=== PATIENT | male | born 1955 | race Caucasian/White ===

== ENCOUNTER → 2018-07-30 07:18 | Outpatient (CLI) | payer BC, SELFPAY ==
[2018-07-30 09:13] LABS: PSA,Total- Diagnostic 3.75 ng/mL (0.0-4.0)
== END ==
PROVIDERS: Family Provider Internal Medicine; PCP Internal Medicine; Referring Provider Urology; Visit Provider Urology
DX: R97.20 Elevated prostate specific antigen [PSA] (principal)
CPT/HCPCS: 36415; 84153

== ENCOUNTER → 2020-05-20 13:14 | Outpatient (CLI) | payer BC, SELFPAY ==
--- NOTE | 2020-05-20 13:17 | CT_ITS ---
STUDY: CT ABDOMEN AND PELVIS WITH AND WITHOUT CONTRAST-CT UROGRAM REASON FOR EXAM: Male, 64 years old. Hematuria one week ago RADIATION DOSAGE (If Supplied By Facility): CTDIvol = ( 23.10 ) mGy, DLP = ( 3780.16 ) mGycm TECHNIQUE: Transaxial images were obtained from the dome of the diaphragm to the symphysis pubis with oral contrast. ml of 100mL Isovue-300 contrast was administered. Sagittal and coronal images were reconstructed. CT urogram protocol with imaging in the noncontrasted, corticomedullary and delayed phases. Individualized dose optimization techniques were used for this CT. COMPARISON: None. FINDINGS: The visualized lung bases are unremarkable. The visualized portions of the heart are within normal limits. There is decreased attenuation of the liver consistent with steatosis. Normal gallbladder and extrahepatic biliary system. Normal spleen. Normal pancreas. Normal bilateral adrenal glands. Noncontrast imaging demonstrates a punctate calcification in the posterior left mid kidney on image 38 of series 2 measuring 3 mm. following IV contrast, there is equal and normal enhancement of the kidneys without solid or cystic mass. CT urographic images demonstrate fragmentary (left) opacification of the ureters. No filling defects or ureteral masses. No bladder wall thickening or mass identified although trabeculated features of the bladder wall present, suggesting chronic outlet obstruction. Normal visualized stomach. Normal small intestine. There are multiple colonic diverticula consistent with diverticulosis. The appendix is visualized and appears normal. Normal abdominal aorta. Normal inferior vena cava. Normal retroperitoneum. There is severe enlargement of the prostate gland with lobular mass effect on the bladder base. Prostate calcifications are present. Normal abdominal wall. Right hip replacement causes moderate spray artifact. There are degenerative changes of the lumbar spine with canal narrowing at L3-L4 and L4-L5. CT/CT Abd/Pelvis W/WO Contrast IMPRESSION: 1. Nonobstructing left renal calculus. No hydronephrosis or solid renal masses. 2. Severe prostatomegaly. Trabeculated urinary bladder suggesting chronic outlet obstruction. 3. Hepatic steatosis. 4. Degenerative changes of the lumbar spine. Right hip replacement. Electronically Signed: Calvin Romero MD (Brooks) at 12:53 EDT , Service support ,
[2020-05-20 13:31] LABS: CREATININE FINGERSTICK 1.2 mg/dL (0.70-1.30); EGFR FINGERSTICK > 60.0000 mL/min (>60)
== END ==
PROVIDERS: PCP Internal Medicine; Visit Provider Nurse Practitioner Adult Health
DX: R31.0 Gross hematuria (principal)
CPT/HCPCS: 74178; Q9967

== ENCOUNTER 2021-05-10 10:23 | Day surgery (SDC) | payer BC, SELFPAY ==
--- NOTE | 2021-05-05 14:08 | EKG12_ITS ---
Test Reason : PREOP Blood Pressure : / mmHG Vent. Rate : 071 BPM Atrial Rate : 071 BPM P-R Int : 148 ms QRS Dur : 088 ms QT Int : 396 ms P-R-T Axes : 029 022 029 degrees QTc Int : 430 ms Normal sinus rhythm Normal ECG Confirmed by ODELL VASQUEZ, ARABELLA ([id number]), supervising editor news reel OSMAN CABRERA ([id number]) on 05/09/2021 7:50:49 AM Referred By: Jeremy Chinchilla Confirmed By:ARABELLA BAIN MD
[2021-05-10] VITALS (9 sets, daily range): BP systolic 102–140; BP diastolic 57–92; PULSE 60–76; RESP 16–18; TEMP 35.7–36.6; O2SAT 96–100; BMI 27.1
--- NOTE | 2021-05-10 | PROS_PTH ---
PATIENT: JORY STEPHENS [place] [facility] [place][id number] AGE/SX: 65/M ROOM: RE05/10/[address]: Dr. Jeremy Chinchilla MD : [id number] BED: DIS: 05/12/2021 SPEC #: [id number] RECD: 05/10/21 14:54 STATUS: KYRIE REGeorges #: [id number] JOVANY: 05/10/21 00:[address]: Jeremy Chinchilla DEPT: SURGICAL PATHOLOGY RECD BY: Richie Quijano ENTERED: 05/11/21 08:24 SP TYPE: TURP OTHR DR: Dr. Fabio Schumacher MD Tissues: Prostate, NOS Procedures: Surgery Specimen Level IV HEADER OPERATION: Cysto, TUR prostate, Olympus PRE-OP DIAGNOSIS: BPH with obstruction TISSUE SUBMITTED: Prostate tissue MICROSCOPIC DIAGNOSIS Prostate, transurethral resection: Benign nodular hyperplasia, glandular and stromal types. Mild chronic inflammation. Benign urothelium and squamous mucosa. AM:devon 05/12/2021 MICROSCOPIC DESCRIPTION Slides are reviewed. GROSS DESCRIPTION Received is one container labeled with the patient's name and designated prostate tissue. The specimen consists of multiple irregular fragments of pink-almaraz, rubbery, soft tissue that in aggregate weigh 42.2 gm and measure in aggregate 8 x 8 x 3 cm. Occupational Therapy Technician tissue is submitted in 10 cassettes. / SJ:devon 05/11/21 TC:3 CPT: 95899
[2021-05-10] MEDS: Lactated Ringers 1,000 ML 100 ML IV ×2 (10:45→14:48)
[2021-05-10] MEDS: Cefazolin 2 GM in 0.9% Normal Saline 100 ML IV (12:25)
--- NOTE | 2021-05-10 12:27 | PCM.HP.STD ---
HPI - General HPI Narrative JORY STEPHENS, is a 65 M who presents for TURP PFS Medical History (Updated 05/04/21 @ 11:56 by Sandrita Douglas) Alcohol use Arthritis Former smoker Gastric reflux History of diverticulitis History of stress test Hx of closed dislocation of finger Hx of closed fracture of nasal bones Hypertension Kidney stone Wears glasses Home Medications omeprazole 20 mg PO DAILY 06/13/16 [History Last Taken 05/10/21 08:00] silodosin [Rapaflo] 8 mg PO QHS 06/13/16 [History Last Taken 03/26/17 23:00] finasteride 5 mg PO QHS 01/30/17 [History Last Taken 03/26/17 23:00] losartan 25 mg PO DAILY 05/04/21 [History Last Taken 05/10/21 08:00] multivitamin 1 tab PO DAILY 05/04/21 [History Last Taken Unknown] ciprofloxacin HCl 500 mg PO BID #10 tab 05/10/21 [Rx Last Taken Unknown] ibuprofen 600 mg PO Q6H PRN #20 tab 05/10/21 [Rx Last Taken Unknown] Allergy/AdvReac Type Severity Reaction Status Date / Time aspirin AdvReac Upset Verified 05/10/21 10:52 Stomach Surgical History (Updated 05/04/21 @ 11:56 by Sandrita Douglas) Hx of hernia repair Hx of total hip arthroplasty Social History Smoking Status: Former smoker Vital Signs Vital Signs Vital Signs: 05/10/21 10:45 Temperature 97.6 F L Temperature Source Temporal Pulse Rate 66 Respiratory Rate 18 Respiratory Pattern Normal Blood Pressure 140/87 H Blood Pressure Mean 104 Blood Pressure Source Monitor Blood Pressure Position Sitting Blood Pressure Location Left Arm Pulse Ox 100 Oxygen Delivery Method Room Air Weight Weight: 98.5 kg Body Mass Index (BMI) 27.1
--- NOTE | 2021-05-10 12:27 | PCM.DC ---
Discharge Instructions Diet Discharge Diet: Light diet - advance as tolerated and Soft diet Activity Discharge Activity: May Not Drive (while taking narcotic pain medications.) May resume sexual activity in: 6-8 weeks Lifting Restrictions: no heavy lifting Dressing / Incision Call your doctor if you observe: Fever of 101 or Higher Cleanse incision/area with: Keep Dressing Clean & Dry Catheter: Gomez to leg bag and Gomez to large bag Drain: [place] Follow Up Care Please Follow Up With: Jeremy Chincihlla MD When: Call [phone] for an appointment Test Results: Test results from this visit will be discussed in further detail at your follow-up appointment, if applicable. Discharge Plan Admission Primary Reason for Your Visit: sebastien Attending Provider: Jeremy Chinchilla Primary Care Provider: Fabio Schumacher Instructions Patient Instructions: SEBASTIEN Home Recovery Discharge Orders/Prescriptions Prescriptions: New ibuprofen 600 mg tablet 600 mg PO Q6H PRN (Reason: pain) Qty: 20 RF: 0 ciprofloxacin HCl 500 mg tablet 500 mg PO BID Qty: 10 RF: 0 Continued omeprazole 20 MG capsule 20 mg PO DAILY RF: 0 silodosin [Rapaflo] 8 MG capsule 8 mg PO QHS RF: 0 finasteride 5 MG tablet 5 mg PO QHS RF: 0 losartan 25 mg tablet 25 mg PO DAILY RF: 0 multivitamin Tablet 1 tab PO DAILY RF: 0 Referrals / Follow Up: Jreemy Chinchilla MD [STAFF PHYSICIAN] - Fabio Schumacher MD [Primary Care Provider] - Disposition Disposition (needs filled in before D/C Order can be placed): Home, Self Care
--- NOTE | 2021-05-10 12:28 | OP.PCM_ITS ---
Report of Operation Date of Procedure: 05/10/21 Pre-Operative Diagnosis: bph with obstruction Post-Operative Diagnosis: same Surgery/Procedure Performed:: transurethral resection of prostate Description of Surgical Findings:: In the preoperative setting I discussed with the patient how the surgery would be done with expect afterwards. We discussed how a prostate resection is done and we discussed the risk of the surgery including, bleeding, infection, retrograde ejaculation, changes with ejaculation or intercourse,. We discussed the possibility that the resection of the prostate may not alleviate his urinary symptoms. We discussed the small risk of developing scar tissue along the urethral channel and strictures. We also discussed the chance of the prostate could grow back and he may need further surgery or treatment in the future for prostate problems. Patient was taken back to the operating room, timeout procedure was performed, he was identified and marked and placed on the operating room table. He underwent general anesthesia. He was placed in dorsolithotomy position. Penis and testicles were prepped and draped in usual sterile fashion. Went into the bladder using the visual obturator with a resectoscope. Once inside the bladder identified the right and left ureteral orifice. I then identified the prostate and the anatomy of the prostate. I marked out the area of the sphincter and the verumontanum was identified. I then proceeded with the prostate resection first resected the median lobe. And then resected the right lobe of the prostate. Then to resect the left lobe of the prostate. I then resected the apical tissue of the prostate. He had a very very large prostate with significant intravesicle tissue that was all resected. Made sure that there was no injury to the sphincter or the verumontanum was still intact. At the end of the resection all the chips were Ellik out of the bladder. I then identified the left and right ureteral orifice and these were confirmed to be in good position and effluxing and not injured. The resectoscope was removed, a 22 [place] Citizen catheter was placed. And the urine was fairly light pink color and draining normally. He was taken back to the PACU in good condition. Surgeon: jamar Drains: 20 fr cisse Admit VTE Documentation VTE Present on Admission: No VTE Mechan Device Prophylaxis: SCD's VTE Pharm Prophylaxis ordered?: No
--- NOTE | 2021-05-10 15:36 | SUR.PHASEI ---
Patient awaiting transportation to [facility] from PACU. VSS. CBI infusing.
[2021-05-10] MEDS: 0.9% Normal Saline 1,000 ML 125 ML IV (16:47)
[2021-05-10] MEDS: Finasteride 5 MG Tablet PO (21:14)
[2021-05-10] MEDS: Tamsulosin HCl 0.4 MG Capsule 0.8 MG PO (21:14)
[2021-05-11] VITALS: BP 102/47; PULSE 62; RESP 16; TEMP 36.9; O2SAT 96
[2021-05-11] MEDS: 0.9% Normal Saline 1,000 ML 125 ML IV ×3 (00:48→17:11)
[2021-05-11 05:00] VITALS: BP 104/58; PULSE 67; RESP 16; TEMP 37.1; O2SAT 97
--- NOTE | 2021-05-11 07:51 | PCM.PN.BLA ---
Progress Note Status post TURP yesterday very large prostate continue with irrigation still has bleeding too soon to take out the catheter too soon at home go home with a catheter. Hopefully tomorrow the bleeding will stop and he will go home tomorrow with a catheter will remove it for voiding trial.
[2021-05-11] MEDS: Multivitamins,Therapeutic Tablet 1 TABLET PO (08:35)
[2021-05-11 08:44] VITALS: BP 113/50; PULSE 74; RESP 16; TEMP 36.8; O2SAT 98
[2021-05-11 11:46] VITALS: BP 106/60; PULSE 72; RESP 16; TEMP 36.5; O2SAT 98
[2021-05-11] MEDS: Pantoprazole Sodium 20 MG Tablet PO (11:55)
[2021-05-11] MEDS: Losartan Potassium 25 MG Tablet PO (11:55)
[2021-05-11] MEDS: Tamsulosin HCl 0.4 MG Capsule 0.8 MG PO (17:12)
[2021-05-11 17:13] VITALS: BP 113/73; PULSE 69; RESP 16; TEMP 36.4; O2SAT 97
[2021-05-11 19:50] VITALS: BP 110/62; PULSE 79; RESP 16; TEMP 36.8; O2SAT 95
[2021-05-11] MEDS: Finasteride 5 MG Tablet PO (21:04)
[2021-05-12] MEDS: 0.9% Normal Saline 1,000 ML 125 ML IV ×2 (00:55→08:14)
[2021-05-12 02:00] VITALS: BP 105/68; PULSE 78; RESP 16; TEMP 37.1; O2SAT 96
--- NOTE | 2021-05-12 07:11 | PCM.PN.BLA ---
Progress Note Status post TURP today the urine is much more clear, remove the Gomez catheter for voiding trial and go home after he urinates.
[2021-05-12 08:03] VITALS: BP 119/87; PULSE 96; RESP 18; TEMP 36.9; O2SAT 99
[2021-05-12] MEDS: Multivitamins,Therapeutic Tablet 1 TABLET PO (08:14)
[2021-05-12] MEDS: Pantoprazole Sodium 20 MG Tablet PO (08:14)
[2021-05-12] MEDS: Losartan Potassium 25 MG Tablet PO (08:14)
[2021-05-12 11:14] VITALS: BP 134/73; PULSE 73; RESP 16; TEMP 36.8; O2SAT 99
== END 2021-05-12 11:53 | disposition home or self-care (01) ==
LOC: SDC 10:24 → AC 10:25 → MS3 05-11 15:58
PROVIDERS: PCP Internal Medicine; Referring Provider Urology; Visit Provider Urology
PROC: (CPT 52601; principal; 2021-05-10 12:20)
DX: N40.1 Benign prostatic hyperplasia with lower urinary tract symptoms (principal); N13.8 Other obstructive and reflux uropathy; Z23 Encounter for immunization; K21.9 Gastro-esophageal reflux disease without esophagitis; M19.90 Unspecified osteoarthritis, unspecified site; I10 Essential (primary) hypertension; Z87.891 Personal history of nicotine dependence; Z79.899 Other long term (current) drug therapy
CPT/HCPCS: 00914; 52601; 88305; 93005; J7030; J7120; 90686; J2405

== ENCOUNTER 2021-10-05 16:31 | Outpatient (CLI) | payer BC, SELFPAY ==
[2021-10-05 17:46] LABS: PSA,Total - Annual Screen 1.46 ng/mL (0.00-4.00)
== END 2021-10-05 23:59 | disposition home or self-care (01) ==
LOC: LAB 16:32
PROVIDERS: PCP Internal Medicine; Referring Provider Urology; Visit Provider Urology
DX: Z12.5 Encounter for screening for malignant neoplasm of prostate (principal)
CPT/HCPCS: 36415; 84153; G0103

== ENCOUNTER → 2023-11-09 | Outpatient (CLI) | payer BC, SELFPAY | END | disposition home or self-care (01) | LOC: LAB 08:32 | PROVIDERS: PCP Internal Medicine; Referring Provider Urology; Visit Provider Urology | DX: R97.20 Elevated prostate specific antigen [PSA] (principal) | CPT/HCPCS: 36415; 84153 ==

== ENCOUNTER 2025-03-07 13:10 | Emergency (ER) | payer BC, SELFPAY ==
[2025-03-07 13:10] VITALS: BP 178/100; PULSE 91; RESP 14; TEMP 36.7; O2SAT 98; BMI 28.0
--- NOTE | 2025-03-07 13:30 | EDS_ITS ---
HPI History of Present Illness Chief Complaint: Complaint Informant: patient Onset/Context/Timing Onset: Today Context: Sudden Onset Timing: Continuous Quality: Aching Location: Suprapubic Worsened by: Nothing Relieved by: Nothing Narrative Narrative: Patient presents with hematuria that began this morning. Patient states it began rather suddenly. Patient states he has been passing dark blood in his urine. Patient admits to some aching pain in the suprapubic area. Patient states nothing makes it worse and nothing makes it better. Patient denies any fevers or chills. Patient admits to some urinary frequency but denies any dysuria. Patient denies any nausea or vomiting. Patient denies any chest pain or shortness of breath. Patient states he did have sexual intercourse this morning and had no difficulties with that. [facility] Medical History (Updated 03/07/25 @ 17:[address] Lei Gabriel, ) Wears glasses Alcohol use Arthritis Kidney stone History of diverticulitis Gastric reflux Former smoker History of stress test Hypertension Hx of closed dislocation of finger Hx of closed fracture of nasal bones Home Medications ?Medication ?Instructions ?Recorded ?Last Taken ?Type omeprazole 20 mg capsule,delayed 20 mg PO DAILY 05/10/21 08:00 History release silodosin 8 mg capsule (Rapaflo) 8 mg PO QHS 06/13/16 03/26/17 23:00 History finasteride 5 mg tablet 5 mg PO QHS 01/30/17 7 23:00 History multivitamin 1 tab PO DAILY 05/04/21 Unkn own History ibuprofen 600 mg tablet 600 mg PO Q6H PRN pain #20 t abs 05/10/21 Unknown Rx allopurinol 100 mg tablet 100 mg PO DAILY 03/07/25 Unk nown History fluticasone propionate 50 spray intranasal 03/07/25 Un known History mcg/actuation nasal spray,suspension losartan 50 mg tablet 50 mg PO DAILY 03/07/25 Unkn own History Allergy/AdvReac Type Severity Reaction Status Date / Time aspirin AdvReac Upset Verified 03/07/25 13:11 Stomach Surgical History (Updated 03/07/25 @ 13:[address] Lei Gabriel, DO) Hx of transurethral resection of prostate Hx of hernia repair Hx of total hip arthroplasty Social History Smoking Status: Former smoker ROS ROS ED Constitutional Constitutional ED: Denies chills or fever(s) Eyes Eyes: Denies blurry vision or change in vision ENT ENT ED: Denies rhinorrhea or sore throat Cardiovascular Cardiovascular: Denies chest pain or palpitations Respiratory/Chest Respiratory/Chest: Denies cough or dyspnea Gastrointestinal Gastrointestinal: Denies nausea or vomiting Genitourinary Genitourinary ED: Reports hematuria and urinary frequency; Denies dysuria Musculoskeletal Musculoskeletal: Denies back pain or neck pain Integumentary Denies abscess or rash Neurologic Neurologic: Denies headache(s) or weakness Allergic/Immunologic Allergic/Immunologic ED: Denies mouth swelling or urticaria EXAM Physical Exam Const Vital Signs: 03/07/25 13:10 Temperature 98.1 F Temperature Source Temporal Pulse Rate 91 Respiratory Rate 14 Blood Pressure 178/100 H Blood Pressure Mean 126 Pulse Ox 98 Oxygen Delivery Method Room Air Positive well nourished and well developed Constitutional Narrative: BMI is 28.0. General Appearance ED: well developed and NAD HEENT Reports moist mucous membranes Neck supple and no JVD Resp normal respiratory effort and clear to auscultation bilaterally Cardio regular rate and regular rhythm GI non-tender and non-distended Palpation: soft Extremity normal to inspection General Extremety ED: Negative for edema or tenderness General Extremity: Negative for edema Neuro oriented x3, CN's II-XII intact bilaterally and no sensory deficits noted Sensorium / Orientation: alert Motor Exam: strength 5/5 throughout Psych mental status grossly normal MDM MDM MDM Narrative Medical decision making narrative: Differential diagnosis includes hemorrhagic cystitis, ureteral calculus, pyelonephritis, bladder mass, renal mass, and coagulopathy. CBC will be obtained to assess for leukocytosis and anemia. Basic metabolic profile will be obtained to assess for electrolyte abnormality renal function. Urinalysis will be obtained to assess for urinary tract infection and hematuria. PT with INR and PTT will be obtained to assess for coagulopathy. CT scan of the abdomen and pelvis will be obtained to assess for renal mass and bladder mass. Lab Data Attestation: I reviewed the patient's lab results. Lab results narrative: CBC was reviewed and was within normal limits. PT with INR and PTT were reviewed and were within normal limits. Basic metabolic profile was reviewed. BUN was slightly elevated at 20 and creatinine was slightly elevated at 1.51. The remainder is within normal limits. Urinalysis was reviewed. Occult blood was 250 with 10-25 red blood cells. There are 0-5 white blood cells. Labs: Laboratory Results - last 24 hr 03/07/25 13:40 WBC 8.5 RBC 4.54 L Hgb 13.9 Hct 41.5 MCV 91.4 MCH 30.6 MCHC 33.5 RDW Std Deviation 45.2 H RDW Coeff of [place] 13.5 Plt Count 291 MPV 9.5 Immature Gran % (Auto) 0.400 Neut % (Auto) 72.2 H Lymph % (Auto) 17.8 L [place] % (Auto) 8.5 Eos % (Auto) 0.6 Baso % (Auto) 0.5 Absolute Neuts (auto) 6.1 Absolute Lymphs (auto) 1.50 Nucleated RBC % 0 PT 13.1 INR 1.0 APTT 24.7 Sodium 142 Potassium 4.5 Chloride 108 Carbon Dioxide 22.2 Anion Gap 12 BUN 20 H Creatinine 1.51 H Estim Creat Clear Calc 58.00 Est GFR (MDRD) Non-Af 49 L BUN/Creatinine Ratio 13.0 Glucose 93 Calcium 9.1 Urine Color Brown Urine Clarity Turbid Urine pH 6.5 Ur Specific [place] 1.020 Urine Protein 500 H Urine Glucose (UA) Normal Urine Ketones 5 H Urine Occult Blood 250 H Urine Nitrite Negative Urine Bilirubin Negative Urine Urobilinogen Normal Ur Leukocyte Esterase 25 H Urine RBC 10-25 SEEN Urine WBC 0-5 SEEN Ur Squamous Epith Cells 0 SEEN Urine Bacteria 1+ Urine Mucus 0 SEEN Radiography Diagnostic Testing: Clinical Impression(s) from Imaging Studies Abdomen/Pelvis CT 03/07/25 13:58 IMPRESSION: 1. No renal mass. Subcentimeter nonobstructive left renal stone. No hydroureteronephrosis. 2. Enlarged prostate with lobular impression on the urinary bladder. 3. Diffuse hepatic steatosis. Reading Location: [facility] CT scan of the abdomen and pelvis was obtained. There is no renal mass. There is a nonobstructing left renal stone. There is no hydroureter or hydronephrosis. There is an enlarged prostate. This was interpreted by the radiologist and was also independently reviewed by myself. Treatment and Re-Evaluation :: Patient was advised of his findings. Patient states he urinated here in the emergency department 2-3 times. Patient states that his hematuria is starting to clear up. Patient was advised to follow-up with his urologist in 3 to 5 days. Patient was instructed to return if worse in any way. Patient understood and was agreeable with the plan. All questions were answered. Discharge Plan Triage Chief Complaint: Complaint ED Provider: Lei Gabriel Dx/Rx/DC Orders Clinical Impression: Hematuria, Enlarged prostate Instructions: ED Hematuria Prescriptions: No Action omeprazole 20 MG capsule 20 mg PO DAILY Patient Comments: acid reflux silodosin [Rapaflo] 8 MG capsule 8 mg PO QHS Patient Comments: Prostate finasteride 5 MG tablet 5 mg PO QHS Patient Comments: prostate multivitamin Tablet 1 tab PO DAILY ibuprofen 600 mg tablet 600 mg PO Q6H PRN (Reason: pain) Qty: 20 0RF losartan 50 mg tablet 50 mg PO DAILY allopurinol 100 mg tablet 100 mg PO DAILY fluticasone propionate 50 mcg/actuation spray,suspension INTRANASAL Primary Care Provider: Fabio Schumacher Referrals: Jeremy Chinchilla MD [Med Staff - Active Staff] - 3-5 Days Fabio Schumacher MD [Primary Care Provider] - 5-7 Days Print Language: Eritrean Disposition Disposition: Home, Self Care
--- OUTSIDE RECORDS SUMMARY | 2025-03-07 13:43 | XMS RPT_ITS | CCD ---
Author Organization [facility] Care Team Providers Care Production Tester Name Role Phone Magnolia Cruz Unavailable Unavailable Tavallaee, Faibo M Unavailable Unavailable Tavallaee, Fabio Unavailable Unavailable Tavallaee, Fabio M Unavailable Unavailable Unavailable Tavallaee, Fabio M Unavailable [phone] Edvin James Unavailable Unavailable Edvin James Attending Unavailable Tavallaee, Fabio Primary Care Unavailable Tavallaee, Fabio Admitting Unavailable Tavallaee, Fabio Referring Unavailable Tavallaee, Fabio Attending Unavailable Tavallaee, Fabio Primary Care Unavailable Tavallaee, Fabio Referring Unavailable Tavallaee, Fabio Attending Unavailable Tavallaee, Fabio Primary Care Unavailable Tavallaee Fabio VASQUEZ Primary Care Provider Tavallaee, Fabio Primary Care Unavailable Jeremy Escalante Referring Unavailable Jeremy Escalante Attending Unavailable TAVALLAEE, FABIO MONAZZAM Primary Care Unav ailable CHENCHO JULIAN Attending Unavailable TAVALLAEE, FABIO MONAZZAM Primary Care Unav ailable ASH COLLINS Attending Unavailable TAVALLAEE, FABIO MONAZZAM Primary Care Unav ailable ASH COLLINS Referring Unavailable ASH COLLINS Admitting Unavailable TAVALLAEE, FABIO M Primary Care Unavailable TAVALLAEE, FABIO Tian Primary Care Unavailable TAVALLAEE, FABIO Tian Primary Care Unavailable TAVALLAEE, FABIO Tian Primary Care Unavailable Davionallmoe Fabio VASQUEZ Primary Care Provider TAVALLMOE, FABIO M Attending Unavailable TAVALLAEE, FABIO M Primary Care Unavailable MAGNOLIA CRUZ Attending Unavailable TAVALLAEE, FABIO M Primary Care Unavailable TAVALLAEE, FABIO M Attending Unavailable TAVALLAEE, FABIO M Primary Care Unavailable TAVALLAEE, FABIO M Attending Unavailable TAVALLAEE, FABIO M Primary Care Unavailable TAVALLAEE, FABIO M Attending Unavailable TAVALLAEE, FABIO M Primary Care Unavailable TAVALLAEE, FABIO M Attending Unavailable TAVALLAEE, FABIO M Primary Care Unavailable TAVALLAEE, FABIO M Attending Unavailable TAVALLAEE, FABIO M Primary Care Unavailable TAVALLAEE, FABIO M Primary Care Unavailable EDVIN JAMES Attending Unavailable TAVALLAEE, FABIO M Primary Care Unavailable GERARDO ALCANTARA Attending Unavailable TAVALLAEE, FABIO M Primary Care Unavailable EDVIN JAMES Attending Unavailable TAVALLAEE, FABIO M Primary Care Unavailable EDVIN JAMES Attending Unavailable EDVIN JAMES Referring Unavailable TAVALLAEE, FABIO M Primary Care Unavailable TAVALLAEE, FABIO M Referring Unavailable TAVALLAEE, FABIO M Primary Care Unavailable Allergies Allergy Classification Reported Allergen(s) Allergy Type Date of Onset Reaction(s) Facility (7 sources) Aspirin; Translations: [ASPIRIN] Drug Allergy 05-10-[address] [facility] (1 source) Aspirin Drug Allergy 05-10-[address] [facility] Repository Medications Current Medications Medication Drug Class(es) Dates Sig (Normalized) Sig (Original) acetaminophen 325 mg / oxyCODONE hydrochloride 5 mg oral tablet (1 source) Opioid Agonist Start: 12-07-2023 End: 12-10-2023 take 1 tablet by mouth every six hours for pain oxyCODONE-acetamin ophen (Percocet) 5-325 mg tablet Indications: Acute gout of left foot, unspecified cause Take 1 tablet by mouth every 6 hours if needed for severe pain (7 - 10) for up to 3 days. 12 tablet 12/07/2023 12/10/2023 Active [id number] 200 actuat albuterol 0.09 mg/actuat metered dose inhaler (8 sources) beta2-Adrenergic Agonist Start: 01-11-2024 take 1-2 puff(s) by inhalation every four hours for wheezing albuterol 90 mcg/actuation inhaler Indications: Acute bronchitis, unspecified organism Inhale 1-2 puffs every 4 hours if needed for wheezing or shortness of breath. 8.5 g 01/11/2024 Active allopurinol 100 mg oral tablet (3 sources) Xanthine Oxidase Inhibitor Start: 04-27-2024 End: 04-27-2025 take 1 tablet by mouth once daily allopurinol (Zyloprim) 100 mg tablet Indications: Hyperuricemia Take 1 tablet (100 mg) by mouth once daily. 90 tablet 3 04/27/2024 04/27/2025 Active azithromycin 250 mg oral tablet (5 sources) Macrolide Antimicrobial Start: 01-11-2024 End: 03-25-2024 azithromycin (Zithromax Z-Clint) 250 mg tablet Indications: Acute bronchitis, unspecified organism Take 2 tablets by mouth at once on day 1, then 1 tablet once a day on days 2-5. Take with a meal. 6 tablet 01/11/2024 03/25/2024 Discontinued (Therapy completed) benzonatate 100 mg oral capsule (5 sources) Non-narcotic Antitussive Start: 01-11-2024 End: 03-25-2024 take 1-2 capsules by mouth every eight hours for cough benzonatate (Tessalon) 100 mg capsule Indications: Acute bronchitis, unspecified organism Take 1-2 capsules (100-200 mg) by mouth every 8 hours if needed for cough. Do not crush or chew. 60 capsule 01/11/2024 03/25/2024 Discontinued (Therapy completed) ciprofloxacin 500 mg oral tablet (2 sources) Quinolone Antimicrobial Start: 05-10-2021 take 500 mg by mouth twice daily Ciprofloxacin Hcl Active 500 MG PO TWICE A DAY May 10, 2021 12:24pm 1 ml dexamethasone phosphate 4 mg/ml injection (1 source) Corticosteroid Start: 03-18-2024 dexAMETHasone (Decadron) injection 4 mg Start: 03-18-2024 dexAMETHasone (Decadron) injection 4 mg diclofenac sodium 0.01 mg/mg topical gel (1 source) Nonsteroidal Anti-inflammatory Drug Start: 05-22-2023 End: 06-21-2023 diclofenac sodium (Voltaren) 1 % gel gel Indications: Primary osteoarthritis of both wrists Apply 1 Application topically 2 times a day as needed (pain). 100 g 0 05/22/2023 06/21/2023 Active doxycycline monohydrate 100 mg oral tablet (2 sources) Tetracycline-class Drug Start: 01-17-2024 End: 01-27-2024 take 1 tablet by mouth twice daily doxycycline (Adoxa) 100 mg tablet Indications: Acute bronchitis, unspecified organism Take 1 tablet (100 mg) by mouth 2 times a day for 10 days. Take with a full glass of water and do not lie down for at least 30 minutes after. 20 tablet 01/17/2024 01/27/2024 Active Start: 11-17-2023 End: 11-27-2023 take 1 tablet by mouth twice daily doxycycline (Vibra-Tabs) 100 mg tablet Take 1 tablet (100 mg) by mouth twice a day. 11/17/2023 11/27/2023 Active etodolac 500 mg oral tablet (3 sources) Nonsteroidal Anti-inflammatory Drug Start: 03-18-2024 End: 03-25-2024 take 1 tablet by mouth twice daily as needed for pain etodolac (Lodine) 500 mg tablet Indications: Right foot pain , Gouty arthritis Take 1 tablet (500 mg) by mouth 2 times a day as needed (pain) for up to 7 days. 14 tablet 03/18/2024 03/25/2024 Active fluticasone propionate 0.05 mg/actuat metered dose nasal spray (20 sources) Corticosteroid Start: 04-02-2024 take 2 spray(s) nasal route once daily fluticasone (Flonase) 50 mcg/actuation nasal spray Indications: Allergic rhinitis, unspecified seasonality, unspecified trigger USE 2 SPRAYS IN EACH NOSTRIL ONCE DAILY 48 g 3 04/02/2024 Active Start: 04-08-2023 take 2 spray(s) nasa l route once daily fluticasone (Flonase) 50 mcg/actuation nasal spray Indications: Allergic rhinitis, unspecified seasonality, unspecified trigger USE 2 SPRAYS IN EACH NOSTRIL ONCE DAILY 48 g 3 04/08/2023 Active Start: 05-29-2021 take 2 spray(s) nasa l route once daily Flonase Allergy Relief 50 mcg/actuation nasal spray Administer 2 sprays into affected nostril(s) once daily. 0 05/29/2021 Active Start: 05-29-2021 take 2 spray(s) nasa l route once daily Flonase Allergy Relief 50 MCG/ACT Nasal Suspension USE 2 SPRAYS IN EACH NOSTRIL ONCE DAILY Quantity: 3 Refills: 3 Ordered: 16-Apr-2022 Fabio Grace MD Start : 29-May-2021 Active Flonase Quantity : 0 Refills: 0 Ordered: 15-Jun-2022 Hayley Jade Generic Substitution Allowed ibuprofen 600 mg oral tablet (2 sources) Nonsteroidal Anti-inflammatory Drug Start: 05-10-2021 take 600 mg by mouth every six hours Ibuprofen Active 600 MG PO EVERY 6 HOURS May 10, 2021 12:24pm losartan potassium 50 mg oral tablet (20 sources) Angiotensin 2 Receptor Grayson Start: 09-23-2024 losartan (Cozaar) 50 mg tablet Indications: Hypercholesterolemia TAKE 1 TABLET DAILY 90 tablet 3 09/23/2024 Active Start: 09-29-2023 losartan (Coza ar) 50 mg tablet Indications: Hypercholesterolemia TAKE 1 TABLET DAILY 90 tablet 3 09/29/2023 Active Start: 11-14-2020 take 25 mg by mouth once daily Losartan Active 25 MG PO DAILY May 04, 2021 12:00am Start: 11-14-2020 take 1 tablet by jose th once daily losartan (Cozaar) 50 mg tablet Take 1 tablet (50 mg) by mouth once daily. 0 11/14/2020 Active losartan Quantit y: 0 Refills: 0 Ordered: 15-Jun-2022 Hayley Jade Generic Substitution Allowed Multivitamin preparation (2 sources) Start: 05-04-2021 take 1 tablet by mouth once daily Multivitamin Active 1 TABLET PO DAILY May 04, 2021 11:49am Start: 05-04-2021 take 1 tablet by jose th once daily Multivitamin Active 1 TABLET PO DAILY May 04, 2021 12:00am omeprazole 20 mg delayed release oral capsule (20 sources) Proton Pump Inhibitor Start: 04-09-2024 omeprazole (PriLOSEC ) [address] capsule Indications: Gastroesophageal reflux disease without esophagitis TAKE 1 CAPSULE DAILY IN THE MORNING BEFORE A MEAL 90 capsule 3 04/09/2024 Active Start: 06-13-2016 take 1 capsule by mo [facility] once daily before mealtime omeprazole (PriLOSEC) [address] capsule Indications: Gastroesophageal reflux disease without esophagitis Take 1 capsule (20 mg) by mouth once daily in the morning. Take before meals. 90 capsule 3 04/15/2023 Active omeprazole Quant ity: 0 Refills: 0 Ordered: 15-Jun-2022 Hayley Jade Generic Substitution Allowed terbinafine 250 mg oral tablet (3 sources) Allylamine Antifungal Start: 10-26-2024 End: 01-24-2025 take 1 tablet by mouth once daily terbinafine (LamISIL) 250 mg tablet Indications: Onychomycosis Take 1 tablet (250 mg) by mouth once daily. 90 tablet 10/26/2024 01/24/2025 Active Completed/Discontinued Medications Medication Drug Class(es) Dates Sig (Normalized) Sig (Original) amoxicillin 500 mg oral tablet (1 source) Penicillin-class Antibacterial Start: 06-04-2019 take 1 tablet by mouth once daily Amoxicillin 500 MG Oral Tablet TAKE 1 TABLET EVERY 8 HOURS DAILY. Quantity: 21 Refills: 0 Magnolia Cruz MD Start : 04-Jun-2019 Active Start: 06-04-2019 take 1 tablet by jose once daily Amoxicillin 500 MG Oral Tablet TAKE 1 TABLET EVERY 8 HOURS DAILY. Quantity: 21 Refills: 0 Magnolia Cruz MD Start : 04-Jun-2019 Active amoxicillin 875 mg / clavulanate 125 mg oral tablet (2 sources) Penicillin-class Antibacterial Start: 06-29-2021 take 1 tablet by mouth twice daily Amoxicillin-Pot Clavulanate 875-125 MG Oral Tablet 1 tab bid for 10 days Quantity: 20 Refills: 0 Ordered: 29-Jun-2021 Natasha Murphy Start : 29-Jun-2021 Active carbamide peroxide 65 mg/ml otic solution (2 sources) Start: 11-14-2020 End: 01-25-2021 Debrox 6.5 % Otic Solution READ AND FOLLOW BUDGET SPECIALIST'S INSTRUCTIONS ON BOX. Quantity: 1 Refills: 1 Ordered: 14-Nov-2020 Hemant NICOLE Nida Start : 14-Nov-2020 End : 25-Jan-2021 Complete colchicine 0.6 mg oral tablet (2 sources) Start: 12-17-2023 End: 12-25-2023 take 1 tablet by mouth twice daily colchicine 0.6 mg tablet Indications: Acute gout of left foot, unspecified cause Take 1 tablet (0.6 mg) by mouth 2 times a day for 7 days. 14 tablet 12/17/2023 12/25/2023 Discontinued (Therapy completed) finasteride 5 mg oral tablet (18 sources) 5-alpha Reductase Inhibitor Start: 01-30-2017 take 1 tablet by mouth once daily Finasteride 5 MG Oral Tablet TAKE 1 TABLET DAILY. Quantity: 0 Refills: 0 Ordered: 21-Apr-2019 DO Start : 02-Mar-2019 Active lisinopril 5 mg oral tablet (6 sources) Angiotensin Converting Enzyme Inhibitor Start: 12-08-2018 take 1 tablet by mouth once daily Lisinopril 5 MG Oral Tablet TAKE 1 TABLET DAILY. Quantity: 30 Refills: 5 Start : 08-Dec-2018 Active lisinopril Quant ity: 0 Refills: 0 Ordered: 15-Jun-2022 Hayley Jade Generic Substitution Allowed methylPREDNISolone (2 sources) Corticosteroid Start: 12-17-2023 End: 12-25-2023 methylPREDNISolone (Medrol Dospak) 4 mg tablets Indications: Acute gout of left foot, unspecified cause , Left foot pain Follow schedule on package instructions 21 tablet 12/17/2023 12/25/2023 Discontinued (Therapy completed) Start: 12-17-2023 methylPREDNISo lone (Medrol Dospak) 4 mg tablets Indications: Acute gout of left foot, unspecified cause , Left foot pain Follow schedule on package instructions 21 tablet 12/17/2023 Active naproxen 500 mg oral tablet (2 sources) Nonsteroidal Anti-inflammatory Drug Start: 12-17-2023 End: 12-25-2023 take 1 tablet by mouth twice daily as needed for pain naproxen (Naprosyn) 500 mg tablet Indications: Acute gout of left foot, unspecified cause Take 1 tablet (500 mg) by mouth 2 times a day as needed for mild pain (1 - 3) (pain) for up to 5 days. 10 tablet 12/17/2023 12/25/2023 Discontinued (Therapy completed) predniSONE 10 mg oral tablet (14 sources) Start: 01-11-2024 End: 10-26-2024 take 6 tablets by mouth once daily, then take 5 tablets by mouth once daily, then take 4 tablets by mouth once daily, then take 3 tablets by mouth once daily, then take 2 tablets by mouth once daily, then take 1 tablet by mouth once daily predniSONE (Deltasone) 10 mg tablet Indications: Acute bronchitis, unspecified organism Take 6 tabs PO daily x1 day, then take 5 tabs daily x1 day, then take 4 tabs daily x1 day, then take 3 tabs daily x1 day, then take 2 tabs daily x1 day, then take 1 tab daily x1 day. Take with a meal. 21 tablet 01/17/2024 10/26/2024 Discontinued (Therapy completed) Start: 12-07-2023 End: 12-17-2023 take 1 tablet by mouth once daily predniSONE (Deltasone) 50 mg tablet Indications: Acute gout of left foot, unspecified cause Take 1 tablet (50 mg) by mouth once daily for 7 days. 7 tablet 12/07/2023 12/17/2023 Discontinued (Therapy completed) Start: 07-29-2019 take 1 tablet by jose th three times daily predniSONE 10 MG Oral Tablet TAKE 1 TABLET 3 TIMES DAILY. Quantity: 15 Refills: 0 Winsome VASQUEZ, Fabio Start : 29-Jul-2019 Active sildenafil 20 mg oral tablet (20 sources) Phosphodiesterase 5 Inhibitor Start: 07-31-2018 Sildenafil Citrate 20 MG Oral Tablet TAKE 3 TABLETS BY MOUTH NEEDED Quantity: 30 Refills: 0 Ordered: 03-Jun-2019 DO Start : 31-Jul-2018 Active silodosin 8 mg oral capsule (18 sources) alpha-Adrenergic Grayson Start: 06-13-2016 take 1 capsule by mouth once daily at mealtime Rapaflo 8 MG Oral Capsule TAKE 1 CAPSULE DAILY WITH FOOD. Quantity: 0 Refills: 0 Ordered: 02-Mar-2019 DO Start : 02-Mar-2019 Active Problems Active Problems Problem Classification Problem Date Documented Da te Episodic/Chronic Abdominal hernia (19 sources) Diaphragmatic hernia; Translations: [Diaphragmatic hernia without mention of obstruction or gangrene] Episodic Acute and chronic tonsillitis (20 sources) Enlarged tonsil; Translations: [Hypertrophy of tonsils alone] Onset: 3 10-05-2022 Chronic Diabetes mellitus with complications (20 sources) Hypertensive disorder; Translations: [Type 2 diabetes mellitus with other circulatory complications] Onset: 3 12-17-2023 Chronic Diabetes mellitus without complication (20 sources) Type 2 diabetes mellitus; Translations: [Diabetes mellitus without mention of complication, type II or unspecified type, not stated as uncontrolled] Onset: 3 11-21-2022 Chronic Diabetes mellitus without complication (5 sources) Impaired fasting glycaemia; Translations: [IFG (impaired fasting glucose)] Episodic Disorders of lipid metabolism (20 sources) Hypercholesterolemia; Translations: [Pure hypercholesterolemia] Onset: 3 11-21-2022 Chronic Diverticulosis and diverticulitis (20 sources) Diverticulosis of colon; Translations: [Diverticulosis of colon (without mention of hemorrhage)] Onset: 3 10-05-2022 Chronic Esophageal disorders (20 sources) Gastroesophageal reflux disease; Translations: [Esophageal reflux] Onset: 3 10-05-2022 Chronic Essential hypertension (20 sources) Essential hypertension; Translations: [Unspecified essential hypertension] Onset: 3 11-21-2022 Chronic Gout and other crystal arthropathies (20 sources) Calcium pyrophosphate deposition disease; Translations: [Other disorders of calcium metabolism] Onset: 3 Resolved: 4 10-05-2022 Chronic Headache; including migraine (2 sources) Headache; including migraine; Translations: [Headache, unspecified] Onset: 2 Hyperplasia of prostate (20 sources) Benign prostatic hypertrophy with outflow obstruction; Translations: [Hypertrophy (benign) of prostate with urinary obstruction and other lower urinary tract symptoms (LUTS)] Onset: 3 10-05-2022 Chronic Hypertension with complications and secondary hypertension (4 sources) Hypertension secondary to endocrine disorders; Translations: [Hypertension secondary to endocrine disorders] Onset: 4 Chronic Mycoses (3 sources) Onychomycosis; Translations: [Tinea unguium] Onset: 5 10-26-2024 Episodic Nonspecific chest pain (2 sources) Chest pain; Translations: [Chest pain, unspecified] 03-28-2017 Episodic Osteoarthritis (1 source) Bilateral wrist osteoarthritis; Translations: [Primary osteoarthritis, right wrist] 05-22-2023 Chronic Other connective tissue disease (1 source) Presence of unspecified artificial hip joint; Translations: [Presence of unspecified artificial hip joint] Onset: 3 Chronic Other connective tissue disease (1 source) Pain in left foot; Translations: [Pain in left foot] 12-17-2023 Episodic Other connective tissue disease (2 sources) Pain in left foot; Translations: [Pain in left foot] Onset: 4 Episodic Other connective tissue disease (2 sources) Foot pain Onset: 4 Episodic Other ear and sense organ disorders (14 sources) Impacted cerumen; Translations: [Impacted cerumen] Episodic Other ear and sense organ disorders (1 source) Impacted cerumen of bilateral ears; Translations: [Impacted cerumen, bilateral] 11-13-2024 Episodic Other ear and sense organ disorders (2 sources) Impacted cerumen, bilateral; Translations: [Impacted cerumen, bilateral] Onset: 5 Episodic Other endocrine disorders (20 sources) Male hypogonadism; Translations: [Other testicular hypofunction] Onset: 3 10-05-2022 Chronic Other gastrointestinal disorders (19 sources) H/O: abdominal hernia; Translations: [Personal history of other diseases of digestive system] Episodic Other injuries and conditions due to external causes (1 source) Foreign body in left ear; Translations: [Foreign body in left ear, initial encounter] 11-13-2024 Episodic Other injuries and conditions due to external causes (2 sources) Foreign body in left ear, initial encounter; Translations: [Foreign body in left ear, initial encounter] Onset: 5 Episodic Other liver diseases (20 sources) Chronic nonalcoholic liver disease; Translations: [Unspecified chronic liver disease without mention of alcohol] Onset: 3 10-05-2022 Chronic Other male genital disorders (5 sources) Impotence; Translations: [Erectile dysfunction] Chronic Other male genital disorders (20 sources) Male erectile dysfunction, unspecified; Translations: [Erectile dysfunction] Onset: 3 10-05-2022 Chronic Other non-traumatic joint disorders (4 sources) Knee pain; Translations: [Left knee pain] Episodic Other non-traumatic joint disorders (1 source) Pain in left knee; Translations: [Pain in left knee] Onset: 3 10-05-2022 Episodic Other nutritional; endocrine; and metabolic disorders (1 source) Hyperuricemia; Translations: [Hyperuricemia without signs of inflammatory arthritis and tophaceous disease] 04-27-2024 Episodic Other upper respiratory disease (20 sources) Allergic rhinitis; Translations: [Allergic rhinitis, cause unspecified] Onset: 3 10-05-2022 Chronic Residual codes; unclassified (14 sources) History of clinical finding in subject; Translations: [Personal history of other specified diseases] Episodic Residual codes; unclassified (14 sources) Pneumococcal vaccination declined; Translations: [Vaccination not carried out because of patient refusal] Episodic Comment on above: ; Residual codes; unclassified (1 source) Generalized aches and pains; Translations: [Generalized pain] 06-15-2022 Episodic Skin and subcutaneous tissue infections (2 sources) Cellulitis, unspecified; Translations: [Cellulitis, unspecified] Onset: 4 Episodic Unclassified (2 sources) FLU LIKE SYMPTOMS 06-15-2022 Comment on above: FLU LIKE SYMPTOMS Unclassified (1 source) 6 MONTH FAST LABS 05-23-2022 Comment on above: 6 MONTH FAST LABS Unclassified (1 source) Body aches 06-15-2022 Unclassified (1 source) Contact with and (suspected) exposure to COVID-19; Translations: [Contact with and (suspected) exposure to COVID-19] Onset: 2 Past or Other Problems Problem Classification Problem Date Documented Date Episodic/Chronic Acute bronchitis (4 sources) Acute bronchitis; Translations: [Acute bronchitis, unspecified] Onset: 01-11-2024 01-11-2024 Episodic Anal and rectal conditions (1 source) Rectal polyp; Translations: [Rectal polyp] Onset: 07-26-2022 Episodic Diverticulosis and diverticulitis (5 sources) Diverticulosis of colon; Translations: [Colonic diverticular disease] E Codes: Natural/environment (6 sources) Bitten or stung by nonvenomous insect and other nonvenomous arthropods, initial encounter; Translations: [Bitten or stung by nonvenomous insect and other nonvenomous arthropods, subsequent encounter] Onset: 11-17-2023 Episodic Fever of unknown origin (2 sources) Fever, unspecified; Translations: [Fever, unspecified] Onset: 06-15-2022 Episodic Genitourinary symptoms and ill-defined conditions (20 sources) Microalbuminuria; Translations: [Proteinuria] Onset: 10-05-2022 10-05-2022 Episodic Immunizations and screening for infectious disease (3 sources) Needs influenza immunization; Translations: [Encounter for immunization] Onset: 11-16-2023 05-22-2023 Episodic Lymphadenitis (20 sources) Cervical lymphadenopathy; Translations: [Enlargement of lymph nodes] Onset: 10-05-2022 10-05-2022 Episodic Malaise and fatigue (3 sources) Fatigue; Translations: [Other malaise and fatigue] Onset: 06-15-2022 06-15-2022 Episodic Other and unspecified benign neoplasm (20 sources) Polyp of colon; Translations: [Benign neoplasm of colon] Onset: 10-05-2022 05-23-2022 Episodic Comment on above: POLYP OF COLON Other and unspecified benign neoplasm (3 sources) Personal history of colonic polyps; Translations: [Personal history of colonic polyps] Onset: 07-26-2022 Episodic Other and unspecified benign neoplasm (1 source) Benign neoplasm of descending colon; Translations: [Benign neoplasm of descending colon] Onset: 07-26-2022 Episodic Other and unspecified benign neoplasm (1 source) Benign neoplasm of sigmoid colon; Translations: [Benign neoplasm of sigmoid colon] Onset: 07-26-2022 Episodic Other and unspecified benign neoplasm (1 source) Benign neoplasm of transverse colon; Translations: [Benign neoplasm of transverse colon] Onset: 07-26-2022 Episodic Other connective tissue disease (2 sources) Myalgia, unspecified site; Translations: [Myalgia, unspecified site] Onset: 06-15-2022 Episodic Other connective tissue disease (12 sources) H/O: gout; Translations: [Personal history of other diseases of the musculoskeletal system and connective tissue] Onset: 12-17-2023 12-17-2023 Episodic Other connective tissue disease (4 sources) Personal history of other diseases of the musculoskeletal system and connective tissue; Translations: [Personal history of other diseases of the musculoskeletal system and connective tissue] Onset: 12-17-2023 Episodic Other connective tissue disease (2 sources) Pain in right foot; Translations: [Pain in right foot] 03-18-2024 Episodic Other connective tissue disease (4 sources) Pain in right foot; Translations: [Pain in right foot] Onset: 03-18-2024 Episodic Other diseases of kidney and ureters (4 sources) Other obstructive and reflux uropathy; Translations: [Other obstructive and reflux uropathy] Onset: 10-05-2022 Episodic Other ear and sense organ disorders (14 sources) Impacted cerumen in left ear; Translations: [Impacted cerumen, left ear] Onset: 10-05-2022 Resolved: 12-17-2023 10-05-2022 Episodic Other non-traumatic joint disorders (20 sources) Pain in left knee; Translations: [Left knee pain] Onset: 10-05-2022 10-05-2022 Episodic Other nutritional; endocrine; and metabolic disorders (2 sources) Hyperuricemia without signs of inflammatory arthritis and tophaceous disease; Translations: [Hyperuricemia without signs of inflammatory arthritis and tophaceous disease] Onset: 04-27-2024 Episodic Other screening for suspected conditions (not mental disorders or infectious disease) (20 sources) Patient encounter status; Translations: [Screening for malignant neoplasms of prostate] Onset: 07-26-2022 11-21-2022 Episodic Other skin disorders (20 sources) Mass of skin; Translations: [Localized superficial swelling, mass, or lump] Onset: 10-05-2022 10-05-2022 Episodic Other upper respiratory infections (20 sources) Acute pharyngitis; Translations: [Acute pharyngitis] Onset: 10-05-2022 Resolved: 11-17-2022 11-17-2022 Episodic Otitis media and related conditions (20 sources) Otitis media; Translations: [Unspecified otitis media] Onset: 10-05-2022 Resolved: 12-17-2023 10-05-2022 Episodic Residual codes; unclassified (2 sources) Illness, unspecified; Translations: [Illness, unspecified] Onset: 05-17-2023 Episodic Screening and history of mental health and substance abuse codes (1 source) Personal history of nicotine dependence; Translations: [Personal history of nicotine dependence] Onset: 06-15-2022 Episodic Spondylosis; intervertebral disc disorders; other back problems (20 sources) Neck pain; Translations: [Cervicalgia] Onset: 10-05-2022 10-05-2022 Episodic Superficial injury; contusion (7 sources) Tick bite; Translations: [Insect bite (nonvenomous), left thigh, subsequent encounter] Onset: 11-17-2023 11-20-2023 Episodic Unclassified (5 sources) History of clinical finding in subject; Translations: [History of elevated prostate specific antigen (PSA)] Unclassified (14 sources) Onset: 11-21-2022 Resolved: 10-26-2024 11-21-2022 NEGATED: Highlighted row has not occurred!Residual codes; unclassified (9 sources) Disease Episodic Results Test Name Value Interpretation Reference Range Facility Foreign Body Removal - Orifi ceon 11-13-2024 MEAGHAN Burk CNP 11/14/2024 6:56 AM Foreign Body Removal - Orifice Performed by: LUIS FERNANDO Burk Authorized by: LUIS FERNANDO Burk Location: Location: Ear Ear location: L ear Procedure details: Removal mechanism: Forceps [facility] Work Phone: [facility] Work Phone: COMPREHENSIVE METABOLIC PANE L W/ANION GAPon 10-25-2024 Albumin [Mass/Vol] 4.3 g/dL Normal 3.6-5.1 [facility] Comment on above: Performed By: #### 9 78, 90329, 39534 #### [place] [address] [employer] Reservations: Javier Deutsch MD ALP [Catalytic activity/Vol] 79 U/L Normal 35-144 [facility] Comment on above: Performed By: #### 9 96, 22959, 51731 #### [facility] [address] [address] [employer] Reservations: Javier Deutsch MD ALT [Catalytic activity/Vol] 19 U/L Normal 9-46 [facility] Comment on above: Performed By: #### 9 , 08726, 28416 #### [facility] of [address], [address] [place] [address] [employer]visor [employer] Reservations: Javier Deutsch MD AST [Catalytic activity/Vol] 18 U/L Normal 10-35 [facility] Comment on above: Performed By: #### 9 , 59886, 45663 #### [facility] of [address], [address] [place] [address] [employer] Reservations: Javier Deutsch MD Bilirubin [Mass/Vol] 0.7 mg/dL Normal 0.2-1.2 [facility] Comment on above: Performed By: #### 9 , , 44746 #### [facility] of [place] [address] [employer] Reservations: Javier Deutsch MD Calcium [Mass/Vol] 9.1 mg/dL Normal 8.6-10.3 [facility] Comment on above: Performed By: #### 9 , , 51069 #### [facility] of [place] [address] [employer] Reservations: Javier Deutsch MD Chloride [Moles/Vol] 109 mmol/L Normal 98-110 [facility] Comment on above: Performed By: #### 9 , 62628, 57487 #### [facility] of [address], [address] [place] [address] [employer] Reservations: Javier Deutsch MD CO2 [Moles/Vol] 22 mmol/L Normal 20-32 [facility] Comment on above: Performed By: #### 9 , 25865, 45005 #### [facility] of [place] [address] [employer] Reservations: Javier Deutsch MD Creatinine [Mass/Vol] 1.36 mg/dL High 0.70-1.28 [facility] Comment on above: Performed By: #### 9 , 33979, 96794 #### [facility] of [place] [address] [employer]visor [employer] Reservations: Javier Deutsch MD ELECTROLYTE BALANCE 10 mmol/L (calc) Normal 7-17 [facility] Comment on above: Performed By: #### 9 , , 19117 #### [facility] [place] [address] [employer] Reservations: Javier Deutsch MD GFR/1.73 sq M.predicted among non-blacks MDRD (S/P/Bld) [Vol rate/Area] 56 mL/min/{1.73_m2} Low > OR = 60 [facility] Comment on above: Performed By: #### 9 , , 82902 #### [facility] [place] [address] [employer] Reservations: Javier Deutsch MD Glucose [Mass/Vol] 123 mg/dL High 65-99 [facility] Comment on above: Result Comment: Fasting reference interval For someone without known diabetes, a glucose value between 100 and 125 mg/dL is consistent with prediabetes and should be confirmed with a follow-up test. Performed By: #### 9 , , 09872 #### [facility] [place] [address] [employer] Reservations: Javier Deutsch MD Potassium [Moles/Vol] 4.6 mmol/L Normal 3.5-5.3 [facility] Comment on above: Performed By: #### 9 , , 15836 #### [facility] [place] [address] [employer]visor [employer] Reservations: aJvier Deutsch MD Protein [Mass/Vol] 6.8 g/dL Normal 6.1-8.1 [facility] Comment on above: Performed By: #### 9 , , 99353 #### [facility] [place] [address] [employer]visor [employer] Reservations: Javier Deutsch MD Sodium [Moles/Vol] 141 mmol/L Normal 135-146 [facility] Comment on above: Performed By: #### 9 , , 66158 #### [facility] [address], [address] [place] [address] [employer]visor [employer] Reservations: Javier Deutsch MD Urea nitrogen [Mass/Vol] 23 mg/dL Normal 7-25 [facility] Comment on above: Performed By: #### 9 , , 15362 #### [facility] [address], [address] [place] [address] [employer]visor [employer] Reservations: Javier Deutsch MD HEMOGLOBIN A1c WITH eAGon eAG (mmol/L) 7.6 mmol/L Normal [facility] Comment on above: Performed By: #### 9 , , 25171 #### [facility] [address], [address] [place] [address] [employer]visor [employer] Reservations: Javier Deutsch MD HEMOGLOBIN A1c 6.4 % of total Hgb High <5.7 [facility] Comment on above: Result Comment: For someone without known diabetes, a hemoglobin A1c value between 5.7% and 6.4% is consistent with prediabetes and should be confirmed with a follow-up test. For someone with known diabetes, a value <7% indicates that their diabetes is well controlled. A1c targets should be individualized based on duration of diabetes, age, comorbid conditions, and other considerations. This assay result is consistent with an increased risk of diabetes. Currently, no consensus exists regarding use of hemoglobin A1c for diagnosis of diabetes for children. Performed By: #### 9 , , 89829 #### [facility] [address], [address] [place] [address] [employer] Reservations: Javier Deutsch MD Magnesium [Mass/Vol] 137 mg/dL Normal [facility] Comment on above: Performed By: #### 9 , , 60914 #### [facility] [place] [address] [employer] Reservations: Javier Deutsch MD URIC ACIDon 10-25-2024 Urate [Mass/Vol] 7.2 mg/dL Normal 4.0-8.0 [facility] Comment on above: Result Comment: Ther apeutic target for gout patients: <6.0 mg/dL Performed By: #### 9 05, 06280, 54374 #### [facility] [address], [address] [place] [address] [employer]visor [employer] Reservations: Javier Deutsch MD Comprehensive metabolic 2000 panelon 04-24-2024 Albumin BCP dye [Mass/Vol] 4.3 g/dL Normal 3.4-5.0 [facility] Comment on above: Performed By: #### 2 4323-8 #### CHEPE ARIAS (82449) LAB ([facility]) [address] [place] [address] ALP [Catalytic activity/Vol] 85 U/L Normal 33-136 [facility] Comment on above: Performed By: #### 2 4322-8 #### CHEPE ARIAS (09085) LAB ([facility]) [address] [place] [address] 847[address] ALT With P-5'-P [Catalytic activity/Vol] 17 U/L Normal 10-52 [facility] Comment on above: Result Comment: Rosibel ents treated with Sulfasalazine may generate falsely decreased results for ALT. Performed By: #### 2 4323-8 #### CHEPE ARIAS (09765) LAB ([facility]) [address] [place] [address]182 Anion gap [Moles/Vol] 11 mmol/L Normal 10-20 [facility] Comment on above: Performed By: #### 2 4322-8 #### CHEPE ARIAS (95783) LAB ([facility]) [facility] [place] [address] AST With P-5'-P [Catalytic activity/Vol] 17 U/L Normal 9-39 [facility] Comment on above: Performed By: #### 2 4323-8 #### CHEPE ARIAS (29388) LAB ([facility]) [address] [place] [address]166 Bilirubin [Mass/Vol] 0.8 mg/dL Normal 0.0-1.2 [facility] Comment on above: Performed By: #### 2 4323-8 #### CHEPE ARIAS (13853) LAB ([facility]) [address] [place] [address]52 Calcium [Mass/Vol] 9.2 mg/dL Normal 8.6-10.3 [facility] Comment on above: Performed By: #### 2 4323-8 #### CHEPE ARIAS (87493) LAB ([facility]) [address] [place] [address] 62361 Chloride [Moles/Vol] 107 mmol/L Normal 98-107 [facility] Comment on above: Performed By: #### 2 4323-8 #### CHEPE ARIAS (41395) LAB ([facility]) [address] [place] [address] 51074 CO2 [Moles/Vol] 28 mmol/L Normal 21-32 [facility] Comment on above: Performed By: #### 2 4323-8 #### CHEPE ARIAS (45101) LAB ([facility]) [address] [place] [address]151 Creatinine [Mass/Vol] 1.14 mg/dL Normal 0.50-1.30 [facility] Comment on above: Performed By: #### 2 4323-8 #### CHEPE ARIAS (49608) LAB ([facility]) [address] [place] [address] 31981 Glomerular filtration rate/1.73 sq M.predicted 69 mL/min/1.73m*2 Normal >60 [facility] Comment on above: Result Comment: Calc ulations of estimated GFR are performed using the 2020 CKD-EPI Study Refit equation without the race variable for the IDMS-Traceable creatinine methods. https://jasn.asnjournals.org/content//ASN.78833618 88 Performed By: #### 2 4323-8 #### CHEPE ARIAS (32604) LAB ([facility]) [address] [place] [address] 25946 Glucose [Mass/Vol] 108 mg/dL High 74-99 [facility] Comment on above: Performed By: #### 2 4323-8 #### CHEPE ARIAS (55851) LAB ([facility]) [address] [place] [address] 41192 Potassium [Moles/Vol] 4.6 mmol/L Normal 3.5-5.3 [facility] Comment on above: Performed By: #### 2 3-8 #### CHEPE ARIAS (05089) LAB ([facility]) [address] [place] [address] 75001 Protein [Mass/Vol] 6.7 g/dL Normal 6.4-8.2 [facility] Comment on above: Performed By: #### 2 4323-8 #### CHEPE ARIAS (70346) LAB ([facility]) [address] [place] [address] 71659 Sodium [Moles/Vol] 141 mmol/L Normal 136-145 [facility] Comment on above: Performed By: #### 2 3-8 #### CHEPE ARIAS (96534) LAB ([facility]) [address] [place] [address] 71035 Urea nitrogen [Mass/Vol] 18 mg/dL Normal 6-23 [facility] Comment on above: Performed By: #### 2 432-8 #### CHEPE ARIAS (96186) LAB ([facility]) [address] [place] [address] 37097 HbA1c (Bld) [Mass fraction]o n 04-24-2024 Average glucose Estimated from glycated hemoglobin (Bld) [Mass/Vol] 126 mg/dL Normal Not Established [facility] Comment on above: Order Comment: Diagn osis of Rrkkmjht-BinzyzTjh-Uhsvmknn: < or = 5.6%Increased risk for developing diabetes: 5.7-6.4%Diagnostic of diabetes: > or = 6.5% Performed By: #### 2 4323-8 #### CHEPE ARIAS (05380) LAB ([facility]) [address] [place] [address] 39183 Hemoglobin A1c/Hemoglobin.susi durand 04-24-2024 HbA1c (Bld) [Mass fraction] 6.0 % High See comment [facility] Comment on above: Order Comment: Diagn osis of Euihtvqj-BfgkorBpc-Dvnalnyb: < or = 5.6%Increased risk for developing diabetes: 5.7-6.4%Diagnostic of diabetes: > or = 6.5% Performed By: #### 2 4323-8 #### CHEPE ARIAS (52580) LAB ([facility]) [address] [place] [address] 44845 PSA, TOTAL AND FREEon 2023 Free PSA [Mass/Vol] 1.3 ng/mL Normal [facility] Comment on above: Performed By: #### 2 4323-8 #### CHEPE ARIAS (72961) LAB ([facility]) [address] [place] [address] 18809 Free PSA/Total PSA [Mass fraction] 19 % Normal [facility] Comment on above: Result Comment: INTE RPRETIVE INFORMATION: Prostate Specific Antigen, Free Percentage MaPS uses the Laila Free PSA electrochemiluminescent immunoassay method in conjunction with the Laila PSA electrochemiluminescent immunoassay method to determine the free PSA percentage. Values obtained with different assay methods should not be used interchangeably. The free PSA percentage is an aid in distinguishing prostate cancer from benign prostatic conditions in individuals with a prostate age 50 years and older with a total PSA between 3 and 10 ng/mL and negative digital rectal examination findings. Prostatic biopsy is required for the diagnosis of cancer. In patients with total PSA concentrations of 4-10 ng/mL, the probability of finding prostate cancer on needle biopsy by age in years is: %fPSA 50-59 60-69 70 or older 0 - 10% 49% 58% 65% 11 - 18% 27% 34% 41% 19 - 25% 18% 24% 30% Greater than 25% 9% 12% 16% Other factors may help determine the actual risk of prostate cancer in individual patients. Performed By: [employer] [address] [place] [address] Coffee Host: Nahum Schafer MD, PhD CLIA Number: [id number] Performed By: #### 2 4323-8 #### CHEPE ARIAS (39828) LAB ([facility]) [address] [place], [place] [address] Prostate specific Ag IA [Mass/Vol] 6.7 ng/mL High 0.0-4.0 [facility] Comment on above: Result Comment: INTE RPRETIVE INFORMATION: Prostate Specific Antigen The Laila PSA electrochemiluminescent immunoassay is used. Results obtained with different test methods or kits cannot be used interchangeably. The Laila PSA method is approved for use as an aid in the detection of prostate cancer when used in conjunction with a digital rectal exam in individuals with a prostate age 50 years and older. The Laila PSA is also indicated for the serial measurement of PSA to aid in the prognosis and management of prostate cancer patients. Elevated PSA concentrations can only suggest the presence of prostate cancer until biopsy is performed. PSA concentrations can also be elevated in benign prostatic hyperplasia or inflammatory conditions of the prostate. PSA is generally not elevated in healthy individuals or individuals with nonprostatic carcinoma. Performed By: #### 2 4323-8 #### MO JUANA (10381) LAB ([facility]) [address] [place] [address] Urateon 04-24-2024 Urate [Mass/Vol] 7.9 mg/dL High 4.0-7.5 [facility] Comment on above: Result Comment: Aissatou puncture immediately after or during the administration of Metamizole may lead to falsely low results. Testing should be performed immediately prior to Metamizole dosing. Performed By: #### 3 084-1 #### [place] JUANA (20487) LAB ([facility]) [address] [place] [address]248 XR FOOT RIGHT 1-2 VIEWSon XR FOOT RIGHT 1-2 VIEWS Interpreted By: Geovany South, STUDY: XR FOOT RIGHT 1-2 VIEWS; ; 03/18/2024 11:50 am INDICATION: Signs/Symptoms:pain. ,M79.671 Pain in right foot,M10.9 Gout, unspecified COMPARISON: None. ACCESSION NUMBER(S): [id number] ORDERING CLINICIAN: FABIO GRACE FINDINGS: Right foot, two views No acute fracture dislocation seen. Remote healed fracture through the 1st proximal phalanx. No significant degenerative changes. There is a small Achilles and small plantar calcaneal enthesophyte IMPRESSION: No acute abnormality seen. Remote healed 1st proximal phalangeal fracture. MACRO: None Signed by: Geovany South 03/24/2024 5:52 PM Dictation workstation: [id number] Normal [facility] XR FOOT LEFT 3+ VIEWS (STAND PINO)on 02-17-2024 XR FOOT LEFT 3+ VIEWS (STANDARD) No acute fractures or dislocations noted Generalized joint space narrowing noted across the midfoot joint especially at the first, second and third tarsometatarsal joints. Dictated by: ASH COLLINS on SatFeb 17, 2024 8:27:43 PM EDT Transcribed by: ASH COLLINS on SatFeb 17, 2024 8:27:43 PM EDT Finalized by: ASH COLLINS on SatFeb 17, 2024 8:27:43 PM EDT Normal [facility] Comment on above: Order Comment: Injur y/Trauma or Illness?:Illness/Other How long have you had these symptoms (acute/chronic)?:Chronic Reason for exam?:pain History of cancer?:u Surgeries, chemotherapy, or radiation?:u Type of Exam?:Initial Additional signs and symptoms?:gout POCT SARS-COV-2/FLU/RSV PCR SYMPTOMATIC manually resultedOrdered By: Rosy Donahue on 01-17-2024 FLUAV RNA CATHERINE+probe Ql (Resp) Not detected Not Detected [facility] FLUBV RNA CATHERINE+probe Ql (Resp) Not detected Not Detected [facility] RSV RNA CATHERINE+probe Ql (Resp) Not detected Not Detected [facility] SARS-CoV-2 (COVID-19) RNA CATHERINE+probe Ql (Resp) Not detected Not Detected [facility] XR CHEST 2 VIEWSon 4 XR CHEST 2 VIEWS Interpreted By: Janis Boroks, STUDY: Chest, 2 views. INDICATION: Signs/Symptoms:Cough and intermittent wheezing x 3 weeks. Minimal improvement despite course of prednisone and Zithromax.. COMPARISON: None. ACCESSION NUMBER(S): [id number] ORDERING CLINICIAN: EDVIN JAMES FINDINGS: The cardiomediastinal silhouette size is within normal limits. There is no focal consolidation, edema or pneumothorax. No sizeable pleural effusion. IMPRESSION: 1. No acute cardiopulmonary process. MACRO: None. Signed by: Janis Gonzales 01/17/2024 3:52 PM Dictation workstation: [id number] [facility] XR Chest 2 Viewson 1. No acute cardiopulmonary process. MACRO: None. Signed by: Janis Gonzales 01/17/2024 3:52 PM Dictation workstation: [id number] MMODAL Interpreted By: Janis Brooks, STUDY: Chest, 2 views. INDICATION: Signs/Symptoms:Cough and intermittent wheezing x 3 weeks. Minimal improvement despite course of prednisone and Zithromax.. COMPARISON: None. ACCESSION NUMBER(S): [id number] ORDERING CLINICIAN: EDVIN JAMES FINDINGS: The cardiomediastinal silhouette size is within normal limits. There is no focal consolidation, edema or pneumothorax. No sizeable pleural effusion. MMODAL Janis Gonzales MD - 01/17/2024 Interpreted By: Janis Gonzales, STUDY: Chest, 2 views. INDICATION: Signs/Symptoms:Cough and intermittent wheezing x 3 weeks. Minimal improvement despite course of prednisone and Zithromax.. COMPARISON: None. ACCESSION NUMBER(S): [id number] ORDERING CLINICIAN: EDVIN JAMES FINDINGS: The cardiomediastinal silhouette size is within normal limits. There is no focal consolidation, edema or pneumothorax. No sizeable pleural effusion. IMPRESSION: 1. No acute cardiopulmonary process. MACRO: None. Signed by: Janis Gonzales 01/17/2024 3:52 PM Dictation workstation: [id number] [facility] Work Phone: Radiology Study observation (narrative) [facility] Work Phone: XR Chest 2 ViewsOrdered By: Janis Gonzales on 01-17-2024 [facility] Work Phone: B. burgdorferi DNA CATHERINE+probe Ql (Unsp spec)on 12-21-2023 Specimen source Nom (Unsp spec) Blood [facility] Comment on above: Performed By: #### 4 991-6 #### [facility] ([id number]) [address] [place] [address] Borrelia burgdorferi DNAon 0 12-21-2023 B. burgdorferi DNA CATHERINE+probe Ql (Unsp spec) Not detected Normal [facility] Comment on above: Result Comment: NOT DETECTED - A negative result does not rule out the presence of PCR inhibitors in the patient specimen or assay specific nucleic acid in concentrations below the level of detection by the assay. Blood and CSF specimens have poor clinical sensitivity for detection of Borrelia burgdorferi by PCR. INTERPRETIVE INFORMATION: Borrelia Species DNA Detection by PCR This test was developed and its performance characteristics determined by [employer]. It has not been cleared or approved by the [place] Food and Drug Administration. This test was performed in a CLIA certified laboratory and is intended for clinical purposes. Performed By: [employer] [address] [place] [address] Coffee Host: Nahum Schafer MD, PhD CLIA Number: [id number] Performed By: #### 4 991-6 #### [facility] ([id number]) [address] [place] [address] Urateon 12-21-2023 Urate [Mass/Vol] 7.1 mg/dL Normal 4.0-7.5 [facility] Comment on above: Result Comment: Aissatou puncture immediately after or during the administration of Metamizole may lead to falsely low results. Testing should be performed immediately prior to Metamizole dosing. Performed By: #### 3 084-1 #### CHEPE ARIAS (41220) LAB ([facility]) [address] [place] [address] XR FOOT LEFT 3+ VIEWSon 11-19 XR FOOT LEFT 3+ VIEWS Interpreted By: Gerardo Jiménez, STUDY: Left foot dated 12/07/2023. INDICATION: Signs/Symptoms:Left foot pain COMPARISON: None. ACCESSION NUMBER(S): [id number] ORDERING CLINICIAN: GERARDO ALCANTARA TECHNIQUE: Three views of the left foot. FINDINGS: There is a sesamoid bone of the 5th digit metatarsophalangeal joint. There is increased density in this sesamoid bone which has a lucency through the middle. Mild degenerative changes seen of the ankle and subtalar joint. There is calcaneal enthesophyte formation. Overall mild polyarticular degenerative changes seen of the midfoot with greater degenerative changes seen of the 1st and 2nd tarsometatarsal articulations. Dumg-gq-tjayiber degenerative changes seen of the 1st digit metatarsophalangeal joint. No ankle joint effusion is evident. Vascular calcifications are seen in the soft tissues. 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 There is also increased density in the sesamoid bone as can be seen with sesamoid itis. Knowledge of any symptomatology to this region may be helpful. Other findings as above. 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 There is also increased density in the sesamoid bone as can be seen with sesamoid itis. Knowledge of any symptomatology to this region may be helpful. Other findings as above. MACRO: None Signed by: Gerardo Jiménez 12/07/2023 12:20 PM Dictation workstation: [id number] Interpreted By: Gerardo Mendenhall, STUDY: Left foot dated 12/07/2023. INDICATION: Signs/Symptoms:Left foot pain COMPARISON: None. ACCESSION NUMBER(S): [id number] ORDERING CLINICIAN: GERARDO ALCANTARA TECHNIQUE: Three views of the left foot. FINDINGS: There is a sesamoid bone of the 5th digit metatarsophalangeal joint. There is increased density in this sesamoid bone which has a lucency through the middle. Mild degenerative changes seen of the ankle and subtalar joint. There is calcaneal enthesophyte formation. Overall mild polyarticular degenerative changes seen of the midfoot with greater degenerative changes seen of the 1st and 2nd tarsometatarsal articulations. Rhcw-ru-usawpxtp degenerative changes seen of the 1st digit metatarsophalangeal joint. No ankle joint effusion is evident. Vascular calcifications are seen in the soft tissues. [facility] Gerardo Jiménez M D - 12/07/2023 Interpreted By: Gerardo Jiménez, STUDY: Left foot dated 12/07/2023. INDICATION: Signs/Symptoms:Left foot pain COMPARISON: None. ACCESSION NUMBER(S): [id number] ORDERING CLINICIAN: GERARDO ALCANTARA TECHNIQUE: Three views of the left foot. FINDINGS: There is a sesamoid bone of the 5th digit metatarsophalangeal joint. There is increased density in this sesamoid bone which has a lucency through the middle. Mild degenerative changes seen of the ankle and subtalar joint. There is calcaneal enthesophyte formation. Overall mild polyarticular degenerative changes seen of the midfoot with greater degenerative changes seen of the 1st and 2nd tarsometatarsal articulations. Sphi-yr-maayrbbv degenerative changes seen of the 1st digit metatarsophalangeal joint. No ankle joint effusion is evident. Vascular calcifications are seen in the soft tissues. 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 There is also increased density in the sesamoid bone as can be seen with sesamoid itis. Knowledge of any symptomatology to this region may be helpful. Other findings as above. MACRO: None Signed by: Gerardo Jiménez 12/07/2023 12:20 PM Dictation workstation: [id number] [facility] Work Phone: Radiology Study observation (narrative) [facility] Work Phone: XR Foot - left 3 ViewsOrdere d By: Gerardo Jiménez on 12-07-2023 [facility] Work Phone: Comprehensive metabolic 2000 panelon 11-16-2023 Albumin BCP dye [Mass/Vol] 4.3 g/dL Normal 3.4-5.0 [facility] Comment on above: Performed By: #### 2 4323-8 #### MO JUANA (51051) LAB ([facility]) [address] [place] [address] ALP [Catalytic activity/Vol] 80 U/L Normal 33-136 [facility] Comment on above: Performed By: #### 2 432-8 #### CHEPE ARIAS (57622) LAB ([facility]) [facility] [place] [address] ALT With P-5'-P [Catalytic activity/Vol] 16 U/L Normal 10-52 [facility] Comment on above: Result Comment: Rosibel ents treated with Sulfasalazine may generate falsely decreased results for ALT. Performed By: #### 2 432-8 #### CHEPE ARIAS (27734) LAB ([facility]) [address] [place] [address] Anion gap [Moles/Vol] 12 mmol/L Normal 10-20 [facility] Comment on above: Performed By: #### 2 4322-8 #### CHEPE ARIAS (60756) LAB ([facility]) [address] [place] [address] AST With P-5'-P [Catalytic activity/Vol] 18 U/L Normal 9-39 [facility] Comment on above: Performed By: #### 2 4322-8 #### CHEPE ARIAS (37848) LAB ([facility]) [address] [place] [address] Bilirubin [Mass/Vol] 0.8 mg/dL Normal 0.0-1.2 [facility] Comment on above: Performed By: #### 2 4322-8 #### CHEPE ARIAS (19862) LAB ([facility]) [address] [place] [address] Calcium [Mass/Vol] 9.6 mg/dL Normal 8.6-10.3 [facility] Comment on above: Performed By: #### 2 4322-8 #### CHEPE ARIAS (57084) LAB ([facility]) [address] [place] [address] Chloride [Moles/Vol] 108 mmol/L High 98-107 [facility] Comment on above: Performed By: #### 2 432-8 #### CHEPE ARIAS (18051) LAB ([facility]) [address] [place] [address] CO2 [Moles/Vol] 25 mmol/L Normal 21-32 [facility] Comment on above: Performed By: #### 2 4323-8 #### CHEPE ARIAS (22245) LAB ([facility]) [address] [place] [address] Creatinine [Mass/Vol] 1.11 mg/dL Normal 0.50-1.30 [facility] Comment on above: Performed By: #### 2 4323-8 #### CHEPE ARIAS (28678) LAB ([facility]) [address] [place] [address] Glomerular filtration rate/1.73 sq M.predicted 71 mL/min/1.73m*2 Normal >60 [facility] Comment on above: Result Comment: Calc ulations of estimated GFR are performed using the 2020 CKD-EPI Study Refit equation without the race variable for the IDMS-Traceable creatinine methods. https://jasn.asnjournals.org/content/early/ASN.24842671 88 Performed By: #### 2 4323-8 #### CHEPE ARIAS (33315) LAB ([facility]) [address] [place] [address] Glucose [Mass/Vol] 105 mg/dL High 74-99 [facility] Comment on above: Performed By: #### 2 4323-8 #### CHEPE ARIAS (51523) LAB ([facility]) [address] [place] [address] 18183 Potassium [Moles/Vol] 4.5 mmol/L Normal 3.5-5.3 [facility] Comment on above: Performed By: #### 2 4323-8 #### CHEPE ARIAS (77403) LAB ([facility]) [address] [place] [address] Protein [Mass/Vol] 6.9 g/dL Normal 6.4-8.2 [facility] Comment on above: Performed By: #### 2 4323-8 #### CHEPE ARIAS (18685) LAB ([facility]) [address] [place] [address]171 Sodium [Moles/Vol] 140 mmol/L Normal 136-145 [facility] Comment on above: Performed By: #### 2 4323-8 #### CHEPE ARIAS (68203) LAB ([facility]) [address] [place] [address] 13577 Urea nitrogen [Mass/Vol] 20 mg/dL Normal 6- [facility] Comment on above: Performed By: #### 2 4323-8 #### CHEPE ARIAS (61060) LAB ([facility]) [address] [place] [address] HbA1c (Bld) [Mass fraction]o n 11-16-2023 Average glucose Estimated from glycated hemoglobin (Bld) [Mass/Vol] 128 mg/dL Normal Not Established [facility] Comment on above: Order Comment: Diagn osis of Diabetes-Adults Non-Diabetic: < or = 5.6% Increased risk for developing diabetes: 5.7-6.4% Diagnostic of diabetes: > or = 6.5% Monitoring of Diabetes Age (y)....................... Therapeutic Goal (%) Adults: >18.........................<7.0 Pediatrics: 13-18...................<7.5 Pediatrics: 7-12....................<8.0 Pediatrics: 0-6..................... 7.5-8.5 [place] [employer] Association. Diabetes Care 33(S1), Jul 2009 Performed By: #### 4 548-4 #### LAYLA Gallo ([id number]) [facility] ([facility]) [id number] [place] [address] Hemoglobin A1c/Hemoglobin.to kizzy 11-16-2023 HbA1c (Bld) [Mass fraction] 6.1 % High see below [facility] Comment on above: Order Comment: Diagn osis of Diabetes-Adults Non-Diabetic: < or = 5.6% Increased risk for developing diabetes: 5.7-6.4% Diagnostic of diabetes: > or = 6.5% Monitoring of Diabetes Age (y)....................... Therapeutic Goal (%) Adults: >18.........................<7.0 Pediatrics: 13-18...................<7.5 Pediatrics: 7-12....................<8.0 Pediatrics: 0-6..................... 7.5-8.5 [place] [employer]. Diabetes Care 33(S1), Jul 2009 Performed By: #### 4 548-4 #### LAYLA Gallo ([id number]) [facility] ([facility]) [address] [place] [address] Lipid 1996 panelon 4 Cholesterol [Mass/Vol] 173 mg/dL Normal 0-199 [facility] Comment on above: Result Comment: Age Desirable Borderline High High 0-19 Y 0 - 169 170 - 199 >/= 200 20-24 Y 0 - 189 190 - 224 >/= 225 >24 Y 0 - 199 200 - 239 >/= 240 All ranges are based on fasting samples. Specific therapeutic targets will vary based on patient-specific cardiac risk. Pediatric guidelines reference:Pediatrics 2011, 128(S5).Adult guidelines reference: NCEP ATPIII Guidelines,MARY ELLEN 2001, 258:2486-97 Venipuncture immediately after or during the administration of Metamizole may lead to falsely low results. Testing should be performed immediately prior to Metamizole dosing. Performed By: #### 2 4331-1 #### CHEPE ARIAS (66489) LAB ([facility]) [facility] [place] [address] Cholesterol in HDL [Mass/Vol] 53.0 mg/dL Normal [facility] Comment on above: Result Comment: Age Very Low Low Normal High 0-19 Y < 35 < 40 40-45 ---- 20-24 Y ---- < 40 >45 ---- >24 Y ---- < 40 40-60 >60 Performed By: #### 2 4331-1 #### CHEPE ARIAS (22811) LAB ([facility]) [address] [place] [address] Cholesterol in LDL [Mass/Vol] 107 mg/dL High <=99 [facility] Comment on above: Result Comment: Near Borderline AGE Desirable Optimal High High Very High 0-19 Y 0 - 109 --- 110-129 >/= 130 ---- 20-24 Y 0 - 119 --- 120-159 >/= 160 ---- >24 Y 0 - 99 100-129 130-159 160-189 >/=190 Performed By: #### 2 4331-1 #### CHEPE ARIAS (86447) LAB ([facility]) [address] [place] [address] 98234 Cholesterol in VLDL [Mass/Vol] 13 mg/dL Normal 0-40 [facility] Comment on above: Performed By: #### 2 4331-1 #### CHEPE ARIAS (41258) LAB ([facility]) [address] [place] [address] 08894 CHOLESTEROL/HDL RATIO 3.3 Normal [facility] Comment on above: Result Comment: Ref Values Desirable < 3.4 High Risk > 5.0 Performed By: #### 2 4331-1 #### CHEPE ARIAS (94929) LAB ([facility]) [address] [place] [address] 46002 NON HDL CHOLESTEROL 120 mg/dL Normal 0-149 [facility] Comment on above: Result Comment: Age Desirable Borderline High High Very High 0-19 Y 0 - 119 120 - 144 >/= 145 >/= 160 20-24 Y 0 - 149 150 - 189 >/= 190 ---- >24 Y 30 mg/dL above LDL Cholesterol goal Performed By: #### 2 4331-1 #### CHEPE ARIAS (52924) LAB ([facility]) [facility] [place] [address] Triglyceride [Mass/Vol] 67 mg/dL Normal 0-149 [facility] Comment on above: Result Comment: Age Desirable Borderline High High Very High 0 D-90 D 19 - 174 ---- ---- ---- 91 D- 9 Y 0 - 74 75 - 99 >/= 100 ---- 10-19 Y 0 - 89 90 - 129 >/= 130 ---- 20-24 Y 0 - 114 115 - 149 >/= 150 ---- >24 Y 0 - 149 150 - 199 200- 499 >/= 500 Venipuncture immediately after or during the administration of Metamizole may lead to falsely low results. Testing should be performed immediately prior to Metamizole dosing. Performed By: #### 2 4331-1 #### CHEPE ARIAS (98887) LAB ([facility]) [facility] [place] [address] Basophil percentageOrdered B y: Jeremy Escalante on 11-09-2023 Basophil percentage 7.20 ng/mL 0.0-4.0 [facility] Comment on above: This test was perfor med using the TPSA assay method for the[facility] chemistry system. Values obtained with differentassay methods cannot be used interchangably.When changing PSA assays in the course of monitoring apatient, additional sequential testing should be carriedout to confirm baseline values. PSA,Total- Diagnosticon 10-21 PSA, DIAGNOSTIC 7.20 ng/mL High 0.0-4.[address] [facility] Comment on above: Result Comment: This test was performed using the TPSA assay method for the [facility] [facility] [employer] chemistry system. Values obtained with different assay methods cannot be used interchangably. When changing PSA assays in the course of monitoring a patient, additional sequential testing should be carried out to confirm baseline values. Performed By: #### L 501.9940 #### [facility] [address] [place], [address] Comprehensive metabolic 2000 panelon 05-17-2023 Albumin BCP dye [Mass/Vol] 4.3 g/dL Normal 3.4-5.0 [facility] Comment on above: Performed By: #### 2 432-8 #### CHEPE ARIAS (36433) LAB ([facility]) [address] [place] [address] ALP [Catalytic activity/Vol] 78 U/L Normal 33-136 [facility] Comment on above: Performed By: #### 2 4322-8 #### CHEPE ARIAS (78087) LAB ([facility]) [address] [place] [address] ALT With P-5'-P [Catalytic activity/Vol] 16 U/L Normal 10-52 [facility] Comment on above: Result Comment: Rosibel ents treated with Sulfasalazine may generate falsely decreased results for ALT. Performed By: #### 2 4322-8 #### CHEPE ARIAS (58957) LAB ([facility]) [address] [place] [address] Anion gap [Moles/Vol] 11 mmol/L Normal 10-20 [facility] Comment on above: Performed By: #### 2 4322-8 #### CHEPE ARIAS (52637) LAB ([facility]) [address] [place] [address] AST With P-5'-P [Catalytic activity/Vol] 18 U/L Normal 9-39 [facility] Comment on above: Performed By: #### 2 3-8 #### CHEPE ARIAS (92791) LAB ([facility]) [address] [place] [address] Bilirubin [Mass/Vol] 0.7 mg/dL Normal 0.0-1.2 [facility] Comment on above: Performed By: #### 2 4323-8 #### CHEPE ARIAS (33935) LAB ([facility]) [facility] [place] [address] Calcium [Mass/Vol] 9.4 mg/dL Normal 8.6-10.3 [facility] Comment on above: Performed By: #### 2 4323-8 #### CHEPE ARIAS (67502) LAB ([facility]) [address] [place] [address] 386[address] Chloride [Moles/Vol] 108 mmol/L High 98-107 [facility] Comment on above: Performed By: #### 2 4323-8 #### CHEPE ARIAS (37956) LAB ([facility]) [address] [place] [address] 6[address] CO2 [Moles/Vol] 24 mmol/L Normal 21-32 [facility] Comment on above: Performed By: #### 2 4323-8 #### CHEPE ARIAS (87013) LAB ([facility]) [address] [place] [address]16 Creatinine [Mass/Vol] 1.15 mg/dL Normal 0.50-1.30 [facility] Comment on above: Performed By: #### 2 4323-8 #### CHEPE ARIAS (82919) LAB ([facility]) [address] [place] [address] GFR/1.73 sq M.predicted MDRD (S/P/Bld) [Vol rate/Area] 69 mL/min/1.73m*2 Normal >60 [facility] Comment on above: Result Comment: Calc ulations of estimated GFR are performed using the 2020 CKD-EPI Study Refit equation without the race variable for the IDMS-Traceable creatinine methods. https://jasn.asnjournals.org/content/early/ASN.26439740 88 Performed By: #### 2 4323-8 #### CHEPE ARIAS (24976) LAB ([facility]) [address] [place] [address] 96425 Glucose [Mass/Vol] 104 mg/dL High 74-99 [facility] Comment on above: Performed By: #### 2 4323-8 #### CHEPE ARIAS (79601) LAB ([facility]) [address] [place] [address] 81623 Potassium [Moles/Vol] 4.2 mmol/L Normal 3.5-5.3 [facility] Comment on above: Performed By: #### 2 4323-8 #### CHEPE ARIAS (65296) LAB ([facility]) [address] [place] [address] 13228 Protein [Mass/Vol] 7.1 g/dL Normal 6.4-8.2 [facility] Comment on above: Performed By: #### 2 4323-8 #### CHEPE ARIAS (85399) LAB ([facility]) [address] [place] [address] Sodium [Moles/Vol] 139 mmol/L Normal 136-145 [facility] Comment on above: Performed By: #### 2 4323-8 #### CHEPE ARIAS (76356) LAB ([facility]) [address] [place] [address] Urea nitrogen [Mass/Vol] 24 mg/dL High 6-23 [facility] Comment on above: Performed By: #### 2 4323-8 #### CHEPE ARIAS (77381) LAB ([facility]) [address] [place] [address] 789[address] HbA1c (Bld) [Mass fraction]o n 05-17-2023 Average glucose Estimated from glycated hemoglobin (Bld) [Mass/Vol] 131 mg/dL Normal Not Established [facility] Comment on above: Order Comment: Diagn osis of Diabetes-Adults Non-Diabetic: < or = 5.6% Increased risk for developing diabetes: 5.7-6.4% Diagnostic of diabetes: > or = 6.5% Monitoring of Diabetes Age (y)....................... Therapeutic Goal (%) Adults: >18.........................<7.0 Pediatrics: 13-18...................<7.5 Pediatrics: 7-12....................<8.0 Pediatrics: 0-6..................... 7.5-8.5 [place] Diabetes Association. Diabetes Care 33(S1)Jul 2009 Performed By: #### 4 548-4 #### CHEPE ARIAS (77958) LAB ([facility]) [facility] [place] [address] Hemoglobin A1c/Hemoglobin.to kizzy 05-17-2023 HbA1c (Bld) [Mass fraction] 6.2 % High see below [facility] Comment on above: Order Comment: Diagn osis of Diabetes-Adults Non-Diabetic: < or = 5.6% Increased risk for developing diabetes: 5.7-6.4% Diagnostic of diabetes: > or = 6.5% Monitoring of Diabetes Age (y)....................... Therapeutic Goal (%) Adults: >18.........................<7.0 Pediatrics: 13-18...................<7.5 Pediatrics: 7-12....................<8.0 Pediatrics: 0-6..................... 7.5-8.5 [place] [employer]. Diabetes Care 33(S1)Jul 2009 Performed By: #### 4 548-4 #### CHEPE ARIAS (71170) LAB ([facility]) [facility] [place] [address] Prostate specific Agon 05-17 Prostate specific Ag [Mass/Vol] 5.56 ng/mL High <=4.00 [facility] Comment on above: Order Comment: The F DA requires that the method used for PSA assay be reported to the physician. Values obtained with different assay methods must not be used interchangeably. This test was performed at [facility] using the [employer] PSA assay is a two-site immunoenzymatic sandwich assay. The assay is approved for measurement of prostate-specific antigen (PSA)in serum and may be used in conjunction with a digital rectal examination in men 50 years and older as an aid in detection of prostate cancer. 5-Tcfbk-ryoztvzfx inhibitors (e.g. Proscar, Finasteride, Avodart, Dutasteride and Aixa) for the treatment of BPH have been shown to lower PSA levels by an average of 50% after 6 months of treatment. Performed By: #### 2 857-1 #### MO JUANA (11698) LAB ([facility]) [address] [place] [address] COMPREHENSIVE PANELon 2022 Albumin [Mass/Vol] 4.2 g/dL Normal 3.4 - 5.0 [facility] Comment on above: Performed By: #### C MP #### [address] [address] ALP [Catalytic activity/Vol] 75 U/L Normal 33 - 136 [facility] Comment on above: Performed By: #### C MP #### [address] [address] ALT [Catalytic activity/Vol] 16 U/L Normal 10 - 52 [facility] Comment on above: Result Comment: Rosibel ents treated with Sulfasalazine may generate falsely decreased results for ALT. Performed By: #### C MP #### [address] [address] Anion gap [Moles/Vol] 10 mmol/L Normal 10 - 20 [facility] Comment on above: Performed By: #### C MP #### [address] [address] AST [Catalytic activity/Vol] 15 U/L Normal 9 - 39 [facility] Comment on above: Performed By: #### C MP #### [address] [address] Bilirubin [Mass/Vol] 0.7 mg/dL Normal 0.0 - 1.2 [facility] Comment on above: Performed By: #### C MP #### [address] [address] Calcium [Mass/Vol] 9.2 mg/dL Normal 8.6 - 10.3 [facility] Comment on above: Performed By: #### C MP #### [address] [address] Chloride [Moles/Vol] 108 mmol/L High 98 - 107 [facility] Comment on above: Performed By: #### C MP #### [address] [address] Creatinine [Mass/Vol] 1.13 mg/dL Normal 0.50 - 1.30 [facility] Comment on above: Performed By: #### C MP #### [address] [address] GFR/1.73 sq M.predicted among non-blacks MDRD (S/P/Bld) [Vol rate/Area] 70 mL/min/{1.73_m2} Normal >90 [facility] Comment on above: Result Comment: CALC ULATIONS OF ESTIMATED GFR ARE PERFORMED USING THE 2020 CKD-EPI STUDY REFIT EQUATION WITHOUT THE RACE VARIABLE FOR THE IDMS-TRACEABLE CREATININE METHODS. https://jasn.asnjournals.org/content//ASN.46698018 88 Performed By: #### C MP #### [address] [address] Glucose [Mass/Vol] 106 mg/dL High 74 - 99 [facility] Comment on above: Performed By: #### C MP #### [address] [address] HCO3 (Bld) [Moles/Vol] 26 mmol/L Normal 21 - 32 [facility] Comment on above: Performed By: #### C MP #### [address] [address] Potassium [Moles/Vol] 4.3 mmol/L Normal 3.5 - 5.3 [facility] Comment on above: Performed By: #### C MP #### [address] [address] Protein [Mass/Vol] 6.9 g/dL Normal 6.4 - 8.2 [facility] Comment on above: Performed By: #### C MP #### [address] [address] Sodium [Moles/Vol] 140 mmol/L Normal 136 - 145 [facility] Comment on above: Performed By: #### C MP #### [address] [address] Urea nitrogen [Mass/Vol] 19 mg/dL Normal 6 - 23 [facility] Comment on above: Performed By: #### C MP #### [address] [address] HEMOGLOBIN A1Con 11-17-2022 Glucose [Mass/Vol] 123 mg/dL Normal [facility] Comment on above: Performed By: #### H BA1E #### [facility] [address] [place] [address] HbA1c (Bld) [Mass fraction] 5.9 % Abnormal [facility] Comment on above: Result Comment: Diag nosis of Diabetes-Adults Non-Diabetic: < or = 5.6% Increased risk for developing diabetes: 5.7-6.4% Diagnostic of diabetes: > or = 6.5% . Monitoring of Diabetes Age (y) Therapeutic Goal (%) Adults: >18 <7.0 Pediatrics: 13-18 <7.5 7-12 <8.0 0- 6 7.5-8.5 [place] [employer]. Diabetes Care 33(S1), Jul 2009. Performed By: #### H BA1E #### [facility] [address] [place] [address] LIPID PANEL (CORONARY RISK 2 )on 11-17-2022 Cholesterol [Mass/Vol] 165 mg/dL Normal 0 - 199 [facility] Comment on above: Result Comment: . AGE DESIRABLE BORDERLINE HIGH HIGH 0-19 Y 0 - 169 170 - 199 >/= 200 20-24 Y 0 - 189 190 - 224 >/= 225 >24 Y 0 - 199 200 - 239 >/= 240 All ranges are based on fasting samples. Specific therapeutic targets will vary based on patient-specific cardiac risk. . Pediatric guidelines reference:Pediatrics 2011, 128(S5). Adult guidelines reference: NCEP ATPIII Guidelines, MARY ELLEN 2001, 258:2486-97 . Venipuncture immediately after or during the administration of Metamizole may lead to falsely low results. Testing should be performed immediately prior to Metamizole dosing. Performed By: #### L IPID #### [address] [address] Cholesterol in HDL [Mass/Vol] 54.0 mg/dL Normal [facility] Comment on above: Result Comment: . AGE VERY LOW LOW NORMAL HIGH 0-19 Y < 35 < 40 40-45 ---- 20-24 Y ---- < 40 >45 ---- >24 Y ---- < 40 40-60 >60 . Performed By: #### L IPID #### [address] [address] Cholesterol in LDL [Mass/Vol] 98 mg/dL Normal 0 - 99 [facility] Comment on above: Result Comment: . NEAR BORD AGE DESIRABLE OPTIMAL HIGH HIGH VERY HIGH 0-19 Y 0 - 109 --- 110-129 >/= 130 ---- 20-24 Y 0 - 119 --- 120-159 >/= 160 ---- >24 Y 0 - 99 100-129 130-159 160-189 >/=190 . Performed By: #### L IPID #### [address] [address] Cholesterol in VLDL [Mass/Vol] 13 mg/dL Normal 0 - 40 [facility] Comment on above: Performed By: #### L IPID #### [address] [address] Cholesterol.total/C holesterol in HDL [Mass ratio] 3.1 {ratio} Normal [facility] Comment on above: Result Comment: REF VALUES DESIRABLE < 3.4 HIGH RISK > 5.0 Performed By: #### L IPID #### [address] [address] Triglyceride [Mass/Vol] 65 mg/dL Normal 0 - 149 [facility] Comment on above: Result Comment: . AGE DESIRABLE BORDERLINE HIGH HIGH VERY HIGH 0 D-90 D 19 - 174 ---- ---- ---- 91 D- 9 Y 0 - 74 75 - 99 >/= 100 ---- 10-19 Y 0 - 89 90 - 129 >/= 130 ---- 20-24 Y 0 - 114 115 - 149 >/= 150 ---- >24 Y 0 - 149 150 - 199 200- 499 >/= 500 . Venipuncture immediately after or during the administration of Metamizole may lead to falsely low results. Testing should be performed immediately prior to Metamizole dosing. Performed By: #### L IPID #### [id number] [id number] Colonoscopyon 07-26-2022 Colonoscopy PATIENTNAME Patient Name: Kavon Stephens EXAMDATE Procedure Date: 07/26/2022 8:15 AM PATIENTID PATIENTACCOUNTNUM PATIENTDOB Date of : 1955 ADMITTYPE Admit Type: Outpatient PATIENTROOM Site: [place] [address] ETHNICITY Ethnicity: Not or RACE Race: White PROVDR Attending MD: Fabio Grace MD, [id number] ENDOPROCEDURENAME Procedure: Colonoscopy INDICATION Indications: High risk colon cancer surveillance: Personal history of colonic polyps PRIMARYPROVIDER Providers: Fabio Grace MD (Doctor), Sonali Hill, RN (Nurse), Courtney Fernández, Client Delivery Specialist EDREFPROVIDER Referring: Fabio Grace MD CURRENT_MEDS Medicines: Midazolam 5 mg IV, Meperidine 50 mg IV COMPLIC Complications: No immediate complications. ENDOPROCEDURETEXT Procedure: Pre-Anesthesia Assessment: - Prior to the procedure, a History and Physical was performed, and patient medications and allergies were reviewed. The patient's tolerance of previous anesthesia was also reviewed. The risks and benefits of the procedure and the sedation options and risks were discussed with the patient. All questions were answered, and informed consent was obtained. Prior Anticoagulants: The patient has taken no anticoagulant or antiplatelet agents. ASA Grade Assessment: III - A patient with severe systemic disease. After reviewing the risks and benefits, the patient was deemed in satisfactory condition to undergo the procedure. After I obtained informed consent, the scope was passed under direct vision. Throughout the procedure, the patient's blood pressure, pulse, and oxygen saturations were monitored continuously. The adult colonoscope was introduced through the anus and advanced to the cecum, identified by the appendiceal orifice, IC valve and transillumination. The colonoscopy was performed without difficulty. The patient tolerated the procedure well. The quality of the bowel preparation was good. The ileocecal valve, appendiceal orifice, and rectum were photographed. The entire colon was examined. FINDING Findings: An 8 mm polyp was found in the transverse colon. The polyp was semi-pedunculated. The polyp was removed with a hot snare. Resection and retrieval were complete. An 8 mm polyp was found in the descending colon. The polyp was semi-sessile. The polyp was removed with a hot snare. Resection and retrieval were complete. Three sessile polyps were found in the sigmoid colon. The polyps were 3 to 5 mm in size. These polyps were removed with a hot biopsy forceps. Resection and retrieval were complete. Two sessile polyps were found in the rectum. The polyps were 3 to 5 mm in size. These polyps were removed with a hot biopsy forceps. Resection and retrieval were complete. Two sessile polyps were found in the rectum. The polyps were small in size. Coagulation for tissue destruction using hot biopsy forceps was successful. A few medium-mouthed diverticula were found in the sigmoid colon. The exam was otherwise without abnormality on direct and retroflexion views. SEDATION Moderate Sedation: Moderate (conscious) sedation was administered by the nurse and supervised by the endoscopist. The following parameters were monitored: oxygen saturation, heart rate, blood pressure, and response to care. Total physician intraservice time was 23 minutes. EBL Estimated Blood Loss: Estimated blood loss: none. Estimated blood loss: none. IMPRESS Impression: - One 8 mm polyp in the transverse colon, removed with a hot snare. Resected and retrieved. - One 8 mm polyp in the descending colon, removed with a hot snare. Resected and retrieved. - Three 3 to 5 mm polyps in the sigmoid colon, removed with a hot biopsy forceps. Resected and retrieved. - Two 3 to 5 mm polyps in the rectum, removed with a hot biopsy forceps. Resected and retrieved. - Two small polyps in the rectum. Treated with hot biopsy forceps. ENDORECOMMENDATION Recommendation: - Patient has a contact number available for emergencies. The signs and symptoms of potential delayed complications were discussed with the patient. Return to normal activities tomorrow. Written discharge instructions were provided to the patient. - Resume previous diet. - Continue present medications. - Await pathology results. - Repeat colonoscopy in 3 years for surveillance. - Return to primary care physician as previously scheduled. CPT_CODES Procedure Code(s): --- Professional --- 98664, Colonoscopy, flexible; with ablation of tumor(s), polyp(s), or other lesion(s) (includes pre- and post-dilation and guide wire passage, when performed) 39811, 59, Colonoscopy, flexible; with removal of tumor(s), polyp(s), or other lesion(s) by snare technique 22953, 59, Colonoscopy, flexible; with removal of tumor(s), polyp(s), or other le (more content not included)... Normal [facility] No Panel Informationon 07-26 [facility] Internal Medicine Work Phone: [email or web address] =[email or web address]} [facility] Internal Medicine Work Phone: [facility] Surgical Pathology Depar tmenton 07-26-2022 [facility] Surgical Pathology Department Name KAVON STEPHENS Pathologist: Magdalene Paiz M.D. Date of Procedure: 07/26/2022 Date Received: 07/26/2022 Date Reported 08/01/2022 Submitting Physician: FABIO GRACE M.D. Location: [facility] External # FINAL DIAGNOSIS A. SIGMOID POLYP: --TUBULAR ADENOMA. B. TRANSVERSE POLYP: --TUBULAR ADENOMA. C. DESCENDING POLYP: --TUBULAR ADENOMA. D. RECTAL POLYP: -- HYPERPLASTIC POLYP. Electronically Signed Out By Magdalene Paiz M.D./[facility] By the signature on this report, the individual or group listed as making the Final Interpretation/Diagnosis certifies that they have reviewed this case. Diagnostic interpretation performed at [facility] [address] [place] [address] Clinical History: Physician Contact Number: [id number] Fixative (A): Formalin Fixative (B): Formalin Fixative (C): Formalin Fixative (D): Formalin Clinical Diagnosis History PERSONAL HX POLYPS Specimens Submitted As: A: SIGMOID POLYP B: TRANSVERSE POLYP C: DESCENDING POLYP D: RECTAL POLYP Gross Description: A: Received in formalin, labeled with the patient's name and hospital number and sigmoid polyp, are two fragments of almaraz, soft tissue aggregating to 0.5 x 0.3 x 0.2 cm. The specimen is submitted in toto in one cassette. RCC B: Received in formalin, labeled with the patient's name and hospital number and transverse colon polyp, are multiple fragments of almaraz, soft tissue aggregating to 0.7 x 0.4 x 0.2 cm. The specimen is submitted in toto in one cassette. RCC C: Received in formalin, labeled with the patient's name and hospital number and descending colon polyp, are multiple fragments of almaraz, soft tissue aggregating to 0.4 x 0.3 x 0.3 cm. The specimen is submitted in toto in one cassette. RCC D: Received in formalin, labeled with the patient's name and hospital number and rectal polyp, is a fragment of almaraz, soft tissue measuring 0.3 x 0.2 x 0.2 cm. The specimen is submitted in toto in one cassette. RCC rcc/07/27/2022 [facility] Department of Pathology [address] [place] [address] Normal [facility] Comment on above: Performed By: #### U [facility] #### [facility] Surgical Pathology Department [address] [place] [address] Covid 19 Resultson 2 SARS-CoV-2 (COVID-19) RNA CATHERINE+probe Ql (Unsp spec) NEGATIVE COVID-19 Test Coronaviruses are common world-wide and are the cause of many common colds. SARS-COV2 is a new coronavirus that began circulating worldwide in 2019 so we are calling it COVID-19. It has been estimated that four out of five patients with COVID-19 will recover at home without the need for medical attention. Symptoms of COVID-19 may include cough, fever, shortness of breath, loss of taste or smell and other flu-like symptoms including chills, sore muscles, sore throat, and headache. Severe illness is more common in older people and people with other health problems such as high blood pressure, obesity, and immune system problems. If the test is positive, you have COVID-19. You will be contacted by the ordering physicians office and instructed to remain on home isolation, in accordance with CDC guidelines. You may also be contacted by the [facility] to see if any of your close contacts may have been exposed to the virus and need to quarantine. If the test is negative, you likely do not have COVID-19 at this time, but you still may have a different illness that can spread to other people (like Influenza, or the Flu) and could still be at risk for getting COVID-19. We recommend that you stay away from other people to limit the spread of illness until your symptoms are improving and you are fever-free for 24 hours without the use of fever lowering medications such as acetaminophen or ibuprofen. No test is 100% accurate so if you are still concerned you may have COVID-19, talk to your doctor about the need to continue to stay away from others. Medicines Unless your provider told you not to use the following: Acetaminophen (Tylenol and others) is generally safe. Anti-inflammatory medications, such as Ibuprofen (Advil or Motrin) or Naproxen (Aleve) can also be used. Htii-yux-idbvcke cough and cold medicines can be used according to the instructions on the package. Some etyn-cje-dsdfnuz medicines also contain acetaminophen. Make sure you are not taking more than your recommended dose. For those not hospitalized, there is no specific treatment available for this illness. Antibiotics do not treat Coronaviruses. Follow-Up Follow up with your doctor by scheduling a virtual visit or consider follow-up at one of our urgent care fever clinics. If you are having difficulty breathing, or are very weak and having difficulty standing, this is a medical emergency. Call 911 or have someone take you to the nearest emergency room immediately. If possible, wear a facemask. Additional guidance from the CDC for patients who tested POSITIVE for COVID-19 How to isolate: Isolate yourself in a specific room at home and limit your contact with others. Use a separate bathroom from other members of the household, when possible. Leave home only to get essential medical care. Do not go to work, school or public areas. Avoid using public transportation, ride-sharing, or taxis. Restrict contact with pets and other animals. If you must care for your pet or be around animals while you are sick, wash your hands before and after your interaction and wear a facemask. Make sure that shared spaces in the home have good airflow, such as by an air conditioner or an opened window, weather permitting. Personal Hygiene Procedures: Wear a face mask when in the same room as other people or pets. If a face mask interferes with your breathing, others should wear a mask when sharing space with you. Frequent hand-washing: wash your hands with soap and water for at least 20 seconds. If soap and water are not available, use alcohol-based hand c java developer. Avoid touching your eyes, nose, and mouth with unwashed hands. Household Hygiene Procedures: Avoid sharing personal household items such as dishes, glassware, cups, eating utensils, towels or bedding with other people or pets in your home. After use, these items should be washed with soap and hot water. Disinfect all high-touch surfaces every day with antibacterial cleaning solutions such as Lysol wipes, bleach, cleansers, etc. High-touch surfaces include tabletops, doorknobs, bathroom fixtures, toilets, phones, keyboards, tablets and bedside tables. Immediately clean any surfaces that may have blood, poop or body fluids on them, using antibacterial cleaning solutions such as Lysol wipes, bleach, cleansers, etc. If clothing or bedding come into contact with blood, poop or body fluids, they should be washed immediately. Follow the directions on the laundry detergent and clothing labels but hot water is recommended when possible. Stopping home isolation precautions: If possible, consult your doctor before stopping home isolation precautions. According to the CDC, you can discontinue home isolation precautions when you have met both of these criteria: Your fever and respiratory symptoms have been gone for 24 marco antonio (more content not included)... Normal [facility] INFLUENZA A/B, COVID 2019 PC R,SYMPTOMATICon 06-16-2022 INFLUENZA A, PCR Not detected Normal Not Detected [facility] Comment on above: Result Comment: Resp iratory virus testing is performed routinely by PCR for Influenza A/B and RSV. If Influenza and RSV PCR are negative, testing for parainfluenza 1,2,3 viruses and adenovirus is routinely performed for oncology inpatients and intensive care unit patients at [facility] and is available on request on other patients by calling Laboratory Client Services at [phone]. Not Detected results do not preclude Influenza A/B or RSV infections since the adequacy of sample collection or low viral burden may impact the clinical sensitivity of this test method. Performed By: #### C OINP #### [facility] [address] [place] [address] INFLUENZA B, PCR Not detected Normal Not Detected [facility] Comment on above: Result Comment: Resp iratory virus testing is performed routinely by PCR for Influenza A/B and RSV. If Influenza and RSV PCR are negative, testing for parainfluenza 1,2,3 viruses and adenovirus is routinely performed for oncology inpatients and intensive care unit patients at [facility] and is available on request on other patients by calling Laboratory Client Services at [phone] Not Detected results do not preclude Influenza A/B or RSV infections since the adequacy of sample collection or low viral burden may impact the clinical sensitivity of this test method. Performed By: #### C OINP #### [facility] [address] [place] [address] SARS-CoV-2 (COVID-19) RNA CATHERINE+probe Ql (Unsp spec) Not detected Normal Not Detected [facility] Comment on above: Result Comment: . This assay is designed to detect the ORF1a/b and E genes of SARS-CoV-2 via nucleic acid amplification. A Not Detected result does not preclude 2019-nCoV infection since the adequacy of sample collection and/or low viral burden may result in presence of viral nucleic acids below the clinical sensitivity of this test method. Fact sheet for providers: https://www.fda.gov/media/165852/download Fact sheet for patients: https://www.fda.gov/media/331107/download This test has received FDA Emergency Use Authorization (EUA) and has been verified for use by [facility] ([facility]). This test is only authorized for the duration of time that circumstances exist to justify the authorization of the emergency use of in vitro diagnostic tests for the detection of SARS-CoV-2 virus and/or diagnosis of COVID-19 infection under section 564(b)(1) of the Act, 21 U.S.C. 360bbb-3(b)(1), unless the authorization is terminated or revoked sooner. [facility] is certified under CLIA-88 as qualified to perform high complexity testing. Testing is performed in the [facility] laboratories [place] [address] [place] [address]. Performed By: #### C OINP #### [address] [place] [address] INFLUENZA A/B, COVID 2019 PC R,SYMPTOMATICon 06-15-2022 Lab Specimen Source Nasal, Nasopharyngeal Normal [facility] Comment on above: Performed By: #### C OINP #### [address] [place] [address] Provider Note - ED v3on 05-23 Provider Note - ED v3 Provider Note: Chart Review HISTORY OF PRESENTING ILLNESS KAVON is a 66 year old Male and was seen by me at 15-Jun-2022 13:36. The historian is the patientspouse. Triage Information: Most recent Vital Sign Value Date PAST MEDICAL HISTORY ALLERGIES/INTOLERANCES: No Known Allergies HEALTH HISTORY: History of HTN, GERD, and nasal congestion/seasonal allergies. No other known health issues. Family history: no pertinent history. Social history: former smoker. . 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 OUTPATIENT MEDICATIONS: Home Medications Review Status for Reconciliation: Complete Med Status: Patient Currently Takes Medications Drug Name: losartan Instructions: null Drug Name: lisinopril Instructions: null Drug Name: omeprazole Instructions: null Drug Name: Flonase Instructions: null SIGNIFICANT EVENTS: History of diverticulitis. Also has history of R hip replacement, nasal fracture repair, repair of L index finger, TURP, inguinal/umbilical hernia repairs. Has received the COVID vaccine x2; received the flu vaccine ~1 month ago. CRITICAL CARE VITAL SIGNS: T PRBP SpO2O2(LPM) %FiO2 Method 15-Jun-2022 13:18:[id number]/70 97 MDM MDM/ED COURSE: This note was generated with voice recognition software and may contain errors including spelling, grammar, syntax, and misrecognization of what was dictated CHIEF COMPLAINT fatigue, body aches HISTORY OF PRESENT ILLNESS Patient presents today with complaints of fatigue, body aches, subjective fevers/sweats, and intermittent headaches - sxs started abruptly on Saturday night. Reports he had a stomachache on Saturday but this has resolved. He denies any chills, runny nose/congestion (although congestion noted in office today), sore throat, cough, ear pain, wheezing/shortness of breath, rashes, urinary symptoms, nausea/vomiting, and diarrhea. Denies any lightheadedness or dizziness; no changes in mental status. No swelling in legs. Appetite is poor but is able to drink fluids without difficulty; denies any loss of sense of taste/smell. Reports feels like symptoms are persisting without much change since onset. Has been taking Flonase and Aleve with some relief; no other lftb-bjp-zodkxiy medications or home remedies for symptom management. No known ill contacts. Has received the COVID-19 vaccine x2, and received the flu vaccine ~1 month ago. Had COVID infection ~2 years ago. Is a former smoker. REVIEW OF SYSTEMS 10 systems reviewed negative with exception of history of present illness listed above PHYSICAL EXAMINATION General: Mildly ill-appearing, well nourished male; alert and oriented; in no acute distress. Sitting comfortably on exam table. Non-dyspneic. Eyes: Pupils equal, round and reactive to light. No conjunctival erythema; no scleral icterus. HENT: No frontal or maxillary sinus tenderness; + audible nasal congestion. Airway patent, TMs and ear canals clear bilaterally. Nasal mucosa mildly injected and edematous. Oral mucosa moist. Posterior pharynx pink but without vesicles or oropharyngeal exudate aside from PND. Uvula is midline. Managing oral secretions without difficulty. Neck: Supple. Mildly tender, mobile anterior cervical lymphadenopathy bilat. Trachea is midline. Respiratory: Respirations easy and unlabored, Breath sounds equal. Lungs are clear to auscultation; no wheezes, rhonchi, or rales; has good air movement throughout. Loose, productive cough noted only upon request. Non-dyspneic with ambulation; able to maintain SpO2. Cardiovascular: Normal rate, Regular rhythm. Normal S1S2. No m/r/g. No peripheral edema. Gastrointestinal: Soft, non-tender, non-distended; no palpable masses or organomegaly. Bowel sounds normoactive. Musculoskeletal: Grossly normal; appropriate for age. Integumentary: [place], warm, dry, and intact. No rashes or skin discoloration appreciated. Good skin turgor. Neurologic: Alert and oriented, no gross deficits. Cognition and Speech: Oriented, Speech clear and coherent. Psychiatric: Cooperative, Appropriate mood & affect. MEDICAL DECISION MAKING Course: Worsening; stable. Impression/Plan: No red flags on exam today. I have reviewed the COVID-19 algorithm, and counseled pt on COVID-19 current recommendations. Etiology for symptoms somewhat unclear at this time, although could be consistent with viral infection/associated symptoms. Stressed importance of close monitoring and seeking care if symptoms worsen - will need additional labs/workup if sxs worsen/not improving despite conservative measures. Also reviewed other potential etiologies, and nasal swab obtained (using proper PPE) for influenza/COVID-19 testing to err on the side of caution. No antibiotics indicated at this point, but encouraged to begin conservative measures. Instructed to push fluids, rest, and to use appropri (more content not included)... Normal [facility] Office Visit (Internal Medic ine)on 05-23-2022 Follow-up visit Diagnoses/Problems Assessed Type II diabetes mellitus (250.00) (E11.9) Hypercholesterolemia (272.0) (E78.00) Essential hypertension (401.9) (I10) Chronic nonalcoholic liver disease (571.9) (K76.9) Patient Discussion/Summary f/u 6 mo CMP LIPID HGA1C COLONOSCOPY FOR H/O POLYP Provider Impressions MONITOR BP GOAL BP LOWER THAN 130/80 LOW SALT EXERCISE DAILY 1800 VEE ADA HGA1C GOAL LESS THAN 7 LOSE WT EXERCISE DAILY MDM 1) COMPLEXITY: MORE THAN 1 STABLE CHRONIC CONDITION ADDRESSED 2)DATA: TESTS INTERPRETED AND OR ORDERED, TOOK INDEPENDENT HISTORY OR RECORDS REVIEWED 3)RISK: MODERATE RISK DUE TO NATURE OF MEDICAL CONDITIONS/COMORBIDITY OR MEDICATIONS ORDERED OR SURGICAL OR PROCEDURE REFERRAL, . Chief Complaint F/U LABS. HAD FLU VACCINE 2 WEEKS AGO AT [facility] History of Present IllnessHERE FOR F/U NO COMPLAINT Review of Systems Constitutional: not feeling poorly, no fever, no recent weight gain and no recent weight loss. Eyes: no blurred vision and no diplopia. ENT: no hearing loss, no tinnitus, no earache, no sore throat, no hoarseness and no swollen glands in the neck. Cardiovascular: no chest pain, no tightness or heavy pressure, no shortness of breath, no palpitations and no lower extremity edema. Respiratory: no cough, not coughing up sputum and no wheezing that is consistent with asthma. Gastrointestinal: no change in bowel habits, no diarrhea, no constipation, no bloody stools, no nausea, no vomiting, no abdominal pain, no signs and symptoms of ulcer disease, no sina colored stools and no intolerance to fatty foods. Genitourinary: no urinary frequency, no dysuria, no hematuria, no burning sensation during urination, urinary stream is not smaller and urinary stream does not start and stop. Musculoskeletal: no arthralgias, no joint stiffness, no muscle weakness, no back pain and no difficulty walking. Skin: no rashes, no change in skin color and pigmentation, no skin lesions and no skin lumps. Neurological: no headaches, no dizziness, no seizures, no tingling, no numbness, no signs and symptoms of stroke and no limb weakness. Psychiatric: no confusion, no memory lapses or loss, no depression and no sleep disturbances. Endocrine: no goiter, no thyroid disorder, no diabetes mellitus, no excessive thirst, no dry skin, no cold intolerance, no heat intolerance and no increased urinary frequency. Hematologic/Lymphatic: is not slow to heal, does not bleed easily, does not bruise easily, no thrombophlebitis, no anemia and no history of blood transfusion. All other systems have been reviewed and are negative for complaint. Active Problems Problems Acute pharyngitis (462) (J02.9) Allergic rhinitis (477.9) (J30.9) Benign prostatic hyperplasia with urinary obstruction (600.01,599.69) (N40.1,N13.8) Cervical lymphadenopathy (785.6) (R59.0) Chronic nonalcoholic liver disease (571.9) (K76.9) Colonic diverticular disease (562.10) (K57.30) Colonic polyp (211.3) (K63.5) Enlarged tonsils (474.11) (J35.1) Erectile dysfunction (607.84) (N52.9) Essential hypertension (401.9) (I10) GERD (gastroesophageal reflux disease) (530.81) (K21.9) Hypercholesterolemia (272.0) (E78.00) Impacted cerumen of left ear (380.4) (H61.22) Left knee pain (719.46) (M25.562) Lump of skin (782.2) (R22.9) 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) (E29.1) Microalbuminuria (791.0) (R80.9) Neck pain (723.1) (M54.2) Otitis media (382.9) (H66.90) Pseudogout (275.49,712.20) (M11.20) Screening for AAA (abdominal aortic aneurysm) (V81.2) (Z13.6) Screening for prostate cancer (V76.44) (Z12.5) Type II diabetes mellitus (250.00) (E11.9) Past Medical History Problems History of Diaphragmatic hernia (553.3) (K44.9) History of abdominal hernia (V12.79) (Z87.19) History of elevated prostate specific antigen (PSA) (V13.89) (Z87.898) History of Pneumococcal vaccination declined (V64.06) (Z28.21) Surgical History Problems History of Colonoscopy Managed By: Fabio Grace (Internal Medicine); Resolved Date: 09 Apr 2019 REPEAT IN 3 YRS COLONIC POLYP History of Finger fracture repair History of Hip replacement Resolved Date: [address] GAUTHIER History of Inguinal hernia repair History of Repair NOSE FRACTURE History of Umbilical hernia repair Family History Mother No pertinent family history Father Family history of malignant neoplasm of prostate (V16.42) (Z80.42) Sister Family history of malignant neoplasm (V16.9) (Z80.9) Social History Problems Former smoker (V15.82) (Z87.891) No illicit drug use Occasional alcohol use Allergies Medication No Known Drug Allergies Recorded By: Edvin Benjamin; 06/04/2019 8:50:14 AM Current Meds Medication NameInstruction Flonase Allergy Relief 50 MCG/ACT Nasal SuspensionUSE 2 SPRAYS IN EACH NOSTRIL ONCE DAILY Losartan Potassium 50 MG Oral TabletTAKE 1 TABLET DAILY. Omeprazole 20 MG Oral Capsule Delayed ReleaseTAKE 1 CAPSULE (more content not included)... Normal [employer] Tobacco Screening.on 022 Adult depression screening assessment No [facility] Work Phone: Fall risk assessment a) No falls within the last year [facility] Work Phone: Tobacco use status CPHS b) No [facility] Work Phone: COMPREHENSIVE PANELon 05-14- 2021 Albumin [Mass/Vol] 4.2 g/dL Normal 3.4 - 5.0 [facility] Comment on above: Performed By: #### C MP #### [address] [address] ALP [Catalytic activity/Vol] 70 U/L Normal 33 - 136 [facility] Comment on above: Performed By: #### C MP #### [address] [address] ALT [Catalytic activity/Vol] 16 U/L Normal 10 - 52 [facility] Comment on above: Result Comment: Rosibel ents treated with Sulfasalazine may generate falsely decreased results for ALT. Performed By: #### C MP #### [address] [address] Anion gap [Moles/Vol] 11 mmol/L Normal 10 - 20 [facility] Comment on above: Performed By: #### C MP #### [address] [address] AST [Catalytic activity/Vol] 15 U/L Normal 9 - 39 [facility] Comment on above: Performed By: #### C MP #### [address] [address] Bilirubin [Mass/Vol] 0.8 mg/dL Normal 0.0 - 1.2 [facility] Comment on above: Performed By: #### C MP #### [address] [address] Calcium [Mass/Vol] 9.1 mg/dL Normal 8.6 - 10.3 [facility] Comment on above: Performed By: #### C MP #### [address] [address] Chloride [Moles/Vol] 108 mmol/L High 98 - 107 [facility] Comment on above: Performed By: #### C MP #### [address] [address] Creatinine [Mass/Vol] 1.07 mg/dL Normal 0.50 - 1.30 [facility] Comment on above: Performed By: #### C MP #### [address] [address] GFR/1.73 sq M.predicted among non-blacks MDRD (S/P/Bld) [Vol rate/Area] 75 mL/min/{1.73_m2} Normal >90 [facility] Comment on above: Result Comment: CALC ULATIONS OF ESTIMATED GFR ARE PERFORMED USING THE 2020 CKD-EPI STUDY REFIT EQUATION WITHOUT THE RACE VARIABLE FOR THE IDMS-TRACEABLE CREATININE METHODS. https://jasn.asnjournals.org/content/early/ASN.16674573 88 Performed By: #### C MP #### [address] [address] Glucose [Mass/Vol] 99 mg/dL Normal 74 - 99 [facility] Comment on above: Performed By: #### C MP #### [address] [address] HCO3 (Bld) [Moles/Vol] 26 mmol/L Normal 21 - 32 [facility] Comment on above: Performed By: #### C MP #### [address] [address] Potassium [Moles/Vol] 4.4 mmol/L Normal 3.5 - 5.3 [facility] Comment on above: Performed By: #### C MP #### [address] [address] Protein [Mass/Vol] 6.8 g/dL Normal 6.4 - 8.2 [facility] Comment on above: Performed By: #### C MP #### [address] [address] Sodium [Moles/Vol] 141 mmol/L Normal 136 - 145 [facility] Comment on above: Performed By: #### C MP #### [address] [address] Urea nitrogen [Mass/Vol] 18 mg/dL Normal 6 - 23 [facility] Comment on above: Performed By: #### C MP #### [address] [address] HEMOGLOBIN A1Con 05-14-2022 Glucose [Mass/Vol] 123 mg/dL Normal [facility] Comment on above: Performed By: #### H BA1E #### [address] [address] HbA1c (Bld) [Mass fraction] 5.9 % Abnormal [facility] Comment on above: Result Comment: Diag nosis of Diabetes-Adults Non-Diabetic: < or = 5.6% Increased risk for developing diabetes: 5.7-6.4% Diagnostic of diabetes: > or = 6.5% . Monitoring of Diabetes Age (y) Therapeutic Goal (%) Adults: >18 <7.0 Pediatrics: 13-18 <7.5 7-12 <8.0 0- 6 7.5-8.5 [place] [employer]. Diabetes Care 33(S1), Jul 2009. Performed By: #### H BA1E #### [address] [address] Hemoglobin A1Con 05-14-2022 Glucose [Mass/Vol] 123 mg/dL [facility] Work Phone: HbA1c (Bld) [Mass fraction] 5.9 % Abnormal [facility] Work Phone: Comment on above: Diagnosis of Diabete s-Adults Non-Diabetic: < or = 5.6% Increased risk for developing diabetes: 5.7-6.4% Diagnostic of diabetes: > or = 6.5%. Monitoring of Diabetes Age (y) Therapeutic Goal (%) Adults: >18 <7.0 Pediatrics: 13-18 <7.5 7-12 <8.0 0- 6 7.5-8.5 [place] [employer] Association. Diabetes Care 33(S1), Jul 2009. Laboratory - Chemistry and C hemistry - challengeon 05-14-2022 Albumin BCP dye [Mass/Vol] 4.2 g/dL 3.4 - 5.0 [facility] Work Phone: [phone] ALP [Catalytic activity/Vol] 70 U/L 33 - 136 [facility] Work Phone: [phone] ALT With P-5'-P [Catalytic activity/Vol] 16 U/L 10 - 52 [facility] Work Phone: [phone] Comment on above: Patients treated wit h Sulfasalazine may generate falsely decreased results for ALT. Anion gap [Moles/Vol] 11 mmol/L 10 - 20 [facility] Work Phone: [phone] AST With P-5'-P [Catalytic activity/Vol] 15 U/L 9 - 39 [facility] Work Phone: [phone] Bilirubin [Mass/Vol] 0.8 mg/dL 0.0 - 1.2 [facility] Work Phone: [phone] Calcium [Mass/Vol] 9.1 mg/dL 8.6 - 10.3 [facility] Work Phone: [phone] Chloride [Moles/Vol] 108 mmol/L above high threshold 98 - 107 [facility] Work Phone: [phone] CO2 [Moles/Vol] 26 mmol/L 21 - 32 [facility] Work Phone: Creatinine [Mass/Vol] 1.07 mg/dL See Below [facility] Work Phone: Comment on above: Reference Range: 0.5 0 - 1.30 Glucose [Mass/Vol] 99 mg/dL 74 - 99 [facility] Work Phone: [phone] Potassium [Moles/Vol] 4.4 mmol/L 3.5 - 5.3 [facility] Work Phone: [phone] Protein [Mass/Vol] 6.8 g/dL 6.4 - 8.2 [facility] Work Phone: [phone] Sodium [Moles/Vol] 141 mmol/L 136 - 145 [facility] Work Phone: Urea nitrogen [Mass/Vol] 18 mg/dL 6 - 23 [facility] Work Phone: No Panel Informationon 05-14 75 {mL/min/1.73m2} >90 [facility] Work Phone: Comment on above: CALCULATIONS OF [place] MATED GFR ARE PERFORMED USING THE 2020 CKD-EPI STUDY REFIT EQUATION WITHOUT THE RACE VARIABLE FOR THE IDMS-TRACEABLE CREATININE METHODS.https://jasn.asnjournals.org/content/early/ASN. 2069159671 PROSTATE SPEC.AG,SCREENon PROSTATE SPEC.AG,SCREEN 3.83 ng/mL Normal 0.00 - 4.00 [facility] Comment on above: Result Comment: The FDA requires that the method used for PSA assay be reported to the physician. Values obtained with different assay methods must not be used interchangeably. This test was performed at [facility] using the [employer] PSA assay is a two-site immunoenzymatic sandwich assay. The assay is approved for measurement of prostate-specific antigen (PSA)in serum and may be used in conjunction with a digital rectal examination in men 50 years and older as an aid in detection of prostate cancer. 0-Cvqbi-relikalgg inhibitors (e.g. Proscar, Finasteride, Avodart, Dutasteride and Aixa) for the treatment of BPH have been shown to lower PSA levels by an average of 50% after 6 months of treatment. Performed By: #### P [facility] #### [place] [address] Prostate Spec.Ag, Screenon 1 Prostate specific Ag [Mass/Vol] 3.83 ng/mL See Below [facility] Internal [facility] Work Phone: Comment on above: Reference Range: 0.0 0 - 4.00The FDA requires that the method used for PSA assay be reported to the physician. Values obtained with different assay methods must not be used interchangeably. This testwas performed at [facility] using the Access [employer] PSA assay is a two-site immunoenzymatic sandwich assay. The assay is approved for measurement of prostate-specific antigen (PSA)in serum and may be used in conjunction with a digital rectal examination in men 50 years and older as an aid in detection of prostate cancer.7-Yiyzu-rgrgrwgaa inhibitors (e.g. Proscar, Finasteride, Avodart, Dutasteride and Aixa) for the treatment of BPH have been shown to lower PSA levels by an average of 50% after 6 months of treatment. No Panel Informationon 10-05 Prostate Specific Antigen Screen 1.46 ng/mL 0.00-4.[address] [facility] Work Phone: Comment on above: This test was perfor med using the TPSA assay method for [employer] chemistry system. Values obtained with differentassay methods cannot be used interchangably.When changing PSA assays in the course of monitoring apatient, additional sequential testing should be carriedout to confirm baseline values. Medicare Annual Wellness Vis iton 10-03-2021 Medicare Annual Wellness Visit *Chief Complaint MEDICARE WELLNESS WITH LAB History of Present Illness The patient is being seen for the subsequent annual wellness visit. Past Medical, Surgical and Family History: reviewed and updated in chart. Medications and Supplements: Review of all medications by a prescribing practitioner or clinical pharmacist (such as prescriptions, OTCs, herbal therapies and supplements) documented in the medical record. No, the patient is not using opioids. Patient Self Assessment of Health Status: excellent. Tobacco use: Non-User Alcohol use: User OCC. Illicit drug use: Non-User Current diet: well balanced diet. Exercise Frequency: the patient does not exercise. Depression/Suicide Screening: . During the past 2 weeks, the patient has not felt down, depressed or hopeless. During the past 2 weeks, the patient has not felt little interest or pleasure in doing things. Hearing Impairment: Patient has slight hearing impairment. Cognitive Impairment: No cognitive impairment observed. Bathing: performs independently. Dressing: performs independently. Walking: performs independently. Managing Finances: performs independently. Shopping: performs independently. Managing Medications: performs independently. Housework / Basic Home Maintenance: performs independently. Falls Risk Screening:. KAVON has not fallen in the last 6 months. Home safety risk factors: none. Advance directives:. Advance Care Planning discussed and documented in the medical record, patient did not wish or was not able to name a surrogate decision maker or provide an advance care plan. Additional Information: BRING A COPY. HERE FOR F/U NO COMPLAINT WELLNESS EXAM Review of Systems Constitutional: not feeling poorly, no fever, no recent weight gain and no recent weight loss. Eyes: no blurred vision and no diplopia. ENT: no hearing loss, no tinnitus, no earache, no sore throat, no hoarseness and no swollen glands in the neck. Cardiovascular: no chest pain, no tightness or heavy pressure, no shortness of breath, no palpitations and no lower extremity edema. Respiratory: no cough, not coughing up sputum and no wheezing that is consistent with asthma. Gastrointestinal: no change in bowel habits, no diarrhea, no constipation, no bloody stools, no nausea, no vomiting, no abdominal pain, no signs and symptoms of ulcer disease, no sina colored stools and no intolerance to fatty foods. Genitourinary: no urinary frequency, no dysuria, no hematuria, no burning sensation during urination, urinary stream is not smaller and urinary stream does not start and stop. Musculoskeletal: no arthralgias, no joint stiffness, no muscle weakness, no back pain and no difficulty walking. Skin: no rashes, no change in skin color and pigmentation, no skin lesions and no skin lumps. Neurological: no headaches, no dizziness, no seizures, no tingling, no numbness, no signs and symptoms of stroke and no limb weakness. Psychiatric: no confusion, no memory lapses or loss, no depression and no sleep disturbances. Endocrine: no goiter, no thyroid disorder, no diabetes mellitus, no excessive thirst, no dry skin, no cold intolerance, no heat intolerance and no increased urinary frequency. Hematologic/Lymphatic: is not slow to heal, does not bleed easily, does not bruise easily, no thrombophlebitis, no anemia and no history of blood transfusion. All other systems have been reviewed and are negative for complaint. *Active Problems Acute pharyngitis (462) (J02.9) Allergic rhinitis (477.9) (J30.9) Benign prostatic hyperplasia with urinary obstruction (600.01,599.69) (N40.1,N13.8) Cervical lymphadenopathy (785.6) (R59.0) Chronic nonalcoholic liver disease (571.9) (K76.9) Colonic diverticular disease (562.10) (K57.30) Colonic polyp (211.3) (K63.5) Enlarged tonsils (474.11) (J35.1) Erectile dysfunction (607.84) (N52.9) Essential hypertension (401.9) (I10) GERD (gastroesophageal reflux disease) (530.81) (K21.9) Hypercholesterolemia (272.0) (E78.00) Impacted cerumen of left ear (380.4) (H61.22) Left knee pain (719.46) (M25.562) Lump of skin (782.2) (R22.9) 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) (E29.1) Microalbuminuria (791.0) (R80.9) Neck pain (723.1) (M54.2) Otitis media (382.9) (H66.90) Pseudogout (275.49,712.20) (M11.20) Screening for AAA (abdominal aortic aneurysm) (V81.2) (Z13.6) Screening for prostate cancer (V76.44) (Z12.5) Type II diabetes mellitus (250.00) (E11.9) Past Medical History History of Diaphragmatic hernia (553.3) (K44.9) History of abdominal hernia (V12.79) (Z87.19) History of elevated prostate specific antigen (PSA) (V13.89) (Z87.898) History of Pneumococcal vaccination declined (V64.06) (Z28.21) Surgical History History of Colonoscopy Managed By: Fabio Grace (Internal Medicine); Resolved Date: 09 Apr 2019 REPEAT IN 3 YRS COLONIC POLYP History of Finger fracture repair History of Hip replacement Resolved D (more content not included)... Normal [email or web address] Tobacco Screening.on 022 Fall risk assessment a) No falls within the last year [facility] Work Phone: Tobacco use status CP b) No [facility] Work Phone: Office Visit (Internal Medic ine)on 06-29-2021 Follow-up visit Diagnoses/Problems Assessed Lump of skin (782.2) (R22.9) Orders Lump of skin Start: Amoxicillin-Pot Clavulanate 875-125 MG Oral Tablet; 1 tab bid for 10 days Rx By: Natasha Dong; Dispense: 10 Days ; #:20 Tablet; Refill: 0;For: Lump of skin; OSMANI = N; Sent To: [facility]; Last Updated By: [employer]; 06/29/2021 4:32:43 PM Patient Discussion/Summary F/U BEFORE Provider Impressions HE US REFUSING AN US AT THIS TIME. I WILL SEND IN AUGMENTIN. HE WILL NEED AN US IF LUMP REMAINS. HE IS REFUSING A SOONER F/U APPT. AT THIS TIME. WE DISCUSSED MOST COMMON SIDE EFFECTS OF PRESCRIBED MEDICATIONS. INDICATIONS, RISK, COMPLICATIONS, AND ALTERNATIVES OF MEDICATION/THERAPEUTICS WERE EXPLAINED AND DISCUSSED. PLEASE MONITOR CLOSELY FOR ANY UNTOWARD SIDE EFFECTS OR COMPLICATIONS OF MEDICATIONS. PATIENT IS STRONGLY ADVISED TO BE COMPLIANT WITH RECOMMENDATIONS. QUESTIONS AND CONCERNS WERE ADDRESSED. INSTRUCTED TO CALL, RETURN SOONER, OR GO TO THE ER, IF SYMPTOMS PERSIST OR WORSEN. THEY VOICED UNDERSTANDING AND DENIES FURTHER QUESTIONS AT THIS TIME. TIME CODE 1. PREPARATION FOR PATIENT'S VISIT (REVIEWING CHART, CURRENT MEDICAL RECORDS, OUTSIDE HEALTH PROVIDER RECORDS, PREVIOUS HISTORY, EXAM, TEST, PROCEDURE, AND MEDICATIONS) 2. FACE TO FACE ENCOUNTER OBTAINING HISTORY FROM THE PATIENT/FAMILY/CAREGIVERS ; PERFORMING EVALUATION AND EXAMINATION; ORDERING TESTS OR PROCEDURES; REFERRING AND COMMUNICATING WITH OTHER HEALTHCARE PROVIDERS; COUNSELING AND EDUCATION OF THE PATIENT/FAMILY/CAREGIVERS ; INDEPENDENTLY INTERPRETING RESULTS (TESTS, LABS, PROCEDURES, IMAGING) AND COMMUNICATING AND EXPLAINING RESULTS TO THE PATIENT/FAMILY/CAREGIVERS 3. COORDINATION OF CARE; PREPARING AND PRINTING DISCHARGE INSTRUCTIONS AND ANY EDUCATIONAL MATERIAL FOR THE PATIENT/FAMILY/CAREGIVERS . DOCUMENTING CLINICAL INFORMATION IN THE ELECTRONIC MEDICAL RECORD 4. REVIEWING OARRS NEEDED MDM 1) COMPLEXITY: MORE THAN 1 STABLE CHRONIC CONDITION ADDRESSED OR 1 ACUTE ILLNESS ADDRESSED 2)DATA: TESTS INTERPRETED AND OR ORDERED, TOOK INDEPENDENT HISTORY OR RECORDS REVIEWED 3)RISK: MODERATE RISK DUE TO NATURE OF MEDICAL CONDITIONS/COMORBIDITY OR MEDICATIONS ORDERED OR SURGICAL OR PROCEDURE REFERRAL Chief Complaint LUMP UNDER RIGHT SHOULDER BLADE X 2 WEEKS History of Present IllnessPresents today for LUMP TO RIGHT SHOULDER BLADE X 2 WEEKS modifying factors consists of NO KNOWN CAUSE associated symptoms consist of TENDER ON/OFF. NO DISCHARGE prior treatment consists of medication NONE Review of Systems Constitutional: not feeling poorly, no fever, no recent weight gain, no recent weight loss and no chills. Eyes: no blurred vision, no diplopia and no eyesight problems. ENT: no hearing loss, no tinnitus, no earache, no sore throat, no hoarseness and no swollen glands in the neck. Cardiovascular: no chest pain, no tightness or heavy pressure, no shortness of breath, no palpitations and no lower extremity edema. Respiratory: no cough, not coughing up sputum, no wheezing that is consistent with asthma and no shortness of breath during exertion. Gastrointestinal: no change in bowel habits, no diarrhea, no constipation, no bloody stools, no nausea, no vomiting, no abdominal pain, no signs and symptoms of ulcer disease, no sina colored stools and no intolerance to fatty foods. Genitourinary: no urinary frequency, no dysuria, no hematuria, no burning sensation during urination, urinary stream is not smaller and urinary stream does not start and stop. Musculoskeletal: no arthralgias, no joint stiffness, no muscle weakness, no back pain and no difficulty walking. Skin: skin lumps, but no rashes, no change in skin color and pigmentation and no skin lesions. Neurological: no headaches, no dizziness, no seizures, no tingling, no numbness, no signs and symptoms of stroke and no limb weakness. Psychiatric: no confusion, no memory lapses or loss, no depression, no sleep disturbances, no anxiety and not suicidal. 10 SYSTEMS REVIEWED AND NEGATIVE, WHICH THE EXCEPTION OF HPI LISTED ABOVE Active Problems Problems Acute pharyngitis (462) (J02.9) Allergic rhinitis (477.9) (J30.9) Benign prostatic hyperplasia with urinary obstruction (600.01,599.69) (N40.1,N13.8) Cervical lymphadenopathy (785.6) (R59.0) Chronic nonalcoholic liver disease (571.9) (K76.9) Colonic diverticular disease (562.10) (K57.30) Colonic polyp (211.3) (K63.5) Enlarged tonsils (474.11) (J35.1) Erectile dysfunction (607.84) (N52.9) Essential hypertension (401.9) (I10) GERD (gastroesophageal reflux disease) (530.81) (K21.9) Hypercholesterolemia (272.0) (E78.00) Impacted cerumen of left ear (380.4) (H61.22) Left knee pain (719.46) (M25.562) 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 Normal [employer] Tobacco Screening.on Fall risk assessment a) No falls within the last year [facility] Work Phone: Tobacco use status CPHS b) No [facility] Work Phone: Office Visit (Internal Medic ine)on 05-29-2021 Follow-up visit Diagnoses/Problems Assessed Type II diabetes mellitus (250.00) (E11.9) Hypercholesterolemia (272.0) (E78.00) Essential hypertension (401.9) (I10) Allergic rhinitis (477.9) (J30.9) Orders Allergic rhinitis Start: Flonase Allergy Relief 50 MCG/ACT Nasal Suspension (Fluticasone Propionate); USE 2 SPRAYS IN EACH NOSTRIL ONCE DAILY Rx By: Fabio Grace; Dispense: 0 Days ; #:1 X 18.2 ML Bottle; Refill: 11;For: Allergic rhinitis; OSMANI = N; Sent To: [facility] Patient Discussion/Summary F/U 4 MO CMP HGA1C LIPID Provider Impressions MONITOR BP GOAL BP LOWER THAN 130/80 LOW SALT EXERCISE DAILY 1800 VEE ADA HGA1C GOAL LESS THAN 7 LOSE WT EXERCISE DAILY MDM 1) COMPLEXITY: MORE THAN 1 STABLE CHRONIC CONDITION ADDRESSED 2)DATA: TESTS INTERPRETED AND OR ORDERED, TOOK INDEPENDENT HISTORY OR RECORDS REVIEWED 3)RISK: MODERATE RISK DUE TO NATURE OF MEDICAL CONDITIONS/COMORBIDITY OR MEDICATIONS ORDERED OR SURGICAL OR PROCEDURE REFERRAL, . Chief Complaint 4 MO F/U LABS; C/O SINUS DRAINAGE OFF/ON FOR A WHILE History of Present IllnessHERE FOR F/U WITH LABS C/O OFF AND ON SINUS DRAINAGE AND PND Review of Systems Constitutional: not feeling poorly, no fever, no recent weight gain and no recent weight loss. Eyes: no blurred vision and no diplopia. ENT: no hearing loss, no tinnitus, no earache, no sore throat, no hoarseness and no swollen glands in the neck. Cardiovascular: no chest pain, no tightness or heavy pressure, no shortness of breath, no palpitations and no lower extremity edema. Respiratory: no cough, not coughing up sputum and no wheezing that is consistent with asthma. Gastrointestinal: no change in bowel habits, no diarrhea, no constipation, no bloody stools, no nausea, no vomiting, no abdominal pain, no signs and symptoms of ulcer disease, no sina colored stools and no intolerance to fatty foods. Genitourinary: no urinary frequency, no dysuria, no hematuria, no burning sensation during urination, urinary stream is not smaller and urinary stream does not start and stop. Musculoskeletal: no arthralgias, no joint stiffness, no muscle weakness, no back pain and no difficulty walking. Skin: no rashes, no change in skin color and pigmentation, no skin lesions and no skin lumps. Neurological: no headaches, no dizziness, no seizures, no tingling, no numbness, no signs and symptoms of stroke and no limb weakness. Psychiatric: no confusion, no memory lapses or loss, no depression and no sleep disturbances. Endocrine: no goiter, no thyroid disorder, no diabetes mellitus, no excessive thirst, no dry skin, no cold intolerance, no heat intolerance and no increased urinary frequency. Hematologic/Lymphatic: is not slow to heal, does not bleed easily, does not bruise easily, no thrombophlebitis, no anemia and no history of blood transfusion. All other systems have been reviewed and are negative for complaint. Active Problems Problems Acute pharyngitis (462) (J02.9) Benign prostatic hyperplasia with urinary obstruction (600.01,599.69) (N40.1,N13.8) Cervical lymphadenopathy (785.6) (R59.0) Chronic nonalcoholic liver disease (571.9) (K76.9) Colonic diverticular disease (562.10) (K57.30) Colonic polyp (211.3) (K63.5) Enlarged tonsils (474.11) (J35.1) Erectile dysfunction (607.84) (N52.9) Essential hypertension (401.9) (I10) GERD (gastroesophageal reflux disease) (530.81) (K21.9) Hypercholesterolemia (272.0) (E78.00) Impacted cerumen of left ear (380.4) (H61.22) Left knee pain (719.46) (M25.562) 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) (E29.1) Microalbuminuria (791.0) (R80.9) Neck pain (723.1) (M54.2) Otitis media (382.9) (H66.90) Pseudogout (275.49,712.20) (M11.20) Screening for AAA (abdominal aortic aneurysm) (V81.2) (Z13.6) Screening for prostate cancer (V76.44) (Z12.5) Type II diabetes mellitus (250.00) (E11.9) Past Medical History Problems History of Diaphragmatic hernia (553.3) (K44.9) History of abdominal hernia (V12.79) (Z87.19) History of elevated prostate specific antigen (PSA) (V13.89) (Z87.898) History of Pneumococcal vaccination declined (V64.06) (Z28.21) Surgical History Problems History of Colonoscopy Managed By: Fabio Grace (Internal Medicine); Resolved Date: 09 Apr 2019 REPEAT IN 3 YRS COLONIC POLYP History of Finger fracture repair History of Hip replacement Resolved Date: [address] GAUTHIER History of Inguinal hernia repair History of Repair NOSE FRACTURE History of Umbilical hernia repair Family History Mother No pertinent family history Father Family history of malignant neoplasm of prostate (V16.42) (Z80.42) Sister Family history of malignant neoplasm (V16.9) (Z80.9) Social History Problems Former smoker (V15.82) (Z87.891) No illicit drug use Occasional alcohol use Allergies Medication No Known Drug Allergies Recorded By: Edvin Benjamin; 06/04/2019 8:50:14 AM Current Meds Medicat (more content not included)... Normal [employer] Tobacco Screening.on 021 Fall risk assessment a) No falls within the last year [facility] Medicine Work Phone: Tobacco use status [facility] b) No [facility] Work Phone: Hemoglobin A1Con 05-19-2021 Glucose [Mass/Vol] 128 mg/dL [facility] Work Phone: HbA1c (Bld) [Mass fraction] 6.1 % Abnormal [facility] Work Phone: Comment on above: Diagnosis of Diabete s-Adults Non-Diabetic: < or = 5.6% Increased risk for developing diabetes: 5.7-6.4% Diagnostic of diabetes: > or = 6.5%. Monitoring of Diabetes Age (y) Therapeutic Goal (%) Adults: >18 <7.0 Pediatrics: 13-18 <7.5 7-12 <8.0 0- 6 7.5-8.5 [place] Diabetes Association. Diabetes Care 33(S1), Jul 2009. Laboratory - Chemistry and C hemistry - challengeon 05-19-2021 Albumin BCP dye [Mass/Vol] 3.9 g/dL 3.4 - 5.0 [facility] Work Phone: ALP [Catalytic activity/Vol] 69 U/L 33 - 136 [facility] Medicine Work Phone: ALT With P-5'-P [Catalytic activity/Vol] 14 U/L 10 - 52 [facility] Medicine Work Phone: Comment on above: Patients treated wit h Sulfasalazine may generate falsely decreased results for ALT. Anion gap [Moles/Vol] 10 mmol/L 10 - 20 [facility] Work Phone: AST With P-5'-P [Catalytic activity/Vol] 15 U/L 9 - 39 [facility] Work Phone: Bilirubin [Mass/Vol] 0.4 mg/dL 0.0 - 1.2 [facility] Work Phone: Calcium [Mass/Vol] 9.2 mg/dL 8.6 - 10.3 [facility] Medicine Work Phone: Chloride [Moles/Vol] 107 mmol/L 98 - 107 [facility] Work Phone: CO2 [Moles/Vol] 28 mmol/L 21 - 32 [facility] Internal Medicine Work Phone: Creatinine [Mass/Vol] 1.12 mg/dL See Below [facility] Work Phone: Comment on above: Reference Range: 0.5 0 - 1.30 Glucose [Mass/Vol] 102 mg/dL above high threshold 74 - 99 [facility] Work Phone: Potassium [Moles/Vol] 4.5 mmol/L 3.5 - 5.3 [facility] Work Phone: Protein [Mass/Vol] 6.7 g/dL 6.4 - 8.2 [facility] Work Phone: Sodium [Moles/Vol] 140 mmol/L 136 - 145 [facility] Work Phone: Urea nitrogen [Mass/Vol] 16 mg/dL 6 - 23 [facility] Work Phone: No Panel Informationon 05-19 >60 >60 [facility] Work Phone: Comment on above: CALCULATIONS OF [place] MATED GFR ARE PERFORMED USING THE MDRD STUDY EQUATION FOR THE IDMS-TRACEABLE CREATININE METHODS. CLIN CHEM 2007;53:766-72 Ultrasound AAA Screening Rad iologyon 02-08-2021 Ultrasound AAA Screening Radiology Normal [facility] Work Phone: Tobacco Screening.on 021 Fall risk assessment a) No falls within the last year [facility] Work Phone: Tobacco use status [facility] b) No [facility] Work Phone: Hemoglobin A1Con 01-20-2021 Glucose [Mass/Vol] 131 mg/dL [facility] Work Phone: HbA1c (Bld) [Mass fraction] 6.2 % [facility] Work Phone: Comment on above: Diagnosis of Diabete s-Adults Non-Diabetic: < or = 5.6% Increased risk for developing diabetes: 5.7-6.4% Diagnostic of diabetes: > or = 6.5%. Monitoring of Diabetes Age (y) Therapeutic Goal (%) Adults: >18 <7.0 Pediatrics: 13-18 <7.5 7-12 <8.0 0- 6 7.5-8.5 [place] Diabetes Association. Diabetes Care 33(S1), Jul 2009. Laboratory - Chemistry and C hemistry - challengeon 01-20-2021 Albumin BCP dye [Mass/Vol] 4.4 g/dL 3.4 - 5.0 [facility] Work Phone: ALP [Catalytic activity/Vol] 66 U/L 33 - 136 [facility] Work Phone: ALT With P-5'-P [Catalytic activity/Vol] 17 U/L 10 - 52 [facility] Work Phone: Comment on above: Patients treated wit h Sulfasalazine may generate falsely decreased results for ALT. Anion gap [Moles/Vol] 9 mmol/L below low threshold 10 - 20 [facility] Work Phone: AST With P-5'-P [Catalytic activity/Vol] 16 U/L 9 - 39 [facility] Work Phone: Bilirubin [Mass/Vol] 0.7 mg/dL 0.0 - 1.2 [facility] Work Phone: Calcium [Mass/Vol] 9.3 mg/dL 8.6 - 10.3 [facility] Medicine Work Phone: Chloride [Moles/Vol] 106 mmol/L 98 - 107 [facility] Work Phone: CO2 [Moles/Vol] 28 mmol/L 21 - 32 [facility] Internal Medicine Work Phone: Creatinine [Mass/Vol] 1.28 mg/dL See Below [facility] Work Phone: Comment on above: Reference Range: 0.5 0 - 1.30 Glucose [Mass/Vol] 117 mg/dL above high threshold 74 - 99 [facility] Work Phone: Potassium [Moles/Vol] 4.3 mmol/L 3.5 - 5.3 [facility] Work Phone: Protein [Mass/Vol] 7.2 g/dL 6.4 - 8.2 [facility] Work Phone: Sodium [Moles/Vol] 139 mmol/L 136 - 145 [facility] Work Phone: Urea nitrogen [Mass/Vol] 22 mg/dL 6 - 23 [facility] Work Phone: No Panel Informationon 01-20 68 {mL/min/1.73m2} >60 [facility] Work Phone: Comment on above: CALCULATIONS OF [place] MATED GFR ARE PERFORMED USING THE MDRD STUDY EQUATION FOR THE IDMS-TRACEABLE CREATININE METHODS. CLIN CHEM 2007;53:766-72 56 {mL/min/1.73m2} Abnormal >60 [facility] Work Phone: Prostate Spec.Ag, Screenon 0 01-20-2021 Prostate specific Ag [Mass/Vol] 2.24 ng/mL See Below [facility] Work Phone: Comment on above: Reference Range: 0.0 0 - 4.00The FDA requires that the method used for PSA assay be reported to the physician. Values obtained with different assay methods must not be used interchangeably. This testwas performed at [facility] using the Access [employer] PSA assay is a two-site immunoenzymatic sandwich assay. The assay is approved for measurement of prostate-specific antigen (PSA)in serum and may be used in conjunction with a digital rectal examination in men 50 years and older as an aid in detection of prostate cancer.7-Kjtbu-widrbhnql inhibitors (e.g. Proscar, Finasteride, Avodart, Dutasteride and Aixa) for the treatment of BPH have been shown to lower PSA levels by an average of 50% after 6 months of treatment. PROGRESSon 08-31-2019 PROGRESS HNO ID: [id number] Author: Jazmin Rust Service: ? 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 Naylor ? 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 I have seen and examined Kavon Stephens. I have discussed the case and the management of this patient's care with the Resident/Fellow, if applicable. I also have reviewed and agree with the assessment and plan as stated above and agree with all of its relevant components. I, Jazmin Rust MD, personally performed the services described in this documentation. All medical record entries made by the scribe were at my direction and in my presence. I have reviewed the chart and discharge instructions (if applicable) and agree that the record reflects my personal performance and is accurate and complete. Electronically Signed: Jazmin Rust MD, August 31, 2019 5:24 PM. Normal [facility] Other 07-31-2019 XR Knee 1 or 2 views Please click on the link to view the study images Normal [facility] Work Phone: XR Knee 1 or 2 views Interpreted by: [email or web address]/12/20 06:49MRN: [id number] Name: KAVON STEPHENS STUDY:KNEE; 1 OR 2 VIEWS; 07/31/2019 9:39 am INDICATION:left knee pain. COMPARISON:None. ORDERING CLINICIAN:FABIO GRACE FINDINGS:Left knee, 2 views There is no fracture. There is no dislocation. No significantdegenerative changes seen. There is no joint effusion. IMPRESSION:Unremarkable radiographs of the left knee Electronically signed by: HORACIO 08/02/19 06:49 Normal [facility] Work Phone: Comment on above: ORDER REVISED TO A K NEE 1 OR 2 VIEWS BY RADIOLOGIST Uric Acid, Serumon 0 Urate [Mass/Vol] 7.3 mg/dL 4.0 - 7.5 [facility] Internal Medicine Work Phone: Comment on above: Venipuncture immedia tely after or during the administration of Metamizole may lead to falsely low results. Testing should be performed immediately prior to Metamizole dosing. [facility]2019 Albumin [Mass/Vol] 4.4 g/dL Normal 3.4-5.0 [facility] Comment on above: Performed By: #### 2 [id number] #### [employer] [address] [place], [place] [id number] Albumin/Globulin [Mass ratio] 1.6 {ratio} Normal 1.1-1.9 [facility] Comment on above: Performed By: #### 2 [id number] #### [employer] [address] [place] [address] 18928 Alk Phos 63 Int._Unit/L Normal 33-136 [facility] Comment on above: Performed By: #### 2 [id number] #### [employer] [address] [place] [address] 49215 ALT [Catalytic activity/Vol] 27 Int._Unit/L Normal 10-52 [facility] Comment on above: Performed By: #### 2 [id number] #### [employer] [address] [place] [address] 70109 Anion gap [Moles/Vol] 11 mmol/L Normal 10-20 [facility] Comment on above: Performed By: #### 2 [id number] #### [employer] [address] [place] [address] 22970 AST [Catalytic activity/Vol] 20 Int._Unit/L Normal 9-39 [facility] Comment on above: Performed By: #### 2 [id number] #### [employer] [address] [place] [address] 46122 Bili Total 0.71 mg/dL Normal 0.00-1.20 [facility] Comment on above: Performed By: #### 2 [id number] #### [employer] [address] [place] [address] 39006 Calcium [Mass/Vol] 9.3 mg/dL Normal 8.6-10.3 [facility] Comment on above: Performed By: #### 2 [id number] #### [employer] [address] [place] [address] 42391 Chloride [Moles/Vol] 108 mmol/L High 98-107 [facility] Comment on above: Performed By: #### 2 [id number] #### [employer] [address] [place] [address] 35500 CO2 [Moles/Vol] 26.0 mmol/L Normal 21.0-32.0 [facility] Comment on above: Performed By: #### 2 [id number] #### [employer] [address] [place] [address] 26269 Creatinine [Mass/Vol] 1.1 mg/dL Normal 0.5-1.3 [facility] Comment on above: Performed By: #### 2 334694 #### [employer] [address] [place] [address] 01413 Globulin (S) [Mass/Vol] 3.0 g/dL Normal 2.0-4.0 [facility] Comment on above: Performed By: #### 2 [id number] #### [employer] [address] [place] [address] 39692 Glucose [Mass/Vol] 122 mg/dL High 70-99 [facility] Comment on above: Performed By: #### 2 [id number] #### [employer] [address] [place] [address] 82580 Potassium [Moles/Vol] 4.3 mmol/L Normal 3.5-5.3 [facility] Comment on above: Performed By: #### 2 [id number] #### [employer] [address] [place] [address] 72172 Protein [Mass/Vol] 7.1 g/dL Normal 6.4-8.2 [facility] Comment on above: Performed By: #### 2 [id number] #### [employer] [address] [place] [address] 40656 Sodium [Moles/Vol] 141 mmol/L Normal 136-145 [facility] Comment on above: Performed By: #### 2 [id number] #### [employer] [address] [place], [place] [id number] Urea nitrogen [Mass/Vol] 19 mg/dL Normal 6-23 [facility] Comment on above: Performed By: #### 2 [id number] #### [employer] [address] [place] [address] 50004 Urea nitrogen/Creatinine [Mass ratio] 17.3 ratio Normal 5.4-30.0 [facility] Comment on above: Performed By: #### 2 [id number] #### [employer] [address] [place], [place] [id number] 03-31-2019 HbA1c (Bld) [Mass fraction] 6.3 % Normal 4.0-6.3 [facility] Comment on above: Performed By: #### 3 [id number] #### [employer] Manual Subsection [address] [place] [address] 70278 eGFRon 03-31-2019 GFR/1.73 sq M predicted among non-blacks MDRD (S/P/Bld) [Vol rate/Area] mL/min/{1.73_m2} Normal [facility] Comment on above: Order Comment: Order added by Discern Expert. Performed By: #### 1 [id number] #### [employer] [address] [place] [address] CMPon 11-15-2018 Albumin [Mass/Vol] 4.3 g/dL Normal 3.4-5.0 [facility] Comment on above: Performed By: #### 2 [id number] #### [employer] [facility] [place] [address] Albumin/Globulin [Mass ratio] 1.9 {ratio} Normal 1.1-1.9 [facility] Comment on above: Performed By: #### 2 [id number] #### [employer] [address] [place] [address] Alk Phos 70 Int._Unit/L Normal 33-136 [facility] Comment on above: Performed By: #### 2 [id number] #### [employer] [address] [place] [address] ALT [Catalytic activity/Vol] 25 Int._Unit/L Normal 10-52 [facility] Comment on above: Performed By: #### 2 [id number] #### [employer] [address] [place] [address] Anion gap [Moles/Vol] 10 mmol/L Normal 10-20 [facility] Comment on above: Performed By: #### 2 815741 #### [employer] [facility] [place] [address] AST [Catalytic activity/Vol] 18 Int._Unit/L Normal 9-39 [facility] Comment on above: Performed By: #### 2 [id number] #### [employer] [address] [place] [address] 80415 Bili Total 0.81 mg/dL Normal 0.00-1.20 [facility] Comment on above: Performed By: #### 2 344853 #### [employer] [facility] [place] [address] Calcium [Mass/Vol] 9.2 mg/dL Normal 8.6-10.3 [facility] Comment on above: Performed By: #### 2 122346 #### [employer] [facility] [place] [address] Chloride [Moles/Vol] 108 mmol/L High 98-107 [facility] Comment on above: Performed By: #### 2 [id number] #### [employer] [address] [place] [address] CO2 [Moles/Vol] 26.0 mmol/L Normal 21.0-32.0 [facility] Comment on above: Performed By: #### 2 544465 #### [employer] [address] [place] [address] Creatinine [Mass/Vol] 1.1 mg/dL Normal 0.5-1.3 [facility] Comment on above: Performed By: #### 2 348818 #### [employer] [address] [place] [address] Globulin (S) [Mass/Vol] 2.0 g/dL Normal 2.0-4.0 [facility] Comment on above: Performed By: #### 2 331835 #### [employer] [address] [place] [address] Glucose [Mass/Vol] 114 mg/dL High 70-99 [facility] Comment on above: Performed By: #### 2 [id number] #### [employer] [address] [place] [address] Potassium [Moles/Vol] 4.0 mmol/L Normal 3.5-5.3 [facility] Comment on above: Performed By: #### 2 143088 #### [employer] [address] [place] [address] 14451 Protein [Mass/Vol] 6.6 g/dL Normal 6.4-8.2 [facility] Comment on above: Performed By: #### 2 117156 #### [employer] [address] [place] [address] 56506 Sodium [Moles/Vol] 140 mmol/L Normal 136-145 [facility] Comment on above: Performed By: #### 2 346645 #### [employer] [address] Urea nitrogen [Mass/Vol] 21 mg/dL Normal 6-23 [facility] Comment on above: Performed By: #### 2 801111 #### [employer] [address] [place] [address] 22370 Urea nitrogen/Creatinine [Mass ratio] 19.1 ratio Normal 5.4-30.0 [facility] Comment on above: Performed By: #### 2 395144 #### [employer] [address] [place] [address] [id number] 11-15-2018 HbA1c (Bld) [Mass fraction] 6.3 % Normal 4.0-6.3 [facility] Comment on above: Performed By: #### 3 [id number] #### [employer] Chemistry Manual Subsection [address] [place] [address] 22071 Microalb/Creat Ratioon 11-15 Creatinine [Mass/Vol] 70 ug/mg High 0-30 [facility] Comment on above: Performed By: #### 1 [id number] #### [employer] [address] [place] [address] 33351 Creatinine [Mass/Vol] 97.0 mg/dL Normal 20.0-300.0 [facility] Comment on above: Performed By: #### 1 [id number] #### [employer] [address] [place] [address] 31765 Ur Microalbumin 6.8 mg/dL High 0.0-1.9 [facility] Comment on above: Performed By: #### 1 [id number] #### [employer] [address] [place] [address] 51475 eGFRon 11-15-2018 GFR/1.73 sq M predicted among non-blacks MDRD (S/P/Bld) [Vol rate/Area] mL/min/{1.73_m2} Normal [facility] Comment on above: Order Comment: Order added by Discern Expert. Performed By: #### 1 [id number] #### [employer] [address] [place] [address] 15326 CMPon 08-09-2018 Albumin [Mass/Vol] 4.3 g/dL Normal 3.4-5.0 [facility] Comment on above: Performed By: #### 2 [id number] #### [employer] [address] [place] [address] 08294 Albumin/Globulin [Mass ratio] 1.6 {ratio} Normal 1.1-1.9 [facility] Comment on above: Performed By: #### 2 082344 #### [employer] [address] [place] [address] 80592 Alk Phos 70 Int._Unit/L Normal 33-136 [facility] Comment on above: Performed By: #### 2 882641 #### [employer] [address] [place] [address] 07731 ALT [Catalytic activity/Vol] 32 Int._Unit/L Normal 10-52 [facility] Comment on above: Performed By: #### 2 [id number] #### [facility] [employer] [address] [place] [address] 25689 Anion gap [Moles/Vol] 11 mmol/L Normal 10-20 [facility] Comment on above: Performed By: #### 2 630703 #### [facility] [employer] [address] [place] [address] 52430 AST [Catalytic activity/Vol] 22 Int._Unit/L Normal 9-39 [facility] Comment on above: Performed By: #### 2 [id number] #### [facility] [employer] [address] [place] [address] 30649 Bili Total 0.90 mg/dL Normal 0.00-1.20 [facility] Comment on above: Performed By: #### 2 [id number] #### [facility] [employer] [address] [place], [place] [address] Calcium [Mass/Vol] 9.3 mg/dL Normal 8.6-10.3 [facility] Comment on above: Performed By: #### 2 290530 #### [facility] [employer] [address] [place] [address] 36186 Chloride [Moles/Vol] 108 mmol/L High 98-107 [facility] Comment on above: Performed By: #### 2 793046 #### [facility] [employer] [address] [place] [address] 01464 CO2 [Moles/Vol] 26.0 mmol/L Normal 21.0-32.0 [facility] Comment on above: Performed By: #### 2 [id number] #### [facility] [employer] [address] [place] [address] 52248 Creatinine [Mass/Vol] 1.2 mg/dL Normal 0.5-1.3 [facility] Comment on above: Performed By: #### 2 152007 #### [employer] [address] [place] [address] 26699 Globulin (S) [Mass/Vol] 3.0 g/dL Normal 2.0-4.0 [facility] Comment on above: Performed By: #### 2 907900 #### [employer] [address] [place] [address] 95150 Glucose [Mass/Vol] 118 mg/dL High 70-99 [facility] Comment on above: Performed By: #### 2 868758 #### [employer] [facility] [place] [address] Potassium [Moles/Vol] 4.2 mmol/L Normal 3.5-5.3 [facility] Comment on above: Performed By: #### 2 040677 #### [employer] [address] [place] [address] 46260 Protein [Mass/Vol] 7.0 g/dL Normal 6.4-8.2 [facility] Comment on above: Performed By: #### 2 055602 #### [employer] [address] [place] [address] 32917 Sodium [Moles/Vol] 141 mmol/L Normal 136-145 [facility] Comment on above: Performed By: #### 2 720853 #### [employer] [address] [place] [address] 54180 Urea nitrogen [Mass/Vol] 22 mg/dL Normal 6-23 [facility] Comment on above: Performed By: #### 2 975652 #### [employer] [address] [place] [address] 04350 Urea nitrogen/Creatinine [Mass ratio] 18.3 ratio Normal 5.4-30.0 [facility] Comment on above: Performed By: #### 2 [id number] #### [employer] [address] [place] [address] 99065 [id number] 08-09-2018 HbA1c (Bld) [Mass fraction] 6.3 % Normal 4.0-6.3 [facility] Comment on above: Performed By: #### 3 [id number] #### [employer] Chemistry Manual Subsection [address] [place] [address] 19721 eGFRon 08-09-2018 GFR/1.73 sq M predicted among non-blacks MDRD (S/P/Bld) [Vol rate/Area] mL/min/{1.73_m2} Normal [facility] Comment on above: Order Comment: Order added by Discern Expert. Performed By: #### 1 [id number] #### [employer] [address] [place] [address] 20335 Vital Signs Date Time [facility] 11-13-2024 15:44-0400 Body height 190.5 cm Edvin Welshta SUPPLIER RELATIONSHIP DIRECTOR-EDUCATIONAL THERAPIST Work Phone: [facility] 11-13-2024 15:44-0400 Body mass index (BMI) [Ratio] 27.5 kg/m2 Edvin Jacob SUPPLIER RELATIONSHIP DIRECTOR-EDUCATIONAL THERAPIST Work Phone: [facility] 11-13-2024 15:44-0400 Body temperature 98.01 [degF] Edvin Welshta SUPPLIER RELATIONSHIP DIRECTOR-EDUCATIONAL THERAPIST Work Phone: [facility] 11-13-2024 15:44-0400 Body weight 99.79 kg Edvin Jacob SUPPLIER RELATIONSHIP DIRECTOR-EDUCATIONAL THERAPIST Work Phone: [facility] 11-13-2024 15:44-0400 Diastolic blood pressure 80 mm[Hg] Edvin Jacob SUPPLIER RELATIONSHIP DIRECTOR-EDUCATIONAL THERAPIST Work Phone: [facility] 11-13-2024 15:44-0400 Heart rate 82 /min Edvin Welshta SUPPLIER RELATIONSHIP DIRECTOR-EDUCATIONAL THERAPIST Work Phone: [facility] 11-13-2024 15:44-0400 Respiratory rate 16 /min Edvin Jacob SUPPLIER RELATIONSHIP DIRECTOR-EDUCATIONAL THERAPIST Work Phone: [facility] 11-13-2024 15:44-0400 SaO2% (BldA) [Mass fraction] 97 % Edvin Welshta SUPPLIER RELATIONSHIP DIRECTOR-EDUCATIONAL THERAPIST Work Phone: [facility] 11-13-2024 15:44-0400 Systolic blood pressure 122 mm[Hg] Edvin Jacob SUPPLIER RELATIONSHIP DIRECTOR-EDUCATIONAL THERAPIST Work Phone: [facility] 10-26-2024 15:51-0400 Body height 190.5 cm Fabio Grace MD Work Phone: [facility] 10-26-2024 15:51-0400 Body mass index (BMI) [Ratio] 29.25 kg/m2 Fabio Grace MD Work Phone: [facility] 10-26-2024 15:51-0400 Body weight 106.14 kg Fabio Grace MD Work Phone: [facility] 10-26-2024 15:51-0400 Diastolic blood pressure 84 mm[Hg] Fabio Grace MD Work Phone: [facility] 10-26-2024 15:51-0400 Heart rate 81 /min Fabio Grace MD Work Phone: [facility] 10-26-2024 15:51-0400 Systolic blood pressure 129 mm[Hg] Fabio Grace MD Work Phone: [facility] 04-27-2024 15:51-0400 Body height 190.5 cm Fabio Grace MD Work Phone: [facility] 04-27-2024 15:51-0400 Body mass index (BMI) [Ratio] 28.5 kg/m2 Fabio Grace MD Work Phone: [facility] 04-27-2024 15:51-0400 Body weight 103.42 kg Fabio Grace MD Work Phone: [facility] 04-27-2024 15:51-0400 Diastolic blood pressure 86 mm[Hg] Fabio Grace MD Work Phone: [facility] 04-27-2024 15:51-0400 Heart rate 90 /min Fabio Grace MD Work Phone: [facility] 04-27-2024 15:51-0400 Systolic blood pressure 136 mm[Hg] Fabio Grace MD Work Phone: [facility] 03-25-2024 12:58-0400 Body height 190.5 cm Fabio Grace MD Work Phone: [facility] 03-25-2024 12:58-0400 Body mass index (BMI) [Ratio] 28.25 kg/m2 Fabio Grace MD Work Phone: [facility] 03-25-2024 12:58-0400 Body weight 102.51 kg Fabio Grace MD Work Phone: [facility] 03-25-2024 12:58-0400 Diastolic blood pressure 84 mm[Hg] Fabio Grace MD Work Phone: [facility] 03-25-2024 12:58-0400 Heart rate 80 /min Fabio Grace MD Work Phone: [facility] 03-25-2024 12:58-0400 Systolic blood pressure 123 mm[Hg] Fabio Grace MD Work Phone: [facility] 03-18-2024 10:56-0400 Body height 190.5 cm Fabio Grace MD Work Phone: [facility] 03-18-2024 10:56-0400 Body mass index (BMI) [Ratio] 28.5 kg/m2 Fabio Grace MD Work Phone: [facility] 03-18-2024 10:56-0400 Body weight 103.42 kg Fabio rGace MD Work Phone: [facility] 03-18-2024 10:56-0400 Diastolic blood pressure 84 mm[Hg] Fabio Grace MD Work Phone: [facility] 03-18-2024 10:56-0400 Heart rate 86 /min Fabio Grace MD Work Phone: [facility] 03-18-2024 10:56-0400 Systolic blood pressure 119 mm[Hg] Fabio Grace MD Work Phone: [facility] 01-17-2024 14:50-0400 Body height 190.5 cm Edvin GOULD Work Phone: [facility] 01-17-2024 14:50-0400 Body mass index (BMI) [Ratio] 27.5 kg/m2 Edvin Welshta SUPPLIER RELATIONSHIP DIRECTOR-EDUCATIONAL THERAPIST Work Phone: [facility] 01-17-2024 14:50-0400 Body temperature 98.01 [degF] Edvin Jacob SUPPLIER RELATIONSHIP DIRECTOR-EDUCATIONAL THERAPIST Work Phone: [facility] 01-17-2024 14:50-0400 Body weight 99.79 kg Edvin Welshta SUPPLIER RELATIONSHIP DIRECTOR-EDUCATIONAL THERAPIST Work Phone: 5(066)991-842753 [address] 01-17-2024 14:50-0400 Diastolic blood pressure 72 mm[Hg] Edvin Jacob SUPPLIER RELATIONSHIP DIRECTOR-EDUCATIONAL THERAPIST Work Phone: 2(461)064-286553 [address] 01-17-2024 14:50-0400 Heart rate 83 /min Edvin Jacob SUPPLIER RELATIONSHIP DIRECTOR-EDUCATIONAL THERAPIST Work Phone: 4(612)876-871753 [address] 01-17-2024 14:50-0400 Respiratory rate 14 /min Edvin Welshta SUPPLIER RELATIONSHIP DIRECTOR-EDUCATIONAL THERAPIST Work Phone: 0(336)487-734593 [place] [address] 01-17-2024 14:50-0400 SaO2% (BldA) [Mass fraction] 95 % Edvin Welshta SUPPLIER RELATIONSHIP DIRECTOR-EDUCATIONAL THERAPIST Work Phone: 9(537)800-467393 [place] [address] 01-17-2024 14:50-0400 Systolic blood pressure 124 mm[Hg] Edvin Jacob SUPPLIER RELATIONSHIP DIRECTOR-EDUCATIONAL THERAPIST Work Phone: 2(101)866-712593 [place] [address] 01-11-2024 12:26-0400 Body height 190.5 cm Edvin Jacob SUPPLIER RELATIONSHIP DIRECTOR-EDUCATIONAL THERAPIST Work Phone: 4(476)722-124093 [place] [address] 01-11-2024 12:26-0400 Body mass index (BMI) [Ratio] 27.5 kg/m2 Edvin Jacob SUPPLIER RELATIONSHIP DIRECTOR-EDUCATIONAL THERAPIST Work Phone: 8(382)182-262453 [address] 01-11-2024 12:26-0400 Body temperature 97.59 [degF] Edvin Jacob SUPPLIER RELATIONSHIP DIRECTOR-EDUCATIONAL THERAPIST Work Phone: 5(402)[phone] [address] 01-11-2024 12:26-0400 Body weight 99.79 kg Edvin Welshta SUPPLIER RELATIONSHIP DIRECTOR-EDUCATIONAL THERAPIST Work Phone: [facility] 01-11-2024 12:26-0400 Diastolic blood pressure 73 mm[Hg] Edvin Jacob SUPPLIER RELATIONSHIP DIRECTOR-EDUCATIONAL THERAPIST Work Phone: [facility] 01-11-2024 12:26-0400 Heart rate 80 /min Edvin Jacob SUPPLIER RELATIONSHIP DIRECTOR-EDUCATIONAL THERAPIST Work Phone: [facility] 01-11-2024 12:26-0400 Respiratory rate 14 /min Edvin Jacob SUPPLIER RELATIONSHIP DIRECTOR-EDUCATIONAL THERAPIST Work Phone: [facility] 01-11-2024 12:26-0400 SaO2% (BldA) [Mass fraction] 94 % Edvin Jacob SUPPLIER RELATIONSHIP DIRECTOR-EDUCATIONAL THERAPIST Work Phone: [facility] 01-11-2024 12:26-0400 Systolic blood pressure 107 mm[Hg] Edvin Jacob SUPPLIER RELATIONSHIP DIRECTOR-EDUCATIONAL THERAPIST Work Phone: [facility] 12-25-2023 16:03-0400 Body height 190.5 cm Fabio Grace MD Work Phone: [facility] 12-25-2023 16:03-0400 Body mass index (BMI) [Ratio] 28.32 kg/m2 Fabio Grace MD Work Phone: [facility] 12-25-2023 16:03-0400 Body weight 102.78 kg Fabio Grace MD Work Phone: [facility] 12-25-2023 16:03-0400 Diastolic blood pressure 82 mm[Hg] Fabio Grace MD Work Phone: [facility] 12-25-2023 16:03-0400 Heart rate 87 /min Fabio Grace MD Work Phone: [facility] 12-25-2023 16:03-0400 Systolic blood pressure 121 mm[Hg] Fabio Grace MD Work Phone: [facility] 12-17-2023 10:57-0400 Body height 190.5 cm Magnolia Cruz MD Work Phone: [facility] 12-17-2023 10:57-0400 Body mass index (BMI) [Ratio] 27.5 kg/m2 Magnolia Cruz MD Work Phone: [facility] 12-17-2023 10:57-0400 Body weight 99.79 kg Magnolia Cruz MD Work Phone: [facility] 12-17-2023 10:57-0400 Diastolic blood pressure 78 mm[Hg] Magnolia Cruz MD Work Phone: [facility] 12-17-2023 10:57-0400 Heart rate 74 /min Magnolia Cruz MD Work Phone: [facility] 12-17-2023 10:57-0400 Systolic blood pressure 128 mm[Hg] Magnolia Cruz MD Work Phone: [facility] 12-07-2023 12:30-0400 Diastolic blood pressure 87 mm[Hg] Gerardo Alcantara DO Work Phone: [facility] 12-07-2023 12:30-0400 Heart rate 72 /min Gerardo Alcantara DO Work Phone: [facility] 12-07-2023 12:30-0400 Respiratory rate 17 /min Gerardo Alcantara DO Work Phone: [facility] 12-07-2023 12:30-0400 SaO2% (BldA) [Mass fraction] 94 % Gerardo Alcantara DO Work Phone: [facility] 12-07-2023 12:30-0400 Systolic blood pressure 109 mm[Hg] Gerardo Alcantara DO Work Phone: [facility] 12-07-2023 11:33-0400 Body height 190.5 cm Gerardo Alcantara DO Work Phone: [facility] 12-07-2023 11:33-0400 Body mass index (BMI) [Ratio] 27.5 kg/m2 Gerardo Alcantara DO Work Phone: [facility] 12-07-2023 11:33-0400 Body temperature 98.2 [degF] Gerardo Alcantara DO Work Phone: [facility] 12-07-2023 11:33-0400 Body weight 99.79 kg Gerardo Alcantara DO Work Phone: [facility] 11-20-2023 15:43-0400 Body height 190.5 cm Fabio Grace MD Work Phone: [facility] 11-20-2023 15:43-0400 Body mass index (BMI) [Ratio] 28.12 kg/m2 Fabio Grace MD Work Phone: [facility] 11-20-2023 15:43-0400 Body weight 102.06 kg Fabio Grace MD Work Phone: [facility] 11-20-2023 15:43-0400 Diastolic blood pressure 89 mm[Hg] Fabio Grace MD Work Phone: [facility] 11-20-2023 15:43-0400 Heart rate 78 /min Fabio Grace MD Work Phone: [facility] 11-20-2023 15:43-0400 SaO2% (BldA) [Mass fraction] 94 % Fabio Grace MD Work Phone: [facility] 11-20-2023 15:43-0400 Systolic blood pressure 139 mm[Hg] Fabio Grace MD Work Phone: [facility] 05-22-2023 15:47-0400 Body height 190.5 cm Fabio Grace MD Work Phone: [facility] 05-22-2023 15:47-0400 Body mass index (BMI) [Ratio] 28.12 kg/m2 Fabio Grace MD Work Phone: 4(123)772-451203 [place] [address] 05-22-2023 15:47-0400 Body weight 102.06 kg Fabio Grace MD Work Phone: 8(448)619-946915 [address] 05-22-2023 15:47-0400 Diastolic blood pressure 83 mm[Hg] Fabio Grace MD Work Phone: 0(965)148-577315 [address] 05-22-2023 15:47-0400 Heart rate 80 /min Fabio Grace MD Work Phone: 2(511)641-266515 [address] 05-22-2023 15:47-0400 Systolic blood pressure 123 mm[Hg] Fabio Grace MD Work Phone: 9(948)879-559603 [place] [address] 11-21-2022 16:11-0400 Body height 190.5 cm Fabio Grace MD Work Phone: 2(183)744-744603 [place] [address] 11-21-2022 16:11-0400 Body mass index (BMI) [Ratio] 27.5 kg/m2 Fabio Grace MD Work Phone: [facility] 11-21-2022 16:11-0400 Body weight 99.79 kg Fabio Grace MD Work Phone: 2(827)234-530703 [place] [address] 11-21-2022 16:11-0400 Diastolic blood pressure 82 mm[Hg] Fabio Grace MD Work Phone: 7(650)951-295403 [place] [address] 11-21-2022 16:11-0400 Heart rate 84 /min Fabio Grace MD Work Phone: 9(119)876-727803 [place] [address] 11-21-2022 16:11-0400 Systolic blood pressure 124 mm[Hg] Fabio Grace MD Work Phone: [facility] 06-15-2022 15:18-0500 Body height 190 cm Fabiomartine Christensenaee Other Phone: [facility] 06-15-2022 15:18-0500 Body temperature 98.24 [degF] Fabio Tavallaee Other Phone: [facility] 06-15-2022 15:18-0500 Diastolic blood pressure 70 mm[Hg] Fabio Tavallaee Other Phone: [facility] 06-15-2022 15:18-0500 Heart rate 97 /min Fabiomartine Shelbye Other Phone: [facility] 06-15-2022 15:18-0500 Respiratory rate 16 /min Fabio Tavallaee Other Phone: [facility] 06-15-2022 15:18-0500 SaO2% (BldA) [Mass fraction] 97 % Fabio Tavallaee Other Phone: [facility] 06-15-2022 15:18-0500 Systolic blood pressure 109 mm[Hg] Fabio Tavallaee Other Phone: [facility] 05-23-2022 15:46-0400 Body height 190.5 cm Fabio Grace Work Phone: [facility] Work Phone: 05-23-2022 15:46-0400 Body mass index (BMI) [Ratio] 27.62 kg/m2 Fabio Grace Work Phone: [facility] Work Phone: 05-23-2022 15:46-0400 Body surface area Derived from formula 2.29 m2 Fabio Shelbye Work Phone: [facility] Work Phone: 05-23-2022 15:46-0400 Body weight 100.25 kg Fabio Tian Tavallaee Work Phone: [facility] Work Phone: 05-23-2022 15:46-0400 Diastolic blood pressure 78 mm[Hg] Fabio M Tavallaee Work Phone: [facility] Work Phone: 05-23-2022 15:46-0400 Heart rate 83 /min Fabio Tian Tavallaee Work Phone: [facility] Work Phone: 05-23-2022 15:46-0400 SaO2% (BldA) [Mass fraction] 96 % Fabio Tian Tavallaee Work Phone: [facility] Work Phone: 05-23-2022 15:46-0400 Systolic blood pressure 138 mm[Hg] Fabio Tian Tavallaee Work Phone: [facility] Work Phone: 10-03-2021 16:13-0400 Body height 190.5 cm Fabio Tian Tavallaee Work Phone: [facility] Work Phone: 10-03-2021 16:13-0400 Body mass index (BMI) [Ratio] 28.87 kg/m2 Fabio M Tavallaee Work Phone: [facility] Work Phone: 10-03-2021 16:13-0400 Body surface area Derived from formula 2.33 m2 Fabio M Tavallaee Work Phone: [facility] Work Phone: 10-03-2021 16:13-0400 Body weight 104.78 kg Fabio M Tavallaee Work Phone: [facility] Work Phone: 10-03-2021 16:13-0400 Diastolic blood pressure 88 mm[Hg] Fabio Tian Tavallaee Work Phone: [facility] Work Phone: 10-03-2021 16:13-0400 Heart rate 82 /min Fabio Tian Tavallaee Work Phone: [facility] Work Phone: 10-03-2021 16:13-0400 Systolic blood pressure 132 mm[Hg] Fabio Tian Tavallaee Work Phone: [facility] Work Phone: 06-29-2021 16:18-0500 Body height 190.5 cm Fabiorodney Ricardoallaee Work Phone: [facility] Work Phone: 06-29-2021 16:18-0500 Body mass index (BMI) [Ratio] 28.5 kg/m2 Fabio M Tavallaee Work Phone: [facility] Work Phone: 06-29-2021 16:18-0500 Body surface area Derived from formula 2.32 m2 Fabio Ricardoallaee Work Phone: [facility] Work Phone: 06-29-2021 16:18-0500 Body weight 103.42 kg Fabio Tian Tavallaee Work Phone: [facility] Work Phone: 06-29-2021 16:18-0500 Diastolic blood pressure 78 mm[Hg] Fabio Tian Tavallaee Work Phone: [facility] Work Phone: 06-29-2021 16:18-0500 Heart rate 72 /min Fabio M Tavallaee Work Phone: [facility] Work Phone: 06-29-2021 16:18-0500 SaO2% (BldA) [Mass fraction] 99 % Fabiorodney Ricardoallaee Work Phone: [facility] Work Phone: 06-29-2021 16:18-0500 Systolic blood pressure 120 mm[Hg] Fabio Tian Tavallaee Work Phone: [facility] Work Phone: 05-29-2021 16:27-0500 Body height 190.5 cm Fabio Tian Tavallaee Work Phone: [facility] Work Phone: 05-29-2021 16:27-0500 Body mass index (BMI) [Ratio] 27.88 kg/m2 Fabio Tian Tavallaee Work Phone: [facility] Work Phone: 05-29-2021 16:27-0500 Body surface area Derived from formula 2.3 m2 Fabio Tian Tavallaee Work Phone: [facility] Work Phone: 05-29-2021 16:27-0500 Body weight 101.18 kg Fabio Tian Ricardoallaee Work Phone: [facility] Work Phone: 05-29-2021 16:27-0500 Diastolic blood pressure 78 mm[Hg] Fabio Tian Tavallaee Work Phone: [facility] Work Phone: 05-29-2021 16:27-0500 Heart rate 72 /min Fabio Tian Tavallaee Work Phone: [facility] Work Phone: 05-29-2021 16:27-0500 Systolic blood pressure 118 mm[Hg] Fabio M Tavallaee Work Phone: [facility] Work Phone: 01-25-2021 16:18-0400 Body height 190.5 cm Fabio M Tavallaee Work Phone: [facility] Work Phone: 01-25-2021 16:18-0400 Body mass index (BMI) [Ratio] 27.75 kg/m2 Fabio M Tavallaee Work Phone: [facility] Work Phone: 01-25-2021 16:18-0400 Body surface area Derived from formula 2.29 m2 Fabio M Tavallaee Work Phone: [facility] Work Phone: 01-25-2021 16:18-0400 Body weight 100.7 kg Fabio Tian Tavallaee Work Phone: [facility] Work Phone: 01-25-2021 16:18-0400 Diastolic blood pressure 84 mm[Hg] Fabio M Tavallaee Work Phone: [facility] Work Phone: 01-25-2021 16:18-0400 Heart rate 76 /min Fabio M Tavallaee Work Phone: [facility] Work Phone: 01-25-2021 16:18-0400 Systolic blood pressure 122 mm[Hg] Fabio M Tavallaee Work Phone: [facility] Work Phone: 08-05-2019 19:02-0500 BMI (Body Mass Index) 29.75 kg/m2 Fabio Tavallaee [facility] Work Phone: 08-05-2019 19:02-0500 Body weight 107.96 kg Fabio Tavallaee [facility] Work Phone: 08-05-2019 19:02-0500 BP Diastolic 88 mm[Hg] Fabio Tavallaee [facility] Work Phone: Comment on above: Location: LUE; Position: Sitting 08-05-2019 19:02-0500 BP Systolic 124 mm[Hg] Fabio Tavallaee [facility] Work Phone: Comment on above: Location: LUE; Position: Sitting 08-05-2019 19:02-0500 BSA (Body Surface Area) 2.36 m2 Fabio Tavallaee [facility] Work Phone: 08-05-2019 19:02-0500 Height 190.5 cm Fabio Tavallaee [facility] Work Phone: 08-05-2019 19:02-0500 Pulse (Heart Rate) 72 /min Fabio Tavallaee [facility] Work Phone: 07-29-2019 17:44-0500 BMI (Body Mass Index) 30.31 kg/m2 Fabio Tavallaee [facility] Work Phone: 07-29-2019 17:44-0500 Body weight 110 kg Fabio Tavallaee [facility] Work Phone: 07-29-2019 17:44-0500 BP Diastolic 82 mm[Hg] Fabio Tavallaee [facility] Work Phone: 07-29-2019 17:44-0500 BP Systolic 126 mm[Hg] Fabio Tavallaee [facility] Work Phone: 07-29-2019 17:44-0500 BSA (Body Surface Area) 2.38 m2 Fabio Tavallaee [facility] Work Phone: 07-29-2019 17:44-0500 Height 190.5 cm Fabio Grace [facility] Work Phone: 07-29-2019 17:44-0500 Pulse (Heart Rate) 72 /min Fabio Grace [facility] Work Phone: 06-04-2019 11:20-0500 BMI (Body Mass Index) 28.75 kg/m2 Magnolia Cruz [facility] Work Phone: 06-04-2019 11:20-0500 Body Temperature 98.3 [degF] Magnolia Cruz [facility] Work Phone: 06-04-2019 11:20-0500 Body weight 104.33 kg Magnolia Cruz [facility] Work Phone: 06-04-2019 11:20-0500 BP Diastolic 82 mm[Hg] Magnolia Cruz [facility] Work Phone: 06-04-2019 11:20-0500 BP Systolic 118 mm[Hg] Magnolia Cruz [facility] Work Phone: 06-04-2019 11:20-0500 BSA (Body Surface Area) 2.33 m2 Magnolia Cruz [facility] Work Phone: 06-04-2019 11:20-0500 Height 190.5 cm Magnolia Cruz [facility] Work Phone: 06-04-2019 11:20-0500 Pulse (Heart Rate) 72 /min Magnoliaguerda Cruz [facility] Work Phone: Encounters Encounter Date Encounter Type Care Provider Facility Start: 11-13-2024 End: 11-13-2024 Patient encounter procedure Edvin James SUPPLIER RELATIONSHIP DIRECTOR-EDUCATIONAL THERAPIST Work Phone: [facility] Comment on above: Foreign body of left ear, initial encounter (Primary Dx); Bilateral impacted cerumen Start: 11-13-2024 End: 11-13-2024 ambulatory FABIO [facility] Start: 10-26-2024 End: 10-26-2024 Office outpatient visit 25 minutes Fabio Grace MD Work Phone: [facility] Comment on above: Type 2 diabetes lucia itus without complication, without long- term current use of insulin (Primary Dx); Hypertension associated with diabetes; Hypercholesterolemia; Onychomycosis; Special screening for malignant neoplasm of prostate; Gouty arthritis Start: 10-26-2024 End: 10-26-2024 ambulatory FABIO [facility] Start: 04-27-2024 End: 04-27-2024 Office outpatient visit 25 minutes Fabio Grace MD Work Phone: [facility] Comment on above: Hypertension associa mica with diabetes (Multi) (Primary Dx); Type 2 diabetes mellitus without complication, without long-term current use of insulin (Multi); Hyperuricemia; Special screening for malignant neoplasm of prostate; Healthcare maintenance Start: 04-27-2024 End: 04-27-2024 Patient encounter status Fabio Grace MD Work Phone: [facility] Work Phone: Start: 04-27-2024 End: 04-27-2024 ambulatory [facility] Start: 04-27-2024 End: 04-27-2024 Encounter for general adult medical examination without abnormal findings [facility] Start: 04-24-2024 End: 04-24-2024 ambulatory FABIO [facility] Start: 03-25-2024 End: 03-25-2024 Office outpatient visit 15 minutes Fabio Grace MD Work Phone: [facility] Comment on above: Gouty arthritis (Neelam bon Dx) Start: 03-25-2024 End: 03-25-2024 ambulatory [facility] Start: 03-18-2024 End: 03-18-2024 Subsequent hospital visit by physician [facility] Comment on above: Right foot pain; Gouty arthritis Start: 03-18-2024 End: 03-18-2024 Office outpatient visit 25 minutes Fabio Grace MD Work Phone: [facility] Comment on above: Right foot pain (Neelam bon Dx); Gouty arthritis Start: 03-18-2024 End: 03-18-2024 ambulatory [facility] Start: 02-17-2024 End: 02-21-2024 ambulatory [facility] Start: 01-17-2024 End: 01-17-2024 ambulatory EDVIN JAMES [facility] Start: 01-17-2024 End: 01-17-2024 Patient encounter procedure Edvin James SUPPLIER RELATIONSHIP DIRECTOR-EDUCATIONAL THERAPIST Work Phone: [facility] Comment on above: Acute bronchitis, un specified organism (Primary Dx) Start: 01-11-2024 End: 01-11-2024 Patient encounter procedure Edvin James SUPPLIER RELATIONSHIP DIRECTOR-EDUCATIONAL THERAPIST Work Phone: [facility] Comment on above: Acute bronchitis, un specified organism (Primary Dx) Start: 01-11-2024 End: 01-11-2024 ambulatory [facility] Start: 12-25-2023 End: 12-25-2023 Office outpatient visit 25 minutes Fabio Grace MD Work Phone: [facility] Comment on above: Type 2 diabetes lucia itus without complication, without long- term current use of insulin (Multi) (Primary Dx); Hx of gout; Hypertension associated with diabetes (Multi); Benign prostatic hyperplasia with urinary obstruction Start: 12-25-2023 End: 12-25-2023 ambulatory [facility] Start: 12-21-2023 End: 12-21-2023 ambulatory FABIO [facility] Start: 12-17-2023 End: 12-17-2023 Office outpatient visit 25 minutes Magnolia Cruz MD Work Phone: [facility] Comment on above: Acute gout of left f oot, unspecified cause (Primary Dx); Left foot pain; Type 2 diabetes mellitus without complication, without long-term current use of insulin (Multi); Hx of gout; Hypertension associated with diabetes (Multi) Start: 12-17-2023 End: 12-17-2023 ambulatory [facility] Start: 12-07-2023 End: 12-07-2023 Emergency department patient visit Gerardo Alcantara DO Work Phone: [facility] Comment on above: Acute gout of left f oot, unspecified cause (Primary Dx) Start: 11-20-2023 End: 11-20-2023 Office outpatient visit 25 minutes Fabio Grace MD Work Phone: [facility] Comment on above: Type 2 diabetes lucia itus without complication, without long- term current use of insulin (Multi) (Primary Dx); Hypercholesterolemia; Essential hypertension; Tick bite of left thigh, subsequent encounter Start: 11-20-2023 End: 11-20-2023 ambulatory [facility] Start: 11-17-2023 End: 11-17-2023 [facility]: 11-16-2023 End: 11-16-2023 ambulatory [facility] Start: 11-09-2023 End: 11-09-2023 ambulatory [facility] Work Phone: Start: 11-09-2023 End: 11-09-[address] [facility] Work Phone: Start: 05-22-2023 End: 05-22-2023 Office outpatient visit 25 minutes Fabio Grace MD Work Phone: [facility] Comment on above: Type 2 diabetes lucia itus without complication, without long- term current use of insulin (CMS/HCC) (Primary Dx); Need for immunization against influenza; Essential hypertension; Hypercholesterolemia; Primary osteoarthritis of both wrists; Healthcare maintenance Start: 05-22-2023 End: 05-22-2023 Patient encounter status Fabio Grace MD Work Phone: [facility] Work Phone: Start: 05-17-2023 End: 05-17-2023 ambulatory FABIO GRACE [facility] Start: 11-21-2022 End: 11-21-2022 Assay of hemosiderin, quant Fabio Grace MD Work Phone: [facility] Work Phone: Start: 11-21-2022 End: 11-21-2022 Patient encounter procedure Faboi Grace MD Work Phone: [facility] Comment on above: Routine general medi vee examination at health care facility (Primary Dx); Hypercholesterolemia; Type 2 diabetes mellitus without complication, without long-term current use of insulin (CMS/HCC); Essential hypertension; Special screening for malignant neoplasm of prostate Start: 09-17-2022 AUDIT Fabio middleton Work Phone: [facility] Work Phone: Start: 08-01-2022 Chart Update Fabio middleton Work Phone: [facility] Work Phone: Start: 07-26-2022 End: 07-26-2022 ambulatory Fabio Grace Facility:[id number] Start: 06-15-2022 End: 06-15-2022 Emergency department patient visit Edvin James [facility] Start: 05-23-2022 Office outpatient vi sit 25 minutes Fabio Grace Work Phone: [facility] Work Phone: Start: 05-23-2022 ambulatory Fabio Davionallaee Facil [id number] Start: 05-14-2022 Chart Update Fabio Overton Tava llaee Work Phone: [facility] Work Phone: Start: 04-16-2022 AUDIT Fabio Overton Tava llaee Work Phone: [facility] Work Phone: Start: 10-05-2021 End: 10-05-[address] [facility] Start: 10-03-2021 Office outpatient vi sit 25 minutes Fabio Overton Tavallaee Work Phone: [facility] Work Phone: Start: 07-06-2021 AUDIT Fabio Overton Tava llaee Work Phone: [facility] Work Phone: Start: 06-29-2021 Office outpatient vi sit 25 minutes Fabio Tian Tavallaee Work Phone: [facility] Work Phone: Start: 05-29-2021 Office outpatient vi sit 25 minutes Fabio Tian Tavallaee Work Phone: [facility] Work Phone: Start: 05-22-2021 Chart Update Fabio Overton Tava llaee Work Phone: [facility] Work Phone: Start: 02-11-2021 Chart Update Fabio Overton Tava llaee Work Phone: [facility] Work Phone: Start: 01-25-2021 Office outpatient vi sit 25 minutes Fabio Tian Tavallaee Work Phone: [facility] Work Phone: Start: 01-25-2021 Patient encounter procedure Fabio Ricardoallaee Work Phone: [facility] Work Phone: Start: 01-25-2021 Chart Update Fabio Elias llaee Work Phone: [facility] Work Phone: Start: 08-05-2019 Patient encounter procedure Fabio Tavallaee [facility] Work Phone: Start: 07-29-2019 Patient encounter procedure Fabio Tavallaee [facility] Work Phone: Start: 06-04-2019 Patient encounter procedure Fabio Tavallaee [facility] Work Phone: Procedures Date Procedure Procedure Detail Performing Clinician Start: 11-13-2024 Rmvl fb xtrnl audito ry canal w/o anes Edvin James SUPPLIER RELATIONSHIP DIRECTOR-EDUCATIONAL THERAPIST Work Phone: Start: 01-17-2024 POCT SARS-COV-2/FLU/ RSV PCR SYMPTOMATIC Edvin James SUPPLIER RELATIONSHIP DIRECTOR-EDUCATIONAL THERAPIST Work Phone: Start: 12-07-2023 DISCHARGE PATIENT MEHRD AD TAVALLAEE Start: 12-07-2023 XR FOOT LEFT 3+ VIEWS M EHRDAD TAVALLAEE Start: 12-07-2023 Radex foot complete minimum 3 views Gerardo Alcantara DO Work Phone: Start: 11-16-2023 Comprehensive metabo lic 1999 panel - Serum or Plasma FABIO TAVALLAEE Start: 11-16-2023 Hemoglobin A1c/Hemoglobin.total in Blood FABIO TAVALLAEE Start: 11-16-2023 Lipid panel FABIO JAS URIOSTEGUI Start: 11-16-2023 Lipid 1996 panel - S le[place] or Plasma Fabio Grace MD Work Phone: Start: 05-17-2023 Comprehensive metabo lic 2000 panel - Serum or Plasma FABIO TAVALLAEE Start: 05-17-2023 Hemoglobin A1c/Hemoglobin.total in Blood FABIO GRACE Start: 05-17-2023 PROSTATE SPECIFIC AN TIGEN, SCREEN FABIO GRACE Start: 11-17-2022 Lipid 1996 panel - S leland or Plasma Fabio Grace MD Work Phone: Start: 07-26-2022 End: 07-26-2022 Colonoscopy Fabio Grace Work Phone: Start: 07-29-2019 Assay of blood/uric acid Fabio Grace Start: 07-29-2019 Xray Knee 1 or 2 View Tian Grace Colonoscopy [facility] Comment on above: REPEAT IN 3 YRSCOLON IC POLYP; Operation on fracture Joelle Cruz Prosthetic [facility] Comment on above: DR. GAUTHIER; Repair of inguinal hernia Fa charlene Cruz Repair of umbilical hernia F araching Cruz Surgical repair [facility] Comment on above: NOSE FRACTURE; Total replacement of hip [facility] dora Grace Work Phone: Comment on above: DR. GAUTHIER; Plan of Treatment Date Care Activity Detail Author Start: 07-26-2027 Screening for malignant neoplasm of colon [facility] Start: 04-27-2025 End: 04-27-2025 Patient encounter procedure 04/27/2025 4:00 PM EDT Office Visit [facility] [address] [place] [id number] Fabio Grace MD [address] [place] [address] [facility] Start: 01-23-2025 Hemoglobin A1c measurement Diabetes: Hemoglobin A1C [facility] Start: 11-15-2024 Lipid panel Lipid Panel [facility] Start: 10-26-2024 End: 10-26-2024 Patient encounter procedure 10/26/2024 4:00 PM EDT Office Visit [facility] [address] [place] [address] Fabio Grace MD [address] [place] [address] [facility] Start: 10-26-2024 End: 10-26-2025 Comprehensive metabolic 2000 panel - Serum or Plasma Comprehensive Metabolic Panel Lab Routine Type 2 diabetes mellitus without complication, without long-term current use of insulin (Multi) Hypertension associated with diabetes (Multi) Hypercholesterolemia Expected: 10/26/2024 (Approximate), Expires: 10/26/2025 [facility] Work Phone: Comment on above: Expected: 10/26/2024 (Approximate), Expires: 10/26/2025 Start: 10-26-2024 End: 10-26-2025 Hemoglobin A1c/Hemoglobin.total in Blood Hemoglobin A1C Lab Routine Type 2 diabetes mellitus without complication, without long-term current use of insulin (Multi) Expected: 10/26/2024 (Approximate), Expires: 10/26/2025 [facility] Service Area Work Phone: Comment on above: Expected: 10/26/2024 (Approximate), Expires: 10/26/2025 Start: 10-26-2024 End: 10-26-2025 Lipid 1996 panel - Serum or Plasma Lipid Panel Lab Routine Hypercholesterolemia Expected: 10/26/2024 (Approximate), Expires: 10/26/2025 [facility] Work Phone: Comment on above: Expected: 10/26/2024 (Approximate), Expires: 10/26/2025 Start: 10-26-2024 End: 10-26-2025 Microalbumin/Creatini ne [Mass Ratio] in Urine Albumin-Creatinine Ratio, Urine Random Lab Routine Type 2 diabetes mellitus without complication, without long-term current use of insulin (Multi) Expected: 10/26/2024 (Approximate), Expires: 10/26/2025 [facility] Work Phone: Comment on above: Expected: 10/26/2024 (Approximate), Expires: 10/26/2025 Start: 10-26-2024 End: 10-26-2025 Prostate specific Ag [Mass/volume] in Serum or Plasma Prostate Specific Antigen, Screen Lab Routine Special screening for malignant neoplasm of prostate Expected: 10/26/2024 (Approximate), Expires: 10/26/2025 [facility] Work Phone: Comment on above: Expected: 10/26/2024 (Approximate), Expires: 10/26/2025 Start: 10-26-2024 End: 10-26-2025 Urate [Mass/volume] in Serum or Plasma Uric Acid Lab Routine Gouty arthritis Expected: 10/26/2024 (Approximate), Expires: 10/26/2025 [facility] Work Phone: Comment on above: Expected: 10/26/2024 (Approximate), Expires: 10/26/2025 Start: 07-25-2024 Hemoglobin A1c measurement Diabetes: Hemoglobin A1C [facility] Start: 04-27-2024 End: 04-27-2024 Patient encounter procedure 04/27/2024 4:00 PM EDT Office Visit [facility] [address] [place] [phone] Fabio Grace MD [address] [place] [address] [facility] Start: 04-27-2024 End: 04-27-2025 Comprehensive metabolic 2000 panel - Serum or Plasma Comprehensive Metabolic Panel Lab Routine Hypertension associated with diabetes (Multi) Type 2 diabetes mellitus without complication, without long-term current use of insulin (Multi) Hyperuricemia Expected: 04/27/2024 (Approximate), Expires: 04/27/2025 [facility] Work Phone: Comment on above: Expected: 04/27/2024 (Approximate), Expires: 04/27/2025 Start: 04-27-2024 End: 04-27-2025 Hemoglobin A1c/Hemoglobin.total in Blood Hemoglobin A1C Lab Routine Type 2 diabetes mellitus without complication, without long-term current use of insulin (Multi) Expected: 04/27/2024 (Approximate), Expires: 04/27/2025 [facility] Service Area Work Phone: Comment on above: Expected: 04/27/2024 (Approximate), Expires: 04/27/2025 Start: 04-27-2024 End: 04-27-2025 Prostate specific Ag [Mass/volume] in Serum or Plasma Prostate Specific Antigen, Screen Lab Routine Special screening for malignant neoplasm of prostate Expected: 04/27/2024 (Approximate), Expires: 04/27/2025 [facility] Work Phone: Comment on above: Expected: 04/27/2024 (Approximate), Expires: 04/27/2025 Start: 04-27-2024 End: 04-27-2025 Urate [Mass/volume] in Serum or Plasma Uric Acid Lab Routine Hyperuricemia Expected: 04/27/2024 (Approximate), Expires: 04/27/2025 [facility] Work Phone: Comment on above: Expected: 04/27/2024 (Approximate), Expires: 04/27/2025 Start: 03-25-2024 End: 03-25-2024 Patient encounter procedure 03/25/2024 1:00 PM EDT Office Visit [facility] [address] [place] [phone] Fabio Grace MD [address] [place] [address] [facility] Start: 03-22-2024 COVID-19 Vaccine ( season) COVID-19 Vaccine ( season) [facility] Start: 03-22-2024 COVID-19 Vaccine ( season) COVID-19 Vaccine ( season) [facility] Start: 03-22-2024 Influenza vaccination Influenza Vacc ine (#1) [facility] Start: 03-18-2024 End: 03-18-2025 XR Foot Views [facility] Work Phone: Comment on above: Expected: 03/18/2024 , Expires: 03/18/2025 Once for 1 Occurrenc es starting 03/18/2024 until 03/18/2024 Start: 02-15-2024 Hemoglobin A1c measurement Diabetes: Hemoglobin A1C [facility] Start: 12-25-2023 End: 12-25-2023 Patient encounter procedure 12/25/2023 4:00 PM EDT Office Visit [facility] [address] [place] [phone] Fabio Grace MD [address] [place] [address] [facility] Start: 12-25-2023 End: 12-24-2024 Comprehensive metabolic 2000 panel - Serum or Plasma Comprehensive Metabolic Panel Lab Routine Type 2 diabetes mellitus without complication, without long-term current use of insulin (Multi) Hx of gout Hypertension associated with diabetes (Multi) Benign prostatic hyperplasia with urinary obstruction Expected: 12/25/2023 (Approximate), Expires: 12/24/2024 [facility] Work Phone: Comment on above: Expected: 12/25/2023 (Approximate), Expires: 12/24/2024 Start: 12-25-2023 End: 12-24-2024 Hemoglobin A1c/Hemoglobin.total in Blood Hemoglobin A1C Lab Routine Type 2 diabetes mellitus without complication, without long-term current use of insulin (Multi) Expected: 12/25/2023 (Approximate), Expires: 12/24/2024 [facility] Work Phone: Comment on above: Expected: 12/25/2023 (Approximate), Expires: 12/24/2024 Start: 12-25-2023 End: 12-24-2024 PSA, Total and Free PSA, Total and Free Lab Routine Benign prostatic hyperplasia with urinary obstruction Expected: 12/25/2023, Expires: 12/24/2024 [facility] Work Phone: Comment on above: Expected: 12/25/2023 , Expires: 12/24/2024 Start: 12-25-2023 End: 12-24-2024 Urate [Mass/volume] in Serum or Plasma Uric Acid Lab Routine Hx of gout Expected: 12/25/2023 (Approximate), Expires: 12/24/2024 [facility] Work Phone: Comment on above: Expected: 12/25/2023 (Approximate), Expires: 12/24/2024 Start: 12-17-2023 End: 12-16-2024 Urate [Mass/volume] in Serum or Plasma Uric Acid Lab Routine Acute gout of left foot, unspecified cause Expected: 12/17/2023 (Approximate), Expires: 12/16/2024 [facility] Service Area Work Phone: Comment on above: Expected: 12/17/2023 (Approximate), Expires: 12/16/2024 Start: 11-23-2023 Yearly Adult Physical Yearly Adult P hysical [facility] Start: 11-20-2023 End: 11-20-2023 Patient encounter procedure 11/20/2023 4:00 PM EDT Office Visit [facility] [address] [place] [address] Fabio Grace MD [address] [place] [address] [facility] Start: 11-20-2023 End: 11-19-2024 Borrelia burgdorferi DNA [Presence] in Unspecified specimen by CATHERINE with probe detection Lyme disease, PCR Lab Routine Tick bite of left thigh, subsequent encounter Expected: 11/20/2023 (Approximate), Expires: 11/19/2024 [facility] Service Area Work Phone: Comment on above: Expected: 11/20/2023 (Approximate), Expires: 11/19/2024 Start: 11-18-2023 Lipid panel Lipid Panel [facility] Start: 08-17-2023 Hemoglobin A1c measurement Diabetes: Hemoglobin A1C [facility] Start: 05-22-2023 End: 05-22-2024 Comprehensive metabolic 2000 panel - Serum or Plasma Comprehensive Metabolic Panel Lab Routine Need for immunization against influenza Type 2 diabetes mellitus without complication, without long-term current use of insulin ([facility]) Essential hypertension Hypercholesterolemia Expected: 05/22/2023 (Approximate), Expires: 05/22/2024 [facility] Service Area Work Phone: Comment on above: Expected: 05/22/2023 (Approximate), Expires: 05/22/2024 Start: 05-22-2023 End: 05-22-2024 Hemoglobin A1c/Hemoglobin.total in Blood Hemoglobin A1C Lab Routine Type 2 diabetes mellitus without complication, without long-term current use of insulin ([facility]) Expected: 05/22/2023 (Approximate), Expires: 05/22/2024 [facility] Work Phone: Comment on above: Expected: 05/22/2023 (Approximate), Expires: 05/22/2024 Start: 05-22-2023 End: 05-22-2024 Lipid 1996 panel - Serum or Plasma Lipid Panel Lab Routine Hypercholesterolemia Expected: 05/22/2023 (Approximate), Expires: 05/22/2024 [facility] Work Phone: Comment on above: Expected: 05/22/2023 (Approximate), Expires: 05/22/2024 Start: 03-22-2023 COVID-19 Vaccine ( season) COVID-19 Vaccine ( season) [facility] Start: 02-16-2023 Hemoglobin A1c measurement Diabetes: Hemoglobin A1C [facility] Start: 11-21-2022 FUV, Provider: Fabio Grace, Status: Pen, Time: 4:15 PM FUV, Provider: Fabio Grace, Status: Shane, Time: 4:15 PM [facility] Work Phone: Start: 11-21-2022 Patient encounter procedure [facility] Start: 11-21-2022 End: 11-22-2023 Comprehensive metabolic 2000 panel - Serum or Plasma Comprehensive Metabolic Panel Lab Routine Type 2 diabetes mellitus without complication, without long-term current use of insulin ([facility]) Essential hypertension Expected: 11/21/2022 (Approximate), Expires: 11/22/2023 [facility] Work Phone: Comment on above: Expected: 11/21/2022 (Approximate), Expires: 11/22/2023 Start: 11-21-2022 End: 11-22-2023 Hemoglobin A1c/Hemoglobin.total in Blood Hemoglobin A1C Lab Routine Type 2 diabetes mellitus without complication, without long-term current use of insulin (CMS/HCC) Expected: 11/21/2022 (Approximate), Expires: 11/22/2023 [facility] Service Area Work Phone: Comment on above: Expected: 11/21/2022 (Approximate), Expires: 11/22/2023 Start: 11-21-2022 End: 11-22-2023 Prostate specific Ag [Mass/volume] in Serum or Plasma Prostate Specific Antigen, Screen Lab Routine Special screening for malignant neoplasm of prostate Expected: 11/21/2022 (Approximate), Expires: 11/22/2023 [facility] Work Phone: Comment on above: Expected: 11/21/2022 (Approximate), Expires: 11/22/2023 Start: 06-21-2022 COLON, Provider: Fabio Grace, Status: Pen, Time: 9:00 AM COLON, Provider: Fabio Grace, Status: Pen, Time: 9:00 AM [facility] Work Phone: Start: 06-21-2022 Patient encounter procedure [facility] Preadmit Start: 05-23-2022 FUV, Provider: Fabio Grace, Status: Pen, Time: 4:00 PM FUV, Provider: Fabio Grace, Status: Pen, Time: 4:00 PM [facility] Work Phone: Start: 02-01-2022 FUV, Provider: Fabio Grace, Status: Pen, Time: 4:30 PM FUV, Provider: Fabio Grace, Status: Pen, Time: 4:30 PM [facility] Work Phone: Start: 10-03-2021 FUV, Provider: Fabio Grace, Status: Pen, Time: 4:15 PM FUV, Provider: Fabio Grace, Status: Pen, Time: 4:15 PM [facility] Work Phone: Start: 10-03-2021 Patient encounter procedure MCRANNUAL, Provider: Fabio Grace, Status: Pen, Time: 4:15 PM [facility] Work Phone: Start: 09-17-2021 Urine screening for protein Diabetes: Urine Protein Screening [facility] Start: 08-18-2021 COVID-19 Vaccine (3 - Booster for Sammi series) COVID-19 Vaccine (3 - Booster for Sammi series) [facility] Start: 05-29-2021 FUV, Provider: Fabio Grace, Status: Pen, Time: 4:30 PM FUV, Provider: Fabio Grace, Status: Pen, Time: 4:30 PM [facility] Work Phone: Start: 08-05-2019 Urate [Mass/Vol] Uric Acid, Serum [facility] Work Phone: Start: 08-05-2019 Xray Knee 1 or 2 View M [facility] Work Phone: Start: 2018 Abdominal aortic aneurysm screening Abdominal Aortic Aneurysm (AAA) Screening [facility] Start: 2013 Hepatitis B Vaccines (1 of 3 - Risk 3-dose series) Hepatitis B Vaccines (1 of 3 - Risk 3-dose series) [facility] Start: 2013 RSV High Risk: (Elderly (60+) or Population) (1 - Risk 60-74 years 1-dose series) RSV High Risk: (Elderly (60+) or Population) (1 - Risk 60-74 years 1-dose series) [facility] Start: 2013 RSV patient s and/or patients aged 60+ years (1 - 1-dose 60+ series) RSV patients and/or patients aged 60+ years (1 - 1-dose 60+ series) [facility] Start: 1975 DTaP/Tdap/Td Vaccine s (1 - Tdap) DTaP/Tdap/Td Vaccines (1 - Tdap) [facility] Start: 1972 Hepatitis A Vaccines (1 of 2 - Risk 2-dose series) Hepatitis A Vaccines (1 of 2 - Risk 2-dose series) [facility] Start: 1971 Hepatitis C screening Hepatitis C Sc reening [facility] Start: 1963 Diabetic foot examination Diabetes: Foot Exam [facility] Start: 1963 Glaucoma screening Diabetes: R etinopathy Screening [facility] Start: 1963 Ophthalmic examination and evaluation Diabetes: Retinopathy Screening [facility] Start: 1954 Hepatitis A Vaccines (1 of 2 - Risk 2-dose series) Hepatitis A Vaccines (1 of 2 - Risk 2-dose series) [facility] Start: 1953 Screening for malignant neoplasm of colon [facility] Work Phone: NEGATED: Highlighted row has been ruled out! Planned Goals not documented [facility] Work Phone: Immunizations Immunization Date Immunization Notes Care Provider [facility] 04-27-2024 influenza, high dose seasonal, preservative-free Fabio Grace MD Work Phone: [facility] Work Phone: 05-22-2023 Flu vaccine, quadrivalent, high-dose, preservative free, age 65y+ (FLUZONE) Fabio Grace MD Work Phone: [facility] Work Phone: 05-22-2023 influenza virus vacc ine, unspecified formulation Fabio Grace MD Work Phone: [facility] Work Phone: 08-11-2022 zoster vaccine recombinant Fabio Grace MD Work Phone: [facility] Work Phone: 05-15-2022 Fluzone High-Dose Quadrivalent 0.7 ML Intramuscular Suspension Prefilled Syringe Fabio Grace Work Phone: [facility] Work Phone: 05-11-2022 influenza, seasonal, injectable Fabiorodney Shelbye Work Phone: [facility] Work Phone: Comment on above: Series: 05-03-2022 zoster vaccine recombinant Fabio Grace Work Phone: [facility] Work Phone: 05-03-2022 zoster vaccine, unspecified formulation Fabio Grace MD Work Phone: [facility] Work Phone: 06-23-2021 Sammi COVID-19 Vac cine 0.5 ML Intramuscular Suspension Fabiorodney Christensenaee Work Phone: [facility] 05-11-2021 influenza, injectabl e, quadrivalent, preservative free [facility] 05-11-2021 influenza, seasonal, injectable [facility] Work Phone: 05-11-2021 influenza, seasonal, injectable, preservative free Fabio Tian Ricardoallaee Work Phone: [facility] Work Phone: 10-27-2020 pneumococcal polysaccharide vaccine, 23 valent Fabio Grace Work Phone: [facility] 09-23-2020 Sammi COVID-19 Vac cine 0.5 ML Intramuscular Suspension Fabio M Tavallaee Work Phone: [facility] 05-05-2020 Fluzone High-Dose Quadrivalent 0.7 ML Intramuscular Suspension Prefilled Syringe Fabio Overton Tavallaee Work Phone: [facility] Work Phone: 04-20-2020 influenza, seasonal, injectable Fabio M Tavallaee Work Phone: [facility] Work Phone: Comment on above: Series: 10-03-2019 pneumococcal conjuga te vaccine, 13 valent Fabio M Tavallaee Work Phone: [facility] Work Phone: 10-01-2019 pneumococcal polysaccharide vaccine, 23 valent Fabio M Tavallaee Work Phone: [facility] Work Phone: Comment on above: Series: 09-30-2019 pneumococcal vaccine , unspecified formulation Fbaio M Tavallaee Work Phone: [facility] Work Phone: 05-28-2019 influenza, injectabl e, quadrivalent, preservative free Fabio M Tavallaee Work Phone: [facility] Work Phone: 05-07-2019 influenza, seasonal, injectable Fabio M Tavallaee Work Phone: [facility] Work Phone: Comment on above: Series: 04-07-2018 influenza virus vacc ine, unspecified formulation Fabio Tian Ricardoallaeanthony Work Phone: [facility] Work Phone: 05-10-2016 Influenza virus vaccine [facility] 05-10-2016 influenza virus vacc ine, unspecified formulation Fabio Grace MD Work Phone: [facility] Work Phone: 04-12-2016 influenza, injectabl e, quadrivalent, preservative free Fabio M Tavallaee Work Phone: [facility] Work Phone: 03-31-2014 influenza virus vacc ine, whole virus Fabio Tian Grace Work Phone: [facility] Work Phone: 03-31-2014 influenza, seasonal, injectable, preservative free Fabio Grace MD Work Phone: [facility] Work Phone: 04-15-2013 influenza virus vacc ine, whole virus Fabio Tian Grace Work Phone: [facility] Work Phone: 04-15-2013 influenza, injectabl e, quadrivalent, preservative free Fabio Grace MD Work Phone: [facility] Work Phone: 04-18-2009 influenza virus vacc ine, whole virus Fabio Grace Work Phone: [facility] Work Phone: 04-18-2009 influenza, injectabl e, quadrivalent, preservative free Fabio Grace MD Work Phone: [facility] Work Phone: 05-31-2008 influenza virus vacc ine, whole virus Fabio Grace Work Phone: [facility] 06-09-2007 influenza virus vacc ine, unspecified formulation Fabio Grace MD Work Phone: [facility] Work Phone: 06-09-2007 influenza virus vacc ine, whole virus Fabio Grace Work Phone: [facility] Work Phone: Payers Date Payer Category Payer Self-pay [id number] 2022 [employer] [place] Managed Care [facility] [id number] 2022 Unknown 2016 Unknown [id number] 1953 Unknown [id number] 2.16.840.1.371800.3.579. 2.1069 1953 Unknown [id number] 2.16.840.1.128204.3.579. 2.1069 1953 Unknown [id number] 2.16.840.1.902094.3.579. 2.356 1953 Unknown [id number] 2.16.840.1.775754.3.579. 2.902 1953 Unknown [id number] 2.16.840.1.444153.3.579. 2.903 1953 Unknown [id number] 2.16.840.1.569800.3.579. 2.903 1953 Unknown [id number] 2.16.840.1.769704.3.579. 2.1245 1953 Unknown [id number] 2.16.840.1.966273.3.579. 2.1245 1953 Unknown [id number] 2.16.840.1.206623.3.579. 2.124 1953 Unknown [id number] 2.16.840.1.924658.3.579. 2.1245 1953 Unknown [id number] 2.16.840.1.797455.3.579. 2.1244 1953 Unknown [id number] 2.16.840.1.471429.3.579. 2.1244 1953 Unknown [id number] 2.16.840.1.981095.3.579. 2.1244 1953 Unknown [id number] 2.16.840.1.526465.3.579. 2.1244 1953 Unknown [id number] 2.16.840.1.260994.3.579. 2.1244 1953 Unknown [id number] 2.16.840.1.466561.3.579. 2.1244 1953 Unknown [id number] 2.16.840.1.757230.3.579. 2.1244 1953 Unknown [id number] 2.16.840.1.406244.3.579. 2.1243 1953 Unknown [id number] 2.16.840.1.347069.3.579. 2.1243 1953 Unknown [id number] 2.16.840.1.415346.3.579. 2.1243 1953 Unknown [id number] 2.16.840.1.553704.3.579. 2.1243 1953 Unknown [id number] 2.16.840.1.646068.3.579. 2.1243 1953 Unknown [id number] 2.16.840.1.163316.3.579. 2.124 Unknown [id number] 2.16.840.1.680697.3.579. 2.462 Social History Date Type Detail Facility Start: 11-21-2022 End: 10-26-2024 Former smoker Former smoker [facility] Work Phone: Start: 05-04-2021 Tobacco smoking status NHIS Unknown if ever smoked [facility] Start: 03-28-2017 Occasional [facility] Start: 03-28-2017 Non-smoker [facility] Start: 1955 Sex Assigned At Male [facility] Start: 11-21-2022 Tobacco smoking status NHIS Ex-smoker [facility] Work Phone: History of tobacco use Current smoker [facility] Work Phone: History of tobacco use Cigarette Smoker [facility] Work Phone: Start: 11-21-2022 Tobacco use and exposure Smokeless tobacco non-user [facility] Work Phone: Start: 11-21-2022 End: 11-13-2024 Alcohol intake Current drinker of alcohol (finding) [facility] Work Phone: Start: 11-21-2022 End: 10-26-2024 Tobacco use panel [facility] Work Phone: Start: 1955 Sex Assigned At Not on file [facility] Work Phone: Start: 11-11-2022 End: 11-13-2024 Exposure to SARS-CoV-2 (event) Not sure [facility] NEGATED: Highlighted row - - [facility] Work Phone: Functional Status Date Assessment Result Facility NEGATED: Highlighted row Functional performance Functional status health issues are not documented Disease [facility] Work Phone: Mental Status Date Assessment Result Facility NEGATED: Highlighted row Cognitive function [Interpretation] Cognitive status health issues are not documented Disease [facility] Work Phone: Clinical Notes 11-21-2022 to 11-13-2024 Edvin James APRN-MANDY - 11/13/2024 3:30 PM Ivy Grace MD - 10/26/2024 4:00 PM Ivy Grace MD - 04/27/2024 4:00 PM Ivy Grace MD - 03/25/2024 1:00 PM EDT Note Date & Type Note Facility 11-13-2024 History of Present illness Narrative Associated Order(s): Foreign Body Removal - Orifice [facility] Edvin James APRN-EDUCATIONAL THERAPIST Visit Note - 11/13/2024 4:40 PM This note was generated with voice recognition software and may contain errors including spelling, grammar, syntax, and misrecognization of what was dictated. Patient: Kavon Stephens, , 69 y.o., male PCP: Fabio Grace MD ALLERGIES: Allergies[1] CURRENT MEDICATIONS: Current Outpatient Medications Medication Instructions albuterol 90 mcg/actuation inhaler 1-2 puffs, inhalation, Every 4 hours PRN allopurinol (ZYLOPRIM) 100 mg, oral, Daily fluticasone (Flonase) 50 mcg/actuation nasal spray 2 sprays, Each Nostril, Daily losartan (COZAAR) 50 mg, oral, Daily omeprazole (PRILOSEC) 20 mg, oral, Daily before breakfast sildenafil (REVATIO) 60 mg, As needed terbinafine (LAMISIL) 250 mg, oral, Daily PAST MEDICAL HX: Problem List[2] SURGICAL HX: Surgical History[3] FAMILY HX: No pertinent history. SOCIAL HX: reports that he has quit smoking. His smoking use included cigarettes. He has never used smokeless tobacco. . CHIEF COMPLAINT: Chief Complaint Patient presents with Earache Bi-lat ear pain x today HISTORY OF PRESENT ILLNESS: The history was obtained from patient and his . Kavon is a 69 y.o. male, who presents with a chief complaint of bilat ears feeling muffled and having slight discomfort - sxs started today. Denies any recent history of trauma but does use ear plugs, and tried cleaning his ears with qtips, alcohol, and peroxide this AM, without much relief. Denies ear drainage, fever, headaches, dizziness, nasal congestion, and cold symptoms. Denies any other complaints. REVIEW OF SYSTEMS: 10 systems reviewed negative with exception of history of present illness as listed above. TODAY'S VITALS: BP 122/80 Pulse 82 Temp 36.7 C (98 F) Resp 16 Ht 1.905 m (6' 3) Wt 99.8 kg (220 lb) SpO2 97% BMI 27.50 kg/m PHYSICAL EXAMINATION: General: Pleasant male; alert and oriented; in no acute distress. Sitting comfortably on exam table. Eyes: Pupils equal, round and reactive to light. No conjunctival erythema; no scleral icterus. HENT: No sinus tenderness. R ear canal with mild cerumen, but visible portion of TM without erythema. L ear canal fully occluded by a bright yellow ear plug. Visible portion of canal without erythema/edema; no tenderness with manipulation of tragus or pinna. After removal of ear plug, cerumen impaction noted - irrigation performed per pt's request - L canal still with moderate cerumen post-irrigation, and unable to visualize TM. Visible portion of ear canal otherwise unremarkable. Neck: Supple. No lymphadenopathy Respiratory: Lungs are clear to auscultation; no wheezes, rhonchi, or rales. Respirations unlabored, Breath sounds are equal, Symmetrical chest wall expansion. Cardiovascular: Normal rate, Regular rhythm. No m/r/g. Musculoskeletal: Grossly normal; appropriate for age. Ambulates and changes position without instability or reported dizziness. Integumentary: [place], warm, dry, and Intact. Neurologic: No focal deficits. Hearing grossly intact. Cognition and Speech: Oriented, Speech clear and coherent. Psychiatric: Cooperative, Appropriate mood & affect. Foreign Body Removal - Orifice Performed by: LUIS FERNANDO Burk Authorized by: LUIS FERNANDO Burk Location: Location: Ear Ear location: L ear Procedure details: Removal mechanism: Forceps Medical Decision Making LABORATORY or RADIOLOGICAL IMAGING ORDERS/RESULTS: None IMPRESSION/PLAN: Course: Worsening; stable 1. Foreign body of left ear, initial encounter (Primary) 2. Bilateral impacted cerumen Piece of earplug extracted from L ear canal with forceps. Patient tolerated well; procedure was completed without any indication of complication or discomfort. Still unable to visualize L TM due to cerumen impaction, so irrigation attempted per pt's request - had difficulty with cerumen removal, so patient agrees to use Debrox drops for 2-3 days, then can seek care again if wax is bothersome, although at this point, patient indicates his hearing had returned to normal after extraction of the ear plug. He also agrees to seek care if he develops any discomfort, drainage or other symptoms. Patient stated understanding and agreed with plan of care. LUIS FERNANDO Burk Advanced Practice Provider [facility] [1] No Known Allergies [2] Patient Active Problem List Diagnosis Allergic rhinitis Benign prostatic hyperplasia with urinary obstruction Cervical lymphadenopathy Chronic nonalcoholic liver disease Colonic diverticular disease Colonic polyp Enlarged tonsils Erectile dysfunction Hypertension associated with diabetes GERD (gastroesophageal reflux disease) Hypercholesterolemia Left knee pain Lump of skin Microalbuminuria Neck pain Male hypogonadism Type II diabetes mellitus (Multi) Hx of gout [3] Past Surgical History: Procedure Laterality Date COLONOSCOPY 07/26/2022 REPEAT 3 YEARS. A. SIGMOID POLYP: --TUBULAR ADENOMA. B. TRANSVERSE POLYP: --TUBULAR ADENOMA. C. DESCENDING POLYP: --TUBULAR ADENOMA. D. RECTAL POLYP: -- HYPERPLASTIC POLYP. HERNIA REPAIR OTHER SURGICAL HISTORY 06/04/2019 Hip replacement OTHER SURGICAL HISTORY 06/04/2019 Finger fracture repair UMBILICAL HERNIA REPAIR documented in this encounter [facility] Work Phone: 10-26-2024 History of Present illness Narrative Subjective Patient ID: Kavon Stephens is a 69 y.o. male who presents for Follow-up (6 mo fu lab discuss lamisil for toe fungus). Here for fu with labs Co toe fungus, wants tx Review of Systems Constitutional: Negative. Negative for chills and fever. HENT: Negative. Negative for congestion. Eyes: Negative. Negative for discharge. Respiratory: Negative. Negative for cough, shortness of breath and wheezing. Cardiovascular: Negative. Negative for chest pain, palpitations and leg swelling. Gastrointestinal: Negative. Negative for abdominal distention, abdominal pain, constipation, diarrhea, nausea and vomiting. Endocrine: Negative. Genitourinary: Negative. Negative for dysuria and urgency. Musculoskeletal: Negative. Negative for back pain, joint swelling and neck stiffness. Skin: Negative. Negative for rash. Allergic/Immunologic: Negative. Negative for immunocompromised state. Neurological: Negative. Negative for light-headedness, numbness and headaches. Hematological: Negative. Negative for adenopathy. Psychiatric/Behavioral: Negative. Negative for agitation, behavioral problems and confusion. All other systems reviewed and are negative. Objective Physical Exam Vitals reviewed. Constitutional: General: He is not in acute distress. Appearance: Normal appearance. HENT: Head: Normocephalic and atraumatic. Nose: Nose normal. Eyes: Conjunctiva/sclera: Conjunctivae normal. Pupils: Pupils are equal, round, and reactive to light. Neck: Vascular: No carotid bruit. Cardiovascular: Rate and Rhythm: Normal rate and regular rhythm. Pulses: Normal pulses. Heart sounds: No gallop. Pulmonary: Effort: Pulmonary effort is normal. No respiratory distress. Breath sounds: Normal breath sounds. No wheezing. Abdominal: General: Bowel sounds are normal. Palpations: Abdomen is soft. Tenderness: There is no abdominal tenderness. Musculoskeletal: General: Normal range of motion. Cervical back: Normal range of motion. No rigidity. Lymphadenopathy: Cervical: No cervical adenopathy. Skin: General: Skin is warm. Findings: No rash. Comments: Thick yellow deformed toe nails Neurological: General: No focal deficit present. Mental Status: He is alert and oriented to person, place, and time. Psychiatric: Mood and Affect: Mood normal. Behavior: Behavior normal. BP 129/84 (BP Location: Left arm, Patient Position: Sitting) Pulse 81 Ht 1.905 m (6' 3) Wt 106 kg (234 lb) BMI 29.25 kg/m PSA Date/Time Value Ref Range Status 04/24/2024 08:21 AM 6.7 (H) 0.0 - 4.0 ng/mL Final Comment: INTERPRETIVE INFORMATION: Prostate Specific Antigen The [employer] PSA electrochemiluminescent immunoassay is used. Results obtained with different test methods or kits cannot be used interchangeably. The [employer]a PSA method is approved for use as an aid in the detection of prostate cancer when used in conjunction with a digital rectal exam in individuals with a prostate age 50 years and older. The Laila PSA is also indicated for the serial measurement of PSA to aid in the prognosis and management of prostate cancer patients. Elevated PSA concentrations can only suggest the presence of prostate cancer until biopsy is performed. PSA concentrations can also be elevated in benign prostatic hyperplasia or inflammatory conditions of the prostate. PSA is generally not elevated in healthy individuals or individuals with nonprostatic carcinoma. HEMOGLOBIN A1c Date/Time Value Ref Range Status 10/24/2024 08:28 AM 6.4 (H) <5.7 % of total Hgb Final Comment: For someone without known diabetes, a hemoglobin A1c value between 5.7% and 6.4% is consistent with prediabetes and should be confirmed with a follow-up test. For someone with known diabetes, a value <7% indicates that their diabetes is well controlled. A1c targets should be individualized based on duration of diabetes, age, comorbid conditions, and other considerations. This assay result is consistent with an increased risk of diabetes. Currently, no consensus exists regarding use of hemoglobin A1c for diagnosis of diabetes for children. Assessment/Plan Problem List Items Addressed This Visit Hypertension associated with diabetes Relevant Orders Comprehensive Metabolic Panel Hypercholesterolemia Relevant Orders Comprehensive Metabolic Panel Lipid Panel Type II diabetes mellitus (Multi) - Primary Relevant Orders Hemoglobin A1C Albumin-Creatinine Ratio, Urine Random Comprehensive Metabolic Panel Other Visit Diagnoses Onychomycosis Relevant Medications terbinafine (LamISIL) 250 mg tablet Special screening for malignant neoplasm of prostate Relevant Orders Prostate Specific Antigen, Screen Gouty arthritis Relevant Orders Uric Acid Chronic kidney disease addressed as follow: AVOID NSAIDS INCREASE FLUID INTAKE Diabetes Mellitus/IFG addressed as follow: 1800 VEE ADA HGA1C GOAL LESS THAN 7 LOSE WT EXERCISE DAILY HTN addressed as follow: MONITOR BP GOAL BP LOWER THAN 130/80 LOW SALT EXERCISE DAILY Fu 6 mo bw documented in this encounter [facility] Work Phone: 04-27-2024 History of Present illness Narrative Subjective Patient ID: Kavon Stephens is a 68 y.o. male who presents for Follow-up (4 mofu lab). Here for fu with labs Review of Systems Constitutional: Negative. Negative for chills and fever. HENT: Negative. Negative for congestion. Eyes: Negative. Negative for discharge. Respiratory: Negative. Negative for cough, shortness of breath and wheezing. Cardiovascular: Negative. Negative for chest pain, palpitations and leg swelling. Gastrointestinal: Negative. Negative for abdominal distention, abdominal pain, constipation, diarrhea, nausea and vomiting. Endocrine: Negative. Genitourinary: Negative. Negative for dysuria and urgency. Musculoskeletal: Negative. Negative for back pain, joint swelling and neck stiffness. Skin: Negative. Negative for rash. Allergic/Immunologic: Negative. Negative for immunocompromised state. Neurological: Negative. Negative for light-headedness, numbness and headaches. Hematological: Negative. Negative for adenopathy. Psychiatric/Behavioral: Negative. Negative for agitation, behavioral problems and confusion. All other systems reviewed and are negative. Objective Physical Exam Vitals reviewed. Constitutional: General: He is not in acute distress. Appearance: Normal appearance. HENT: Head: Normocephalic and atraumatic. Nose: Nose normal. Eyes: Conjunctiva/sclera: Conjunctivae normal. Pupils: Pupils are equal, round, and reactive to light. Neck: Vascular: No carotid bruit. Cardiovascular: Rate and Rhythm: Normal rate and regular rhythm. Pulses: Normal pulses. Heart sounds: No gallop. Pulmonary: Effort: Pulmonary effort is normal. No respiratory distress. Breath sounds: Normal breath sounds. No wheezing. Abdominal: General: Bowel sounds are normal. Palpations: Abdomen is soft. Tenderness: There is no abdominal tenderness. Musculoskeletal: General: Normal range of motion. Cervical back: Normal range of motion. No rigidity. Lymphadenopathy: Cervical: No cervical adenopathy. Skin: General: Skin is warm. Findings: No rash. Neurological: General: No focal deficit present. Mental Status: He is alert and oriented to person, place, and time. Psychiatric: Mood and Affect: Mood normal. Behavior: Behavior normal. BP 136/86 (BP Location: Right arm, Patient Position: Sitting) Pulse 90 Ht 1.905 m (6' 3) Wt 103 kg (228 lb) BMI 28.50 kg/m PSA Date/Time Value Ref Range Status 09/16/2019 07:20 AM 3.81 0.00 - 4.00 ng/mL Final Comment: The FDA requires that the method used for PSA assay be reported to the physician. Values obtained with different assay methods must not be used interchangeably. This test was performed at [facility] using the [employer] PSA assay is a two-site immunoenzymatic sandwich assay. The assay is approved for measurement of prostate-specific antigen (PSA)in serum and may be used in conjunction with a digital rectal examination in men 50 years and older as an aid in detection of prostate cancer. 7-Ifjvd-ytyixvtqy inhibitors (e.g. Proscar, Finasteride, Avodart, Dutasteride and Aixa) for the treatment of BPH have been shown to lower PSA levels by an average of 50% after 6 months of treatment. Hemoglobin A1C Date/Time Value Ref Range Status 04/24/2024 08:21 AM 6.0 (H) See comment % Final Assessment/Plan Problem List Items Addressed This Visit Hypertension associated with diabetes (Multi) - Primary Relevant Orders Comprehensive Metabolic Panel Type II diabetes mellitus (Multi) Relevant Orders Hemoglobin A1C Comprehensive Metabolic Panel Other Visit Diagnoses Hyperuricemia Relevant Medications allopurinol (Zyloprim) 100 mg tablet Other Relevant Orders Comprehensive Metabolic Panel Uric Acid Special screening for malignant neoplasm of prostate Relevant Orders Prostate Specific Antigen, Screen Healthcare maintenance Relevant Orders Flu vaccine, trivalent, preservative free, HIGH-DOSE, age 65y+ (Fluzone) (Completed) Labs reviewed with pt Diabetes Mellitus/IFG addressed as follow: 1800 VEE ADA HGA1C GOAL LESS THAN 7 LOSE WT EXERCISE DAILY Take 1 naproxen 500 mg daily x 5 days when starting the allopurinol Up to date with pneumonia and shingles shot Fu 6 mo bw documented in this encounter [facility] Work Phone: 03-25-2024 History of Present illness Narrative Subjective Patient ID: Kavon Stephens is a 68 y.o. male who presents for Follow-up (1 wk fu right foot pain). Here for fu feels a lot better pain resolved Review of Systems Constitutional: Negative. Negative for chills and fever. HENT: Negative. Negative for congestion. Eyes: Negative. Negative for discharge. Respiratory: Negative. Negative for cough, shortness of breath and wheezing. Cardiovascular: Negative. Negative for chest pain, palpitations and leg swelling. Gastrointestinal: Negative. Negative for abdominal distention, abdominal pain, constipation, diarrhea, nausea and vomiting. Endocrine: Negative. Genitourinary: Negative. Negative for dysuria and urgency. Musculoskeletal: Negative. Negative for back pain, joint swelling and neck stiffness. Skin: Negative. Negative for rash. Allergic/Immunologic: Negative. Negative for immunocompromised state. Neurological: Negative. Negative for light-headedness, numbness and headaches. Hematological: Negative. Negative for adenopathy. Psychiatric/Behavioral: Negative. Negative for agitation, behavioral problems and confusion. All other systems reviewed and are negative. Objective Physical Exam Vitals reviewed. Constitutional: General: He is not in acute distress. Appearance: Normal appearance. HENT: Head: Normocephalic and atraumatic. Nose: Nose normal. Eyes: Conjunctiva/sclera: Conjunctivae normal. Pupils: Pupils are equal, round, and reactive to light. Neck: Vascular: No carotid bruit. Cardiovascular: Rate and Rhythm: Normal rate and regular rhythm. Pulses: Normal pulses. Heart sounds: No gallop. Pulmonary: Effort: Pulmonary effort is normal. No respiratory distress. Breath sounds: Normal breath sounds. No wheezing. Abdominal: General: Bowel sounds are normal. Palpations: Abdomen is soft. Tenderness: There is no abdominal tenderness. Musculoskeletal: General: No swelling or tenderness. Normal range of motion. Cervical back: Normal range of motion. No rigidity. Lymphadenopathy: Cervical: No cervical adenopathy. Skin: General: Skin is warm. Findings: No rash. Neurological: General: No focal deficit present. Mental Status: He is alert and oriented to person, place, and time. Psychiatric: Mood and Affect: Mood normal. Behavior: Behavior normal. BP 123/84 (BP Location: Left arm, Patient Position: Sitting) Pulse 80 Ht 1.905 m (6' 3) Wt 103 kg (226 lb) BMI 28.25 kg/m PSA Date/Time Value Ref Range Status 09/16/2019 07:20 AM 3.81 0.00 - 4.00 ng/mL Final Comment: The FDA requires that the method used for PSA assay be reported to the physician. Values obtained with different assay methods must not be used interchangeably. This test was performed at [facility] using the [employer] PSA assay is a two-site immunoenzymatic sandwich assay. The assay is approved for measurement of prostate-specific antigen (PSA)in serum and may be used in conjunction with a digital rectal examination in men 50 years and older as an aid in detection of prostate cancer. 9-Yxpuz-dtoewqrmi inhibitors (e.g. Proscar, Finasteride, Avodart, Dutasteride and Aixa) for the treatment of BPH have been shown to lower PSA levels by an average of 50% after 6 months of treatment. Hemoglobin A1C Date/Time Value Ref Range Status 11/16/2023 08:23 AM 6.1 (H) see below % Final Assessment/Plan Problem List Items Addressed This Visit None Visit Diagnoses Gouty arthritis - Primary Xr dw pt Clinically improved Fu before documented in this encounter [facility] Work Phone: 03-18-2024 History of Present illness Narrative Subjective Patient ID: Kavon Stephens is a 68 y.o. male who presents for Follow-up (Pt co right stabbing foot pain). Right foot sharp pain x 4 days. No trauma Review of Systems Constitutional: Negative. Negative for chills and fever. HENT: Negative. Negative for congestion. Eyes: Negative. Negative for discharge. Respiratory: Negative. Negative for cough, shortness of breath and wheezing. Cardiovascular: Negative. Negative for chest pain, palpitations and leg swelling. Gastrointestinal: Negative. Negative for abdominal distention, abdominal pain, constipation, diarrhea, nausea and vomiting. Endocrine: Negative. Genitourinary: Negative. Negative for dysuria and urgency. Musculoskeletal: Negative. Negative for back pain, joint swelling and neck stiffness. Skin: Negative. Negative for rash. Allergic/Immunologic: Negative. Negative for immunocompromised state. Neurological: Negative. Negative for light-headedness, numbness and headaches. Hematological: Negative. Negative for adenopathy. Psychiatric/Behavioral: Negative. Negative for agitation, behavioral problems and confusion. All other systems reviewed and are negative. Objective Physical Exam Vitals reviewed. Constitutional: General: He is not in acute distress. Appearance: Normal appearance. HENT: Head: Normocephalic and atraumatic. Nose: Nose normal. Eyes: Conjunctiva/sclera: Conjunctivae normal. Pupils: Pupils are equal, round, and reactive to light. Neck: Vascular: No carotid bruit. Cardiovascular: Rate and Rhythm: Normal rate and regular rhythm. Pulses: Normal pulses. Heart sounds: No gallop. Pulmonary: Effort: Pulmonary effort is normal. No respiratory distress. Breath sounds: Normal breath sounds. No wheezing. Abdominal: General: Bowel sounds are normal. Palpations: Abdomen is soft. Tenderness: There is no abdominal tenderness. Musculoskeletal: General: Swelling (lateral right foot with warmness no rash) and tenderness present. Normal range of motion. Cervical back: Normal range of motion. No rigidity. Lymphadenopathy: Cervical: No cervical adenopathy. Skin: General: Skin is warm. Findings: No rash. Neurological: General: No focal deficit present. Mental Status: He is alert and oriented to person, place, and time. Psychiatric: Mood and Affect: Mood normal. Behavior: Behavior normal. BP 119/84 (BP Location: Left arm, Patient Position: Sitting) Pulse 86 Ht 1.905 m (6' 3) Wt 103 kg (228 lb) BMI 28.50 kg/m PSA Date/Time Value Ref Range Status 09/16/2019 07:20 AM 3.81 0.00 - 4.00 ng/mL Final Comment: The FDA requires that the method used for PSA assay be reported to the physician. Values obtained with different assay methods must not be used interchangeably. This test was performed at [facility] using the [employer] PSA assay is a two-site immunoenzymatic sandwich assay. The assay is approved for measurement of prostate-specific antigen (PSA)in serum and may be used in conjunction with a digital rectal examination in men 50 years and older as an aid in detection of prostate cancer. 2-Flpwg-binbteegm inhibitors (e.g. Proscar, Finasteride, Avodart, Dutasteride and Aixa) for the treatment of BPH have been shown to lower PSA levels by an average of 50% after 6 months of treatment. Hemoglobin A1C Date/Time Value Ref Range Status 11/16/2023 08:23 AM 6.1 (H) see below % Final Assessment/Plan Problem List Items Addressed This Visit None Visit Diagnoses Right foot pain - Primary Relevant Medications etodolac (Lodine) 500 mg tablet dexAMETHasone (Decadron) injection 4 mg (Start on 03/18/2024 11:30 AM) Other Relevant Orders XR foot right 1-2 views Gouty arthritis Relevant Medications etodolac (Lodine) 500 mg tablet dexAMETHasone (Decadron) injection 4 mg (Start on 03/18/2024 11:30 AM) Other Relevant Orders XR foot right 1-2 views MDM 1) COMPLEXITY: 1 OR MORE CHRONIC CONDITION WITH EXACERBATION, OR PROGRESSION OR SIDE EFFECT OF TREATMENT ADDRESSED 2)DATA: TESTS INTERPRETED AND OR ORDERED, TOOK INDEPENDENT HISTORY OR RECORDS REVIEWED 3)RISK: MODERATE RISK DUE TO NATURE OF MEDICAL CONDITIONS/COMORBIDITY OR MEDICATIONS ORDERED OR SURGICAL OR PROCEDURE REFERRAL, . Fu 1 week documented in this encounter [facility] Work Phone: 02-17-2024 Note NEW Patient Visit Ash Collins DPM Patient Name: Kavon Stephens. . Date of : 1955, 68 y.o.. Gender: male. Subjective: Patient is a pleasant 68-year-old male who presents to clinic for pain to the dorsal left foot. Patient reports that his PCP suspected gout but patient believes it is more likely arthritis. Patient states that this has been ongoing for 3 months and worsening. Denies any trauma or injury. States that the pain is sharp/aching in nature. No other pedal complaints at this time. Denies fevers, chills, nausea, vomiting, chest pain, shortness of breath, or any other constitutional symptoms. Past Medical History: Diagnosis Date Enlarged prostate Fatty liver Fractures GERD (gastroesophageal reflux disease) History of fracture of finger History of fracture of nose Past Surgical History: Procedure Laterality Date CT COLONOSCOPY 01/06/2023 CT COLONOSCOPY FINGER FRACTURE SURGERY Left MIDDLE FINGER HERNIA REPAIR TRIPLE HERNIA SURGERY 1999 NOSE SURGERY TOTAL HIP ARTHROPLASTY Right TRANSURETHRAL RESECTION OF PROSTATE Social History Socioeconomic History Marital status: Tobacco Use Smoking status: Former Current packs/day: 1.00 Types: Cigarettes Vaping Use Vaping status: Never Used Substance and Sexual Activity Alcohol use: Yes Comment: TWO BEERS IN PAST 24HRS Drug use: Never Physical Examination: BP 132/84 (BP Location: Left arm, Patient Position: Sitting, BP Cuff Size: Adult) Pulse 80 Temp 99.1 degrees F (37.3 degrees C) (Temporal) General Appearance: Alert, cooperative, no distress, appears stated age. Podiatric Exam Vascular: DP and PT pulses are palpable 2/4. Capillary refill time is less than 3 secs to distal digits. Skin temperature is warm to warm from proximal tibial tuberosity to distal digit. Mild localized dorsal edema to the left foot. Neurological: Gross sensation is intact. Protective sensation is intact. Dermatologic: No open wounds or ulcers. Interdigital spaces are clean dry and intact. Musculoskeletal: Pain on palpation to the dorsal left foot especially at the second and third tarsometatarsal joints. Osseous prominence of can be palpated to the dorsal first metatarsal cuneiform joint, left foot. Ankle joint range of motion is intact. Muscle strength is 5/5 to dorsiflexors, plantar flexors, inverters and everters. Compartments soft and compressible. No calf pain Diagnoses: 1. Arthritis of left foot 2. Left foot pain Imaging: Left foot 3 views weightbearing radiographs were ordered and interpreted as follows: No acute fractures or dislocations noted Generalized joint space narrowing noted across the midfoot joint especially at the first, second and third tarsometatarsal joints. Assessment/Plan: Patient was seen and evaluated. Discussed all clinical findings. I ordered, interpreted, and discussed left foot radiographic findings with patient as noted above. Patient has arthritis across the midfoot joints of the left foot especially at the first, second and third tarsometatarsal joints, most painful at the third tarsometatarsal joint. Meloxicam was prescribed and sent to patient's pharmacy help decrease pain and inflammation. Discussed importance of wearing extra-depth wide and stiff supportive shoe gear at all times and to avoid barefoot walking, slippers, socks, flip-flops, etc. Recommended a steroid injection if patient fails to improve or worsen. All questions were answered to patient satisfaction. Patient understands to call with any questions or concerns. Patient has elected to follow-up as needed. This note was partially created using voice recognition software and is inherently subject to errors including those of syntax and sound-alike substitutions which may escape proofreading. In such instances, original meaning may be extrapolated by contextual derivation. Ash Collins DPM, MS Podiatric Physician & Surgeon AUTHENTICATED BY ASH COLLINS, ON 02/17/2024 19:33:34 [facility] 01-17-2024 History of Present illness Narrative [facility] Edvin James APRN-[facility] Visit Note - 01/17/2024 3:18 PM This note was generated with voice recognition software and may contain errors including spelling, grammar, syntax, and misrecognization of what was dictated. Patient: Kavon Stephens, , 68 y.o., male PCP: Fabio Grace MD ALLERGIES: No Known Allergies CURRENT MEDICATIONS: Current Outpatient Medications Medication Instructions albuterol 90 mcg/actuation inhaler 1-2 puffs, inhalation, Every 4 hours PRN azithromycin (Zithromax Z-Clint) 250 mg tablet Take 2 tablets by mouth at once on day 1, then 1 tablet once a day on days 2-5. Take with a meal. benzonatate (TESSALON) 100-200 mg, oral, Every 8 hours PRN, Do not crush or chew. fluticasone (Flonase) 50 mcg/actuation nasal spray 2 sprays, Each Nostril, Daily losartan (COZAAR) 50 mg, oral, Daily omeprazole (PRILOSEC) 20 mg, oral, Daily before breakfast predniSONE (Deltasone) 10 mg tablet Take 6 tabs PO daily x1 day, then take 5 tabs daily x1 day, then take 4 tabs daily x1 day, then take 3 tabs daily x1 day, then take 2 tabs daily x1 day, then take 1 tab daily x1 day. Take with a meal. sildenafil (REVATIO) 60 mg, oral, As needed, DR. ESCALANTE PAST MEDICAL HX: Patient Active Problem List Diagnosis Allergic rhinitis Benign prostatic hyperplasia with urinary obstruction Cervical lymphadenopathy Chronic nonalcoholic liver disease Colonic diverticular disease Colonic polyp Enlarged tonsils Erectile dysfunction Hypertension associated with diabetes (Multi) GERD (gastroesophageal reflux disease) Hypercholesterolemia Left knee pain Lump of skin Microalbuminuria Neck pain Male hypogonadism Type II diabetes mellitus (Multi) Hx of gout SURGICAL HX: Past Surgical History: Procedure Laterality Date COLONOSCOPY 07/26/2022 REPEAT 3 YEARS. A. SIGMOID POLYP: --TUBULAR ADENOMA. B. TRANSVERSE POLYP: --TUBULAR ADENOMA. C. DESCENDING POLYP: --TUBULAR ADENOMA. D. RECTAL POLYP: -- HYPERPLASTIC POLYP. HERNIA REPAIR OTHER SURGICAL HISTORY 06/04/2019 Hip replacement OTHER SURGICAL HISTORY 06/04/2019 Finger fracture repair UMBILICAL HERNIA REPAIR FAMILY HX: No pertinent history. SOCIAL HX: reports that he has quit smoking. His smoking use included cigarettes. He has never used smokeless tobacco. CHIEF COMPLAINT: Chief Complaint Patient presents with URI SORE THROAT, FATIGUED, RATTLELY LUNGS, WEAK X 3 WEEKS HISTORY OF PRESENT ILLNESS: The history was obtained from patient and his . Kavon is a 68 y.o. male, who presents with a chief complaint of continued fatigue, intermittent wheezing/rattling in my chest, sore throat, and a productive cough since his visit here on 01/11/24. Has not had symptoms for 3-4 weeks. He reports took Zithromax and prednisone as directed - noticed slight improvement intermittently (felt well enough to work in the garden a little yesterday), but reports still feels very run down and having chest congestion. Has slight nasal congestion but only in the AM, and reports this is baseline for him; he has slight nausea at times. Denies any fever/chills, body aches, ear pain, headaches, abdominal pain, acid reflux, chest pain, shortness of breath, rashes, urinary symptoms, vomiting, and diarrhea. Denies any lightheadedness or dizziness; no changes in mental status. No swelling in legs. Appetite is normal; is able to eat and drink fluids without difficulty; denies loss of sense of taste or smell but reports he has a funny taste in his mouth. Reports symptoms have been waxing and waning since onset . Has been taking Plain Mucinex; has also been using Albuterol once every AM (doesn't notice much of a difference, but admits is usually not wheezing when he uses it) . No other [id number] medications or home remedies for symptom management. No known ill contacts but reports he is planning to be around his elderly mother this weekend. Has received the COVID vaccine x 2; Has received this season's influenza vaccine ; has received the pneumonia vaccine . Last presumptive COVID infection was in ~2019. Is a former smoker. No known history of asthma/COPD/respiratory issues. Is diabetic - last A1c was 6.1%; he does not check his glucose regularly. Was on Doxycycline a few months ago for treatment after a tick bite. Planning to go to [place] in ~3 weeks, so plans to spend a lot of time in the sun the next few weeks to get my skin ready. REVIEW OF SYSTEMS: 10 systems reviewed negative with exception of history of present illness as listed above. TODAY'S VITALS: BP 124/72 Pulse 83 Temp 36.7 C (98 F) Resp 14 Ht 1.905 m (6' 3) Wt 99.8 kg (220 lb) SpO2 95% BMI 27.50 kg/m PHYSICAL EXAMINATION: General: Mildly ill-appearing, well nourished male; alert and oriented; in no acute distress. Sitting comfortably on exam table. Non-dyspneic. Accompanied by his , who helps to provide complete history. Eyes: Pupils equal, round and reactive to light. No conjunctival erythema; no scleral icterus. HENT: No notable audible nasal congestion. Airway patent, Bilat TMs unremarkable, ear canals clear/unremarkable bilaterally. Nasal mucosa mildly injected and edematous. Oral mucosa moist. Posterior pharynx mildly injected but without vesicles or oropharyngeal exudate. Uvula is midline. Managing oral secretions without difficulty. Neck: Supple. No palpable lymphadenopathy bilat. Trachea is midline. Respiratory: Respirations easy and unlabored, Breath sounds equal. Lungs clear to auscultation; no wheezing, rhonchi, or rales. Has good air movement throughout. + non-productive cough noted. Non-dyspneic with ambulation; able to maintain SpO2. Cardiovascular: Normal rate, Regular rhythm. Normal S1S2. No m/r/g. No peripheral edema. Gastrointestinal: Soft, non-tender, non-distended; no palpable masses or organomegaly. Bowel sounds normoactive. Musculoskeletal: Grossly normal; appropriate for age. Integumentary: [place], warm, dry, and intact. No rashes or skin discoloration appreciated. Good skin turgor. Neurologic: Alert and oriented, no gross deficits. Cognition and Speech: Oriented, Speech clear and coherent. Psychiatric: Cooperative, Appropriate mood & affect. Medical Decision Making LABORATORY or RADIOLOGICAL IMAGING ORDERS/RESULTS: COVID PCR: negative Influenza A PCR: negative Influenza B PCR: negative RSV PCR: negative Study Result Narrative & Impression Interpreted By: Janis Gonzales, STUDY: Chest, 2 views. INDICATION: Signs/Symptoms:Cough and intermittent wheezing x 3 weeks. Minimal improvement despite course of prednisone and Zithromax.. COMPARISON: None. ACCESSION NUMBER(S): [id number] ORDERING CLINICIAN: EDVIN JAMES FINDINGS: The cardiomediastinal silhouette size is within normal limits. There is no focal consolidation, edema or pneumothorax. No sizeable pleural effusion. IMPRESSION: 1. No acute cardiopulmonary process. MACRO: None. Signed by: Janis Gonzales 01/17/2024 3:52 PM Dictation workstation: [id number] IMPRESSION/PLAN: Course: Worsening; stable 1. Acute bronchitis, unspecified organism - XR chest 2 views; Future - POCT SARS-COV-2/FLU/RSV PCR SYMPTOMATIC manually resulted - predniSONE (Deltasone) 10 mg tablet; Take 6 tabs PO daily x1 day, then take 5 tabs daily x1 day, then take 4 tabs daily x1 day, then take 3 tabs daily x1 day, then take 2 tabs daily x1 day, then take 1 tab daily x1 day. Take with a meal. Dispense: 21 tablet; Refill: 0 - Doxycycline No red flags on exam today, but stressed importance of close monitoring and follow up with PCP, especially in light of duration of symptoms. Per pt's request, testing for COVID/influenza/RSV done today - results were negative. CXR also obtained - showed no acute abnormalities. Symptoms remain consistent with acute bronchitis, but reviewed other potential etiologies. Due to failure of Zithromax, will begin treatment with Doxycycline, as well as 2nd prednisone taper today; can continue tessalon pearles as needed, and should continue albuterol inhaler for PRN use - reminded of instructions for use. Instructed to push fluids, rest, and to use appropriate over the counter medications as needed for management of symptoms - plain Mucinex, vaporizer, etc. Reviewed instructions for self-isolation and continued monitoring. Reviewed red flags to monitor for, counseled on potential adverse reactions of treatments, expectations for improvement in sxs, and advised to follow-up with primary care provider in 2-3 days if symptoms persist, or to seek care sooner if worsening or if any additional concerns/red flags develop. May need additional evaluation if not making progress by first thing next week. Patient agreed with plan of care; questions were encouraged and answered. LUIS FERNANDO Burk Advanced Practice Provider [facility] documented in this encounter [facility] Work Phone: 01-11-2024 History of Present illness Narrative [facility] LUIS FERNANDO Burk Visit Note - 01/11/2024 1:11 PM This note was generated with voice recognition software and may contain errors including spelling, grammar, syntax, and misrecognization of what was dictated. Patient: Kavon Stephens, , 68 y.o., male PCP: Fabio Grace MD ALLERGIES: No Known Allergies CURRENT MEDICATIONS: Current Outpatient Medications Medication Instructions albuterol 90 mcg/actuation inhaler 1-2 puffs, inhalation, Every 4 hours PRN azithromycin (Zithromax Z-Clint) 250 mg tablet Take 2 tablets by mouth at once on day 1, then 1 tablet once a day on days 2-5. Take with a meal. benzonatate (TESSALON) 100-200 mg, oral, Every 8 hours PRN, Do not crush or chew. fluticasone (Flonase) 50 mcg/actuation nasal spray 2 sprays, Each Nostril, Daily losartan (COZAAR) 50 mg, oral, Daily omeprazole (PRILOSEC) 20 mg, oral, Daily before breakfast predniSONE (Deltasone) 10 mg tablet Take 6 tabs PO daily x1 day, then take 5 tabs daily x1 day, then take 4 tabs daily x1 day, then take 3 tabs daily x1 day, then take 2 tabs daily x1 day, then take 1 tab daily x1 day. Take with a meal. sildenafil (REVATIO) 60 mg, oral, As needed, DR. ESCALANTE PAST MEDICAL HX: Patient Active Problem List Diagnosis Allergic rhinitis Benign prostatic hyperplasia with urinary obstruction Cervical lymphadenopathy Chronic nonalcoholic liver disease Colonic diverticular disease Colonic polyp Enlarged tonsils Erectile dysfunction Hypertension associated with diabetes (Multi) GERD (gastroesophageal reflux disease) Hypercholesterolemia Left knee pain Lump of skin Microalbuminuria Neck pain Male hypogonadism Type II diabetes mellitus (Multi) Hx of gout SURGICAL HX: Past Surgical History: Procedure Laterality Date COLONOSCOPY 07/26/2022 REPEAT 3 YEARS. A. SIGMOID POLYP: --TUBULAR ADENOMA. B. TRANSVERSE POLYP: --TUBULAR ADENOMA. C. DESCENDING POLYP: --TUBULAR ADENOMA. D. RECTAL POLYP: -- HYPERPLASTIC POLYP. HERNIA REPAIR OTHER SURGICAL HISTORY 06/04/2019 Hip replacement OTHER SURGICAL HISTORY 06/04/2019 Finger fracture repair UMBILICAL HERNIA REPAIR FAMILY HX: No pertinent history. SOCIAL HX: reports that he has quit smoking. His smoking use included cigarettes. He has never used smokeless tobacco. CHIEF COMPLAINT: Chief Complaint Patient presents with URI Cough, wheezing, raspy voice x 3 weeks HISTORY OF PRESENT ILLNESS: The history was obtained from patientSherine Jacobson is a 68 y.o. male, who presents with a chief complaint of a raspy voice x 3 weeks; has also had a productive cough (green phlegm), wheezing, fatigue, and a slight, sore throat x 2 weeks. He denies any fever/chills, body aches, runny nose/congestion, ear pain, headaches, abdominal pain, chest pain, shortness of breath, rashes, urinary symptoms, nausea/vomiting, and diarrhea. Denies any lightheadedness or dizziness; no changes in mental status. No swelling in legs. Appetite is normal; is able to eat and drink fluids without difficulty; denies loss of sense of taste or smell. Reports symptoms have gotten worse since onset. Has been taking Mucinex DM without much relief; no other [id number]-gfxbmtz medications or home remedies for symptom management. No known ill contacts. Has received the COVID vaccine x 2; Has received this season's influenza vaccine ; has received the pneumonia vaccine . Last known COVID infection was in ~2019. Is a former smoker. No known history of asthma/COPD/respiratory issues. Is diabetic - reports last A1c was 6.1% and he does not check his glucose regularly. Was on Doxycycline ~6 weeks ago for treatment after a tick bite. REVIEW OF SYSTEMS: 10 systems reviewed negative with exception of history of present illness as listed above. TODAY'S VITALS: BP 107/73 Pulse 80 Temp 36.4 C (97.6 F) Resp 14 Ht 1.905 m (6' 3) Wt 99.8 kg (220 lb) SpO2 94% BMI 27.50 kg/m PHYSICAL EXAMINATION: General: Mildly ill-appearing, well nourished older male; alert and oriented; in no acute distress. Sitting comfortably on exam table. Non-dyspneic. Eyes: Pupils equal, round and reactive to light. No conjunctival erythema; no scleral icterus. HENT: No sinus tenderness; no notable audible nasal congestion. Airway patent, Bilat TMs unremarkable, ear canals clear/unremarkable bilaterally. Nasal mucosa mildly injected and edematous. Oral mucosa moist. Posterior pharynx mildly injected but without vesicles or oropharyngeal exudate. Uvula is midline. Managing oral secretions without difficulty. Neck: Supple. Mildly tender, mobile anterior cervical lymphadenopathy bilat. Trachea is midline. Respiratory: Respirations easy and unlabored, Breath sounds equal. Lungs clear to auscultation; no wheezing, rhonchi, or rales. Has good air movement throughout. Harsh, semi-productive cough noted. Non-dyspneic with ambulation; able to maintain SpO2. Cardiovascular: Normal rate, Regular rhythm. Normal S1S2. No m/r/g. No peripheral edema. Gastrointestinal: Soft, non-tender, non-distended; no palpable masses or organomegaly. Bowel sounds normoactive. Musculoskeletal: Grossly normal; appropriate for age. Integumentary: [place], warm, dry, and intact. No rashes or skin discoloration appreciated. Good skin turgor. Neurologic: Alert and oriented, no gross deficits. Cognition and Speech: Oriented, Speech clear and coherent. Psychiatric: Cooperative, Appropriate mood & affect. Medical Decision Making LABORATORY or RADIOLOGICAL IMAGING ORDERS/RESULTS: None IMPRESSION/PLAN: Course: Worsening; stable 1. Acute bronchitis, unspecified organism - azithromycin (Zithromax Z-Clint) 250 mg tablet; Take 2 tablets by mouth at once on day 1, then 1 tablet once a day on days 2-5. Take with a meal. Dispense: 6 tablet; Refill: 0 - predniSONE (Deltasone) 10 mg tablet; Take 6 tabs PO daily x1 day, then take 5 tabs daily x1 day, then take 4 tabs daily x1 day, then take 3 tabs daily x1 day, then take 2 tabs daily x1 day, then take 1 tab daily x1 day. Take with a meal. Dispense: 21 tablet; Refill: 0 - benzonatate (Tessalon) 100 mg capsule; Take 1-2 capsules (100-200 mg) by mouth every 8 hours if needed for cough. Do not crush or chew. Dispense: 60 capsule; Refill: 0 - albuterol 90 mcg/actuation inhaler; Inhale 1-2 puffs every 4 hours if needed for wheezing or shortness of breath. Dispense: 8.5 g; Refill: 0 No red flags on exam today. Discussed obtaining CXR today due to duration of symptoms, but patient requests to defer - states will follow up with PCP if not improving by first thing next week. Symptoms consistent with acute bronchitis/possible pneumonia, but reviewed other potential etiologies. Will begin treatment with Zithromax today; will also start prednisone taper, cough medication (Benzonatate) and albuterol inhaler for PRN use. Instructed to push fluids, rest, and to use appropriate over the counter medications as needed for management of symptoms - plain Mucinex may be helpful. Reviewed instructions for self-isolation and continued monitoring. Reviewed red flags to monitor for, counseled on potential adverse reactions of treatments, expectations for improvement in sxs, and advised to follow-up with primary care provider in 2-3 days if symptoms persist, or to seek care sooner if worsening or if any additional concerns/red flags develop. Patient agreed with plan of care; questions were encouraged and answered. LUIS FERNANDO Burk Advanced Practice Provider [facility] documented in this encounter [facility] Work Phone: 12-25-2023 History of Present illness Narrative Subjective Patient ID: Kavon Stephens is a 68 y.o. male who presents for Follow-up (5 week follow up - tick bite lyme). Here for fu after test Left foot better Review of Systems Constitutional: Negative. Negative for chills and fever. HENT: Negative. Negative for congestion. Eyes: Negative. Negative for discharge. Respiratory: Negative. Negative for cough, shortness of breath and wheezing. Cardiovascular: Negative. Negative for chest pain, palpitations and leg swelling. Gastrointestinal: Negative. Negative for abdominal distention, abdominal pain, constipation, diarrhea, nausea and vomiting. Endocrine: Negative. Genitourinary: Negative. Negative for dysuria and urgency. Musculoskeletal: Negative. Negative for back pain, joint swelling and neck stiffness. Skin: Negative. Negative for rash. Allergic/Immunologic: Negative. Negative for immunocompromised state. Neurological: Negative. Negative for light-headedness, numbness and headaches. Hematological: Negative. Negative for adenopathy. Psychiatric/Behavioral: Negative. Negative for agitation, behavioral problems and confusion. All other systems reviewed and are negative. Objective Physical Exam Vitals reviewed. Constitutional: General: He is not in acute distress. Appearance: Normal appearance. HENT: Head: Normocephalic and atraumatic. Nose: Nose normal. Eyes: Conjunctiva/sclera: Conjunctivae normal. Pupils: Pupils are equal, round, and reactive to light. Neck: Vascular: No carotid bruit. Cardiovascular: Rate and Rhythm: Normal rate and regular rhythm. Pulses: Normal pulses. Heart sounds: No gallop. Pulmonary: Effort: Pulmonary effort is normal. No respiratory distress. Breath sounds: Normal breath sounds. No wheezing. Abdominal: General: Bowel sounds are normal. Palpations: Abdomen is soft. Tenderness: There is no abdominal tenderness. Musculoskeletal: General: Normal range of motion. Cervical back: Normal range of motion. No rigidity. Lymphadenopathy: Cervical: No cervical adenopathy. Skin: General: Skin is warm. Findings: No rash. Neurological: General: No focal deficit present. Mental Status: He is alert and oriented to person, place, and time. Psychiatric: Mood and Affect: Mood normal. Behavior: Behavior normal. BP 121/82 (BP Location: Right arm, Patient Position: Sitting) Pulse 87 Ht 1.905 m (6' 3) Wt 103 kg (226 lb 9.6 oz) BMI 28.32 kg/m PSA Date/Time Value Ref Range Status 09/16/2019 07:20 AM 3.81 0.00 - 4.00 ng/mL Final Comment: The FDA requires that the method used for PSA assay be reported to the physician. Values obtained with different assay methods must not be used interchangeably. This test was performed at [facility] using the [employer] PSA assay is a two-site immunoenzymatic sandwich assay. The assay is approved for measurement of prostate-specific antigen (PSA)in serum and may be used in conjunction with a digital rectal examination in men 50 years and older as an aid in detection of prostate cancer. 6-Apzjx-dytoykqfv inhibitors (e.g. Proscar, Finasteride, Avodart, Dutasteride and Aixa) for the treatment of BPH have been shown to lower PSA levels by an average of 50% after 6 months of treatment. Hemoglobin A1C Date/Time Value Ref Range Status 11/16/2023 08:23 AM 6.1 (H) see below % Final Assessment/Plan Problem List Items Addressed This Visit Benign prostatic hyperplasia with urinary obstruction Relevant Orders Comprehensive Metabolic Panel PSA, Total and Free Hypertension associated with diabetes (Multi) Relevant Orders Comprehensive Metabolic Panel Type II diabetes mellitus (Multi) - Primary Relevant Orders Comprehensive Metabolic Panel Hemoglobin A1C Hx of gout Relevant Orders Comprehensive Metabolic Panel Uric Acid CLINICALLY IMPROVED Labs reviewed with pt XR REVIEWED WITH PT Uric acid very mildly elevated low uric acid diet discussed( cheeses beer wine red meat) LYME NEGATIVE HTN addressed as follow: MONITOR BP GOAL BP LOWER THAN 130/80 LOW SALT EXERCISE DAILY FU 4 MO BW documented in this encounter [facility] Work Phone: 12-17-2023 History of Present illness Narrative Subjective Patient ID: Kavon Stephens is a 68 y.o. male who presents for Follow-up (C/O LT FOOT PAIN). HPI F/U AFTER ER VISIT 10 DAYS AGO FOR ACUTE ONSET OF L FOOT PAIN , HAD XR DONE AND WAS DX WITH GOUT. PT WAS PUT ON PREDNISONE 50 MG DAILY FOR 1 WEEK AND PAIN IMPROVED. APPARENTLY as SOON as FINISHING THE TX ,HE HAD RED MEAT WITH ETOH , L FOOT PAIN AND INFLAMMATION CAME BACK . HAS PAIN OF 9/10 AT THE BASE OF L 5TH TOE. NO H/O TRAUMA. Review of Systems Constitutional: Negative for chills and fever. HENT: Negative. Negative for congestion, postnasal drip and rhinorrhea. Eyes: Negative. Negative for visual disturbance. Respiratory: Negative for cough, shortness of breath and wheezing. Cardiovascular: Negative. Negative for chest pain, palpitations and leg swelling. Gastrointestinal: Negative. Negative for abdominal distention, abdominal pain, constipation, diarrhea, nausea and vomiting. Endocrine: Negative. Genitourinary: Negative for dysuria and urgency. Musculoskeletal: Positive for arthralgias. Negative for back pain. PER HPI Skin: Negative. Negative for rash. Allergic/Immunologic: Negative for immunocompromised state. Neurological: Negative. Negative for dizziness, weakness, light-headedness and headaches. Psychiatric/Behavioral: Negative. Negative for agitation. Objective Physical Exam Constitutional: General: He is not in acute distress. HENT: Head: Normocephalic. Nose: Nose normal. Mouth/Throat: Mouth: Mucous membranes are moist. Eyes: Conjunctiva/sclera: Conjunctivae normal. Pupils: Pupils are equal, round, and reactive to light. Cardiovascular: Rate and Rhythm: Normal rate and regular rhythm. Pulses: Normal pulses. Heart sounds: Normal heart sounds. Pulmonary: Effort: No respiratory distress. Breath sounds: No wheezing. Chest: Chest wall: No tenderness. Abdominal: General: Abdomen is flat. Bowel sounds are normal. Palpations: Abdomen is soft. Tenderness: There is no abdominal tenderness. Musculoskeletal: General: Tenderness present. Normal range of motion. Cervical back: Normal range of motion. Comments: TENDERNESS OF L 5TH MTP WITH EDEMA ,INFLAMMATION, ERYTHEMA . Lymphadenopathy: Cervical: No cervical adenopathy. Skin: General: Skin is warm and dry. Findings: No rash. Neurological: General: No focal deficit present. Mental Status: He is alert. Mental status is at baseline. Psychiatric: Mood and Affect: Mood normal. Behavior: Behavior normal. Assessment/Plan 1. Acute gout of left foot, unspecified cause naproxen (Naprosyn) 500 mg tablet colchicine 0.6 mg tablet Uric Acid methylPREDNISolone (Medrol Dospak) 4 mg tablets 2. Left foot pain methylPREDNISolone (Medrol Dospak) 4 mg tablets 3. Type 2 diabetes mellitus without complication, without long-term current use of insulin (Multi) 4. Hx of gout 5. Hypertension associated with diabetes (Multi) TEST RESULTS WERE DISCUSSED. ADVISED TO APPLY COLD COMPRESSION AND TO ELEVATE THE L FOOT , FALL PRECAUTION. I HIGHLY ADVISED THE PT TO AVOID HAVING RED MEAT AND ETOH. ADVISED TO HAVE LOW FAT AND LOW CALORIE, LOW URIC ACID DIET AND TO LOOSE WEIGHT,. Diabetes Mellitus/IFG addressed as follow: 1800 VEE ADA HGA1C GOAL LESS THAN 7 LOSE WT EXERCISE DAILY, FALL PRECAUTION. MDM 1) COMPLEXITY: 1 UNDIAGNOSED NEW PROBLEM WITH UNCERTAIN PROGNOSIS 2)DATA: TESTS INTERPRETED AND OR ORDERED, TOOK INDEPENDENT HISTORY OR RECORDS REVIEWED 3)RISK: MODERATE RISK DUE TO NATURE OF MEDICAL CONDITIONS/COMORBIDITY OR MEDICATIONS ORDERED OR SURGICAL OR PROCEDURE REFERRAL, . HAS F/U. documented in this encounter [facility] Work Phone: 12-07-2023 Reason for referr al (narrative) Specialty Diagnoses / Procedures Referred By Contelie t Referred To Contact Family Medicine / Primary Care [facility], [address] [place] [address] Referral ID Status Reason Start Date Expiration Date Visits Requested Visits Authorized [id number] Authorized Specialty Services Required 12/07/2023 12/06/2024 1 1 [facility] Work Phone: 1(481) 200-747805-01-2024 History of Present illness Narrative* Fabio Grace MD - 11/20/2023 4:00 PM EDT Subjective Patient ID: Kavon Stephens is a 68 y.o. male who presents for Follow-up (6 MONTHS LABS . PT C/O OF TICK BACK OF LEFT LEG ). HERE FOR FU WITH LABS TICK BITE LAST WEEK, WENT TO ER, GOT ABX Review of Systems Constitutional: Negative. Negative for chills and fever. HENT: Negative. Negative for congestion. Eyes: Negative. Negative for discharge. Respiratory: Negative. Negative for cough, shortness of breath and wheezing. Cardiovascular: Negative. Negative for chest pain, palpitations and leg swelling. Gastrointestinal: Negative. Negative for abdominal distention, abdominal pain, constipation, diarrhea, nausea and vomiting. Endocrine: Negative. Genitourinary: Negative. Negative for dysuria and urgency. Musculoskeletal: Negative. Negative for back pain, joint swelling and neck stiffness. Skin: Negative. Negative for rash. Allergic/Immunologic: Negative. Negative for immunocompromised state. Neurological: Negative. Negative for light-headedness, numbness and headaches. Hematological: Negative. Negative for adenopathy. Psychiatric/Behavioral: Negative. Negative for agitation, behavioral problems and confusion. All other systems reviewed and are negative. Objective Physical Exam Vitals reviewed. Constitutional: General: He is not in acute distress. Appearance: Normal appearance. HENT: Head: Normocephalic and atraumatic. Nose: Nose normal. Eyes: Conjunctiva/sclera: Conjunctivae normal. Pupils: Pupils are equal, round, and reactive to light. Neck: Vascular: No carotid bruit. Cardiovascular: Rate and Rhythm: Normal rate and regular rhythm. Pulses: Normal pulses. Heart sounds: No gallop. Pulmonary: Effort: Pulmonary effort is normal. No respiratory distress. Breath sounds: Normal breath sounds. No wheezing. Abdominal: General: Bowel sounds are normal. Palpations: Abdomen is soft. Tenderness: There is no abdominal tenderness. Musculoskeletal: General: Normal range of motion. Cervical back: Normal range of motion. No rigidity. Lymphadenopathy: Cervical: No cervical adenopathy. Skin: General: Skin is warm. Findings: Erythema (SWELLING MILD TENDERNEDD BEHIND LEFT THIGH /IMPROVING, FINISH ABX) present. No rash. Neurological: General: No focal deficit present. Mental Status: He is alert and oriented to person, place, and time. Psychiatric: Mood and Affect: Mood normal. Behavior: Behavior normal. BP 139/89 (BP Location: Right arm, Patient Position: Sitting) Pulse 78 Ht 1.905 m (6' 3) Wt 102 kg (225 lb) SpO2 94% BMI 28.12 kg/m PSA Date/Time Value Ref Range Status 09/16/2019 07:20 AM 3.81 0.00 - 4.00 ng/mL Final Comment: The FDA requires that the method used for PSA assay be reported to the physician. Values obtained with different assay methods must not be used interchangeably. This test was performed at [facility] using the [employer] PSA assay is a two-site immunoenzymatic sandwich assay. The assay is approved for measurement of prostate-specific antigen (PSA)in serum and may be used in conjunction with a digital rectal examination in men 50 years and older as an aid in detection of prostate cancer. 5-Udilp-xuayadbjs inhibitors (e.g. Proscar, Finasteride, Avodart, Dutasteride and Aixa) for the treatment of BPH have been shown to lower PSA levels by an average of 50% after 6 months of treatment. Hemoglobin A1C Date/Time Value Ref Range Status 11/16/2023 08:23 AM 6.1 (H) see below % Final Assessment/Plan Problem List Items Addressed This Visit Essential hypertension Hypercholesterolemia Type II diabetes mellitus (Multi) - Primary Other Visit Diagnoses Tick bite of left thigh, subsequent encounter Relevant Orders Lyme disease, PCR Labs reviewed with pt Diabetes Mellitus/IFG addressed as follow: 1800 VEE ADA HGA1C GOAL LESS THAN 7 LOSE WT EXERCISE DAILY HTN addressed as follow: MONITOR BP GOAL BP LOWER THAN 130/80 LOW SALT EXERCISE DAILY MDM 1) COMPLEXITY: MORE THAN 1 STABLE CHRONIC CONDITION ADDRESSED 2)DATA: TESTS INTERPRETED AND OR ORDERED, TOOK INDEPENDENT HISTORY OR RECORDS REVIEWED 3)RISK: MODERATE RISK DUE TO NATURE OF MEDICAL CONDITIONS/COMORBIDITY OR MEDICATIONS ORDERED OR SURGICAL OR PROCEDURE REFERRAL, . FU 5 W LYME CHECK documented in this [facility] Work Phone: 1(391) 951-125411-01-2023 History of Present illness Narrative* Fabio Grace MD - 05/22/2023 4:15 PM EDT Subjective Patient ID: Kavon Stephens is a 67 y.o. male who presents for Follow-up (6 mo fu lab). Here for fu bwith labs feels fine Co b/l wrist pain in am mild gets better with time Review of Systems Constitutional: Negative. Negative for chills and fever. HENT: Negative. Negative for congestion. Eyes: Negative. Negative for discharge. Respiratory: Negative. Negative for cough, shortness of breath and wheezing. Cardiovascular: Negative. Negative for chest pain, palpitations and leg swelling. Gastrointestinal: Negative. Negative for abdominal distention, abdominal pain, constipation, diarrhea, nausea and vomiting. Endocrine: Negative. Genitourinary: Negative. Negative for dysuria and urgency. Musculoskeletal: Positive for arthralgias. Negative for back pain, joint swelling and neck stiffness. Skin: Negative. Negative for rash. Allergic/Immunologic: Negative. Negative for immunocompromised state. Neurological: Negative. Negative for light-headedness, numbness and headaches. Hematological: Negative. Negative for adenopathy. Psychiatric/Behavioral: Negative. Negative for agitation, behavioral problems and confusion. All other systems reviewed and are negative. Objective Physical Exam Vitals reviewed. Constitutional: General: He is not in acute distress. Appearance: Normal appearance. HENT: Head: Normocephalic and atraumatic. Nose: Nose normal. Eyes: Conjunctiva/sclera: Conjunctivae normal. Pupils: Pupils are equal, round, and reactive to light. Neck: Vascular: No carotid bruit. Cardiovascular: Rate and Rhythm: Normal rate and regular rhythm. Pulses: Normal pulses. Heart sounds: No gallop. Pulmonary: Effort: Pulmonary effort is normal. No respiratory distress. Breath sounds: Normal breath sounds. No wheezing. Abdominal: General: Bowel sounds are normal. Palpations: Abdomen is soft. Tenderness: There is no abdominal tenderness. Musculoskeletal: General: No swelling, tenderness or deformity. Normal range of motion. Cervical back: Normal range of motion. No rigidity. Right lower leg: No edema. Left lower leg: No edema. Lymphadenopathy: Cervical: No cervical adenopathy. Skin: General: Skin is warm. Findings: No rash. Neurological: General: No focal deficit present. Mental Status: He is alert and oriented to person, place, and time. Psychiatric: Mood and Affect: Mood normal. Behavior: Behavior normal. BP 123/83 (BP Location: Left arm, Patient Position: Sitting) Pulse 80 Ht 1.905 m (6' 3) Wt 102 kg (225 lb) BMI 28.12 kg/m PSA Date/Time Value Ref Range Status 09/16/2019 07:20 AM 3.81 0.00 - 4.00 ng/mL Final Comment: The FDA requires that the method used for PSA assay be reported to the physician. Values obtained with different assay methods must not be used interchangeably. This test was performed at [facility] using the [employer] PSA assay is a two-site immunoenzymatic sandwich assay. The assay is approved for measurement of prostate-specific antigen (PSA)in serum and may be used in conjunction with a digital rectal examination in men 50 years and older as an aid in detection of prostate cancer. 9-Tjmhv-buqniozqp inhibitors (e.g. Proscar, Finasteride, Avodart, Dutasteride and Aixa) for the treatment of BPH have been shown to lower PSA levels by an average of 50% after 6 months of treatment. Hemoglobin A1C Date/Time Value Ref Range Status 05/17/2023 08:34 AM 6.2 (H) see below % Final Assessment/Plan Problem List Items Addressed This Visit Essential hypertension Relevant Orders Comprehensive Metabolic Panel Hypercholesterolemia Relevant Orders Comprehensive Metabolic Panel Lipid Panel Type II diabetes mellitus (CMS/HCC) - Primary Relevant Orders Comprehensive Metabolic Panel Hemoglobin A1C Other Visit Diagnoses Need for immunization against influenza Relevant Orders Flu vaccine, quadrivalent, high-dose, preservative free, age 65y+ (FLUZONE) (Completed) Comprehensive Metabolic Panel Primary osteoarthritis of both wrists Relevant Medications diclofenac sodium (Voltaren) 1 % gel gel Healthcare maintenance 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 Fu 6 mo bw documented in this [facility] Work Phone: [phone]) 624-135905-03-2023 History of Present illness Narrative* Fabio Grace MD - 11/21/2022 4:15 PM EDT Subjective Reason for Visit: Kavon Stephens is an 67 y.o. male here for a Medicare Wellness visit. Past Medical, Surgical, and Family History reviewed and updated in chart. Reviewed all medications by prescribing practitioner or clinical pharmacist (such as prescriptions,OTCs, herbal therapies and supplements) and documented in the medical record. FEELS FINE, NO COMPLANT WELLNESS EXAM Patient Care Team: Fabio Grace MD as PCP - General Review of Systems Constitutional: Negative. Negative for chills and fever. HENT: Negative. Negative for congestion. Eyes: Negative. Negative for discharge. Respiratory: Negative. Negative for cough, shortness of breath and wheezing. Cardiovascular: Negative. Negative for chest pain, palpitations and leg swelling. Gastrointestinal: Negative. Negative for abdominal distention, abdominal pain, constipation, diarrhea, nausea and vomiting. Endocrine: Negative. Genitourinary: Negative. Negative for dysuria and urgency. Musculoskeletal: Negative. Negative for back pain, joint swelling and neck stiffness. Skin: Negative. Negative for rash. Allergic/Immunologic: Negative. Negative for immunocompromised state. Neurological: Negative. Negative for light-headedness, numbness and headaches. Hematological: Negative. Negative for adenopathy. Psychiatric/Behavioral: Negative. Negative for agitation, behavioral problems and confusion. All other systems reviewed and are negative. Objective Vitals: BP 124/82 Pulse 84 Ht 1.905 m (6' 3) Wt 99.8 kg (220 lb) BMI 27.50 kg/m Physical Exam Vitals reviewed. Constitutional: General: He is not in acute distress. Appearance: Normal appearance. HENT: Head: Normocephalic and atraumatic. Nose: Nose normal. Eyes: Conjunctiva/sclera: Conjunctivae normal. Pupils: Pupils are equal, round, and reactive to light. Neck: Vascular: No carotid bruit. Cardiovascular: Rate and Rhythm: Normal rate and regular rhythm. Pulses: Normal pulses. Heart sounds: No gallop. Pulmonary: Effort: Pulmonary effort is normal. No respiratory distress. Breath sounds: Normal breath sounds. No wheezing. Abdominal: General: Bowel sounds are normal. Palpations: Abdomen is soft. Tenderness: There is no abdominal tenderness. Musculoskeletal: General: Normal range of motion. Cervical back: Normal range of motion. No rigidity. Lymphadenopathy: Cervical: No cervical adenopathy. Skin: General: Skin is warm. Findings: No rash. Neurological: General: No focal deficit present. Mental Status: He is alert and oriented to person, place, and time. Psychiatric: Mood and Affect: Mood normal. Behavior: Behavior normal. Assessment/Plan Problem List Items Addressed This Visit Circulatory Essential hypertension Relevant Orders Comprehensive Metabolic Panel Endocrine/Metabolic Type II diabetes mellitus (CMS/HCC) Relevant Orders Hemoglobin A1C Comprehensive Metabolic Panel Other Hypercholesterolemia Other Visit Diagnoses Routine general medical examination at health care facility - Primary Special screening for malignant neoplasm of prostate Relevant Orders Prostate Specific Antigen, Screen Advanced Care Planing discussed, diagnosis , treatment and prognosis discussed with pt,pt has capacity to make own decision, pt has a living will, to bring a copy for the chart. Labs [facility] Evaluation noteNo assessment information available [facility] Work Phone: Evaluation note* Diagnosis Routine general medical examination at health care facility- Primary Routine general medical examination at a health care facility Hypercholesterolemia Pure hypercholesterolemia Type 2 diabetes mellitus without complication, without long-term current use of insulin (CMS/HCC) Essential hypertension Unspecified essential hypertension Special screening for malignant neoplasm of prostate documented in this encounter [facility] Work Phone: Evaluation note* Diagnosis Type 2 diabetes mellitus without complication, without long-term current use of insulin (CMS/HCC)- Primary Need for immunization against influenza Need for prophylactic vaccination and inoculation against influenza Essential hypertension Unspecified essential hypertension Hypercholesterolemia Pure hypercholesterolemia Primary osteoarthritis of both wrists Healthcare maintenance documented in this encounter [facility] Work Phone: [phone] note* Diagnosis Type 2 diabetes mellitus without complication, without long-term current use of insulin (Multi)- Primary Hypercholesterolemia Pure hypercholesterolemia Essential hypertension Unspecified essential hypertension Tick bite of left thigh, subsequent encounter documented in this encounter [facility] Work Phone: [phone] note* Diagnosis Acute gout of left foot, unspecified cause- Primary documented in this encounter [facility] Work Phone: [phone] note* Diagnosis Acute gout of left foot, unspecified cause- Primary Left foot pain Pain in soft tissues of limb Type 2 diabetes mellitus without complication, without long-term current use of insulin (Multi) Hx of gout Hypertension associated with diabetes (Multi) Unspecified essential hypertension documented in this encounter [facility] Work Phone: [phone] note* Diagnosis Type 2 diabetes mellitus without complication, without long-term current use of insulin (Multi)- Primary Hx of gout Hypertension associated with diabetes (Multi) Unspecified essential hypertension Benign prostatic hyperplasia with urinary obstruction documented in this encounter [facility] Work Phone: [phone] note* Diagnosis Hypertension associated with diabetes (Multi)- Primary Unspecified essential hypertension Type 2 diabetes mellitus without complication, without long-term current use of insulin (Multi) Hyperuricemia Other abnormal blood chemistry Special screening for malignant neoplasm of prostate Healthcare maintenance documented in this encounter [facility] Work Phone: [phone] note* Diagnosis Acute bronchitis, unspecified organism- Primary documented in this encounter [facility] Work Phone: [phone] note* Diagnosis Acute bronchitis, unspecified organism- Primary Acute bronchitis, unspecified organism documented in this encounter [facility] Work Phone: [phone] note* Diagnosis Right foot pain- Primary Pain in soft tissues of limb Gouty arthritis Gouty arthropathy, unspecified documented in this encounter [facility] Work Phone: [phone] note* Diagnosis Right foot pain Pain in soft tissues of limb Gouty arthritis Gouty arthropathy, unspecified documented in this encounter [facility] Work Phone: Evaluation note* Diagnosis Gouty arthritis- Primary Gouty arthropathy, unspecified documented in this encounter [facility] Work Phone: Evaluation note* Diagnosis Type 2 diabetes mellitus without complication, without long-term current use of insulin- Primary Hypertension associated with diabetes Unspecified essential hypertension Hypercholesterolemia Pure hypercholesterolemia Onychomycosis Dermatophytosis of nail Special screening for malignant neoplasm of prostate Gouty arthritis Gouty arthropathy, unspecified documented in this encounter [facility] Work Phone: Evaluation note* Diagnosis Foreign body of left ear, initial encounter- Primary Bilateral impacted cerumen Impacted cerumen documented in this encounter [facility] Work Phone: History of Present illness Narrative* The patient is being seen for the subsequent annual wellness visit. * Past Medical, Surgical and Family History: reviewed and updated in chart. * Medications and Supplements: Medications and supplements, including calcium and vitamins reviewed and updated in chart. * No, the patient is not using opioids. * Patient Self Assessment of Health Status: excellent. * Tobacco use: Non-User * Alcohol use: User RARELY. * Illicit drug use: Non-User * Current diet: well balanced diet. * Exercise Frequency: regularly. * Depression/Suicide Screening: . * During the past 2 weeks, the patient has not felt down, depressed or hopeless. * During the past 2 weeks, the patient has not felt little interest or pleasure in doing things. * Hearing Impairment: Patient has slight hearing impairment. * Cognitive Impairment: No cognitive impairment observed. * Bathing: performs independently. * Dressing: performs independently. * Walking: performs independently. * Managing Finances: performs independently. * Shopping: performs independently. * Managing Medications: performs independently. * Housework / Basic Home Maintenance: performs independently. * Falls Risk Screening:. KAVON has not fallen in the last 6 months. * Home safety risk factors: none. * HERE FOR F/U NO COMPLAINT * WELLNESS EXAM [facility] Work Phone: History of Present illness Narrative* HERE FOR F/U WITH LABS * C/O OFF AND ON SINUS DRAINAGE AND PND [facility] Work Phone: History of Present illness Narrative* HERE FOR F/U WITH LABS * C/O OFF AND ON SINUS DRAINAGE AND PND [facility] Work Phone: History of Present illness NarrativePresents today for LUMP TO RIGHT SHOULDER BLADE X 2 WEEKS modifying factors consists of NO KNOWN CAUSE associated symptoms consist of TENDER ON/OFF. NO DISCHARGE prior treatment [facility] of Present illness Narrative* The patient is being seen for the subsequent annual wellness visit. * Past Medical, Surgical and Family History: reviewed and updated in chart. * Medications and Supplements: Review of all medications by a prescribing practitioner or clinical pharmacist (such as prescriptions, OTCs, herbal therapies and supplements) documented in the medical record. * No, the patient is not using opioids. * Patient Self Assessment of Health Status: excellent. * Tobacco use: Non-User * Alcohol use: User OCC. * Illicit drug use: Non-User * Current diet: well balanced diet. * Exercise Frequency: the patient does not exercise. * Depression/Suicide Screening: . * During the past 2 weeks, the patient has not felt down, depressed or hopeless. * During the past 2 weeks, the patient has not felt little interest or pleasure in doing things. * Hearing Impairment: Patient has slight hearing impairment. * Cognitive Impairment: No cognitive impairment observed. * Bathing: performs independently. * Dressing: performs independently. * Walking: performs independently. * Managing Finances: performs independently. * Shopping: performs independently. * Managing Medications: performs independently. * Housework / Basic Home Maintenance: performs independently. * Falls Risk Screening:. KAVON has not fallen in the last 6 months. * Home safety risk factors: none. * Advance directives:. Advance Care Planning discussed and documented in the medical record, patient did not wish or was not able to name a surrogate decision maker or provide an advance care plan. * Additional Information: BRING A COPY. * HERE FOR F/U NO COMPLAINT * WELLNESS EXAM [facility] Work Phone: History of Present illness NarrativeHERE FOR F/U NO COMPLAINTMP-[facility] Work Phone: Hospital Discharge instructions* Attachments The following attachments cannot be sent through Care Everywhere. * Gout ED (Tongan) * Low Purine Diet (Tongan) documented in this [facility] Work Phone: Summary Purpose Family History No Family History Records Found Father Name Dates Details Family history of malignant neoplasm of prostate(V16.42, Z80.42) Status:Active Sister Name Dates Details Family history of malignant neoplasm(V16.9, Z80.9) Status:Active Father Name Dates Details Family history of malignant neoplasm of prostate(V16.42, Z80.42) Status:Active Sister Name Dates Details Family history of malignant neoplasm(V16.9, Z80.9) Status:Active Father Name Dates Details Family history of malignant neoplasm of prostate(V16.42, Z80.42) Status:Active Sister Name Dates Details Family history of malignant neoplasm(V16.9, Z80.9) Status:Active Father Name Dates Details Family history of malignant neoplasm of prostate(V16.42, Z80.42) Status:Active Sister Name Dates Details Family history of malignant neoplasm(V16.9, Z80.9) Status:Active Father Name Dates Details Family history of malignant neoplasm of prostate(V16.42, Z80.42) Status:Active Sister Name Dates Details Family history of malignant neoplasm(V16.9, Z80.9) Status:Active Unknown Family Member Name Dates Details Family history of malignant neoplasm: Sister(V16.9, Z80.9) Status:Active Family history of malignant neoplasm of prostate: Father(V16.42, Z80.42) Status:Active Unknown Family Member Name Dates Details Family history of malignant neoplasm: Sister(V16.9, Z80.9) Status:Active Family history of malignant neoplasm of prostate: Father(V16.42, Z80.42) Status:Active No pertinent family history: Mother(V49.89, Z78.9) Status:Active Unknown Family Member Name Dates Details Family history of malignant neoplasm: Sister(V16.9, Z80.9) Status:Active Family history of malignant neoplasm of prostate: Father(V16.42, Z80.42) Status:Active No pertinent family history: Mother(V49.89, Z78.9) Status:Active Unknown Family Member Name Dates Details Family history of malignant neoplasm: Sister(V16.9, Z80.9) Status:Active Family history of malignant neoplasm of prostate: Father(V16.42, Z80.42) Status:Active No pertinent family history: Mother(V49.89, Z78.9) Status:Active Unknown Family Member Name Dates Details Family history of malignant neoplasm: Sister(V16.9, Z80.9) Status:Active Family history of malignant neoplasm of prostate: Father(V16.42, Z80.42) Status:Active No pertinent family history: Mother(V49.89, Z78.9) Status:Active Unknown Family Member Name Dates Details Family history of malignant neoplasm: Sister(V16.9, Z80.9) Status:Active Family history of malignant neoplasm of prostate: Father(V16.42, Z80.42) Status:Active No pertinent family history: Mother(V49.89, Z78.9) Status:Active Unknown Family Member Name Dates Details No pertinent family history: Mother(V49.89, Z78.9) Status:Active Family history of malignant neoplasm of prostate: Father(V16.42, Z80.42) Status:Active Family history of malignant neoplasm: Sister(V16.9, Z80.9) Status:Active Unknown Family Member Name Dates Details Family history of malignant neoplasm: Sister(V16.9, Z80.9) Status:Active Family history of malignant neoplasm of prostate: Father(V16.42, Z80.42) Status:Active No pertinent family history: Mother(V49.89, Z78.9) Status:Active Unknown Family Member Name Dates Details Family history of malignant neoplasm: Sister(V16.9, Z80.9) Status:Active Family history of malignant neoplasm of prostate: Father(V16.42, Z80.42) Status:Active No pertinent family history: Mother(V49.89, Z78.9) Status:Active Relationship Condition Age at Onset Recorded Date/T kevin Unknown Family History?- Unknown March 282016 8:19am Family History?- Unknown March 282016 8:19am Unknown Family Member Name Dates Details Family history of malignant neoplasm: Sister(V16.9, Z80.9) Status:Active Family history of malignant neoplasm of prostate: Father(V16.42, Z80.42) Status:Active No pertinent family history: Mother(V49.89, Z78.9) Status:Active Unknown Family Member Name Dates Details Family history of malignant neoplasm: Sister(V16.9, Z80.9) Status:Active Family history of malignant neoplasm of prostate: Father(V16.42, Z80.42) Status:Active No pertinent family history: Mother(V49.89, Z78.9) Status:Active Unknown Family Member Name Dates Details Family history of malignant neoplasm: Sister(V16.9, Z80.9) Status:Active Family history of malignant neoplasm of prostate: Father(V16.42, Z80.42) Status:Active No pertinent family history: Mother(V49.89, Z78.9) Status:Active Unknown Family Member Name Dates Details Family history of malignant neoplasm: Sister(V16.9, Z80.9) Status:Active Family history of malignant neoplasm of prostate: Father(V16.42, Z80.42) Status:Active No pertinent family history: Mother(V49.89, Z78.9) Status:Active Unknown Family Member Name Dates Details Family history of malignant neoplasm: Sister(V16.9, Z80.9) Status:Active Family history of malignant neoplasm of prostate: Father(V16.42, Z80.42) Status:Active No pertinent family history: Mother(V49.89, Z78.9) Status:Active Advance Directives No Advanced Directives Records Found Advance Directive Response Recorded Date/ Time Living Will Yes May 10 4:09pm Power of Pm Head Cook Yes May 10, 2021 4:09pm Documents on File Type Date Recorded 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 HAD FLU VACCINE 2 WEEKS AGO AT [facility] Chief Complaint and Reason for Visit Chief Complaint PSA Reason for Referral Specialty Diagnoses / Procedures Referred By Prashanth t Referred To Contact Radiology Diagnoses Acute bronchitis, unspecified organism Procedures XR chest 2 views Vance Jamesn E, SUPPLIER RELATIONSHIP DIRECTOR-EDUCATIONAL THERAPIST [address] [id number] Referral ID Status Reason Start Date Expiration Date Visits Requested Visits Authorized [id number] Authorized Perform Procedure 01/17/2024 01/16/2025 1 1 Specialty Diagnoses / Procedures Referred By Contac t Referred To Contact Radiology Diagnoses Right foot pain Gouty arthritis Procedures XR foot right 1-2 views Fabio Grace MD [address] [place] [id number] Referral ID Status Reason Start Date Expiration Date Visits Requested Visits Authorized [id number] Authorized Perform Procedure 03/18/2024 03/18/2025 1 1 Additional Source Comments (unrecognized sect ion and content) No Status Records FoundNo Status Records FoundNo Status Records FoundNo Status Records FoundNo Status Records FoundNo Status Records FoundNo Status Records FoundNo Status Records FoundNo Status Records FoundNo Status Records FoundNo Status Records FoundNo Status Records Found INFORMATION SOURCE (unrecogn ized section and content) DATE CREATED AUTHOR 04/26/2019 [facility] DATE CREATED AUTHOR AUTHOR'S ORGANIZ ATION 09/01/2019 [facility] DATE CREATED AUTHOR AUTHOR'S ORGANIZ ATION 05/24/2022 [employer] DATE CREATED AUTHOR AUTHOR'S ORGANIZ ATION 10/26/2022 [facility] DATE CREATED AUTHOR AUTHOR'S ORGANIZ ATION 11/17/2022 [facility] DATE CREATED AUTHOR AUTHOR'S ORGANIZ ATION 11/17/2023 [facility] DATE CREATED AUTHOR AUTHOR'S ORGANIZ ATION 11/24/2023 [facility] DATE CREATED AUTHOR AUTHOR'S ORGANIZ ATION 02/23/2024 [facility] DATE CREATED AUTHOR AUTHOR'S ORGANIZ ATION 04/29/2024 [facility] DATE CREATED AUTHOR AUTHOR'S ORGANIZ ATION 10/28/2024 [facility] DATE CREATED AUTHOR AUTHOR'S ORGANIZ ATION 10/29/2024 [facility] DATE CREATED AUTHOR AUTHOR'S ORGANIZ ATION 11/15/2024 [facility] Goals (unrecognized section and content) Goals may be documented in a n alternate sectionGoals may be documented in an alternate section <item> Privacy Markings (unrecogniz ed section and content) Section Author: Sindi Hyde PROHIBITION ON REDISCLOSURE OF CONFIDENTIAL INFORMATION This notice accompanies a disclosure of information concerning a client made to you with the consent of such client. Reason for Visit (unrecogniz ed section and content) Reason Comments Medicare Annual Wellness Visit Subsequen t MEDICARE WELLNESS + 6 MONTH F/U WITH LABS. Reason Comments Follow-up 6 mo fu lab Reason Comments Follow-up 6 MONTHS LABS . PT C /O OF TICK BACK OF LEFT LEG Reason Comments Foot Injury Amb to ED with c/o L foot pain, redness, and swelling x 1 week. Worse last pm. He reports that he had a tick bite in that L thigh about 3 weeks ago and was treated with Doxycycline. Denies any injury or fall. Reason Comments Follow-up C/O LT FOOT PAIN Reason Comments Follow-up 5 week follow up - t ick bite lyme Reason Comments Follow-up 4 mofu lab Reason Comments URI Cough, wheezing, helene py voice x 3 weeks Reason Comments URI SORE THROAT, FATIGUE D, RATTLELY LUNGS, WEAK X 3 WEEKS Reason Comments Follow-up Pt co right stabbing foot pain Specialty Diagnoses / Procedures Referred By Contac t Referred To Contact Radiology Diagnoses Right foot pain Gouty arthritis Procedures XR foot right 1-2 views Fabio Grace MD [address] [facility] [[email or web address] [place] [address] Referral ID Status Reason Start Date Expiration Date Visits Requested Visits Authorized [id number] Authorized Perform Procedure 03/18/2024 03/18/2025 1 1 Reason Comments Follow-up 1 wk fu right foot p ain Reason Comments Follow-up 6 mo fu lab discuss lamisil for toe fungus Reason Comments Earache Bi-lat ear pain x to day Care Teams (unrecognized sec tion and content) Production Tester Relationship Specialty Start Date End Date Fabio Grace MD [address] [place] [address] PCP - General 04/03/19 Production Tester Relationship Specialty Start Date End Date Fabio Grace MD [address] [place] [address] PCP - General 04/03/19 Team Status: Active Member Role Status Dates Dr. Fabio Grace MD Family Provider Active Dr. Fabio Grace MD Primary Care Provider Activ e Team Status: Inactive Member Role Status Dates Dr. Fabio Grace MD Primary Care Provider Activ e Dr. Jeremy Escalante MD Attending Provider, Referr ing Provider Active Production Tester Relationship Specialty Start Date End Date Fabio Grace MD [address] [place] [address] PCP - General 04/03/19 Production Tester Relationship Specialty Start Date End Date Fabio Grace MD [address] [place] [address] PCP - General 04/03/19 Production Tester Relationship Specialty Start Date End Date Fabio Grace MD [address] [place] [address] PCP - General 04/03/19 Production Tester Relationship Specialty Start Date End Date Fabio Grace MD [address] [place] [address] PCP - General 04/03/19 Production Tester Relationship Specialty Start Date End Date Fabio Grace MD [address] [place] [address] PCP - General 04/03/19 Production Tester Relationship Specialty Start Date End Date Fabio Grace MD [address] [place] [address] PCP - General 04/03/19 Production Tester Relationship Specialty Start Date End Date Fabio Grace MD [address] [place] [address] PCP - General 04/03/19 Production Tester Relationship Specialty Start Date End Date Fabio Grace MD [address] [place] [address] PCP - General 04/03/19 FOR RECORDS PERTAINING TO PATIENTS WHO ARE OR HAVE BEEN ENROLLED IN A CHEMICAL DEPENDENCY/SUBSTANCEABUSE PROGRAM, SOME INFORMATION MAY BE OMITTED. This clinical summary was aggregated from multiple sources. Caution should be exercised in using it in the provision of clinical care. This summary normalizes information from multiple sources, and as a consequence, information in this document may materially change the coding, format and clinical context of patient data. In addition, data may be omitted in some cases. CLINICAL DECISIONS SHOULD BE BASED ON THE PRIMARY CLINICAL RECORDS. [facility] [employer] provides no warranty or guarantee of the accuracy or completeness of information in this document.
[2025-03-07 13:48] LABS: Mucous, Urine 0 SEEN /hpf (<or=2+); Squamous Epithelial Cells - UA 0 SEEN /hpf (0-5)
[2025-03-07 13:51] LABS: Hematocrit 41.5 % (40-54); Hemoglobin 13.9 g/dL (13.0-16.5); Immature Granulocytes Count 0.030 X10^3/uL (0.0-0.0); Mean Corp Hgb Conc 33.5 g/dL (32-36); Mean Corpuscular Volume 91.4 fL (80-94); Mean Platelet Vol. 9.5 fl (6.2-12.0); NRBC Flagged by Analyzer 0 % (0-5); Platelet Count 291 K/mm3 (150-450); RBC Distribution Width CV 13.5 % (11.6-14.6); RBC Distribution Width SD 45.2 fl (35.1-43.9); Red Blood Count 4.54 M/mm3 (4.6-6.2); White Blood Count 8.5 K/mm3 (4.4-11.0)
[2025-03-07 13:54] LABS: Color, Urine Brown (Yellow); Glucose, Dipstick Normal (Normal); Ketone-Dipstick 5 mg/dl (Negative); Leukocyte Esterase-Dipstick 25 /ul (Negative); Nitrite-Dipstick Negative (Negative); Occult Blood-Urine 250 /ul (Negative); Protein-Dipstick 500 mg/dl (Negative); Specific Gravity, Urine 1.020 (1.002-1.030); Urine Bilirubin Dipstick Negative (Negative)
--- NOTE | 2025-03-07 13:58 | CT_ITS ---
PROCEDURE: CT ABDOMEN/PELVIS W IV CONT ONLY 03/07/2025 REASON FOR EXAM: PAINLESS HEMATURIA TECHNIQUE: CT ABDOMEN/PELVIS W IV CONT ONLY Coronal and Sagittal reconstruction series were provided. CONTRAST: Isovue 370 VOLUME: 98 mL One or more dose reduction techniques were used (e.g., Automated exposure control, adjustment of the mA and/or kV according to patient size, use of iterative reconstruction technique. RADIATION DOSE SUMMARY: DLP: 1203.73 mGycm COMPARISON: 05/20/2020 FINDINGS: Lung bases: Clear, with mild dependent atelectasis. Liver: Diffuse hepatic steatosis. No focal lesion. Gallbladder: Unremarkable. No biliary ductal dilatation. Spleen: Normal in size. Small hypodense focus likely a benign cyst or hemangioma. Pancreas: Unremarkable. Adrenals: Unremarkable. Kidneys: Symmetric enhancement. No mass. Subcentimeter nonobstructive stone in the midpole of the left kidney. No hydroureteronephrosis. Bladder: Underdistended and partially obscured by streak artifact, grossly unremarkable. Reproductive Organs: Enlarged prostate with lobular impression on the bladder. Bowel: No bowel obstruction or active inflammatory process. Normal appendix. Lymph nodes: No enlarged abdominopelvic lymph nodes. Vasculature: Normal caliber abdominal aorta and IVC. Mild atherosclerotic calcifications. Peritoneum / Retroperitoneum: No ascites or free air. Musculoskeletal: Small fat containing right inguinal hernia. Partially imaged right total hip arthroplasty hardware appears intact. Mild degenerative changes of the spine. CT/Abdomen/Pelvis W IV Cont ONLY IMPRESSION: 1. No renal mass. Subcentimeter nonobstructive left renal stone. No hydroureter onephrosis. 2. Enlarged prostate with lobular impression on the urinary bladder. 3. Diffuse hepatic steatosis. Reading Location: [id number]
[2025-03-07 14:02] LABS: Red Blood Cells-Urine 10-25 SEEN /hpf (0-5)
[2025-03-07 14:07] LABS: Partial Thromboplast Time 24.7 Seconds (24.1-36.2); Prothrombin Time (Protime)PT. 13.1 SECONDS (11.7-14.9)
[2025-03-07 14:14] LABS: Anion Gap 12 (5-15); BUN 20 mg/dL (4-19); BUN/Creat Ratio 13.0 RATIO (10-20); Calcium,Total 9.1 mg/dL (7.6-11.0); Carbon Dioxide 22.2 mmol/L (21.0-32.0); Chloride 108 mmol/L (98-108); Estimated Creatinine Clearance 58.00 ml/min (50-250); Glucose 93 mg/dL (70-99); Potassium 4.5 mmol/L (3.3-5.1)
--- NOTE | 2025-03-07 15:33 | ED.RN ---
called CT to inquire about CT results
[2025-03-07] MEDS: 0.9% Normal Saline (1000mL) 1,000 ML 1000 ML IV (16:08)
[2025-03-07 17:00] VITALS: PULSE 83; RESP 17; O2SAT 97
[2025-03-07 17:13] VITALS: BP 178/100; PULSE 83; RESP 17; TEMP 36.7; O2SAT 97
== END 2025-03-07 17:17 | disposition home or self-care (01) ==
PROVIDERS: Emergency Provider Emergency Medicine; PCP Internal Medicine; Visit Provider Emergency Medicine
DX: R31.9 Hematuria, unspecified (principal); N40.1 Benign prostatic hyperplasia with lower urinary tract symptoms; R35.0 Frequency of micturition; I10 Essential (primary) hypertension; Z79.899 Other long term (current) drug therapy; Z87.891 Personal history of nicotine dependence
CPT/HCPCS: 74177; 80048; 81001; 85025; 85610; 85730; 96360; 99283; Q9967; A4216

== ENCOUNTER 2025-05-14 23:11 | Emergency (ER) | payer BC, SELFPAY ==
[2025-05-14 23:12] VITALS: BP 160/108; PULSE 69; RESP 20; TEMP 36.4; O2SAT 97; BMI 28.6
--- NOTE | 2025-05-14 23:18 | EX.ED.DYSGE1 ---
HPI History of Present Illness Chief Complaint: Chest Other Informant: patient Onset/Context/Timing Onset: Days Context: Gradual Onset Timing: Intermittent Quality: Gurgling Location: Lower chest Worsened by: Laying down Relieved by: Laying down Narrative Narrative: Patient presents with discomfort in his chest that has been intermittent for the past couple months. Patient states that it has been getting worse over the past few days. Patient states it became worse this afternoon. Patient describes it as gurgling. Patient states it is in his lower chest. Patient states sometimes it is worse when he lays down. Sometimes it gets better when he lays down. Patient denies any fevers or chills. Patient denies any chest pain or shortness of breath. Patient denies any palpitations. Patient denies any nausea or vomiting. Patient denies any diaphoresis. [facility] Medical History Wears glasses Alcohol use Arthritis Kidney stone History of diverticulitis Gastric reflux Former smoker History of stress test Hypertension Hx of closed dislocation of finger Hx of closed fracture of nasal bones Home Medications ?Medication ?Instructions ?Recorded ?Last Taken ?Type omeprazole 20 mg capsule,delayed 20 mg PO DAILY 06/13/16 05/10/21 08:00 History release silodosin 8 mg capsule (Rapaflo) 8 mg PO QHS 06/13/16 03/26/17 23:00 History finasteride 5 mg tablet 5 mg PO QHS 01/30/17 03/26/17 23:00 History multivitamin 1 tab PO DAILY 05/04/21 Unknown History ibuprofen 600 mg tablet 600 mg PO Q6H PRN pain #20 tabs 05/10/21 Unknown Rx allopurinol 100 mg tablet 100 mg PO DAILY 03/07/25 Unknown History fluticasone propionate 50 1 spray intranasal QHS 03/07/25 Unknown History mcg/actuation nasal spray,suspension losartan 50 mg tablet 50 mg PO DAILY 03/07/25 Unknown History meloxicam 7.5 mg tablet 7.5 mg PO DAILY PRN pain 05/14/25 Unknown History Allergy/AdvReac Type Severity Reaction Status Date / Time aspirin AdvReac Upset Verified 05/14/25 23:12 Stomach Surgical History Hx of transurethral resection of prostate Hx of hernia repair Hx of total hip arthroplasty Social History Smoking Status: Former smoker ROS ROS ED Constitutional Constitutional ED: Denies chills or fever(s) Eyes Eyes: Denies blurry vision or change in vision ENT ENT ED: Denies rhinorrhea or sore throat Cardiovascular Cardiovascular: Denies chest pain or palpitations Respiratory/Chest Respiratory/Chest: Denies cough or dyspnea Gastrointestinal Gastrointestinal: Denies nausea or vomiting Genitourinary Genitourinary ED: Denies dysuria or hematuria Musculoskeletal Musculoskeletal: Reports back pain; Denies neck pain Integumentary Denies abscess or rash Neurologic Neurologic: Denies headache(s) or weakness Allergic/Immunologic Allergic/Immunologic ED: Denies mouth swelling or urticaria EXAM Physical Exam Const Vital Signs: 05/14/25 23:12 05/14/25 23:19 05/15/25 00:30 Temperature 97.6 F L Temperature Source Temporal Pulse Rate 69 70 Respiratory Rate 20 H 16 Respiratory Effort Normal Non-Labored Respiratory Pattern Normal Blood Pressure 160/108 H 146/102 H Blood Pressure Mean 125 116 Pulse Ox 97 95 Oxygen Delivery Method Room Air Room Air 05/15/25 01:00 Temperature Temperature Source Pulse Rate 75 Respiratory Rate 16 Respiratory Effort Respiratory Pattern Blood Pressure 149/82 H Blood Pressure Mean 104 Pulse Ox 97 Oxygen Delivery Method Room Air Positive well nourished and well developed Constitutional Narrative: BMI is 28.6. General Appearance ED: well developed and NAD HEENT Reports moist mucous membranes Neck supple and no JVD Chest Wall palpation of chest normal Resp normal respiratory effort and clear to auscultation bilaterally Cardio regular rate and regular rhythm GI non-tender and non-distended Palpation: soft Extremity normal to inspection General Extremety ED: Negative for edema or tenderness General Extremity: Negative for edema Neuro oriented x3, CN's II-XII intact bilaterally and no sensory deficits noted Sensorium / Orientation: alert Motor Exam: strength 5/5 throughout MDM MDM MDM Narrative Medical decision making narrative: Differential diagnose includes gastroesophageal reflux disease, hiatal hernia, cardiac dysrhythmia, cardiac ischemia, pneumonia, bronchitis, dehydration, and anxiety. EKG will be obtained to assess for cardiac dysrhythmia and cardiac ischemia. Chest x-ray will be obtained to assess for hiatal hernia, pneumonia, and bronchitis. CBC will be obtained to assess for leukocytosis and anemia. Basic metabolic profile will be obtained to assess for electrolyte abnormality renal function. High-sensitivity troponin will be obtained to assess for cardiac ischemia. 2-hour repeat high-sensitivity troponin will be obtained to assess for ongoing cardiac ischemia. History & Record Review Additional record(s) reviewed:: Prior outpatient record, Prior ED visit and Prior labs Lab Data Attestation: I reviewed the patient's lab results. Lab results narrative: CBC was reviewed and was within normal limits. Basic metabolic profile was reviewed and was essentially within normal limits. Initial high-sensitivity troponin was reviewed and was normal at 15. 2-hour repeat high-sensitivity troponin was reviewed and was normal at 19. Labs: Laboratory Results - last 24 hr 05/14/25 05/15/25 22:35 00:53 WBC 7.7 RBC 4.75 Hgb 14.3 Hct 42.3 MCV 89.1 MCH 30.1 MCHC 33.8 RDW Std Deviation 42.5 RDW Coeff of [place] 13.0 Plt Count 275 MPV 9.7 Immature Gran % (Auto) 0.500 Neut % (Auto) 51.4 Lymph % (Auto) 35.6 [place] % (Auto) 10.5 H Eos % (Auto) 1.3 Baso % (Auto) 0.7 Absolute Neuts (auto) 4.0 Absolute Lymphs (auto) 2.74 Nucleated RBC % 0 Sodium 140 Potassium 4.1 Chloride 105 Carbon Dioxide 23.4 Anion Gap 12 BUN 22 H Creatinine 1.23 H Estim Creat Clear Calc 71.88 Est GFR (MDRD) Non-Af 63 BUN/Creatinine Ratio 17.5 Glucose 105 H Calcium 10.5 Troponin T High Sens 15 Troponin T Hi Sens 2 Hr 19 Radiography Chest X-Ray - ED: 2 View, Read by ED Physician, Read by Radiologist and No Acute Disease Diagnostic Testing: Clinical Impression(s) from Imaging Studies Chest X-Ray 05/14/25 23:50 IMPRESSION: NO ACUTE FINDINGS. Reading Location: [facility] [place] and lateral chest x-ray was obtained. There are 2 views. On my independent interpretation, lung schultz are clear. There is normal cardiac silhouette. Bony thorax is normal. There is no acute process noted. Radiologist also interpreted the x-ray and agrees. EKG Initial EKG: Attestation: I personally reviewed and interpreted this EKG as follows: Interpretation: Sinus Tachycardia (110 with frequent PACs) Comments: EKG was obtained. On my independent interpretation, shows sinus rhythm with a rate of 110 with frequent PACs. [place] interval is within normal limits. QRS interval is normal at 90 ms. QTc interval was 481 ms. Berthold is normal. There are no acute ST or T wave changes noted. Prior EKG tracings: available for review Prior: Unchanged (Compared to EKG dated 05/05/2021, the PACs are new. There are no other new changes.) Treatment and Re-Evaluation :: Patient was given a GI cocktail. Patient was still having episodes of gurgling in his chest. Patient was noted to have runs of PACs. Patient was advised that this could be was causing his symptoms. Patient was advised that these did not require emergent treatment. Patient was instructed to follow-up with his primary care physician in 3 to 5 days. Patient was instructed to return if worse in any way. Patient understood and was agreeable with the plan. All questions were answered Discharge Plan Triage Chief Complaint: Chest Other ED Provider: Lei Gabriel Dx/Rx/DC Orders Clinical Impression: Palpitations, Elevated blood pressure reading Instructions: ED Heart Palpitations Prescriptions: No Action omeprazole 20 MG capsule 20 mg PO DAILY Patient Comments: acid reflux silodosin [Rapaflo] 8 MG capsule 8 mg PO QHS Patient Comments: Prostate finasteride 5 MG tablet 5 mg PO QHS Patient Comments: prostate multivitamin Tablet 1 tab PO DAILY ibuprofen 600 mg tablet 600 mg PO Q6H PRN (Reason: pain) Qty: 20 0RF losartan 50 mg tablet 50 mg PO DAILY allopurinol 100 mg tablet 100 mg PO DAILY fluticasone propionate 50 mcg/actuation spray,suspension 1 spray INTRANASAL QHS meloxicam 7.5 mg tablet 7.5 mg PO DAILY PRN (Reason: pain) Primary Care Provider: Fabio Schumacher Referrals: Fabio Schumacher MD [Primary Care Provider, Medical] - 3-5 Days Print Language: Yakut Disposition Disposition: Home, Self Care
--- NOTE | 2025-05-14 23:28 | EKG12_ITS ---
Test Reason : DYSRHYTHMIA Blood Pressure : */* mmHG Vent. Rate : 110 BPM Atrial Rate : 147 BPM P-R Int : * ms QRS Dur : 90 ms QT Int : 356 ms P-R-T Axes : -1 1 -26 degrees QTcB Int : 481 ms Critical Test Result: AV Block Sinus tachycardia with 2nd degree A-V block (Mobitz I) QTcB >= 480 msec Abnormal ECG Confirmed by AYAKA JASMINE ([id number]), development editor MARIBELL MONROE ([id number]) on 05/17/2025 6:38:24 AM Referred By: Confirmed By: AYAKA JASMINE
[2025-05-14] MEDS: Lidocaine 2% Viscous15 ML UDC 15 ML PO (23:36)
--- OUTSIDE RECORDS SUMMARY | 2025-05-14 23:37 | XMS RPT_ITS | CCD ---
Author Organization [facility] Care Team Providers Care Assistant Director Of Financial Aid Name Role Phone Magnolia Cruz Unavailable Unavailable Tavallaee, Fabio M Unavailable Unavailable Tavallaee, Fabio Unavailable Unavailable Tavallaee, Fabio M Unavailable [phone] Unavailable Unavailable Tavallaee, Fabio M Unavailable [phone] Edvin James Unavailable Unavailable Edvin James Attending Unavailable Tavallaee, Fabio Primary Care Unavailable Tavallaee, Fabio Admitting Unavailable Tavallaee, Fabio Referring Unavailable Tavallaee, Fabio Attending Unavailable Tavallaee, Fabio Primary Care Unavailable Tavallaee, Fabio Referring Unavailable Tavallaee, Fabio Attending Unavailable Tavallaee, Fabio Primary Care Unavailable Afsanehe Fabio VASQUEZ Primary Care Provider TAVALLMOE, FABIO MAYAZZAM Primary Care Unav ailable CHENCHO JULIAN Attending Unavailable TAVALLAEE, FABIO MONAZZAM Primary Care Unav ailable ASH COLLINS Attending Unavailable TAVALLAEE, FABIO MONAZZAM Primary Care Unav ailable ASH COLLINS Referring Unavailable ASH COLLINS Admitting Unavailable TAVALLAEE, FABIO M Primary Care Unavailable TAVALLAEE, FABIO Tian Primary Care Unavailable TAVALLAEE, FABIO Tian Primary Care Unavailable TAVALLAEE, FABIO Tian Primary Care Unavailable Fabio Grace MD Primary Care Provider Dr. Fabio Grace MD Primary Care Provider Dr. Lei Gabriel DO Emergency Provider Lei Gabriel Attending Unavailable Fabio Grace Primary Care Unavailable FABIO GRACE Attending Unavailable FABIO GRACE Primary Care Unavailable FABIO GRACE Attending Unavailable FABIO GRACE Primary Care Unavailable FABIO GRACE Primary Care Unavailable EDVIN JAMES Attending Unavailable FABIO GRACE Referring Unavailable FABIO GRACE Primary Care Unavailable Allergies Allergy Classification Reported Allergen(s) Allergy Type Date of Onset Reaction(s) Facility (7 sources) Aspirin; Translations: [ASPIRIN] Drug Allergy 05-10-2021 Other [facility] (1 source) Aspirin Drug Allergy 03-07-2025 [facility] Repository Medications Current Medications Medication Drug [...] 3 days. 12 tablet 12/07/2023 12/10/2023 Active [id number] 200 actuat albuterol 0.09 mg/actuat metered dose inhaler (10 sources) beta2-Adrenergic Agonist Start: 01-11-2024 take 1-2 puff(s) by inhalation every four hours for wheezing albuterol 90 mcg/actuation inhaler Indications: Acute bronchitis, unspecified organism Inhale 1-2 puffs every 4 hours if needed for wheezing or shortness of breath. 8.5 g 01/11/2024 Active allopurinol 100 mg oral tablet (6 sources) Xanthine Oxidase Inhibitor Start: 04-27-2024 End: 04-27-2025 allopurinol (Zyloprim) 100 mg tablet Indications: Hyperuricemia TAKE 1 TABLET DAILY 90 tablet 3 04/05/2025 Active azithromycin 250 mg oral tablet (5 [...] 60 capsule 01/11/2024 03/25/2024 Discontinued (Therapy completed) 1 ml dexamethasone phosphate 4 mg/ml injection [...] 7 days. 14 tablet 03/18/2024 03/25/2024 Active finasteride 5 mg oral tablet (20 sources) 5-alpha Reductase Inhibitor Start: 01-30-2017 take 1 tablet by mouth in the morning finasteride (Proscar) 5 mg tablet Take 1 tablet (5 mg) by mouth early in the morning.. 03/08/2025 Active fluticasone propionate 0.05 mg/actuat metered dose nasal spray (20 sources) Corticosteroid Start: 03-29-2025 take 2 spray(s) nasal route once daily fluticasone (Flonase) 50 mcg/actuation nasal spray Indications: Allergic rhinitis, unspecified seasonality, unspecified trigger USE 2 SPRAYS IN EACH NOSTRIL ONCE DAILY 48 g 3 03/29/2025 Active Start: 03-07-2025 Fluticasone Pr opionate 50 mcg/actuation spray,suspension Active [facility] INTRANASAL March 07, 2025 12:00am Start: 04-02-2024 take 2 spray(s) nasa l route once [...] Substitution Allowed ibuprofen 600 mg oral tablet (3 sources) Nonsteroidal Anti-inflammatory Drug Start: 05-10-2021 take 1 tablet by mouth every six hours as needed for pain Ibuprofen 600 mg tablet Active 600 mg PO EVERY 6 HOURS as needed for pain May 10, 2021 12:00am lactobacillus acidophilus [id number] unt oral capsule (3 sources) Start: 04-27-2025 End: 04-27-2026 take 1 capsule by mouth once daily lactobacillus acidophilus capsule Indications: Excessive gas Take 1 capsule by mouth once daily. 30 capsule 11 04/27/2025 04/27/2026 Active losartan potassium 50 mg oral tablet (20 sources) Angiotensin 2 Receptor Grayson Start: 09-23-2024 losartan (Cozaar) 50 mg tablet Indications: Hypercholesterolemia TAKE 1 TABLET DAILY 90 tablet 3 09/23/2024 Active Start: 09-29-2023 losartan (Coza ar) 50 mg tablet Indications: Hypercholesterolemia TAKE 1 TABLET DAILY 90 tablet 3 09/29/2023 Active Start: 11-14-2020 take 1 tablet by jose once daily losartan (Cozaar) 50 mg tablet Take 1 tablet (50 mg) by mouth once daily. 0 11/14/2020 Active Start: 11-14-2020 End: 03-07-2025 take 1 tablet by mouth once daily Losartan 25 mg tablet Discontinued 25 mg PO DAILY May 04, 2021 12:00am March 07, 2025 2:32pm losartan Quantit y: 0 Refills: 0 Ordered: 15-Jun-2022 Hayley Jade Generic Substitution Allowed meloxicam 7.5 mg oral tablet (3 sources) Nonsteroidal Anti-inflammatory Drug Start: 04-27-2025 End: 04-27-2026 take 1 tablet by mouth once daily meloxicam (Mobic) 7.5 mg tablet Indications: Acute bilateral low back pain without sciatica Take 1 tablet (7.5 mg) by mouth once daily. 30 tablet 11 04/27/2025 04/27/2026 Active Multivitamin preparation (2 sources) Start: 05-04-2021 take 1 tablet by mouth once daily Multivitamin Active 1 TABLET PO DAILY May 04, 2021 11:49am Start: 05-04-2021 take 1 tablet by jose th once daily Multivitamin Active 1 TABLET PO DAILY May 04, 2021 12:00am Multivitamin Tablet (1 source) Start: 05-04-2021 Multivitamin T ablet Active 1 {tbl} PO DAILY May 04, 2021 12:00am omeprazole 20 mg delayed release oral capsule (20 sources) Proton Pump Inhibitor Start: 04-05-2025 omeprazole (PriLOSEC ) [address] capsule Indications: Gastroesophageal reflux disease without esophagitis TAKE 1 CAPSULE DAILY IN THE MORNING BEFORE A MEAL 90 capsule 3 04/05/2025 Active Start: 06-13-2016 omeprazole (Pr iLOSEC) [address] capsule Indications: Gastroesophageal reflux disease without esophagitis TAKE 1 CAPSULE DAILY IN THE MORNING BEFORE A MEAL 90 capsule 3 04/09/2024 Active omeprazole Quant ity: 0 Refills: 0 Ordered: 15-Jun-2022 Hayley Jade Generic Substitution Allowed silodosin 8 mg oral capsule (19 sources) alpha-Adrenergic Grayson Start: 06-13-2016 take 1 capsule by mouth at bedtime Silodosin (Rapaflo) 8 MG capsule Active 8 mg PO AT BEDTIME June 13, 2016 1:00am tamsulosin hydrochloride 0.4 mg oral capsule (2 sources) alpha-Adrenergic Grayson Start: 03-30-2025 take 1 capsule by mouth once daily at bedtime tamsulosin (Flomax) 0.4 mg 24 hr capsule Take 1 capsule (0.4 mg) by mouth once daily at bedtime. 03/30/2025 Active terbinafine 250 mg oral tablet (3 sources) [...] Start: 06-04-2019 take 1 tablet by jose th once daily Amoxicillin 500 MG Oral Tablet [...] 6.5 % Otic Solution READ AND FOLLOW MISCELLANEOUS MACHINE OPERATOR'S INSTRUCTIONS ON BOX. Quantity: 1 Refills: 1 Ordered: 14-Nov-2020 Nida Marcos PA-C Start : 14-Nov-2020 End : 25-Jan-2021 Complete ciprofloxacin 500 mg oral tablet (3 sources) Quinolone Antimicrobial Start: 05-10-2021 End: 03-07-2025 take 1 tablet by mouth twice daily Ciprofloxacin Hcl 500 mg tablet Discontinued 500 mg PO TWICE A DAY 10 0 May 10, 2021 12:00am March 07, 2025 2:31pm colchicine 0.6 mg oral tablet (2 sources) Start: 12-17-2023 End: 12-25-2023 take 1 tablet by mouth twice daily colchicine 0.6 mg tablet Indications: Acute gout of left foot, unspecified cause Take 1 tablet (0.6 mg) by mouth 2 times a day for 7 days. 14 tablet 12/17/2023 12/25/2023 Discontinued (Therapy completed) lisinopril 5 mg oral tablet (6 sources) [...] 3 TIMES DAILY. Quantity: 15 Refills: 0 Fabio Grace MD Start : 29-Jul-2019 Active sildenafil 20 mg oral tablet (20 sources) Phosphodiesterase 5 Inhibitor Start: 07-31-2018 Sildenafil Citrate 20 MG Oral Tablet TAKE 3 TABLETS BY MOUTH NEEDED Quantity: 30 Refills: 0 Ordered: 03-Jun-2019 DO Start : 31-Jul-2018 Active Problems Active Problems Problem Classification Problem [...] [Unspecified essential hypertension] Onset: 3 11-21-2022 Chronic Headache; including migraine (2 sources) Headache; [...] secondary to endocrine disorders] Onset: 4 Chronic Nonspecific chest pain (3 sources) Chest pain; Translations: [Chest pain, unspecified] [...] sources) Foot pain Onset: 4 Episodic Other connective tissue disease (2 sources) Personal history of other diseases of the musculoskeletal system and connective tissue; Translations: [Personal history of other diseases of the musculoskeletal system and connective tissue] Onset: 4 Episodic Other diseases of kidney and ureters (2 sources) Other obstructive and reflux uropathy; Translations: [Other obstructive and reflux uropathy] Onset: 3 Episodic Other ear and sense organ disorders (14 sources) Impacted cerumen; Translations: [Impacted cerumen] Episodic Other ear and sense organ disorders (1 source) Impacted cerumen of bilateral ears; Translations: [Impacted cerumen, bilateral] 11-13-2024 Episodic Other endocrine disorders (20 sources) Male hypogonadism; Translations: [Other testicular hypofunction] Onset: 3 10-05-2022 Chronic Other gastrointestinal disorders (19 sources) H/O: abdominal hernia; Translations: [Personal history of other diseases of digestive system] Episodic Other gastrointestinal disorders (1 source) Excessive flatus; Translations: [Flatulence] 04-27-2025 Episodic Other gastrointestinal disorders (2 sources) Flatulence; Translations: [Flatulence] Onset: 5 Episodic Other injuries and conditions due to external causes (1 source) Foreign body in left ear; Translations: [Foreign body in left ear, initial encounter] 11-13-2024 Episodic Other liver diseases (20 sources) Chronic [...] unspecified; Translations: [Cellulitis, unspecified] Onset: 4 Episodic Spondylosis; intervertebral disc disorders; other back problems (20 sources) Neck pain; Translations: [Cervicalgia] Onset: 3 10-05-2022 Episodic Unclassified (2 sources) FLU LIKE SYMPTOMS 06-15-2022 Comment on above: FLU LIKE SYMPTOMS Unclassified (1 source) 6 MONTH FAST LABS 05-23-2022 Comment on above: 6 MONTH FAST LABS Unclassified (1 source) Body aches 06-15-2022 Unclassified (1 source) Contact with and (suspected) exposure to COVID-19; Translations: [Contact with and (suspected) exposure to COVID-19] Onset: 2 Unclassified (2 sources) Low back pain, unspecified; Translations: [Low back pain, unspecified] Onset: 5 Past or Other Problems Problem Classification Problem Date Documented Date Episodic/Chronic Acute bronchitis (2 sources) Acute bronchitis; Translations: [Acute bronchitis, unspecified] 01-11-2024 Episodic Anal and rectal conditions (1 source) Rectal polyp; Translations: [Rectal polyp] Onset: 07-26-2022 Episodic Diverticulosis and diverticulitis (5 sources) Diverticulosis of colon; Translations: [Colonic diverticular disease] E Codes: Natural/environment (4 sources) Bitten or stung by nonvenomous insect and other nonvenomous arthropods, initial encounter; Translations: [Bitten or stung by nonvenomous insect and other nonvenomous arthropods, subsequent encounter] Onset: 11-17-2023 Episodic Fever of unknown origin (2 sources) Fever, unspecified; Translations: [Fever, unspecified] Onset: 06-15-2022 Episodic Genitourinary symptoms and ill-defined conditions (20 sources) Microalbuminuria; Translations: [Proteinuria] Onset: 10-05-2022 10-05-2022 Episodic Gout and other crystal arthropathies (20 sources) Calcium pyrophosphate deposition disease; Translations: [Other disorders of calcium metabolism] Onset: 10-05-2022 Resolved: 12-17-2023 10-05-2022 Chronic Immunizations and screening for infectious disease (3 sources) Needs influenza immunization; Translations: [Encounter for immunization] Onset: 11-16-2023 05-22-2023 Episodic Lymphadenitis (20 sources) Cervical lymphadenopathy; Translations: [Enlargement of lymph nodes] Onset: 10-05-2022 10-05-2022 Episodic Malaise and fatigue (3 sources) Fatigue; Translations: [Other malaise and fatigue] Onset: 06-15-2022 06-15-2022 Episodic Mycoses (3 sources) Onychomycosis; Translations: [Tinea unguium] Onset: 10-26-2024 10-26-2024 Episodic Other and unspecified benign neoplasm (20 [...] Onset: 06-15-2022 Episodic Other connective tissue disease (14 sources) H/O: gout; Translations: [Personal history of other diseases of the musculoskeletal system and connective tissue] Onset: 12-17-2023 12-17-2023 Episodic Other connective tissue disease (2 sources) Pain in right foot; Translations: [Pain in right foot] 03-18-2024 Episodic Other ear and sense organ disorders (16 sources) Impacted cerumen in left ear; Translations: [Impacted cerumen, left ear] Onset: 10-05-2022 Resolved: 12-17-2023 10-05-2022 Episodic Other ear and sense organ disorders (2 sources) Impacted cerumen, bilateral; Translations: [Impacted cerumen, bilateral] Onset: 11-13-2024 Episodic Other injuries and conditions due to external causes (2 sources) Foreign body in left ear, initial encounter; Translations: [Foreign body in left ear, initial encounter] Onset: 11-13-2024 Episodic Other non-traumatic joint disorders (20 sources) Pain in left knee; Translations: [Left knee pain] Onset: 10-05-2022 10-05-2022 Episodic Other screening for suspected conditions (not [...] history of nicotine dependence] Onset: 06-15-2022 Episodic Superficial injury; contusion (5 sources) Tick bite; Translations: [Insect bite (nonvenomous), left thigh, subsequent encounter] Onset: 11-17-2023 11-20-2023 Episodic Unclassified (5 sources) History of clinical finding in subject; Translations: [History of elevated prostate specific antigen (PSA)] Unclassified (16 sources) Onset: 11-21-2022 Resolved: 04-27-2025 11-21-2022 Unclassified (2 sources) Low back pain, unspecified; Translations: [Low back pain, unspecified] Onset: 04-27-2025 NEGATED: Highlighted row has not occurred!Residual codes; unclassified (9 sources) Disease Episodic Results Test Name Value Interpretation Reference Range Facility XR LUMBAR SPINE 2-3 VIEWSon 05-07-2025 XR LUMBAR SPINE 2-3 VIEWS Interpreted By: Geovany South, STUDY: XR LUMBAR SPINE 2-3 VIEWS; ; 05/07/2025 9:29 am INDICATION: Signs/Symptoms:LBP. ,M54.50 Low back pain, unspecified COMPARISON: None. ACCESSION NUMBER(S): [id number] ORDERING CLINICIAN: FABIO GRACE FINDINGS: Mild multilevel osteophytosis throughout the lumbar spine. There is no disc space narrowing. There is facet hypertrophy at L4-5 and at L5-S1. No fracture. No spondylolisthesis IMPRESSION: Mild multilevel spondylosis. Facet disease lower lumbar spine. MACRO: None Signed by: Geovany South 05/07/2025 6:57 PM Dictation workstation: [id number] [facility] XR Lumbar spine 2 or 3 Views on 05-07-2025 Mild multilevel spondylosis. Facet disease lower lumbar spine. MACRO: None Signed by: Geovany South 05/07/2025 6:57 PM Dictation workstation: [id number] MMODAL Interpreted By: Geovany Colón, STUDY: XR LUMBAR SPINE 2-3 VIEWS; ; 05/07/2025 9:29 am INDICATION: Signs/Symptoms:LBP. ,M54.50 Low back pain, unspecified COMPARISON: None. ACCESSION NUMBER(S): [id number] ORDERING CLINICIAN: FABIO GRACE FINDINGS: Mild multilevel osteophytosis throughout the lumbar spine. There is no disc space narrowing. There is facet hypertrophy at L4-5 and at L5-S1. No fracture. No spondylolisthesis [facility] MMODAL Geovany oSuth MD - 05/07/2025 Interpreted By: Geovany South, STUDY: XR LUMBAR SPINE 2-3 VIEWS; ; 05/07/2025 9:29 am INDICATION: Signs/Symptoms:LBP. ,M54.50 Low back pain, unspecified COMPARISON: None. ACCESSION NUMBER(S): [id number] ORDERING CLINICIAN: FABIO GRACE FINDINGS: Mild multilevel osteophytosis throughout the lumbar spine. There is no disc space narrowing. There is facet hypertrophy at L4-5 and at L5-S1. No fracture. No spondylolisthesis IMPRESSION: Mild multilevel spondylosis. Facet disease lower lumbar spine. MACRO: None Signed by: Geovany South 05/07/2025 6:57 PM Dictation workstation: [id number] [facility] Work Phone: Radiology Study observation (narrative) [facility] Work Phone: XR Lumbar spine 2 or 3 Views Ordered By: Geovany South on 05-07-2025 [facility] Work Phone: ALBUMIN, RANDOM URINE W/CREA TININEon 04-24-2025 ALBUMIN, URINE 1.5 mg/dL Normal See Note: [facility] Comment on above: Result Comment: Refe rence Range: Reference Range Not established Performed By: #### 6 517, 7600, 55799, 71895, 63971, 905 #### [facility] [address], [address] [place] [address] [employer]er [employer] Filling: Javier Deutsch MD ALBUMIN/CREATININE RATIO, RANDOM URINE 19 mg/g creat Normal <30 [facility] Comment on above: Result Comment: The ADA defines abnormalities in albumin excretion as follows: Albuminuria Category Result (mg/g creatinine) Normal to Mildly increased <30 Moderately increased 30-299 Severely increased > OR = 300 The ADA recommends that at least two of three specimens collected within a 3-6 month period be abnormal before considering a patient to be within a diagnostic category. Performed By: #### 6 517, 7600, 17074, 12694, 70408, 905 #### [facility] [address], [address] [place] [address] [employer] Filling: Javier Deutsch MD Creatinine (U) [Mass/Vol] 81 mg/dL Normal 20-320 [facility] Comment on above: Performed By: #### 6 517, 7600, 88293, 46503, 34956, 905 #### [facility] [address], [address] [place] [address] [employer] Filling: Javier Deutsch MD COMPREHENSIVE METABOLIC PANE L W/ANION GAPon 04-24-2025 Albumin [Mass/Vol] 4.4 g/dL Normal 3.6-5.1 [facility] Comment on above: Performed By: #### 6 517, 7600, 67791, 41377, 89143, 905 #### [facility] [address], [address] [place] [address] [employer] Filling: Javier Deutsch MD ALP [Catalytic activity/Vol] 77 U/L Normal 35-144 [facility] Comment on above: Performed By: #### 6 517, 7600, 67258, 98062, 19075, 905 #### [facility] [place] [address] [employer] Filling: Javier Deutsch MD ALT [Catalytic activity/Vol] 14 U/L Normal 9-46 [facility] Comment on above: Performed By: #### 6 517, 7600, 08879, 72180, 15908, 905 #### [facility] [place] [address] [employer] Filling: Javier Deutsch MD AST [Catalytic activity/Vol] 15 U/L Normal 10-35 [facility] Comment on above: Performed By: #### 6 517, 7600, 44735, 86286, 74937, 905 #### [facility] [place] [address] [employer] Filling: Javier Deutsch MD Bilirubin [Mass/Vol] 0.8 mg/dL Normal 0.2-1.2 [facility] Comment on above: Performed By: #### 6 517, 7600, 79208, 59879, 32209, 905 #### [facility] [place] [address] [employer] Filling: Javier Deutsch MD Calcium [Mass/Vol] 9.2 mg/dL Normal 8.6-10.3 [facility] Comment on above: Performed By: #### 6 517, 7600, 77594, 11872, 80906, 905 #### [facility] [place] [address] [employer] Filling: Javier Deutsch MD Chloride [Moles/Vol] 107 mmol/L Normal 98-110 [facility] Comment on above: Performed By: #### 6 517, 7600, 54688, 77103, 63466, 905 #### [facility] [address], [address] [place] [address] [employer] Filling: Javier Deutsch MD CO2 [Moles/Vol] 26 mmol/L Normal 20-32 [facility] Comment on above: Performed By: #### 6 517, 7600, 58966, 13826, 22999, 905 #### [facility] [place] [address] [employer] Filling: Javier Deutsch MD Creatinine [Mass/Vol] 1.21 mg/dL Normal 0.70-1.[address] [facility] [address] [facility] Comment on above: Performed By: #### 6 517, 7600, 57924, 64640, 33505, 905 #### [facility] [place] [address] [employer] Filling: Javier Deutsch MD ELECTROLYTE BALANCE 8 mmol/L (calc) Normal 7-17 [facility] Comment on above: Performed By: #### 6 517, 7600, 08694, 07665, 34507, 905 #### [facility] [place] [address] [employer] Filling: Javier Deutsch MD GFR/1.73 sq M.predicted among non-blacks MDRD (S/P/Bld) [Vol rate/Area] 64 mL/min/{1.73_m2} Normal > OR = 60 [facility] Comment on above: Performed By: #### 6 517, 7600, 76549, 87454, 09331, 905 #### [facility] [place] [address] [employer] Filling: Javier Deutsch MD Glucose [Mass/Vol] 103 mg/dL High 65-99 [facility] Comment on above: Result Comment: Fasting reference interval For someone without known diabetes, a glucose value between 100 and 125 mg/dL is consistent with prediabetes and should be confirmed with a follow-up test. Performed By: #### 6 517, 7600, 43220, 44951, 45846, 905 #### [facility] [place] [address] [employer] Filling: Javier Deutsch MD Potassium [Moles/Vol] 4.4 mmol/L Normal 3.5-5.[address] [facility] Comment on above: Performed By: #### 6 517, 7600, 39605, 27655, 68145, 905 #### [facility] [place] [address] [employer] Filling: Javier Deutsch MD Protein [Mass/Vol] 6.9 g/dL Normal 6.1-8.1 [facility] Comment on above: Performed By: #### 6 517, 7600, 33770, 62738, 45290, 905 #### [facility] [place] [address] [employer] Filling: Javier Deutsch MD Sodium [Moles/Vol] 141 mmol/L Normal 135-146 [facility] Comment on above: Performed By: #### 6 517, 7600, 55872, 89533, 97650, 905 #### [facility] [place] [address] [employer] Filling: Javier Deutsch MD Urea nitrogen [Mass/Vol] 21 mg/dL Normal 7-25 [facility] Comment on above: Performed By: #### 6 517, 7600, 86163, 67609, 65138, 905 #### [facility] [place] [address] [employer] Filling: Javier Deutsch MD HEMOGLOBIN A1c WITH eAGon eAG (mmol/L) 7.3 mmol/L Normal [facility] Comment on above: Performed By: #### 6 517, 7600, 00114, 51962, 38742, 905 #### [facility] [place] [address] [employer] Filling: Javier Deutsch MD HbA1c (Bld) [Mass fraction] 6.2 % High <5.7 [facility] Comment on above: Result Comment: For [...] of diabetes for children. Performed By: #### 6 517, 7600, 63119, 27829, 52649, 905 #### [facility] [address], [address] [place] [address] Cook[employer] Filling: Javier Deutsch MD Magnesium [Mass/Vol] 131 mg/dL Normal [facility] Comment on above: Performed By: #### 6 517, 7600, 89126, 40271, 24131, 905 #### [facility] [place] [address] [employer] Filling: Javier Deutsch MD LIPID PANEL, [address] Cholesterol [Mass/Vol] 166 mg/dL Normal <200 [facility] Comment on above: Order Comment: FASTI NG:YES FASTING: YES Performed By: #### 6 517, 7600, 30590, 59444, 91176, 905 #### [facility] [address], [address] [place] [address] [employer] Filling: Javier Deutsch MD Cholesterol in HDL [Mass/Vol] 51 mg/dL Normal > OR = 40 [facility] Comment on above: Order Comment: FASTI NG:YES FASTING: YES Performed By: #### 6 517, 7600, 45843, 74904, 99807, 905 #### [facility] [address], [address] [place] [address] Cooker [employer] Filling: Javier Deutsch MD Cholesterol in LDL [Mass/Vol] 101 mg/dL High [facility] Comment on above: Order Comment: FASTI NG:YES FASTING: YES Result Comment: Refe rence range: <100 Desirable range <100 mg/dL for primary prevention; <70 mg/dL for patients with CHD or diabetic patients with > or = 2 CHD risk factors. LDL-C is now calculated using the [place] calculation, which is a validated novel method providing better accuracy than the Friedewald equation in the estimation of LDL-C. Prakash LITTLE et al. MARY ELLEN. 2013;310(97): 1566-4517 (http://education.Divergence/faq/HDM528) Performed By: #### 6 517, 7600, 38890, 74512, 73355, 905 #### [facility] [address], [address] [place] [address] [employer] Filling: Javier Deutsch MD Cholesterol.total/Chol esterol in HDL [Mass ratio] 3.3 {ratio} Normal <5.0 [facility] Comment on above: Order Comment: FASTI NG:YES FASTING: YES Performed By: #### 6 517, 7600, 69846, 72148, 83501, 905 #### [facility] [address], [address] [place], [place] [id number] [employer] Filling: Javier Deutsch MD NON HDL CHOLESTEROL 115 mg/dL (calc) Normal <130 [facility] Comment on above: Order Comment: FASTI NG:YES FASTING: YES Result Comment: For patients with diabetes plus 1 major ASCVD risk factor, treating to a non-HDL-C goal of <100 mg/dL (LDL-C of <70 mg/dL) is considered a therapeutic option. Performed By: #### 6 517, 7600, 11921, 69813, 49910, 905 #### [facility] [address], [address] [place], [place] [id number] [employer] Filling: Javier Deutsch MD Triglyceride [Mass/Vol] 59 mg/dL Normal <150 [facility] Comment on above: Order Comment: FASTI NG:YES FASTING: YES Performed By: #### 6 517, 7600, 28064, 72813, 59958, 905 #### [facility] [place] [address] [place] [address] [employer] Filling: Javier Deutsch MD PSA, TOTAL, MONITORINGon PSA, TOTAL, MONITORING 3.34 ng/mL Normal < OR = 4.00 [facility] Comment on above: Result Comment: The total PSA value from this assay system is standardized against the WHO standard. The test result will be approximately 20% lower when compared to the equimolar-standardized total PSA ([place]). Comparison of serial PSA results should be interpreted with this fact in mind. This test was performed using the Siemens chemiluminescent method. Values obtained from different assay methods cannot be used interchangeably. PSA levels, regardless of value, should not be interpreted as absolute evidence of the presence or absence of disease. Performed By: #### 6 517, 7600, 50429, 97646, 10356, 905 #### [facility] [place] [address] [employer] Filling: Javier Deutsch MD URIC ACIDon 04-24-2025 Urate [Mass/Vol] 7.0 mg/dL Normal 4.0-8.0 [facility] Comment on above: Result Comment: Ther apeutic target for gout patients: <6.0 mg/dL Performed By: #### 6 517, 7600, 43652, 16593, 74343, 905 #### [facility] [place] [address] [employer]illing: Javier Deutsch MD Abdomen/Pelvis W IV Cont ONL Yo 03-07-2025 Abdomen/Pelvis W IV Cont ONLY [facility] Imaging Services [address] [place] [address] Abdomen/Pelvis W IV Cont ONLY MR#: [id number] Acct: [id number] Name: KAVON STEPHENS Rep #: [id number] : 1955 M 69 From: José Luis iWlson MD PCP: Dr. Fabio Grace MD Status: [facility] ER Study: Abdomen/Pelvis W IV Cont ONLY Date of Exam: Exam# [id number] Ordering Dr: Lei Gabriel DO PROCEDURE: CT ABDOMEN/PELVIS W IV CONT ONLY 03/07/2025 REASON FOR EXAM: PAINLESS HEMATURIA TECHNIQUE: CT ABDOMEN/PELVIS W IV CONT ONLY Coronal and Sagittal reconstruction series were provided. CONTRAST: Isovue 370 VOLUME: 98 mL One or more dose reduction techniques were used (e.g., Automated exposure control, adjustment of the mA and/or kV according to patient size, use of iterative reconstruction technique. RADIATION DOSE SUMMARY: DLP: 1203.73 mGycm COMPARISON: 05/20/2020 FINDINGS: Lung bases: Clear, with mild dependent atelectasis. Liver: Diffuse hepatic steatosis. No focal lesion. Gallbladder: Unremarkable. No biliary ductal dilatation. Spleen: Normal in size. Small hypodense focus likely a benign cyst or hemangioma. Pancreas: Unremarkable. Adrenals: Unremarkable. Kidneys: Symmetric enhancement. No mass. Subcentimeter nonobstructive stone in the midpole of the left kidney. No hydroureteronephrosis. Bladder: Underdistended and partially obscured by streak artifact, grossly unremarkable. Reproductive Organs: Enlarged prostate with lobular impression on the bladder. Bowel: No bowel obstruction or active inflammatory process. Normal appendix. Lymph nodes: No enlarged abdominopelvic lymph nodes. Vasculature: Normal caliber abdominal aorta and IVC. Mild atherosclerotic calcifications. Peritoneum / Retroperitoneum: No ascites or free air. Musculoskeletal: Small fat containing right inguinal hernia. Partially imaged right total hip arthroplasty hardware appears intact. Mild degenerative changes of the spine. CT/Abdomen/Pelvis W IV Cont ONLY IMPRESSION: 1. No renal mass. Subcentimeter nonobstructive left renal stone. No hydroureteronephrosis. 2. Enlarged prostate with lobular impression on the urinary bladder. 3. Diffuse hepatic steatosis. Reading Location: [id number] CC: Dr. Lei Gabriel DO; Dr. Fabio Grace MD [place]: Signed Normal [facility] Absolute lymphocyte countOrd ered By: Lei Gabriel on 03-07-2025 Lymphocytes Auto (Unsp spec) [#/Vol] 1.50 10*3/uL 0.83-4.51 [facility] Absolute neutrophil countOrd ered By: Lei Gabriel on 03-07-2025 Neutrophils (Bld) [#/Vol] 6.1 10*3/uL 2.0-7.7 [facility] Activated partial thrombopla stin time (aPTT) in platelet poor plasma by coagulation aOrdered By: Lei Gabriel on 03-07-2025 aPTT Coag (PPP) [Time] 24.7 s 24.1-36.2 [facility] Anion gap in Serum or Plasma Ordered By: Lei Gabriel on 03-07-2025 Anion gap [Moles/Vol] 12 mmol/L 12-03 [facility] Automated lymphocyte count a s percentage of total leukocytesOrdered By: Lei Gabriel on 03-07-2025 Lymphocytes/100 WBC Auto (Unsp spec) 17.8 % Low [facility] BUN/creatinine ratioOrdered By: Lei Gabriel on 03-07-2025 Urea nitrogen/Creatinine [Mass ratio] 13.0 mg/mg 05-10 [facility] Basic Metabolic Profile (BMP )on 03-07-2025 BUN/CRE 13.0 RATIO Normal 05-10 [facility] Comment on above: Performed By: #### L 300.4310, L500.2500, L300.3900, L100.0100 #### [facility] [address] [place], [address] Calcium [Mass/Vol] 9.1 mg/dL Normal 7.6-11.0 [facility] Comment on above: Performed By: #### L 300.4310, L500.2500, L300.3900, L100.0100 #### [facility] [address] [place], [address] Chloride [Moles/Vol] 108 mmol/L Normal 98-108 [facility] Comment on above: Performed By: #### L 300.4310, L500.2500, L300.3900, L100.0100 #### [facility] [address] [place], [address] CO2 [Moles/Vol] 22.2 mmol/L Normal 21.0-32.0 [facility] Comment on above: Performed By: #### L 300.4310, L500.2500, L300.3900, L100.0100 #### [facility] [address] [place], [address] Creatinine [Mass/Vol] 1.51 mg/dL High 0.70-1.20 [facility] Comment on above: Performed By: #### L 300.4310, L500.2500, L300.3900, L100.0100 #### [facility] [address] [place], [address] ECRCL 58.00 ml/min Normal 50-250 [facility] Comment on above: Performed By: #### L 300.4310, L500.2500, L300.3900, L100.0100 #### [facility] [address] [place], [address] GAP 12 Normal 5-15 [facility] Comment on above: Performed By: #### L 300.4310, L500.2500, L300.3900, L100.0100 #### [facility] [address] [place], [address] GFR/1.73 sq M.predicted among non-blacks MDRD (S/P/Bld) [Vol rate/Area] 49 mL/min/{1.73_m2} Low >60 [facility] Comment on above: Result Comment: mL/m in/1.73m2 CKD-EPI Creatinine Equation (2020) Performed By: #### L 300.4310, L500.2500, L300.3900, L100.0100 #### [facility] [address] [place], [address] Glucose [Mass/Vol] 93 mg/dL Normal 70-99 [facility] Comment on above: Performed By: #### L 300.4310, L500.2500, L300.3900, L100.0100 #### [facility] [address] [place], [address] Potassium [Moles/Vol] 4.5 mmol/L Normal 3.3-5.1 [facility] Comment on above: Performed By: #### L 300.4310, L500.2500, L300.3900, L100.0100 #### [facility] [address] [place], [address] Sodium [Moles/Vol] 142 mmol/L Normal 133-145 [facility] Comment on above: Performed By: #### L 300.4310, L500.2500, L300.3900, L100.0100 #### [facility] [address] [place], [address] Urea nitrogen [Mass/Vol] 20 mg/dL High 4-19 [facility] Comment on above: Performed By: #### L 300.4310, L500.2500, L300.3900, L100.0100 #### [facility] [address] [place], [address] Basophil percentageOrdered B y: Lei Gabriel on 03-07-2025 Basophils/100 WBC (Bld) 0.5 % 0-1 [facility] Bilirubin Test strip Ql (U)O rdered By: Lei Gabriel on 03-07-2025 Bilirubin Ql (U) Negative Negative [facility] CBC W/Diff, Automatedon 02-19 Absolute Lymph 1.50 X10 3/uL Normal 0.83-4.51 [facility] Comment on above: Performed By: #### L 300.4310, L500.2500, L300.3900, L100.0100 #### [facility] [address] [place], [address] Absolute Neut 6.1 X10 3/uL Normal 2.0-7.7 [facility] Comment on above: Performed By: #### L 300.4310, L500.2500, L300.3900, L100.0100 #### [facility] [address] [place], [address] Basophils/100 WBC (Bld) 0.5 % Normal 0-1 [facility] Comment on above: Performed By: #### L 300.4310, L500.2500, L300.3900, L100.0100 #### [facility] [address] [place], [address] Eosinophils/100 WBC (Bld) 0.6 % Normal 0-5 [facility] Comment on above: Performed By: #### L 300.4310, L500.2500, L300.3900, L100.0100 #### [facility] [address] [place], [address] Erythrocyte distribution width (RBC) [Ratio] 13.5 % Normal 11.6-14.6 [facility] Comment on above: Performed By: #### L 300.4310, L500.2500, L300.3900, L100.0100 #### [facility] [address] [place], [address] Hematocrit (Bld) [Volume fraction] 41.5 % Normal 40-54 [facility] Comment on above: Performed By: #### L 300.4310, L500.2500, L300.3900, L100.0100 #### [facility] [address] [place], [address] Hemoglobin (Bld) [Mass/Vol] 13.9 g/dL Normal 13.0-16.5 [facility] Comment on above: Performed By: #### L 300.4310, L500.2500, L300.3900, L100.0100 #### [facility] [address] [place], [address] IG% 0.400 Normal 0.0-0.9 [facility] Comment on above: Result Comment: IG% - Immature Granulocytes (promyelocytes, myelocytes and metamyelocytes) > 1% indicates that a LEFT SHIFT is Present. Performed By: #### L 300.4310, L500.2500, L300.3900, L100.0100 #### [facility] [address] [place], [address] Lymphocytes/100 WBC (Bld) 17.8 % Low 19-41 [facility] Comment on above: Performed By: #### L 300.4310, L500.2500, L300.3900, L100.0100 #### [facility] [address] [place], [address] MCH (RBC) [Entitic mass] 30.6 pg Normal 27.0-32.0 [facility] Comment on above: Performed By: #### L 300.4310, L500.2500, L300.3900, L100.0100 #### [facility] [address] [place], [address] MCHC (RBC) [Mass/Vol] 33.5 g/dL Normal 32-36 [facility] Comment on above: Performed By: #### L 300.4310, L500.2500, L300.3900, L100.0100 #### [facility] [address] [place], [address] MCV (RBC) [Entitic vol] 91.4 fL Normal 80-94 [facility] Comment on above: Performed By: #### L 300.4310, L500.2500, L300.3900, L100.0100 #### [facility] [address] [place], [address] Monocytes/100 WBC (Bld) 8.5 % Normal 0-10 [facility] Comment on above: Performed By: #### L 300.4310, L500.2500, L300.3900, L100.0100 #### [facility] [address] [place], [address] Neutrophils/100 WBC (Bld) 72.2 % High 47-70 [facility] Comment on above: Performed By: #### L 300.4310, L500.2500, L300.3900, L100.0100 #### [facility] [address] [place], [address] Nucleated RBC (Bld) [#/Vol] 0 10*3/uL Normal 0-5 [facility] Comment on above: Performed By: #### L 300.4310, L500.2500, L300.3900, L100.0100 #### [facility] [address] [place], [address] Platelet mean volume (Bld) [Entitic vol] 9.5 fL Normal 6.2-12.0 [facility] Comment on above: Performed By: #### L 300.4310, L500.2500, L300.3900, L100.0100 #### [facility] [address] [place], [address] Platelets (Bld) [#/Vol] 291 10*3/uL Normal 150-450 [facility] Comment on above: Performed By: #### L 300.4310, L500.2500, L300.3900, L100.0100 #### [facility] [address] [place], [address] RBC (Bld) [#/Vol] 4.54 10*6/uL Low 4.6-6.2 [facility] Comment on above: Performed By: #### L 300.4310, L500.2500, L300.3900, L100.0100 #### [facility] [address] [place], [address] RDW SD 45.2 fl High 35.1-43.9 [facility] Comment on above: Performed By: #### L 300.4310, L500.2500, L300.3900, L100.0100 #### [facility] [address] [place], [address] WBC (Bld) [#/Vol] 8.5 10*3/uL Normal 4.4-11.0 [facility] Comment on above: Performed By: #### L 300.4310, L500.2500, L300.3900, L100.0100 #### [facility] [address] [place], [address] Carbon dioxide, total [Moles /volume] in Central venous bloodOrdered By: Lei Gabriel on 03-07-2025 CO2 [Moles/Vol] 22.2 mmol/L 21.0-32.0 [facility] Chloride assayOrdered By: Gama Gabriel on 03-07-2025 Chloride [Moles/Vol] 108 mmol/L 98-108 [facility] Emergency Department Summary on 03-07-2025 Emergency Department Summary [facility] Medical Records Department [address] [place] [address] Emergency Department Summary 03/07/25 MR#: [id number] Acct: [id number] Name: KAVON STEPHENS Rep #: [id number] : 1955 69 From: Lei Gabriel DO PCP: Dr. Fabio Grace MD Status:DEP ER Location: ED HPI History of Present Illness Chief Complaint: Complaint Informant: patient Onset/Context/Timing Onset: Today Context: Sudden Onset Timing: Continuous Quality: Aching Location: Suprapubic Worsened by: Nothing Relieved by: Nothing Narrative Narrative: Patient presents with hematuria that began this morning. Patient states it began rather suddenly. Patient states he has been passing dark blood in his urine. Patient admits to some aching pain in the suprapubic area. Patient states nothing makes it worse and nothing makes it better. Patient denies any fevers or chills. Patient admits to some urinary frequency but denies any dysuria. Patient denies any nausea or vomiting. Patient denies any chest pain or shortness of breath. Patient states he did have sexual intercourse this morning and had no difficulties with that. [facility] Medical History (Updated 03/07/25 @ 17:[address] Lei Gabriel, DO) Wears glasses Alcohol use Arthritis Kidney stone History of diverticulitis Gastric reflux Former smoker History of stress test Hypertension Hx of closed dislocation of finger Hx of closed fracture of nasal bones Home Medications ???Medication ???Instructions ???Recorded ???Last Taken ???Type omeprazole 20 mg capsule,delayed 20 mg PO DAILY 06/13/16 05/10/21 0 8:00 History release silodosin 8 mg capsule (Rapaflo) 8 mg PO QHS 06/13/16 03/26/17 23:0 0 History finasteride 5 mg tablet 5 mg PO QHS 01/30/17 03/26/17 23:0 0 History multivitamin 1 tab PO DAILY 05/04/21 Unknown Hi story ibuprofen 600 mg tablet 600 mg PO Q6H PRN pain #20 tabs Unknown Rx allopurinol 100 mg tablet 100 mg PO DAILY 03/07/25 Unknown H istory fluticasone propionate 50 spray intranasal 03/07/25 Unknown History mcg/actuation nasal spray,suspension losartan 50 mg tablet 50 mg PO DAILY 03/07/25 Unknown Hi story Allergy/AdvReac Type Severity Reaction Status Date / Time aspirin AdvReac Upset Verified 03/07/25 13:11 Stomach Surgical History (Updated 03/07/25 @ 13:[address] Lei Gabriel, ) Hx of transurethral resection of prostate Hx of hernia repair Hx of total hip arthroplasty Social History Smoking Status: Former smoker ROS ROS ED Constitutional Constitutional ED: Denies chills or fever(s) Eyes Eyes: Denies blurry vision or change in vision ENT ENT ED: Denies rhinorrhea or sore throat Cardiovascular Cardiovascular: Denies chest pain or palpitations Respiratory/Chest Respiratory/Chest: Denies cough or dyspnea Gastrointestinal Gastrointestinal: Denies nausea or vomiting Genitourinary Genitourinary ED: Reports hematuria and urinary frequency; Denies dysuria Musculoskeletal Musculoskeletal: Denies back pain or neck pain Integumentary Denies abscess or rash Neurologic Neurologic: Denies headache(s) or weakness Allergic/Immunologic Allergic/Immunologic ED: Denies mouth swelling or urticaria EXAM Physical Exam Const Vital Signs: 03/07/25 13:10 Temperature 98.1 F Temperature Source Temporal Pulse Rate 91 Respiratory Rate 14 Blood Pressure 178/100 H Blood Pressure Mean 126 Pulse Ox 98 Oxygen Delivery Method Room Air Positive well nourished and well developed Constitutional Narrative: BMI is 28.0. General Appearance ED: well developed and NAD HEENT Reports moist mucous membranes Neck supple and no JVD Resp normal respiratory effort and clear to auscultation bilaterally Cardio regular rate and regular rhythm GI non-tender and non-distended Palpation: soft Extremity normal to inspection General Extremety ED: Negative for edema or tenderness General Extremity: Negative for edema Neuro oriented x3, CN's II-XII intact bilaterally and no sensory deficits noted Sensorium / Orientation: alert Motor Exam: strength 5/5 throughout Psych mental status grossly normal MDM MDM MDM Narrative Medical decision making narrative: Differential diagnosis includes hemorrhagic cystitis, ureteral calculus, pyelonephritis, bladder mass, renal mass, and coagulopathy. CBC will be obtained to assess for leukocytosis and anemia. Basic metabolic profile will be obtained to assess for electrolyte abnormality renal function. Urinalysis will be obtained to assess for urinary tract infection and hematuria. PT with INR and PTT will be obtained to assess for coagulopathy. CT scan of the abdomen and pelvis will be obtained (more content not included)... Normal [facility] Eosinophil percentageOrdered By: Lei Gabriel on 03-07-2025 Eosinophils/100 WBC (Bld) 0.6 % 0-5 [facility] Erythrocyte distribution wid th ratioOrdered By: Lei Gabriel on 03-07-2025 Erythrocyte distribution width (RBC) [Ratio] 13.5 % 11.6-14.6 [facility] Erythrocyte distribution wid th standard deviationOrdered By: Lei Gabriel on 03-07-2025 Erythrocyte distribution width (RBC) [Ratio] 45.2 fl High 35.1-43.9 [facility] Glomerular filtration rate ( GFR) estimation/1.73 sq m using serum, plasma, or whole bOrdered By: Lei Gabriel on 03-07-2025 GFR/1.73 sq M.predicted among non-blacks MDRD (S/P/Bld) [Vol rate/Area] 49 mL/min/{1.73_m2} Low >60 [facility] Comment on above: mL/min/1.73m2 CKD-EP I Creatinine Equation (2020) Hematocrit Auto (Bld) [Volum e fraction]Ordered By: Lei Gabriel on 03-07-2025 Hematocrit (Bld) [Volume fraction] 41.5 % 40-54 [facility] Hemoglobin measurementOrdere d By: Lei Gabriel on 03-07-2025 Hemoglobin (Bld) [Mass/Vol] 13.9 g/dL 13.0-16.5 [facility] Immature granulocytes/100 WB C Auto (Bld)Ordered By: Lei Gabriel on 03-07-2025 Immature granulocytes/100 WBC (Bld) 0.400 % 0.0-0.9 [facility] Comment on above: IG% - Immature Granu locytes (promyelocytes, myelocytes and metamyelocytes) > 1% indicates that a LEFT SHIFT is Present. International normalized rat io (INR) calculationOrdered By: Lei Gabriel on 03-07-2025 INR Coag (Bld) [Relative time] 1.0 {INR} [facility] Ketones Test strip Ql (U)Ord ered By: Lei Gabriel on 03-07-2025 Ketones Ql (U) 5 mg/dl High Negative [facility] MCV (mean corpuscular volume ) determinationOrdered By: Lei Gabriel on 03-07-2025 MCV (RBC) [Entitic vol] 91.4 fL 80-94 [facility] Mean corpuscular hemoglobin (MCH) determinationOrdered By: Lei Gabriel on 03-07-2025 MCH (RBC) [Entitic mass] 30.6 pg 27.0-32.0 [facility] Mean corpuscular hemoglobin concentration (MCHC) determinationOrdered By: Lei Gabriel on 03-07-2025 MCHC (RBC) [Mass/Vol] 33.5 g/dL 32-36 [facility] Mean platelet volume determi nationOrdered By: Lei Gabriel on 03-07-2025 Platelet mean volume (Bld) [Entitic vol] 9.5 fL 6.2-12.0 [facility] Microscopic analysis of urin e for red blood cells (RBC)Ordered By: Lei Gabriel on 03-07-2025 Microscopic analysis of urine for red blood cells (RBC) 10-25 SEEN /hpf 0-5 [facility] Monocyte percentageOrdered B y: Lei Gabriel on 03-07-2025 Monocytes/100 WBC (Bld) 8.5 % 0-10 [facility] Mucus LM Ql (Urine sed)Order ed By: Lei Gabriel on 03-07-2025 Mucus Ql (Urine sed) 0 SEEN /hpf [facility] Neutrophil percentageOrdered By: Lei Gabriel on 03-07-2025 Neutrophils/100 WBC (Bld) 72.2 % High 47-70 [facility] Nitrite Test strip Ql (U)Ord ered By: Lei Gabriel on 03-07-2025 Nitrite Ql (U) Negative Negative [facility] Nucleated red blood cell per centageOrdered By: Lei Gabriel on 03-07-2025 Nucleated RBC/100 WBC (Bld) [Ratio] 0 % 0-5 [facility] Partial Thromboplast Timeon 03-07-2025 aPTT Coag (Bld) [Time] 24.7 s Normal 24.1-36.2 [facility] Comment on above: Performed By: #### L 300.4310, L500.2500, L300.3900, L100.0100 #### [facility] [address] [place], [address] Platelet countOrdered By: Gama Gabriel on 03-07-2025 Platelets (Bld) [#/Vol] 291 10*3/uL 150-450 [facility] Potassium measurement (mass/ volume)Ordered By: Lei Gabriel on 03-07-2025 Potassium (Unsp spec) [Mass/Vol] 4.5 mmol/L 3.3-5.1 [facility] Protein Test strip Ql (U)Ord ered By: Lei Gabriel on 03-07-2025 Protein Ql (U) 500 mg/dl High Negative [facility] Prothrombin Time w/INRon INR Coag (PPP) [Relative time] 1.0 {INR} Normal [facility] Comment on above: Performed By: #### L 300.4310, L500.2500, L300.3900, L100.0100 #### [facility] [address] [place], [address] PT Coag (PPP) [Time] 13.1 s Normal 11.7-14.9 [facility] Comment on above: Performed By: #### L 300.4310, L500.2500, L300.3900, L100.0100 #### [facility] [address] [place], [address] Prothrombin timeOrdered By: Lei Gabriel on 03-07-2025 PT Coag (PPP) [Time] 13.1 s 11.7-14.9 [facility] [facility] RBC Auto (Bld) [#/Vol]Ordere d By: Lei Gabriel on 03-07-2025 RBC (Bld) [#/Vol] 4.54 10*6/uL Low 4.6-6.2 [facility] Serum creatinine measurement (mass/volume)Ordered By: Lei Gabriel on 03-07-2025 Creatinine [Mass/Vol] 1.51 mg/dL High 0.70-1.20 [facility] Serum glucose measurement (m ass/volume)Ordered By: Lei Gabriel on 03-07-2025 Glucose [Mass/Vol] 93 mg/dL 70-99 [facility] Serum or plasma calcium ho urement (mass/volume)Ordered By: Lei Gabriel on 03-07-2025 Calcium [Mass/Vol] 9.1 mg/dL 7.6-11.0 [facility] Serum or plasma urea nitroge n measurement (mass/volume)Ordered By: Lei Gabriel on 03-07-2025 Urea nitrogen [Mass/Vol] 20 mg/dL High 4-19 [facility] Sodium levelOrdered By: Lei Gabriel on 03-07-2025 Sodium [Moles/Vol] 142 mmol/L 133-145 [facility] Squamous epithelial cells de tection in urine sediment by light microscopyOrdered By: Lei Gabriel on 03-07-2025 Epithelial cells.squamous LM Ql (Urine sed) 0 SEEN /hpf 0-5 [facility] Urinalysis, Completeon 03-07 BACTERIA 1+ /hpf Normal None Seen [facility] Comment on above: Order Comment: COLOR OF URINE MAY AFFECT DIPSTICK RESULTS. CLEAN CATCH Performed By: #### L 400.0001 #### [facility] [address] [place], [address] RBC 10-25 SEEN Normal 0-5 [facility] Comment on above: Order Comment: COLOR OF URINE MAY AFFECT DIPSTICK RESULTS. CLEAN CATCH Performed By: #### L 400.0001 #### [facility] [address] [place], [address] WBC 0-5 SEEN Normal 0-5 [facility] Comment on above: Order Comment: COLOR OF URINE MAY AFFECT DIPSTICK RESULTS. CLEAN CATCH Performed By: #### L 400.0001 #### [facility] [address] [place], [address] EPI,SQUAMOUS 0 SEEN Normal 0-5 [facility] Comment on above: Order Comment: COLOR OF URINE MAY AFFECT DIPSTICK RESULTS. CLEAN CATCH Performed By: #### L 400.0001 #### [facility] [address] [place], [address] Mucus Ql (Urine sed) 0 SEEN Normal [facility] Comment on above: Order Comment: COLOR OF URINE MAY AFFECT DIPSTICK RESULTS. CLEAN CATCH Performed By: #### L 400.0001 #### [facility] [address] [place], [address] Urine clarityOrdered By: Sanjuana Gabriel on 03-07-2025 Clarity (U) Turbid Clear [facility] Urine color determinationOrd ered By: Lei Gabriel on 03-07-2025 Color (U) Brown Yellow [facility] Urine glucose detectionOrder ed By: Lei Gabriel on 03-07-2025 Glucose Ql (U) Normal mg/dl Normal [facility] Urine leukocyte esterase det ection by dipstickOrdered By: Lei Gabriel on 03-07-2025 Leukocyte esterase Test strip Ql (U) 25 /ul High Negative [facility] Urine pHOrdered By: Lei nichols on 03-07-2025 pH (U) 6.5 [pH] 5.0 - 8.0 [facility] Urine sediment bacteria coun t by microscopy (number/high power field)Ordered By: Lei Gabriel on 03-07-2025 Bacteria LM.HPF (Urine sed) [#/Area] 1 /[HPF] None Seen [facility] Urine specific gravity measu rementOrdered By: Lei Gabriel on 03-07-2025 Specific gravity (U) [Rel density] 1.020 1.002-1.030 [facility] Urine urobilinogen measureme ntOrdered By: Lei Gabriel on 03-07-2025 Urobilinogen Ql (U) Normal mg/dl Normal [facility] White blood cell (WBC) count Ordered By: Lei Gabriel on 03-07-2025 WBC (Bld) [#/Vol] 8.5 10*3/uL 4.4-11.0 [facility] White blood cell countOrdere d By: Lei Gabriel on 03-07-2025 White blood cell count 0-5 SEEN /hpf 0-5 [facility] Foreign Body Removal - Orifi ceon 11-13-2024 MEAGHAN Burk CNP 11/14/2024 6:56 AM Foreign Body Removal - Orifice Performed by: LUIS FERNANDO Burk Authorized by: LUIS FERNANDO Burk Location: Location: Ear Ear location: L ear Procedure details: Removal mechanism: Forceps [facility] Work Phone: [phone] [facility] Work Phone: COMPREHENSIVE METABOLIC PANE L W/ANION GAPon 10-25-2024 Albumin [Mass/Vol] 4.3 g/dL Normal 3.6-5.1 [facility] Comment on above: Performed By: #### 9 60, 51839, 22043 #### [facility] [address], [address] [place] [id number] [employer]er [employer] Filling: Javier Deutsch MD ALP [Catalytic activity/Vol] 79 U/L Normal 35-144 [facility] Comment on above: Performed By: #### 9 , , 22759 #### [facility] of [place] [address] [employer] Filling: Javier Deutsch MD ALT [Catalytic activity/Vol] 19 U/L Normal 9-46 [facility] Comment on above: Performed By: #### 9 , , 19058 #### [facility] [place] [address] [employer] Filling: Javier Deutsch MD AST [Catalytic activity/Vol] 18 U/L Normal 10-35 [facility] Comment on above: Performed By: #### 9 , , 02257 #### [facility] [place] [address] [employer] Filling: Javier Deutsch MD Bilirubin [Mass/Vol] 0.7 mg/dL Normal 0.2-1.2 [facility] Comment on above: Performed By: #### 03 26, , 03601 #### [facility] [place] [address] [employer] Filling: Javier Deutsch MD Calcium [Mass/Vol] 9.1 mg/dL Normal 8.6-10.3 [facility] Comment on above: Performed By: #### 03 26, , 87103 #### [facility] [place] [address] [employer] Filling: Javier Deutsch MD Chloride [Moles/Vol] 109 mmol/L Normal 98-110 [facility] Comment on above: Performed By: #### 9 , 55895, 87003 #### [facility] of [place] [address] [employer] Filling: Javier Deutsch MD CO2 [Moles/Vol] 22 mmol/L Normal 20-32 [facility] Comment on above: Performed By: #### 9 , , 14371 #### [facility] of [address], [address] [place] [address] [employer] Filling: Javier Deutsch MD Creatinine [Mass/Vol] 1.36 mg/dL High 0.70-1.[address] [facility] Comment on above: Performed By: #### 9 , , 99020 #### [facility] of [address], [address] [place] [address] [employer] Filling: Javier Deutsch MD ELECTROLYTE BALANCE 10 mmol/L (calc) Normal 7-17 [facility] Comment on above: Performed By: #### 9 , , 28155 #### [facility] of [address], [address] [place] [address] [employer] Filling: Javier Deutsch MD GFR/1.73 sq M.predicted among non-blacks MDRD (S/P/Bld) [Vol rate/Area] 56 mL/min/{1.73_m2} Low > OR = 60 [facility] Comment on above: Performed By: #### 9 , , 53757 #### [facility] [address], [address] [place] [address] [employer] Filling: Javier Deutsch MD Glucose [Mass/Vol] 123 mg/dL High 65-99 [facility] Comment on above: Result Comment: Fasting reference interval For someone without known diabetes, a glucose value between 100 and 125 mg/dL is consistent with prediabetes and should be confirmed with a follow-up test. Performed By: #### 9 , , 79052 #### [facility] of [address], [address] [place] [address] [employer] Filling: Javier Deutsch MD Potassium [Moles/Vol] 4.6 mmol/L Normal 3.5-5.[address] [facility] Comment on above: Performed By: #### 9 , , 67474 #### [facility] of [address], [address] [place] [address] [employer] Filling: Javier Deutsch MD Protein [Mass/Vol] 6.8 g/dL Normal 6.1-8.1 [facility] Comment on above: Performed By: #### 9 , 80994, 57444 #### [facility] [address], [address] [place] [address] [employer] Filling: Javier Deutsch MD Sodium [Moles/Vol] 141 mmol/L Normal 135-146 [facility] Comment on above: Performed By: #### 9 , 48560, 27388 #### [facility] [address], [address] [place] [address] [employer] Filling: Javier Deutsch MD Urea nitrogen [Mass/Vol] 23 mg/dL Normal 7-25 [facility] Comment on above: Performed By: #### 9 , 02088, 14820 #### [facility] [place] [address] [employer] Filling: Javier Deutsch MD HEMOGLOBIN A1c WITH eAGon eAG (mmol/L) 7.6 mmol/L Normal [facility] Comment on above: Performed By: #### 9 , 76712, 10751 #### [facility] [place] [address] [employer] Filling: Javier Deutsch MD HEMOGLOBIN A1c 6.4 % [...] for children. Performed By: #### 9 , 62643, 84171 #### [facility] [address], [address] [place] [address] [employer] Filling: Javier Deutsch MD Magnesium [Mass/Vol] 137 mg/dL Normal [facility] Comment on above: Performed By: #### 9 05, 00976, 31128 #### [facility] [address], [address] [place] [address] Cooker [employer] Filling: Javier Deutsch MD URIC ACIDon 10-25-2024 Urate [Mass/Vol] 7.2 mg/dL Normal 4.0-8.0 [facility] Comment on above: Result Comment: Ther apeutic target for gout patients: <6.0 mg/dL Performed By: #### 9 05, 78323, 14297 #### [facility] [address], [address] [place] [address] Cooker [employer] Filling: Javier Deutsch MD Comprehensive metabolic 2000 panelon 04-24-2024 Albumin BCP dye [Mass/Vol] 4.3 g/dL Normal 3.4-5.0 [facility] Comment on above: Performed By: #### 2 4323-8 #### CHEPE ARIAS (16490) [facility]) [address] [place] [address]17 ALP [Catalytic activity/Vol] 85 U/L Normal 33-136 [facility] Comment on above: Performed By: #### 2 4323-8 #### CHEPE ARIAS (55936) [facility]) [address] [place] [address] 41626 ALT With P-5'-P [Catalytic activity/Vol] 17 U/L Normal 10-52 [facility] Comment on above: Result Comment: Rosibel ents treated with Sulfasalazine may generate falsely decreased results for ALT. Performed By: #### 2 4323-8 #### CHEPE ARIAS (83496) [facility]) [address] [place] [address]8594 Anion gap [Moles/Vol] 11 mmol/L Normal 10-20 [facility] Comment on above: Performed By: #### 2 4323-8 #### CHEPE ARIAS (76333) [facility]) [address] [place] [address] 48009 AST With P-5'-P [Catalytic activity/Vol] 17 U/L Normal 9-39 [facility] Comment on above: Performed By: #### 2 4323-8 #### CHEPE ARIAS (46737) [facility]) [address] [place] [address] Bilirubin [Mass/Vol] 0.8 mg/dL Normal 0.0-1.2 [facility] Comment on above: Performed By: #### 2 4323-8 #### CHEPE ARIAS (99530) [facility]) [address] [place] [address] 41659 Calcium [Mass/Vol] 9.2 mg/dL Normal 8.6-10.3 [facility] Comment on above: Performed By: #### 2 4323-8 #### CHEPE ARIAS (64459) [facility]) [address] [place] [address] 87737 Chloride [Moles/Vol] 107 mmol/L Normal 98-107 [facility] Comment on above: Performed By: #### 2 4323-8 #### CHEPE ARIAS (13940) [facility]) [address] [place] [address]509 CO2 [Moles/Vol] 28 mmol/L Normal 21-32 [facility] Comment on above: Performed By: #### 2 4323-8 #### CHEPE ARIAS (79653) [facility]) [address] [place] [address] 69722 Creatinine [Mass/Vol] 1.14 mg/dL Normal 0.50-1.30 [facility] Comment on above: Performed By: #### 2 4323-8 #### CHEPE ARIAS (83058) [facility]) [address] [place] [address]126 Glomerular filtration rate/1.73 sq M.predicted 69 mL/min/1.73m*2 Normal >60 [facility] Comment on above: Result Comment: Calc ulations of estimated GFR are performed using the 2020 CKD-EPI Study Refit equation without the race variable for the IDMS-Traceable creatinine methods. https://jasn.asnjournals.org/content//ASN.98521 53684 Performed By: #### 2 4323-8 #### CHEPE ARIAS (48148) [facility]) [address] [place] [address] 19990 Glucose [Mass/Vol] 108 mg/dL High 74-99 [facility] Comment on above: Performed By: #### 2 4323-8 #### CHEPE ARIAS (21236) [facility]) [address] [place] [address] 18970 Potassium [Moles/Vol] 4.6 mmol/L Normal 3.5-5.3 [facility] Comment on above: Performed By: #### 2 4323-8 #### CHEPE ARIAS (99597) [facility]) [address] [place] [address] 16970 Protein [Mass/Vol] 6.7 g/dL Normal 6.4-8.2 [facility] Comment on above: Performed By: #### 2 4323-8 #### CHEPE ARIAS (66907) [facility]) [address] [place] [address] 64016 Sodium [Moles/Vol] 141 mmol/L Normal 136-145 [facility] Comment on above: Performed By: #### 2 4323-8 #### CHEPE ARIAS (09075) [facility]) [address] [place] [address] 55343 Urea nitrogen [Mass/Vol] 18 mg/dL Normal 6-23 [facility] Comment on above: Performed By: #### 2 4323-8 #### CHEPE ARIAS (85539) [facility]) [address] [place] [address] 47035 HbA1c (Bld) [Mass fraction]o n 04-24-2024 Average glucose Estimated from glycated hemoglobin (Bld) [Mass/Vol] 126 mg/dL Normal Not Established [facility] Comment on above: Order Comment: Diagn osis of Vhhngnsf-FoawlcIgl-Bxxdmdgq: < or = 5.6%Increased risk for developing diabetes: 5.7-6.4%Diagnostic of diabetes: > or = 6.5% Performed By: #### 2 4323-8 #### CHEPE ARIAS (32373) [facility]) [facility] [place] [address] Hemoglobin A1c/Hemoglobin.to kizzy 04-24-2024 HbA1c (Bld) [Mass fraction] 6.0 % High See comment [facility] Comment on above: Order Comment: Diagn osis of Jgrtoant-RxqylrDxw-Priblamq: < or = 5.6%Increased risk for developing diabetes: 5.7-6.4%Diagnostic of diabetes: > or = 6.5% Performed By: #### 2 4323-8 #### CHEPE ARIAS (12601) [facility]) [address] [place], [place] [id number] PSA, TOTAL AND FREEon 2023 Free PSA [Mass/Vol] 1.3 ng/mL Normal [facility] Comment on above: Performed By: #### 2 4323-8 #### CHEPE ARIAS (38384) [facility]) [address] [place] [address] 41961 Free PSA/Total PSA [Mass fraction] 19 % Normal [facility] Comment on above: Result Comment: INTE RPRETIVE INFORMATION: Prostate Specific Antigen, Free Percentage [facility] uses the Laila Free PSA electrochemiluminescent immunoassay [...] prostate cancer in individual patients. Performed By: [facility] [address] [place] [address] Water Hauler: Nahum Schafer MD, PhD CLIA Number: [id number] Performed By: #### 2 4323-8 #### CHEPE ARIAS (11036) [facility]) [address] [place] [address] 80924 Prostate specific Ag IA [Mass/Vol] 6.7 ng/mL High 0.0-4.0 [facility] Comment on above: Result Comment: INTE RPRETIVE [...] carcinoma. Performed By: #### 2 4323-8 #### CHEPE ARIAS (64163) [facility]) [address] [place] [address] 62489 Urateon 04-24-2024 Urate [Mass/Vol] 7.9 mg/dL High 4.0-7.5 [facility] Comment on above: Result Comment: Aissatou puncture immediately after or during the administration of Metamizole may lead to falsely low results. Testing should be performed immediately prior to Metamizole dosing. Performed By: #### 3 084-1 #### CHEPE ARIAS (84938) [facility]) [address] [place] [address] 57868 XR FOOT LEFT 3+ VIEWS (STAND PINO)on [...] SatFeb 17, 2024 8:27:43 PM EDT Normal [facility] Comment on above: Order Comment: Injur y/Trauma or Illness?:Illness/Other How long have you had these symptoms (acute/chronic)?:Chronic Reason for exam?:pain History of cancer?:u Surgeries, chemotherapy, or radiation?:u Type of Exam?:Initial Additional signs and symptoms?:gout POCT SARS-COV-2/FLU/RSV PCR SYMPTOMATIC manually resultedOrdered By: Rosy Donahue on 01-17-2024 FLUAV RNA CATHERINE+probe Ql (Resp) Not detected Not Detected [facility] FLUBV RNA CATHERINE+probe Ql (Resp) Not detected Not Detected [facility] RSV RNA CATHERINE+probe Ql (Resp) Not detected Not Detected [facility] SARS-CoV-2 (COVID-19) RNA CATHERINE+probe Ql (Resp) Not detected Not Detected [facility] XR Chest 2 Viewson 4 1. No acute cardiopulmonary process. MACRO: None. Signed by: Janis Gonzales 01/17/2024 3:52 PM Dictation workstation: [id number] [facility] Interpreted By: Janis Gonzales, STUDY: Chest, 2 views. INDICATION: Signs/Symptoms:Cough and intermittent wheezing x 3 weeks. Minimal improvement despite course of prednisone and Zithromax.. COMPARISON: None. ACCESSION NUMBER(S): [id number] ORDERING CLINICIAN: EDVIN JAMES FINDINGS: The cardiomediastinal silhouette size is within normal limits. There is no focal consolidation, edema or pneumothorax. No sizeable pleural effusion. [facility] Janis Gonzales MD - 01/17/2024 Interpreted By: Janis Gonzales, STUDY: Chest, 2 views. INDICATION: Signs/Symptoms:Cough and intermittent wheezing x 3 weeks. Minimal improvement despite course of prednisone and Zithromax.. COMPARISON: None. ACCESSION NUMBER(S): [id number] ORDERING CLINICIAN: EDVIN JAMES FINDINGS: The cardiomediastinal silhouette size is within normal limits. There is no focal consolidation, edema or pneumothorax. No sizeable pleural effusion. IMPRESSION: 1. No acute cardiopulmonary process. MACRO: None. Signed by: Janis Gonzales 01/17/2024 3:52 PM Dictation workstation: [id number] [facility] Work Phone: Radiology Study observation (narrative) [facility] Work Phone: XR Chest 2 ViewsOrdered By: Janis Gonzales on 01-17-2024 [facility] Work Phone: B. burgdorferi DNA CATHERINE+probe Ql (Unsp spec)on 12-21-2023 Specimen source Nom (Unsp spec) Blood Normal [facility] Comment on above: Performed By: #### 4 991-6 #### [facility]) ([id number]) [address] [place] [address] Borrelia burgdorferi DNAon 0 12-21-2023 B. burgdorferi DNA CATHERINE+probe Ql (Unsp spec) Not detected Normal [facility] Comment on above: Result Comment: NOT DETECTED [...] developed and its performance characteristics determined by [facility]. It has not been cleared or approved by the [place] Food and Drug Administration. This test was performed in a CLIA certified laboratory and is intended for clinical purposes. Performed By: [facility] [address] [place] [address] Water Hauler: Nahum Schafer MD, PhD CLIA Number: [id number] Performed By: #### 4 991-6 #### [facility]) ([id number]) [address] [place] [address] Urateon 12-21-2023 Urate [Mass/Vol] 7.1 mg/dL Normal 4.0-7.5 [facility] Comment on above: Result Comment: Aissatou puncture immediately after or during the administration of Metamizole may lead to falsely low results. Testing should be performed immediately prior to Metamizole dosing. Performed By: #### 3 084-1 #### MO JUANA (29424) [facility]) [address] [place] [address] XR Foot - left 3 Viewson Findings [...] Gerardo Jiménez 12/07/2023 12:20 PM Dictation workstation: [id number] [facility] Interpreted By: Gerardo Mendenhall, STUDY: Left foot dated 12/07/2023. INDICATION: Signs/Symptoms:Left foot pain COMPARISON: None. ACCESSION NUMBER(S): [id number] ORDERING CLINICIAN: GERARDO ALCANTARA TECHNIQUE: Three views [...] of the 1st and 2nd tarsometatarsal articulations. Ahhd-vu-ebzmkbju degenerative changes seen of the 1st digit metatarsophalangeal joint. No ankle joint effusion is evident. Vascular calcifications are seen in the soft tissues. [facility] Gerardo Jiménez M D - 12/07/2023 Interpreted By: Gerardo Jiménez, STUDY: Left foot dated 12/07/2023. INDICATION: Signs/Symptoms:Left foot pain COMPARISON: None. ACCESSION NUMBER(S): [id number] ORDERING CLINICIAN: GERARDO ALCANTARA TECHNIQUE: Three views [...] of the 1st and 2nd tarsometatarsal articulations. Dbvy-yc-ndfnbhli degenerative changes seen of the 1st digit [...] Gerardo Jiménez 12/07/2023 12:20 PM Dictation workstation: [id number] [facility] Work Phone: Radiology Study observation (narrative) [facility] Work Phone: XR Foot - left 3 ViewsOrdere d By: Gerardo Jiménez on 12-07-2023 [facility] Work Phone: Comprehensive metabolic 2000 panelon 11-16-2023 Albumin BCP dye [Mass/Vol] 4.3 g/dL Normal 3.4-5.0 [facility] Comment on above: Performed By: #### 2 4323-8 #### [place] JUANA (59852) [facility]) [address] [place] [address] 82421 ALP [Catalytic activity/Vol] 80 U/L Normal 33-136 [facility] Comment on above: Performed By: #### 2 4323-8 #### OM JUANA (45031) [facility]) [address] [place] [address] 56064 ALT With P-5'-P [Catalytic activity/Vol] 16 U/L Normal 10-52 [facility] Comment on above: Result Comment: Rosibel ents treated with Sulfasalazine may generate falsely decreased results for ALT. Performed By: #### 2 4323-8 #### CHEPE ARIAS (70213) [facility]) [address] [place] [address] Anion gap [Moles/Vol] 12 mmol/L Normal 10-20 [facility] Comment on above: Performed By: #### 2 432-8 #### CHEPE ARIAS (37205) [facility]) [address] [place] [address] AST With P-5'-P [Catalytic activity/Vol] 18 U/L Normal 9-39 [facility] Comment on above: Performed By: #### 2 4322-8 #### CHEPE ARIAS (25414) [facility]) [address] [place] [address] Bilirubin [Mass/Vol] 0.8 mg/dL Normal 0.0-1.2 [facility] Comment on above: Performed By: #### 2 432-8 #### CHEPE ARIAS (85511) [facility]) [address] [place] [address] Calcium [Mass/Vol] 9.6 mg/dL Normal 8.6-10.3 [facility] Comment on above: Performed By: #### 2 4323-8 #### CHEPE ARIAS (55287) [facility]) [address] [place] [address] Chloride [Moles/Vol] 108 mmol/L High 98-107 [facility] Comment on above: Performed By: #### 2 432-8 #### CHEPE RAIAS (06532) [facility]) [address] [place] [address] CO2 [Moles/Vol] 25 mmol/L Normal 21-32 [facility] Comment on above: Performed By: #### 2 4323-8 #### CHEPE ARIAS (99507) [facility]) [facility] [place] [address] Creatinine [Mass/Vol] 1.11 mg/dL Normal 0.50-1.30 [facility] Comment on above: Performed By: #### 2 4323-8 #### CHEPE ARIAS (25569) [facility]) [address] [place] [address] 71606 Glomerular filtration rate/1.73 sq M.predicted 71 mL/min/1.73m*2 Normal >60 [facility] Comment on above: Result Comment: Calc ulations of estimated GFR are performed using the 2020 CKD-EPI Study Refit equation without the race variable for the IDMS-Traceable creatinine methods. https://jasn.asnjournals.org/content/early//ASN.05559 78306 Performed By: #### 2 4323-8 #### CHEPE ARIAS (21197) [facility] ([facility]) [address] [place] [address] 57991 Glucose [Mass/Vol] 105 mg/dL High 74-99 [facility] Comment on above: Performed By: #### 2 4323-8 #### CHEPE ARIAS (88619) [facility] ([facility]) [address] [place] [address] 55602 Potassium [Moles/Vol] 4.5 mmol/L Normal 3.5-5.3 [facility] Comment on above: Performed By: #### 2 4323-8 #### CHEPE ARIAS (31526) [facility] ([facility]) [address] [place] [address] 71051 Protein [Mass/Vol] 6.9 g/dL Normal 6.4-8.2 [facility] Comment on above: Performed By: #### 2 4323-8 #### CHEPE ARIAS (58853) [facility] ([facility]) [address] [place] [address] 80837 Sodium [Moles/Vol] 140 mmol/L Normal 136-145 [facility] Comment on above: Performed By: #### 2 4323-8 #### MO JUANA (80128) [facility] ([facility]) [address] [place] [address] 19388 Urea nitrogen [Mass/Vol] 20 mg/dL Normal 6- [facility] Comment on above: Performed By: #### 2 4323-8 #### MO JUANA ([id number]) [facility] ([facility]) [address] [place] [address] 52161 HbA1c (Bld) [Mass fraction]o n 11-16-2023 Average glucose Estimated from glycated hemoglobin (Bld) [Mass/Vol] 128 mg/dL Normal Not Established [facility] Comment on above: Order Comment: Diagn osis of Diabetes-Adults Non-Diabetic: < or = 5.6% Increased risk for developing diabetes: 5.7-6.4% Diagnostic of diabetes: > or = 6.5% Monitoring of Diabetes Age (y)....................... Therapeutic Goal (%) Adults: >18.........................<7.0 Pediatrics: 13-18...................<7.5 Pediatrics: 7-12....................<8.0 Pediatrics: 0-6..................... 7.5-8.5 [place] [employer]. Diabetes Care 33(S1), Jul 2009 Performed By: #### 4 548-4 #### LAYLA Gallo ([id number]) [facility] ([facility]) [address] [place] [address] 52717 Hemoglobin A1c/Hemoglobin.to kizzy 11-16-2023 HbA1c (Bld) [Mass fraction] 6.1 % High see below [facility] Comment on above: Order Comment: Diagn osis of Diabetes-Adults Non-Diabetic: < or = 5.6% Increased risk for developing diabetes: 5.7-6.4% Diagnostic of diabetes: > or = 6.5% Monitoring of Diabetes Age (y)....................... Therapeutic Goal (%) Adults: >18.........................<7.0 Pediatrics: 13-18...................<7.5 Pediatrics: 7-12....................<8.0 Pediatrics: 0-6..................... 7.5-8.5 [place] [employer]. Diabetes Care 33(S1), Jul 2009 Performed By: #### 4 548-4 #### LAYLA Gallo ([id number]) [facility] ([facility]) [address] [place] [address] Lipid 1996 panelon 4 Cholesterol [Mass/Vol] 173 mg/dL Normal 0-199 [facility] Comment on above: Result Comment: Age [...] dosing. Performed By: #### 2 4331-1 #### MO JUANA (76194) [facility] ([facility]) [address] [place] [address] Cholesterol in HDL [Mass/Vol] 53.0 mg/dL Normal [facility] Comment on above: Result Comment: Age Very Low Low Normal High 0-19 Y < 35 < 40 40-45 ---- 20-24 Y ---- < 40 >45 ---- >24 Y ---- < 40 40-60 >60 Performed By: #### 2 4331-1 #### CHEPE ARIAS (48796) [facility] ([facility]) [address] [place] [address] 00903 Cholesterol in LDL [Mass/Vol] 107 mg/dL High <=99 [facility] Comment on above: Result Comment: Near Borderline AGE Desirable Optimal High High Very High 0-19 Y 0 - 109 --- 110-129 >/= 130 ---- 20-24 Y 0 - 119 --- 120-159 >/= 160 ---- >24 Y 0 - 99 100-129 130-159 160-189 >/=190 Performed By: #### 2 4331-1 #### CHEPE ARIAS (92467) [facility] ([facility]) [address] [place] [address] 75872 Cholesterol in VLDL [Mass/Vol] 13 mg/dL Normal 0-40 [facility] Comment on above: Performed By: #### 2 4331-1 #### CHEPE ARIAS (08575) [facility] ([facility]) [address] [place] [address] 25661 CHOLESTEROL/HDL RATIO 3.3 Normal [facility] Comment on above: Result Comment: Ref Values Desirable < 3.4 High Risk > 5.0 Performed By: #### 2 4331-1 #### CHEPE ARIAS (63568) [facility] ([facility]) [address] [place] [address] 50073 NON HDL CHOLESTEROL 120 mg/dL Normal 0-149 [facility] Comment on above: Result Comment: Age Desirable Borderline High High Very High 0-19 Y 0 - 119 120 - 144 >/= 145 >/= 160 20-24 Y 0 - 149 150 - 189 >/= 190 ---- >24 Y 30 mg/dL above LDL Cholesterol goal Performed By: #### 2 4331-1 #### CHEPE ARIAS (42198) [facility] ([facility]) [address] [place] [address] 47433 Triglyceride [Mass/Vol] 67 mg/dL Normal 0-149 [facility] Comment on above: Result Comment: Age [...] By: #### 2 4331-1 #### CHEPE ARIAS (00192) [facility] ([facility]) [facility] [place] [address] Basophil percentageOrdered B y: Jeremy Escalante on 11-09-2023 Basophil percentage 7.20 ng/mL 0.0-4.0 [facility] Comment on above: This test was perfor med using the TPSA assay method for [employer] chemistry system. Values obtained with differentassay methods cannot be used interchangably.When changing PSA assays in the course of monitoring apatient, additional sequential testing should be carriedout to confirm baseline values. Comprehensive metabolic 2000 panelon 05-17-2023 Albumin BCP dye [Mass/Vol] 4.3 g/dL Normal 3.4-5.0 [facility] Comment on above: Performed By: #### 2 4323-8 #### CHEPE ARIAS (69535) [facility] ([facility]) [address] [place] [address] ALP [Catalytic activity/Vol] 78 U/L Normal 33-136 [facility] Comment on above: Performed By: #### 2 4323-8 #### CHEPE ARIAS (23773) [facility] ([facility]) [address] [place] [address] ALT With P-5'-P [Catalytic activity/Vol] 16 U/L Normal 10-52 [facility] Comment on above: Result Comment: Rosibel ents treated with Sulfasalazine may generate falsely decreased results for ALT. Performed By: #### 2 4323-8 #### CHEPE ARIAS (70382) [facility] ([facility]) [facility] [place] [address] Anion gap [Moles/Vol] 11 mmol/L Normal 10-20 [facility] Comment on above: Performed By: #### 2 4323-8 #### CHEPE ARIAS (38326) [facility] ([facility]) [address] [place] [address] 47960 AST With P-5'-P [Catalytic activity/Vol] 18 U/L Normal 9-39 [facility] Comment on above: Performed By: #### 2 432-8 #### CHEPE ARIAS (98137) [facility] ([facility]) [address] [place] [address] 36724 Bilirubin [Mass/Vol] 0.7 mg/dL Normal 0.0-1.2 [facility] Comment on above: Performed By: #### 2 432-8 #### CHEPE ARIAS (47941) [facility] ([facility]) [address] [place] [address] 54536 Calcium [Mass/Vol] 9.4 mg/dL Normal 8.6-10.3 [facility] Comment on above: Performed By: #### 2 4323-8 #### CHEPE ARIAS (38639) [facility] ([facility]) [address] [place] [address] 85153 Chloride [Moles/Vol] 108 mmol/L High 98-107 [facility] Comment on above: Performed By: #### 2 4323-8 #### CHEPE ARIAS (26185) [facility] ([facility]) [address] [place] [address] 30783 CO2 [Moles/Vol] 24 mmol/L Normal 21-32 [facility] Comment on above: Performed By: #### 2 4323-8 #### CHEPE ARIAS (36828) [facility] ([facility]) [address] [place] [address] 19040 Creatinine [Mass/Vol] 1.15 mg/dL Normal 0.50-1.30 [facility] Comment on above: Performed By: #### 2 432-8 #### CHEPE ARIAS (73315) [facility] ([facility]) [address] [place] [address] 09333 GFR/1.73 sq M.predicted MDRD (S/P/Bld) [Vol rate/Area] 69 mL/min/1.73m*2 Normal >60 [facility] Comment on above: Result Comment: Calc ulations of estimated GFR are performed using the 2020 CKD-EPI Study Refit equation without the race variable for the IDMS-Traceable creatinine methods. https://jasn.asnjournals.org/content/early//ASN.91888 81235 Performed By: #### 2 432-8 #### CHEPE ARIAS (37153) [facility] ([facility]) [address] [place] [address] 02777 Glucose [Mass/Vol] 104 mg/dL High 74-99 [facility] Comment on above: Performed By: #### 2 432-8 #### CHEPE ARIAS (78175) [facility] ([facility]) [address] [place] [address] 81874 Potassium [Moles/Vol] 4.2 mmol/L Normal 3.5-5.3 [facility] Comment on above: Performed By: #### 2 432-8 #### CHEPE ARIAS (76879) [facility] ([facility]) [address] [place] [address] 61944 Protein [Mass/Vol] 7.1 g/dL Normal 6.4-8.2 [facility] Comment on above: Performed By: #### 2 4323-8 #### CHEPE ARIAS (58578) [facility]) [address] [place] [address] 81597 Sodium [Moles/Vol] 139 mmol/L Normal 136-145 [facility] Comment on above: Performed By: #### 2 4323-8 #### CHEPE ARIAS (44007) [facility] ([facility]) [address] [place] [address] Urea nitrogen [Mass/Vol] 24 mg/dL High 6- [facility] Comment on above: Performed By: #### 2 4323-8 #### CHEPE ARIAS (06730) [facility] ([facility]) [address] [place] [address] HbA1c (Bld) [Mass fraction]o n 05-17-2023 Average glucose Estimated from glycated hemoglobin (Bld) [Mass/Vol] 131 mg/dL Normal Not Established [facility] Comment on above: Order Comment: Diagn osis of Diabetes-Adults Non-Diabetic: < or = 5.6% Increased risk for developing diabetes: 5.7-6.4% Diagnostic of diabetes: > or = 6.5% Monitoring of Diabetes Age (y)....................... Therapeutic Goal (%) Adults: >18.........................<7.0 Pediatrics: 13-18...................<7.5 Pediatrics: 7-12....................<8.0 Pediatrics: 0-6..................... 7.5-8.5 [place] [employer]. Diabetes Care 33(S1)Jul 2009 Performed By: #### 4 548-4 #### CEHPE ARIAS (53965) [facility] ([facility]) [address] [place] [address] Hemoglobin A1c/Hemoglobin.to kizzy 05-17-2023 HbA1c (Bld) [Mass fraction] 6.2 % High see below [facility] Comment on above: Order Comment: Diagn osis of Diabetes-Adults Non-Diabetic: < or = 5.6% Increased risk for developing diabetes: 5.7-6.4% Diagnostic of diabetes: > or = 6.5% Monitoring of Diabetes Age (y)....................... Therapeutic Goal (%) Adults: >18.........................<7.0 Pediatrics: 13-18...................<7.5 Pediatrics: 7-12....................<8.0 Pediatrics: 0-6..................... 7.5-8.5 [place] [employer]. Diabetes Care 33(S1), Jul 2009 Performed By: #### 4 548-4 #### CHEPE ARIAS (63134) [facility] ([facility]) [address] [place] [address] Prostate specific Agon 05-17 Prostate specific Ag [Mass/Vol] 5.56 ng/mL High <=4.00 [facility] Comment on above: Order Comment: The F DA requires that the method used for PSA assay be reported to the physician. Values obtained with different assay methods must not be used interchangeably. This test was performed at [facility] using the [employer] PSA assay is a two-site immunoenzymatic sandwich assay. The assay is approved for measurement of prostate-specific antigen (PSA)in serum and may be used in conjunction with a digital rectal examination in men 50 years and older as an aid in detection of prostate cancer. 1-Htyky-qtjlijpek inhibitors (e.g. Proscar, Finasteride, Avodart, Dutasteride and Aixa) for the treatment of BPH have been shown to lower PSA levels by an average of 50% after 6 months of treatment. Performed By: #### 2 857-1 #### CHEPE ARIAS (17910) [facility] ([facility]) [address] [place], [place] [address] COMPREHENSIVE PANELon 2022 Albumin [Mass/Vol] 4.2 g/dL Normal 3.4 - 5.0 [facility] Comment on above: Performed By: #### C MP #### [address] [address] ALP [Catalytic activity/Vol] 75 U/L Normal 33 - 136 [facility] Comment on above: Performed By: #### C MP #### [address] [address] ALT [Catalytic activity/Vol] 16 U/L Normal 10 - 52 [facility] Comment on above: Result Comment: Rosibel ents treated with Sulfasalazine may generate falsely decreased results for ALT. Performed By: #### C MP #### [address] [address] Anion gap [Moles/Vol] 10 mmol/L Normal 10 - 20 [facility] Comment on above: Performed By: #### C MP #### [address] [address] AST [Catalytic activity/Vol] 15 U/L Normal 9 - 39 [facility] Comment on above: Performed By: #### C MP #### [address] [address] Bilirubin [Mass/Vol] 0.7 mg/dL Normal 0.0 - 1.2 [facility] Comment on above: Performed By: #### C MP #### [address] [address] Calcium [Mass/Vol] 9.2 mg/dL Normal 8.6 - 10.3 [facility] Comment on above: Performed By: #### C MP #### [address] [address] Chloride [Moles/Vol] 108 mmol/L High 98 - 107 [facility] Comment on above: Performed By: #### C MP #### [address] [address] Creatinine [Mass/Vol] 1.13 mg/dL Normal 0.50 - 1.30 [facility] Comment on above: Performed By: #### C MP #### [address] [address] GFR/1.73 sq M.predicted among non-blacks MDRD (S/P/Bld) [Vol rate/Area] 70 mL/min/{1.73_m2} Normal >90 [facility] Comment on above: Result Comment: CALC ULATIONS OF ESTIMATED GFR ARE PERFORMED USING THE 2020 CKD-EPI STUDY REFIT EQUATION WITHOUT THE RACE VARIABLE FOR THE IDMS-TRACEABLE CREATININE METHODS. https://jasn.asnjournals.org/content//ASN.59085 81095 Performed By: #### C MP #### [address] [address] Glucose [Mass/Vol] 106 mg/dL High 74 - 99 [facility] Comment on above: Performed By: #### C MP #### [address] [address] HCO3 (Bld) [Moles/Vol] 26 mmol/L Normal 21 - 32 [facility] Comment on above: Performed By: #### C MP #### [address] [address] Potassium [Moles/Vol] 4.3 mmol/L Normal 3.5 - 5.3 [facility] Comment on above: Performed By: #### C MP #### [address] [address] Protein [Mass/Vol] 6.9 g/dL Normal 6.4 - 8.2 [facility] Comment on above: Performed By: #### C MP #### [address] [address] Sodium [Moles/Vol] 140 mmol/L Normal 136 - 145 [facility] Comment on above: Performed By: #### C MP #### [address] [address] Urea nitrogen [Mass/Vol] 19 mg/dL Normal 6 - 23 [facility] Comment on above: Performed By: #### C MP #### [address] [address] HEMOGLOBIN A1Con 11-17-2022 Glucose [Mass/Vol] 123 mg/dL Normal [facility] Comment on above: Performed By: #### H BA1E #### [facility] [address] [place] [address] HbA1c (Bld) [Mass fraction] 5.9 % Abnormal [facility] Comment on above: Result Comment: Diag nosis of Diabetes-Adults Non-Diabetic: < or = 5.6% Increased risk for developing diabetes: 5.7-6.4% Diagnostic of diabetes: > or = 6.5% . Monitoring of Diabetes Age (y) Therapeutic Goal (%) Adults: >18 <7.0 Pediatrics: 13-18 <7.5 7-12 <8.0 0- 6 7.5-8.5 [place] [employer]. Diabetes Care 33(S1), Jul 2009. Performed By: #### H BA1E #### [facility] [address] [place] [address] LIPID PANEL (CORONARY RISK 2 )on 11-17-2022 Cholesterol [Mass/Vol] 165 mg/dL Normal 0 - 199 [facility] Comment on above: Result Comment: . AGE [...] dosing. Performed By: #### L IPID #### [address] [address] Cholesterol in HDL [Mass/Vol] 54.0 mg/dL Normal [facility] Comment on above: Result Comment: . AGE VERY LOW LOW NORMAL HIGH 0-19 Y < 35 < 40 40-45 ---- 20-24 Y ---- < 40 >45 ---- >24 Y ---- < 40 40-60 >60 . Performed By: #### L IPID #### [address] [address] Cholesterol in LDL [Mass/Vol] 98 mg/dL Normal 0 - 99 [facility] Comment on above: Result Comment: . NEAR BORD AGE DESIRABLE OPTIMAL HIGH HIGH VERY HIGH 0-19 Y 0 - 109 --- 110-129 >/= 130 ---- 20-24 Y 0 - 119 --- 120-159 >/= 160 ---- >24 Y 0 - 99 100-129 130-159 160-189 >/=190 . Performed By: #### L IPID #### [address] [address] Cholesterol in VLDL [Mass/Vol] 13 mg/dL Normal 0 - 40 [facility] Comment on above: Performed By: #### L IPID #### [address] [address] Cholesterol.total/Chol esterol in HDL [Mass ratio] 3.1 {ratio} Normal [facility] Comment on above: Result Comment: REF VALUES DESIRABLE < 3.4 HIGH RISK > 5.0 Performed By: #### L IPID #### [address] [address] Triglyceride [Mass/Vol] 65 mg/dL Normal 0 - 149 [facility] Comment on above: Result Comment: . AGE [...] dosing. Performed By: #### L IPID #### [address] [address] Colonoscopyon 07-26-2022 Colonoscopy PATIENTNAME Patient Name: Kavon Stephens EXAMDATE Procedure Date: 07/26/2022 8:15 AM PATIENTID PATIENTACCOUNTNUM PATIENTDOB Date of : 1955 ADMITTYPE Admit Type: Outpatient PATIENTROOM Site: [facility] ETHNICITY Ethnicity: Not or RACE Race: White PROVDR Attending MD: Fabio Grace MD, [id number] ENDOPROCEDURENAME Procedure: Colonoscopy INDICATION Indications: High risk colon cancer surveillance: Personal history of colonic polyps PRIMARYPROVIDER Providers: Fabio Grace MD (Doctor), Sonali Hill RN (Nurse), Courtney Fernández, Analytical Engineer EDREFPROVIDER Referring: Fabio Grace MD CURRENT_MEDS Medicines: [...] scheduled. CPT_CODES Procedure Code(s): --- Professional --- 46092, Colonoscopy, flexible; with ablation of tumor(s), polyp(s), or other lesion(s) (includes pre- and post-dilation and guide wire passage, when performed) 39602, 59, Colonoscopy, flexible; with removal of tumor(s), polyp(s), or other lesion(s) by snare technique 69852, 59, Colonoscopy, flexible; with removal of tumor(s), polyp(s), or other le (more content not included)... Normal [facility] No Panel Informationon 07-26 [facility] Internal Medicine Work Phone: [email or web address] x?[email or web address]} [facility] Internal Medicine Work Phone: [facility] Surgical Pathology Depar tmenton 07-26-2022 [facility] Surgical Pathology Department Name KAVON STEPHENS Pathologist: Magdalene Paiz M.D. Date of Procedure: 07/26/2022 Date Received: 07/26/2022 Date Reported 08/01/2022 Submitting Physician: FABIO GRACE M.D. Location: [facility] Other External # FINAL DIAGNOSIS A. SIGMOID POLYP: --TUBULAR ADENOMA. B. TRANSVERSE POLYP: --TUBULAR ADENOMA. C. DESCENDING POLYP: --TUBULAR ADENOMA. D. RECTAL POLYP: -- HYPERPLASTIC POLYP. Electronically Signed Out By Magdalene Paiz M.D./[facility] By the signature on this report, the individual or group listed as making the Final Interpretation/Diagnosis certifies that they have reviewed this case. Diagnostic interpretation performed at [facility] [address] [id number] Clinical History: Physician Contact Number: [phone] Fixative (A): Formalin Fixative (B): Formalin Fixative [...] in toto in one cassette. [facility] rcc/07/27/2022 [facility] Department of Pathology [address] [place] [address] Normal [facility] Comment on above: Performed By: #### U [facility] #### [facility] Surgical Pathology Department [address] [facility] [address] Covid 19 Resultson 2 SARS-CoV-2 (COVID-19) RNA [...] also be contacted by the [facility] to see if any of your close [...] or Naproxen (Aleve) can also be used. Xvuc-uzl-nxuzklf cough and cold medicines can be used according to the instructions on the package. Some xsqp-qwe-tfssijo medicines also contain acetaminophen. Make sure you [...] water are not available, use alcohol-based hand foreclosure paralegal. Avoid touching your eyes, nose, and mouth [...] marco antonio (more content not included)... Normal [facility] INFLUENZA A/B, COVID 2019 PC R,SYMPTOMATICon 06-16-2022 INFLUENZA A, PCR Not detected Normal Not Detected [facility] Comment on above: Result Comment: Resp iratory virus testing is performed routinely by PCR for Influenza A/B and RSV. If Influenza and RSV PCR are negative, testing for parainfluenza 1,2,3 viruses and adenovirus is routinely performed for oncology inpatients and intensive care unit patients at [facility] and is available on request on other patients by calling Laboratory Client Services at [phone]. Not Detected results do not preclude Influenza A/B or RSV infections since the adequacy of sample collection or low viral burden may impact the clinical sensitivity of this test method. Performed By: #### C OINP #### [facility] [address] [place] [address] INFLUENZA B, PCR Not detected Normal Not Detected [facility] Comment on above: Result Comment: Resp iratory virus testing is performed routinely by PCR for Influenza A/B and RSV. If Influenza and RSV PCR are negative, testing for parainfluenza 1,2,3 viruses and adenovirus is routinely performed for oncology inpatients and intensive care unit patients at [facility] and is available on request on other patients by calling Laboratory Client Services at [phone] Not Detected results do not preclude Influenza A/B or RSV infections since the adequacy of sample collection or low viral burden may impact the clinical sensitivity of this test method. Performed By: #### C OINP #### [place] [address] SARS-CoV-2 (COVID-19) RNA CATHERINE+probe Ql (Unsp spec) Not detected Normal Not Detected [facility] Comment on above: Result Comment: . This assay is designed to detect the ORF1a/b and E genes of SARS-CoV-2 via nucleic acid amplification. A Not Detected result does not preclude 2019-nCoV infection since the adequacy of sample collection and/or low viral burden may result in presence of viral nucleic acids below the clinical sensitivity of this test method. Fact sheet for providers: https://www.fda.gov/media/302636/download Fact sheet for patients: https://www.fda.gov/media/826353/download This test has received FDA Emergency Use Authorization (EUA) and has been verified for use by [facility] ([facility]). This test is only authorized for the duration of time that circumstances exist to justify the authorization of the emergency use of in vitro diagnostic tests for the detection of SARS-CoV-2 virus and/or diagnosis of COVID-19 infection under section 564(b)(1) of the Act, 21 U.S.C. 360bbb-3(b)(1), unless the authorization is terminated or revoked sooner. [facility] is certified under CLIA-88 as qualified to perform high complexity testing. Testing is performed in the [facility] laboratories located at [address] [place] [address]. Performed By: #### C OINP #### [place] [address] INFLUENZA A/B, COVID 2019 PC R,SYMPTOMATICon 06-15-2022 Lab Specimen Source Nasal, Nasopharyngeal Normal [facility] Comment on above: Performed By: #### C OINP #### [place] [address] Provider Note - ED v3on 11-2 Provider Note - ED v3 Provider Note: Chart Review HISTORY OF PRESENTING ILLNESS KAVON is a 66 year old Male and was seen by me at 15-Jun-2022 13:36. The historian is the marry. Triage Information: Most recent Vital Sign Value [...] SIGNS: T PRBP SpO2O2(LPM) %FiO2 Method 15-Jun-2022 13:18:[id number] 97 MDM MDM/ED COURSE: This note was [...] and Aleve with some relief; no other wube-btq-lyopgxn medications or home remedies for symptom management. [...] Musculoskeletal: Grossly normal; appropriate for age. Integumentary: [place], warm, dry, and intact. No rashes or [...] use appropri (more content not included)... Normal [facility] Office Visit (Internal Medic ine)on 05-23-2022 Follow-up [...] HAD FLU VACCINE 2 WEEKS AGO AT [facility] History of Present IllnessHERE FOR F/U NO [...] 1 CAPSULE (more content not included)... Normal [employer] Tobacco Screening.on Adult depression screening assessment No [facility] Work Phone: Fall risk assessment a) No falls within the last year [facility] Work Phone: Tobacco use status CPHS b) No [facility] Work Phone: COMPREHENSIVE PANELon 2021 Albumin [Mass/Vol] 4.2 g/dL Normal 3.4 - 5.0 [facility] Comment on above: Performed By: #### C MP #### [address] [address] ALP [Catalytic activity/Vol] 70 U/L Normal 33 - 136 [facility] Comment on above: Performed By: #### C MP #### [address] [place] [address] ALT [Catalytic activity/Vol] 16 U/L Normal 10 - 52 [facility] Comment on above: Result Comment: Rosibel ents treated with Sulfasalazine may generate falsely decreased results for ALT. Performed By: #### C MP #### [address] [address] Anion gap [Moles/Vol] 11 mmol/L Normal 10 - 20 [facility] Comment on above: Performed By: #### C MP #### [address] [address] AST [Catalytic activity/Vol] 15 U/L Normal 9 - 39 [facility] Comment on above: Performed By: #### C MP #### [address] [address] Bilirubin [Mass/Vol] 0.8 mg/dL Normal 0.0 - 1.2 [facility] Comment on above: Performed By: #### C MP #### [address] [address] Calcium [Mass/Vol] 9.1 mg/dL Normal 8.6 - 10.3 [facility] Comment on above: Performed By: #### C MP #### [address] [address] Chloride [Moles/Vol] 108 mmol/L High 98 - 107 [facility] Comment on above: Performed By: #### C MP #### [address] [address] Creatinine [Mass/Vol] 1.07 mg/dL Normal 0.50 - 1.30 [facility] Comment on above: Performed By: #### C MP #### [address] [address] GFR/1.73 sq M.predicted among non-blacks MDRD (S/P/Bld) [Vol rate/Area] 75 mL/min/{1.73_m2} Normal >90 [facility] Comment on above: Result Comment: CALC ULATIONS OF ESTIMATED GFR ARE PERFORMED USING THE 2020 CKD-EPI STUDY REFIT EQUATION WITHOUT THE RACE VARIABLE FOR THE IDMS-TRACEABLE CREATININE METHODS. https://jasn.asnjournals.org/content//ASN.90413 60231 Performed By: #### C MP #### [address] [address] Glucose [Mass/Vol] 99 mg/dL Normal 74 - 99 [facility] Comment on above: Performed By: #### C MP #### [address] [address] HCO3 (Bld) [Moles/Vol] 26 mmol/L Normal 21 - 32 [facility] Comment on above: Performed By: #### C MP #### [address] [address] Potassium [Moles/Vol] 4.4 mmol/L Normal 3.5 - 5.3 [facility] Comment on above: Performed By: #### C MP #### [address] [address] Protein [Mass/Vol] 6.8 g/dL Normal 6.4 - 8.2 [facility] Comment on above: Performed By: #### C MP #### [address] [address] Sodium [Moles/Vol] 141 mmol/L Normal 136 - 145 [facility] Comment on above: Performed By: #### C MP #### [address] [address] Urea nitrogen [Mass/Vol] 18 mg/dL Normal 6 - 23 [facility] Comment on above: Performed By: #### C MP #### [address] [address] HEMOGLOBIN A1Con 05-14-2022 Glucose [Mass/Vol] 123 mg/dL Normal [facility] Comment on above: Performed By: #### H BA1E #### [address] [address] HbA1c (Bld) [Mass fraction] 5.9 % Abnormal [facility] Comment on above: Result Comment: Diag nosis of Diabetes-Adults Non-Diabetic: < or = 5.6% Increased risk for developing diabetes: 5.7-6.4% Diagnostic of diabetes: > or = 6.5% . Monitoring of Diabetes Age (y) Therapeutic Goal (%) Adults: >18 <7.0 Pediatrics: 13-18 <7.5 7-12 <8.0 0- 6 7.5-8.5 [place]. Diabetes Care 33(S1), Jul 2009. Performed By: #### H BA1E #### [facility] [address] [id number] Hemoglobin A1Con 05-14-2022 Glucose [Mass/Vol] 123 mg/dL [facility] Work Phone: [phone] HbA1c (Bld) [Mass fraction] 5.9 % Abnormal [facility] Work Phone: Comment on above: Diagnosis of Diabete s-Adults Non-Diabetic: < or = 5.6% Increased risk for developing diabetes: 5.7-6.4% Diagnostic of diabetes: > or = 6.5%. Monitoring of Diabetes Age (y) Therapeutic Goal (%) Adults: >18 <7.0 Pediatrics: 13-18 <7.5 7-12 <8.0 0- 6 7.5-8.5 [place] [employer]. Diabetes Care 33(S1), Jul 2009. Laboratory - Chemistry and C hemistry - challengeon 05-14-2022 Albumin BCP dye [Mass/Vol] 4.2 g/dL 3.4 - 5.0 [facility] Work Phone: [phone] ALP [Catalytic activity/Vol] 70 U/L 33 - 136 [facility] Work Phone: [phone] ALT With P-5'-P [Catalytic activity/Vol] 16 U/L 10 - 52 [facility] Work Phone: Comment on above: Patients treated wit h Sulfasalazine may generate falsely decreased results for ALT. Anion gap [Moles/Vol] 11 mmol/L 10 - 20 [facility] Work Phone: [phone] AST With P-5'-P [Catalytic activity/Vol] 15 U/L 9 - 39 [facility] Work Phone: Bilirubin [Mass/Vol] 0.8 mg/dL 0.0 - 1.2 [facility] Work Phone: Calcium [Mass/Vol] 9.1 mg/dL 8.6 - 10.3 [facility] Work Phone: Chloride [Moles/Vol] 108 mmol/L above high threshold 98 - 107 [facility] Work Phone: CO2 [Moles/Vol] 26 mmol/L 21 - 32 [facility] Work Phone: Creatinine [Mass/Vol] 1.07 mg/dL See Below [facility] Work Phone: Comment on above: Reference Range: 0.5 0 - 1.30 Glucose [Mass/Vol] 99 mg/dL 74 - 99 [facility] Work Phone: Potassium [Moles/Vol] 4.4 mmol/L 3.5 - 5.3 [facility] Work Phone: Protein [Mass/Vol] 6.8 g/dL 6.4 - 8.2 [facility] Work Phone: Sodium [Moles/Vol] 141 mmol/L 136 - 145 [facility] Work Phone: Urea nitrogen [Mass/Vol] 18 mg/dL 6 - 23 [facility] Work Phone: No Panel Informationon 05-14 75 {mL/min/1.73m2} >90 [facility] Work Phone: Comment on above: CALCULATIONS OF [place] MATED GFR ARE PERFORMED USING THE 2020 CKD-EPI STUDY REFIT EQUATION WITHOUT THE RACE VARIABLE FOR THE IDMS-TRACEABLE CREATININE METHODS.https://jasn.asnjournals.org/content/early/A SN.8653418463 PROSTATE SPEC.AG,SCREENon PROSTATE SPEC.AG,SCREEN 3.83 ng/mL Normal 0.00 - 4.00 [facility] Comment on above: Result Comment: The FDA requires that the method used for PSA assay be reported to the physician. Values obtained with different assay methods must not be used interchangeably. This test was performed at [facility] using the [employer] PSA assay is a two-site immunoenzymatic sandwich assay. The assay is approved for measurement of prostate-specific antigen (PSA)in serum and may be used in conjunction with a digital rectal examination in men 50 years and older as an aid in detection of prostate cancer. 6-Xynqh-nlhzydbwg inhibitors (e.g. Proscar, Finasteride, Avodart, Dutasteride and Aixa) for the treatment of BPH have been shown to lower PSA levels by an average of 50% after 6 months of treatment. Performed By: #### [facility] #### [address] [place] [address] Prostate Spec.Ag, Screenon 1 Prostate specific Ag [Mass/Vol] 3.83 ng/mL See Below [facility] Work Phone: Comment on above: Reference Range: 0.0 0 - 4.00The FDA requires that the method used for PSA assay be reported to the physician. Values obtained with different assay methods must not be used interchangeably. This testwas performed at [facility] using the [employer] PSA assay is a two-site immunoenzymatic sandwich assay. The assay is approved for measurement of prostate-specific antigen (PSA)in serum and may be used in conjunction with a digital rectal examination in men 50 years and older as an aid in detection of prostate cancer.2-Ckqyw-bxcdwurzb inhibitors (e.g. Proscar, Finasteride, Avodart, Dutasteride and Aixa) for the treatment of BPH have been shown to lower PSA levels by an average of 50% after 6 months of treatment. No Panel Informationon 10-05 Prostate Specific Antigen Screen 1.46 ng/mL 0.00-4.00 [facility] Work Phone: Comment on above: This test was perfor med using the TPSA assay method for [employer] system. Values obtained with differentassay methods cannot [...] Resolved D (more content not included)... Normal [employer] Tobacco Screening.on 022 Fall risk assessment a) No falls within the last year [facility] Work Phone: Tobacco use status CPHS b) No [facility] Work Phone: Office Visit (Internal Medic ine)on 06-29-2021 Follow-up visit Diagnoses/Problems Assessed Lump of skin (782.2) (R22.9) Orders Lump of skin Start: Amoxicillin-Pot Clavulanate 875-125 MG Oral Tablet; 1 tab bid for 10 days Rx By: Natasha Dong; Dispense: 10 Days ; #:20 Tablet; Refill: 0;For: Lump of skin; OSMANI = N; [facility]; Last Updated By: SystemLecere; 06/29/2021 4:32:43 PM Patient Discussion/Summary F/U BEFORE [...] TO FACE ENCOUNTER OBTAINING HISTORY FROM THE PATIENT/FAMILY/CAREGIVER S; PERFORMING EVALUATION AND EXAMINATION; ORDERING TESTS OR PROCEDURES; REFERRING AND COMMUNICATING WITH OTHER HEALTHCARE PROVIDERS; COUNSELING AND EDUCATION OF THE PATIENT/FAMILY/CAREGIVER S; INDEPENDENTLY INTERPRETING RESULTS (TESTS, LABS, PROCEDURES, IMAGING) AND COMMUNICATING AND EXPLAINING RESULTS TO THE PATIENT/FAMILY/CAREGIVER S 3. COORDINATION OF CARE; PREPARING AND PRINTING DISCHARGE INSTRUCTIONS AND ANY EDUCATIONAL MATERIAL FOR THE PATIENT/FAMILY/CAREGIVER S. DOCUMENTING CLINICAL INFORMATION IN THE ELECTRONIC MEDICAL [...] prostate c (more content not included)... Normal [employer] Tobacco Screening.on 021 Fall risk assessment a) No falls within the last year [facility] Work Phone: Tobacco use status CPHS b) No [facility] Work Phone: Office Visit (Internal [...] Allergic rhinitis; OSMANI = N; Sent To: [facility] Patient Discussion/Summary F/U 4 MO CMP HGA1C [...] Meds Medicat (more content not included)... Normal [employer] Tobacco Screening.on 021 Fall risk assessment a) No falls within the last year [facility] Work Phone: Tobacco use status CP b) No [facility] Work Phone: Hemoglobin A1Con 05-19-2021 Glucose [Mass/Vol] 128 mg/dL [facility] Work Phone: HbA1c (Bld) [Mass fraction] 6.1 % Abnormal [facility] Work Phone: Comment on above: Diagnosis of Diabete s-Adults Non-Diabetic: < or = 5.6% Increased risk for developing diabetes: 5.7-6.4% Diagnostic of diabetes: > or = 6.5%. Monitoring of Diabetes Age (y) Therapeutic Goal (%) Adults: >18 <7.0 Pediatrics: 13-18 <7.5 7-12 <8.0 0- 6 7.5-8.5 [place] [employer]. Diabetes Care 33(S1), Jul 2009. Laboratory - Chemistry and C hemistry - challengeon 05-19-2021 Albumin BCP dye [Mass/Vol] 3.9 g/dL 3.4 - 5.0 [facility] Work Phone: ALP [Catalytic activity/Vol] 69 U/L 33 - 136 [facility] Work Phone: ALT With P-5'-P [Catalytic activity/Vol] 14 U/L 10 - 52 [facility] Work Phone: Comment on above: Patients treated wit h Sulfasalazine may generate falsely decreased results for ALT. Anion gap [Moles/Vol] 10 mmol/L 10 - 20 [facility] Work Phone: AST With P-5'-P [Catalytic activity/Vol] 15 U/L 9 - 39 [facility] Work Phone: Bilirubin [Mass/Vol] 0.4 mg/dL 0.0 - 1.2 [facility] Internal [facility] Work Phone: [phone] Calcium [Mass/Vol] 9.2 mg/dL 8.6 - 10.3 [facility] Work Phone: Chloride [Moles/Vol] 107 mmol/L 98 - 107 [facility] Work Phone: CO2 [Moles/Vol] 28 mmol/L 21 - 32 [facility] Work Phone: Creatinine [Mass/Vol] 1.12 mg/dL See Below [facility] Work Phone: Comment on above: Reference Range: 0.5 0 - 1.30 Glucose [Mass/Vol] 102 mg/dL above high threshold 74 - 99 [facility] Work Phone: Potassium [Moles/Vol] 4.5 mmol/L 3.5 - 5.3 [facility] Work Phone: Protein [Mass/Vol] 6.7 g/dL 6.4 - 8.2 [facility] Work Phone: Sodium [Moles/Vol] 140 mmol/L 136 - 145 [facility] Work Phone: Urea nitrogen [Mass/Vol] 16 mg/dL 6 - 23 [facility] Work Phone: No Panel Informationon 05-19 >60 >60 [facility] Work Phone: Comment on above: CALCULATIONS OF [place] MATED GFR ARE PERFORMED USING THE MDRD STUDY EQUATION FOR THE IDMS-TRACEABLE CREATININE METHODS. CLIN CHEM 2007;53:766-72 Ultrasound AAA Screening Rad iologyon 02-08-2021 Ultrasound AAA Screening Radiology Normal [facility] Work Phone: Tobacco Screening.on 021 Fall risk assessment a) No falls within the last year [facility] Work Phone: Tobacco use status CPHS b) No [facility] Work Phone: Hemoglobin A1Con 01-20-2021 Glucose [Mass/Vol] 131 mg/dL [facility] Work Phone: HbA1c (Bld) [Mass fraction] 6.2 % [facility] Work Phone: Comment on above: Diagnosis of Diabete s-Adults Non-Diabetic: < or = 5.6% Increased risk for developing diabetes: 5.7-6.4% Diagnostic of diabetes: > or = 6.5%. Monitoring of Diabetes Age (y) Therapeutic Goal (%) Adults: >18 <7.0 Pediatrics: 13-18 <7.5 7-12 <8.0 0- 6 7.5-8.5 [place] [employer]. Diabetes Care 33(S1), Jul 2009. Laboratory - Chemistry and C hemistry - challengeon 01-20-2021 Albumin BCP dye [Mass/Vol] 4.4 g/dL 3.4 - 5.0 [facility] Work Phone: ALP [Catalytic activity/Vol] 66 U/L 33 - 136 [facility] Work Phone: [phone] ALT With P-5'-P [Catalytic activity/Vol] 17 U/L 10 - 52 [facility] Work Phone: Comment on above: Patients treated wit h Sulfasalazine may generate falsely decreased results for ALT. Anion gap [Moles/Vol] 9 mmol/L below low threshold 10 - 20 [facility] Work Phone: [phone] AST With P-5'-P [Catalytic activity/Vol] 16 U/L 9 - 39 [facility] Work Phone: [phone] Bilirubin [Mass/Vol] 0.7 mg/dL 0.0 - 1.2 [facility] Work Phone: [phone] Calcium [Mass/Vol] 9.3 mg/dL 8.6 - 10.3 [facility] Work Phone: [phone] Chloride [Moles/Vol] 106 mmol/L 98 - 107 [facility] Internal [facility] Work Phone: [phone] CO2 [Moles/Vol] 28 mmol/L 21 - 32 [facility] Work Phone: [phone] Creatinine [Mass/Vol] 1.28 mg/dL See Below [facility] Work Phone: Comment on above: Reference Range: 0.5 0 - 1.30 Glucose [Mass/Vol] 117 mg/dL above high threshold 74 - 99 [facility] Work Phone: Potassium [Moles/Vol] 4.3 mmol/L 3.5 - 5.3 [facility] Work Phone: [phone] Protein [Mass/Vol] 7.2 g/dL 6.4 - 8.2 [facility] Work Phone: [phone] Sodium [Moles/Vol] 139 mmol/L 136 - 145 [facility] Work Phone: Urea nitrogen [Mass/Vol] 22 mg/dL 6 - 23 [facility] Work Phone: No Panel Informationon 01-20 68 {mL/min/1.73m2} >60 [facility] Work Phone: Comment on above: CALCULATIONS OF DAK[place] MATED GFR ARE PERFORMED USING THE MDRD STUDY EQUATION FOR THE IDMS-TRACEABLE CREATININE METHODS. CLIN CHEM 2007;53:766-72 56 {mL/min/1.73m2} Abnormal >60 [facility] Work Phone: Prostate Spec.Ag, Screenon 0 01-20-2021 Prostate specific Ag [Mass/Vol] 2.24 ng/mL See Below [facility] Work Phone: Comment on above: Reference Range: 0.0 0 - 4.00The FDA requires that the method used for PSA assay be reported to the physician. Values obtained with different assay methods must not be used interchangeably. This testwas performed at [facility] using the [employer] PSA assay is a two-site immunoenzymatic sandwich assay. The assay is approved for measurement of prostate-specific antigen (PSA)in serum and may be used in conjunction with a digital rectal examination in men 50 years and older as an aid in detection of prostate cancer.0-Vwttc-aifsfjrvx inhibitors (e.g. Proscar, Finasteride, Avodart, Dutasteride and Aixa) for the treatment of BPH have been shown to lower PSA levels by an average of 50% after 6 months of treatment. PROGRESSon 08-31-2019 PROGRESS HNO ID: [id number] Author: Jazmin Rust Service: ? Author Type: [...] MD, August 31, 2019 5:24 PM. Normal [facility] Otheron 07-31-2019 XR Knee 1 or 2 views Please click on the link to view the study images Normal [facility] Work Phone: XR Knee 1 or 2 views Interpreted by: EOKXFP89/12/20 06:49MRN: [id number] Name: KAVON STEPHENS STUDY:KNEE; 1 OR 2 VIEWS; 07/31/2019 9:39 am INDICATION:left knee pain. COMPARISON:None. ORDERING CLINICIAN:FABIO GRACE FINDINGS:Left knee, 2 views There is no fracture. There is no dislocation. No significantdegenerative changes seen. There is no joint effusion. IMPRESSION:Unremarkable radiographs of the left knee Electronically signed by: HORACIO 08/02/19 06:49 Normal [facility] Work Phone: Comment on above: ORDER REVISED TO A K NEE 1 OR 2 VIEWS BY RADIOLOGIST Uric Acid, Serumon 0 Urate [Mass/Vol] 7.3 mg/dL 4.0 - 7.5 [facility] Internal Medicine Work Phone: Comment on above: Venipuncture immedia tely after or during the administration of Metamizole may lead to falsely low results. Testing should be performed immediately prior to Metamizole dosing. CMPon 03-31-2019 Albumin [Mass/Vol] 4.4 g/dL Normal 3.4-5.0 [facility] Comment on above: Performed By: #### 2 [id number] #### [employer] [address] [place] [address] Albumin/Globulin [Mass ratio] 1.6 {ratio} Normal 1.1-1.9 [facility] Comment on above: Performed By: #### 2 [id number] #### [employer] [address] [place] [address] Alk Phos 63 Int._Unit/L Normal 33-136 [facility] Comment on above: Performed By: #### 2 [id number] #### [employer] [address] [place] [address] ALT [Catalytic activity/Vol] 27 Int._Unit/L Normal 10-52 [facility] Comment on above: Performed By: #### 2 [id number] #### [employer] [address] [place] [address] Anion gap [Moles/Vol] 11 mmol/L Normal 10-[address] [facility] Comment on above: Performed By: #### 2 [id number] #### [facility] [employer] [address] [place] [address] AST [Catalytic activity/Vol] 20 Int._Unit/L Normal 9-39 [facility] Comment on above: Performed By: #### 2 [id number] #### [employer] [address] [place] [address] Bili Total 0.71 mg/dL Normal 0.00-1.20 [facility] Comment on above: Performed By: #### 2 [id number] #### [employer] [address] [place] [address] Calcium [Mass/Vol] 9.3 mg/dL Normal 8.6-10.3 [facility] Comment on above: Performed By: #### 2 [id number] #### [employer] [address] [place] [address] Chloride [Moles/Vol] 108 mmol/L High 98-107 [facility] Comment on above: Performed By: #### 2 [id number] #### [employer] [address] [place] [address] CO2 [Moles/Vol] 26.0 mmol/L Normal 21.0-32.[address] [facility] Comment on above: Performed By: #### 2 106152 #### [employer] [address] [place] [address] Creatinine [Mass/Vol] 1.1 mg/dL Normal 0.5-1.[address] [facility] Comment on above: Performed By: #### 2 [id number] #### [employer] [address] [place] [address] Globulin (S) [Mass/Vol] 3.0 g/dL Normal 2.0-4.0 [facility] Comment on above: Performed By: #### 2 [id number] #### [employer] [address] [place] [address] Glucose [Mass/Vol] 122 mg/dL High 70-99 [facility] Comment on above: Performed By: #### 2 [id number] #### [employer] [address] [place] [address] Potassium [Moles/Vol] 4.3 mmol/L Normal 3.5-5.[address] [facility] Comment on above: Performed By: #### 2 [id number] #### [employer] [address] [place] [address] Protein [Mass/Vol] 7.1 g/dL Normal 6.4-8.2 [facility] Comment on above: Performed By: #### 2 [id number] #### [employer] [address] [place] [address] Sodium [Moles/Vol] 141 mmol/L Normal 136-145 [facility] Comment on above: Performed By: #### 2 995149 #### [employer] [address] [place] [address] Urea nitrogen [Mass/Vol] 19 mg/dL Normal 6-23 [facility] Comment on above: Performed By: #### 2 [id number] #### [employer] [address] [place] [address] Urea nitrogen/Creatinine [Mass ratio] 17.3 ratio Normal 5.4-30.0 [facility] Comment on above: Performed By: #### 2 [id number] #### [employer] [address] [place] [address] [id number] 03-31-2019 HbA1c (Bld) [Mass fraction] 6.3 % Normal 4.0-6.3 [facility] Comment on above: Performed By: #### 3 [id number] #### [employer] Chemistry Manual Subsection [address] [place], [place] [id number] eGFRon 03-31-2019 GFR/1.73 sq M predicted among non-blacks MDRD (S/P/Bld) [Vol rate/Area] mL/min/{1.73_m2} Normal [facility] Comment on above: Order Comment: Order added by Discern Expert. Performed By: #### 1 [id number] #### [employer] [address] [place], [place] [id number] CMPon 11-15-2018 Albumin [Mass/Vol] 4.3 g/dL Normal 3.4-5.0 [facility] Comment on above: Performed By: #### 2 [id number] #### [employer] [address] [place] [address] Albumin/Globulin [Mass ratio] 1.9 {ratio} Normal 1.1-1.9 [facility] Comment on above: Performed By: #### 2 [id number] #### [employer] [address] [place] [address] Alk Phos 70 Int._Unit/L Normal 33-136 [facility] Comment on above: Performed By: #### 2 [id number] #### [employer] [address] [place] [address] ALT [Catalytic activity/Vol] 25 Int._Unit/L Normal 10-52 [facility] Comment on above: Performed By: #### 2 [id number] #### [employer] [address] [place] [address] Anion gap [Moles/Vol] 10 mmol/L Normal 10-[address] [facility] Comment on above: Performed By: #### 2 [id number] #### [employer] [address] [address] AST [Catalytic activity/Vol] 18 Int._Unit/L Normal 9-39 [facility] Comment on above: Performed By: #### 2 [id number] #### [facility] [address] [place] [address] Bili Total 0.81 mg/dL Normal 0.00-1.20 [facility] Comment on above: Performed By: #### 2 645380 #### [employer] [facility] [place] [address] Calcium [Mass/Vol] 9.2 mg/dL Normal 8.6-10.3 [facility] Comment on above: Performed By: #### 2 266127 #### [employer] [address] [place] [address] Chloride [Moles/Vol] 108 mmol/L High 98-107 [facility] Comment on above: Performed By: #### 2 [id number] #### [employer] [facility] [place] [address] CO2 [Moles/Vol] 26.0 mmol/L Normal 21.0-32.[address] [facility] Comment on above: Performed By: #### 2 888491 #### [employer] [address] [place] [address] Creatinine [Mass/Vol] 1.1 mg/dL Normal 0.5-1.[address] [facility] Comment on above: Performed By: #### 2 [id number] #### ALEX [employer] [facility] [place] [address] Globulin (S) [Mass/Vol] 2.0 g/dL Normal 2.0-4.0 [facility] Comment on above: Performed By: #### 2 [id number] #### ALEX [employer] [address] [place] [address] Glucose [Mass/Vol] 114 mg/dL High 70-99 [facility] Comment on above: Performed By: #### 2 [id number] #### ALEX [employer] [address] [place] [address] Potassium [Moles/Vol] 4.0 mmol/L Normal 3.5-5.[address] [facility] Comment on above: Performed By: #### 2 [id number] #### [employer]LEX [employer] [address] [place] [address] Protein [Mass/Vol] 6.6 g/dL Normal 6.4-8.2 [facility] Comment on above: Performed By: #### 2 [id number] #### [employer]LEX [employer] [address] [place] [address] Sodium [Moles/Vol] 140 mmol/L Normal 136-145 [facility] Comment on above: Performed By: #### 2 [id number] #### [employer]LEX [employer] [address] [place] [address] Urea nitrogen [Mass/Vol] 21 mg/dL Normal 6-23 [facility] Comment on above: Performed By: #### 2 [id number] #### [employer]LEX [employer] [address] [place] [address] Urea nitrogen/Creatinine [Mass ratio] 19.1 ratio Normal 5.4-30.0 [facility] Comment on above: Performed By: #### 2 [id number] #### ALEX [employer] [address] [place] [address] [id number] 11-15-2018 HbA1c (Bld) [Mass fraction] 6.3 % Normal 4.0-6.3 [facility] Comment on above: Performed By: #### 3 [id number] #### ALEX Chemistry Manual Subsection [address] [place] [address] Microalb/Creat Ratioon 11-15 Creatinine [Mass/Vol] 70 ug/mg High 0-[address] [facility] Comment on above: Performed By: #### 1 [id number] #### [employer]LEX [employer] [address] [place] [address] Creatinine [Mass/Vol] 97.0 mg/dL Normal 20.0-300.[address] [facility] Comment on above: Performed By: #### 1 [id number] #### ALEX [employer] [address] [place] [address] Ur Microalbumin 6.8 mg/dL High 0.0-1.9 [facility] Comment on above: Performed By: #### 1 [id number] #### ALEX [employer] [address] [place], [place] [address] eGFRon 11-15-2018 GFR/1.73 sq M predicted among non-blacks MDRD (S/P/Bld) [Vol rate/Area] mL/min/{1.73_m2} Normal [facility] Comment on above: Order Comment: Order added by Discern Expert. Performed By: #### 1 [id number] #### [facility] [employer] [address] [place], [place] [id number] CMPon 08-09-2018 Albumin [Mass/Vol] 4.3 g/dL Normal 3.4-5.0 [facility] Comment on above: Performed By: #### 2 [id number] #### [facility] [employer] [address] [place], [place] [id number] Albumin/Globulin [Mass ratio] 1.6 {ratio} Normal 1.1-1.9 [facility] Comment on above: Performed By: #### 2 [id number] #### [facility] [employer] [address] [place] [address] Alk Phos 70 Int._Unit/L Normal 33-136 [facility] Comment on above: Performed By: #### 2 [id number] #### [facility] [employer] [address] [place] [address]45 ALT [Catalytic activity/Vol] 32 Int._Unit/L Normal 10-52 [facility] Comment on above: Performed By: #### 2 [id number] #### [employer]LEX [employer] [address] [place] [address] Anion gap [Moles/Vol] 11 mmol/L Normal 10-[address] [facility] Comment on above: Performed By: #### 2 [id number] #### [employer]LEX [employer] [address] [place] [address] 89483 AST [Catalytic activity/Vol] 22 Int._Unit/L Normal 9-39 [facility] Comment on above: Performed By: #### 2 [id number] #### [facility] [employer] [address] [place] [address] 739[address] Bili Total 0.90 mg/dL Normal 0.00-1.20 [facility] Comment on above: Performed By: #### 2 [id number] #### [employer] [address] [place] [address] Calcium [Mass/Vol] 9.3 mg/dL Normal 8.6-10.3 [facility] Comment on above: Performed By: #### 2 [id number] #### [facility] [employer] [address] [place] [address]25[address] Chloride [Moles/Vol] 108 mmol/L High 98-107 [facility] Comment on above: Performed By: #### 2 [id number] #### [employer]LEX [employer] [address] [place] [address] CO2 [Moles/Vol] 26.0 mmol/L Normal 21.0-32.[address] [facility] Comment on above: Performed By: #### 2 [id number] #### [facility] [employer] [address] [place] [address] Creatinine [Mass/Vol] 1.2 mg/dL Normal 0.5-1.[address] [facility] Comment on above: Performed By: #### 2 [id number] #### [facility] [employer] [address] [place] [address] Globulin (S) [Mass/Vol] 3.0 g/dL Normal 2.0-4.0 [facility] Comment on above: Performed By: #### 2 [id number] #### [facility] [employer] [address] [place] [address] Glucose [Mass/Vol] 118 mg/dL High 70-99 [facility] Comment on above: Performed By: #### 2 [id number] #### [facility] [employer] [address] [place] [address] Potassium [Moles/Vol] 4.2 mmol/L Normal 3.5-5.[address] [facility] Comment on above: Performed By: #### 2 [id number] #### [facility] [employer] [address] [place] [address] 73065 Protein [Mass/Vol] 7.0 g/dL Normal 6.4-8.2 [facility] Comment on above: Performed By: #### 2 [id number] #### [employer] [address] [place] [address] Sodium [Moles/Vol] 141 mmol/L Normal 136-145 [facility] Comment on above: Performed By: #### 2 [id number] #### [employer] [facility] [place] [address] Urea nitrogen [Mass/Vol] 22 mg/dL Normal 6-23 [facility] Comment on above: Performed By: #### 2 [id number] #### [employer] [address] [place] [address]75[address] Urea nitrogen/Creatinine [Mass ratio] 18.3 ratio Normal 5.4-30.0 [facility] Comment on above: Performed By: #### 2 [id number] #### [employer]LEX [employer] [address] [place] [address] [id number] 08-09-2018 HbA1c (Bld) [Mass fraction] 6.3 % Normal 4.0-6.3 [facility] Comment on above: Performed By: #### 3 [id number] #### ALEX Chemistry Manual Subsection [address] [place] [address] eGFRon 08-09-2018 GFR/1.73 sq M predicted among non-blacks MDRD (S/P/Bld) [Vol rate/Area] mL/min/{1.73_m2} Normal [facility] Comment on above: Order Comment: Order added by Discern Expert. Performed By: #### 1 [id number] #### [employer] [address] [place], [place] [address] Vital Signs Date Time Vital Sign Value Performing Clinician Facility 04-27-2025 15:53-0400 Body height 190.5 cm Fabio Grace MD Work Phone: [facility] 04-27-2025 15:53-0400 Body mass index (BMI) [Ratio] 28.12 kg/m2 Fabio Grace MD Work Phone: [facility] 04-27-2025 15:53-0400 Body weight 102.06 kg Fabio Grace MD Work Phone: [facility] 04-27-2025 15:53-0400 Diastolic blood pressure 87 mm[Hg] Fabio Grace MD Work Phone: [facility] 04-27-2025 15:53-0400 Heart rate 73 /min Fabio Grace MD Work Phone: [facility] 04-27-2025 15:53-0400 Systolic blood pressure 145 mm[Hg] Fabio Grace MD Work Phone: [facility] 03-07-2025 17:13-0400 Body temperature 98.1 [degF] Dr. Fabio Grace MD Work Phone: [facility] 03-07-2025 17:13-0400 Diastolic blood pressure 100 mm[Hg] Dr. Fabio Grace MD Work Phone: 5(398)467-783690 [place] [address] 03-07-2025 17:13-0400 Heart rate 83 /min Dr. Fabio Grace MD Work Phone: 0(768)956-540490 [place] [address] 03-07-2025 17:13-0400 Respiratory rate 17 /min Dr. Fabio Grace MD Work Phone: 5(268)587-140890 [place] [address] 03-07-2025 17:13-0400 SaO2% (BldA) [Mass fraction] 97 % Dr. Fabio Grace MD Work Phone: 6(183)208-986890 [place] [address] 03-07-2025 17:13-0400 Systolic blood pressure 178 mm[Hg] Dr. Fabio Grace MD Work Phone: 8(144)524-141990 [place] [address] 03-07-2025 13:10-0400 Body height 190.[address] Fabio Grace MD Work Phone: 9(020)705-213671 [address] 03-07-2025 13:10-0400 Body mass index (BMI) [Ratio] 28 kg/m2 Dr. Fabio Grace MD Work Phone: 3(021)337-264390 [place] [address] 03-07-2025 13:10-0400 Body weight 101.[address] Fabio Grace MD Work Phone: 2(943)624-144090 [place] [address] 11-13-2024 15:44-0400 Body height 190.5 cm Edvin Jacob V[employer]TE[employer] ASSISTANT[employer]FACT CHECKER Work Phone: [facility] 11-13-2024 15:44-0400 Body mass index (BMI) [Ratio] 27.5 kg/m2 Edvin Jacob VOLUNTEER ASSISTANT-FACT CHECKER Work Phone: [facility] 11-13-2024 15:44-0400 Body temperature 98.01 [degF] Edvin Jacob VOLUNTEER ASSISTANT-FACT CHECKER Work Phone: [facility] 11-13-2024 15:44-0400 Body weight 99.79 kg Edvin Jacob VOLUNTEER ASSISTANT-FACT CHECKER Work Phone: 7(111)696-212290 [place] [address] 11-13-2024 15:44-0400 Diastolic blood pressure 80 mm[Hg] Edvin Jacob VOLUNTEER ASSISTANT-FACT CHECKER Work Phone: [facility] 11-13-2024 15:44-0400 Heart rate 82 /min Edvin Jacob VOLUNTEER ASSISTANT-FACT CHECKER Work Phone: 4(510)084-933290 [place] [address] 11-13-2024 15:44-0400 Respiratory rate 16 /min Edvin Jacob VOLUNTEER ASSISTANT-FACT CHECKER Work Phone: 7(863)374-493690 [place] [address] 11-13-2024 15:44-0400 SaO2% (BldA) [Mass fraction] 97 % Edvin Jacob VOLUNTEER ASSISTANT-FACT CHECKER Work Phone: [facility] 11-13-2024 15:44-0400 Systolic blood pressure 122 mm[Hg] Edvin Jacob VOLUNTEER ASSISTANT-FACT CHECKER Work Phone: [facility] 10-26-2024 15:51-0400 Body height 190.5 cm Fabio Grace MD Work Phone: [facility] 10-26-2024 15:51-0400 Body mass index (BMI) [Ratio] 29.25 kg/m2 Fabio Grace MD Work Phone: [facility] 10-26-2024 15:51-0400 Body weight 106.14 kg Fabio Grace MD Work Phone: [facility] 10-26-2024 15:51-0400 Diastolic blood pressure 84 mm[Hg] Fabio Grace MD Work Phone: 5(398)077-194686 [place] [address] 10-26-2024 15:51-0400 Heart rate 81 /min Fabio Grace MD Work Phone: 1(453)556-746986 [place] [address] 10-26-2024 15:51-0400 Systolic blood pressure 129 mm[Hg] Fabio Grace MD Work Phone: 7(933)295-143686 [place] [address] 04-27-2024 15:51-0400 Body height 190.5 cm Fabio Grace MD Work Phone: 6(887)294-297086 [place] [address] 04-27-2024 15:51-0400 Body mass index (BMI) [Ratio] 28.5 kg/m2 Fabio Grace MD Work Phone: 4(890)356-139686 [place] [address] 04-27-2024 15:51-0400 Body weight 103.42 kg Fabio Grace MD Work Phone: 5(448)769-082886 [place] [address] 04-27-2024 15:51-0400 Diastolic blood pressure 86 mm[Hg] Fabio Grace MD Work Phone: 4(532)634-403286 [place] [address] 04-27-2024 15:51-0400 Heart rate 90 /min Fabio Grace MD Work Phone: 4(368)565-801686 [place] [address] 04-27-2024 15:51-0400 Systolic blood pressure 136 mm[Hg] Fabio Grace MD Work Phone: 2(057)908-461886 [place] [address] 03-25-2024 12:58-0400 Body height 190.5 cm Fabio Grace MD Work Phone: 6(488)849-386086 [place] [address] 03-25-2024 12:58-0400 Body mass index (BMI) [Ratio] 28.25 kg/m2 Fabio Grace MD Work Phone: [facility] 03-25-2024 12:58-0400 Body weight 102.51 kg Fabio Grace MD Work Phone: [facility] 03-25-2024 12:58-0400 Diastolic blood pressure 84 mm[Hg] Fabio Grace MD Work Phone: [facility] 03-25-2024 12:58-0400 Heart rate 80 /min Fabio Grace MD Work Phone: [facility] 03-25-2024 12:58-0400 Systolic blood pressure 123 mm[Hg] Fabio Grace MD Work Phone: [facility] 03-18-2024 10:56-0400 Body height 190.5 cm Fabio Grace MD Work Phone: 6(485)280-334386 [place] [address] 03-18-2024 10:56-0400 Body mass index (BMI) [Ratio] 28.5 kg/m2 Fabio Grace MD Work Phone: [facility] 03-18-2024 10:56-0400 Body weight 103.42 kg Fabio Grace MD Work Phone: [facility] 03-18-2024 10:56-0400 Diastolic blood pressure 84 mm[Hg] Fabio Grace MD Work Phone: [facility] 03-18-2024 10:56-0400 Heart rate 86 /min Fabio Grace MD Work Phone: [facility] 03-18-2024 10:56-0400 Systolic blood pressure 119 mm[Hg] Fabio Grace MD Work Phone: [facility] 01-17-2024 14:50-0400 Body height 190.5 cm Edvin Jacob VOLUNTEER ASSISTANT-FACT CHECKER Work Phone: [facility] 01-17-2024 14:50-0400 Body mass index (BMI) [Ratio] 27.5 kg/m2 Edvin Jacob VOLUNTEER ASSISTANT-FACT CHECKER Work Phone: [facility] 01-17-2024 14:50-0400 Body temperature 98.01 [degF] Edvin Jacob VOLUNTEER ASSISTANT-FACT CHECKER Work Phone: 9(771)220-884635 [address] 01-17-2024 14:50-0400 Body weight 99.79 kg Edvin Jacob VOLUNTEER ASSISTANT-FACT CHECKER Work Phone: 6(091)685-331390 [place] [address] 01-17-2024 14:50-0400 Diastolic blood pressure 72 mm[Hg] Edvin Ajcob VOLUNTEER ASSISTANT-FACT CHECKER Work Phone: 2(764)138-219235 [address] 01-17-2024 14:50-0400 Heart rate 83 /min Edvin Jacob VOLUNTEER ASSISTANT-FACT CHECKER Work Phone: 8(444)059-233935 [address] 01-17-2024 14:50-0400 Respiratory rate 14 /min Edvin Jacob VOLUNTEER ASSISTANT-FACT CHECKER Work Phone: 7(462)198-360390 [place] [address] 01-17-2024 14:50-0400 SaO2% (BldA) [Mass fraction] 95 % Edvin Jacob VOLUNTEER ASSISTANT-FACT CHECKER Work Phone: 7(589)110-930990 [place] [address] 01-17-2024 14:50-0400 Systolic blood pressure 124 mm[Hg] Edvin Jacob VOLUNTEER ASSISTANT-FACT CHECKER Work Phone: [facility] 01-11-2024 12:26-0400 Body height 190.5 cm Edvin Jacob VOLUNTEER ASSISTANT-FACT CHECKER Work Phone: 6(377)944-732790 [place] [address] 01-11-2024 12:26-0400 Body mass index (BMI) [Ratio] 27.5 kg/m2 Edvin Jacob VOLUNTEER ASSISTANT-FACT CHECKER Work Phone: [facility] 01-11-2024 12:26-0400 Body temperature 97.59 [degF] Edvin Jacob VOLUNTEER ASSISTANT-FACT CHECKER Work Phone: [facility] 01-11-2024 12:26-0400 Body weight 99.79 kg Edvin Welshta VOLUNTEER ASSISTANT-FACT CHECKER Work Phone: [facility] 01-11-2024 12:26-0400 Diastolic blood pressure 73 mm[Hg] Edvin Jacob VOLUNTEER ASSISTANT-FACT CHECKER Work Phone: [facility] 01-11-2024 12:26-0400 Heart rate 80 /min Edvin Jacob VOLUNTEER ASSISTANT-FACT CHECKER Work Phone: [facility] 01-11-2024 12:26-0400 Respiratory rate 14 /min Edvin Jacob VOLUNTEER ASSISTANT-FACT CHECKER Work Phone: [facility] 01-11-2024 12:26-0400 SaO2% (BldA) [Mass fraction] 94 % Edvin Welshta VOLUNTEER ASSISTANT-FACT CHECKER Work Phone: [facility] 01-11-2024 12:26-0400 Systolic blood pressure 107 mm[Hg] Edvin Welshta VOLUNTEER ASSISTANT-FACT CHECKER Work Phone: [facility] 12-25-2023 16:03-0400 Body height 190.5 cm Fabio Grace MD Work Phone: [facility] 12-25-2023 16:03-0400 Body mass index (BMI) [Ratio] 28.32 kg/m2 Fabio Grace MD Work Phone: [facility] 12-25-2023 16:03-0400 Body weight 102.78 kg Fabio Grace MD Work Phone: [facility] 12-25-2023 16:03-0400 Diastolic blood pressure 82 mm[Hg] Fabio Grace MD Work Phone: [facility] 12-25-2023 16:03-0400 Heart rate 87 /min Fabio Grace MD Work Phone: [facility] 12-25-2023 16:03-0400 Systolic blood pressure 121 mm[Hg] Fabio Grace MD Work Phone: [facility] 12-17-2023 10:57-0400 Body height 190.5 cm Magnolia Cruz MD Work Phone: [facility] 12-17-2023 10:57-0400 Body mass index (BMI) [Ratio] 27.5 kg/m2 Magnolia Cruz MD Work Phone: [facility] 12-17-2023 10:57-0400 Body weight 99.79 kg Magnolia Cruz MD Work Phone: [facility] 12-17-2023 10:57-0400 Diastolic blood pressure 78 mm[Hg] Magnolia Cruz MD Work Phone: [facility] 12-17-2023 10:57-0400 Heart rate 74 /min Magnolia Cruz MD Work Phone: [facility] 12-17-2023 10:57-0400 Systolic blood pressure 128 mm[Hg] Magnolia Cruz MD Work Phone: [facility] 12-07-2023 12:30-0400 Diastolic blood pressure 87 mm[Hg] Gerardo Alcantara DO Work Phone: [facility] 12-07-2023 12:30-0400 Heart rate 72 /min Gerardo Alcantara DO Work Phone: [facility] 12-07-2023 12:30-0400 Respiratory rate 17 /min Gerardo Alcantara DO Work Phone: [facility] 12-07-2023 12:30-0400 SaO2% (BldA) [Mass fraction] 94 % Gerardo Alcantara DO Work Phone: [facility] 12-07-2023 12:30-0400 Systolic blood pressure 109 mm[Hg] Gerardo Alcantara DO Work Phone: [facility] 12-07-2023 11:33-0400 Body height 190.5 cm Gerardo Alcantara DO Work Phone: [facility] 12-07-2023 11:33-0400 Body mass index (BMI) [Ratio] 27.5 kg/m2 Gerardo Alcantara DO Work Phone: [facility] 12-07-2023 11:33-0400 Body temperature 98.2 [degF] Gerardo Helen DO Work Phone: [facility] 12-07-2023 11:33-0400 Body weight 99.79 kg Gerardo Alcantara DO Work Phone: [facility] 11-20-2023 15:43-0400 Body height 190.5 cm Fabio Grace MD Work Phone: [facility] 11-20-2023 15:43-0400 Body mass index (BMI) [Ratio] 28.12 kg/m2 Fabio Grace MD Work Phone: [facility] 11-20-2023 15:43-0400 Body weight 102.06 kg Fabio Grace MD Work Phone: [facility] 11-20-2023 15:43-0400 Diastolic blood pressure 89 mm[Hg] Fabio Grace MD Work Phone: [facility] 11-20-2023 15:43-0400 Heart rate 78 /min Fabio Grace MD Work Phone: [facility] 11-20-2023 15:43-0400 SaO2% (BldA) [Mass fraction] 94 % Fabio Grace MD Work Phone: [facility] 11-20-2023 15:43-0400 Systolic blood pressure 139 mm[Hg] Fabio Grace MD Work Phone: 2(256)908-920504 [place] [address] 05-22-2023 15:47-0400 Body height 190.5 cm Fabio Grace MD Work Phone: 7(222)653-304186 [place] [address] 05-22-2023 15:47-0400 Body mass index (BMI) [Ratio] 28.12 kg/m2 Fabio Grace MD Work Phone: 9(766)654-646863 [address] 05-22-2023 15:47-0400 Body weight 102.06 kg Fabio Grace MD Work Phone: 2(450)550-193563 [address] 05-22-2023 15:47-0400 Diastolic blood pressure 83 mm[Hg] Fabio Grace MD Work Phone: 6(150)963-366763 [address] 05-22-2023 15:47-0400 Heart rate 80 /min Fabio Grace MD Work Phone: 2(121)570-283363 [address] 05-22-2023 15:47-0400 Systolic blood pressure 123 mm[Hg] Fabio Grace MD Work Phone: 2(349)588-907763 [address] 11-21-2022 16:11-0400 Body height 190.5 cm Fabio Grace MD Work Phone: 9(297)200-570086 [place] [address] 11-21-2022 16:11-0400 Body mass index (BMI) [Ratio] 27.5 kg/m2 Fabio Grace MD Work Phone: 0(004)861-954163 [address] 11-21-2022 16:11-0400 Body weight 99.79 kg Fabio Grace MD Work Phone: 8(889)562-795286 [place] [address] 11-21-2022 16:11-0400 Diastolic blood pressure 82 mm[Hg] Fabio Grace MD Work Phone: 0(814)151-357586 [place] [address] 11-21-2022 16:11-0400 Heart rate 84 /min Fabio Grace MD Work Phone: 4(080)578-038963 [address] 11-21-2022 16:11-0400 Systolic blood pressure 124 mm[Hg] Fabio Grace MD Work Phone: [facility] 06-15-2022 15:18-0500 Body height 190 cm Fabio Tavallaee Other Phone: [facility] 06-15-2022 15:18-0500 Body temperature 98.24 [degF] Fabio Tavallaee Other Phone: [facility] 06-15-2022 15:18-0500 Diastolic blood pressure 70 mm[Hg] Fabio Tavallaee Other Phone: [facility] 06-15-2022 15:18-0500 Heart rate 97 /min Fabio Davionallaee Other Phone: [facility] 06-15-2022 15:18-0500 Respiratory rate 16 /min Fabio Davionallaee Other Phone: [facility] 06-15-2022 15:18-0500 SaO2% (BldA) [Mass fraction] 97 % Fabio Davionallaee Other Phone: [facility] 06-15-2022 15:18-0500 Systolic blood pressure 109 mm[Hg] Fabio Davionallaee Other Phone: [facility] 05-23-2022 15:46-0400 Body height 190.5 cm Fabio M Davionallaee Work Phone: [facility] Work Phone: 05-23-2022 15:46-0400 Body mass index (BMI) [Ratio] 27.62 kg/m2 Fabio M Tavallaee Work Phone: [facility] Work Phone: 05-23-2022 15:46-0400 Body surface area Derived from formula 2.29 m2 Fabio M Tavallaee Work Phone: [facility] Work Phone: 05-23-2022 15:46-0400 Body weight 100.25 kg Fabiorodney Ricardoallaee Work Phone: [facility] Work Phone: 05-23-2022 15:46-0400 Diastolic blood pressure 78 mm[Hg] Fabio Tian Ricardoallaee Work Phone: [facility] Work Phone: 05-23-2022 15:46-0400 Heart rate 83 /min Fabiorodney Christensenaee Work Phone: [facility] Work Phone: 05-23-2022 15:46-0400 SaO2% (BldA) [Mass fraction] 96 % Fabiorodney Christensenaee Work Phone: [facility] Work Phone: 05-23-2022 15:46-0400 Systolic blood pressure 138 mm[Hg] Fabio Tian Ricardoallaee Work Phone: [facility] Work Phone: 10-03-2021 16:13-0400 Body height 190.5 cm Fabio Christensenaee Work Phone: [facility] Work Phone: 10-03-2021 16:13-0400 Body mass index (BMI) [Ratio] 28.87 kg/m2 Fabio Tian Ricardoallaee Work Phone: [facility] Work Phone: 10-03-2021 16:13-0400 Body surface area Derived from formula 2.33 m2 Fabio Tian Tavallaee Work Phone: [facility] Work Phone: 10-03-2021 16:13-0400 Body weight 104.78 kg Fabio M Tavallaee Work Phone: [facility] Work Phone: 10-03-2021 16:13-0400 Diastolic blood pressure 88 mm[Hg] Fabio Tian Tavallaee Work Phone: [facility] Work Phone: 10-03-2021 16:13-0400 Heart rate 82 /min Fabio Tian Tavallaee Work Phone: [facility] Work Phone: 10-03-2021 16:13-0400 Systolic blood pressure 132 mm[Hg] Fabio Tian Tavallaee Work Phone: [facility] Work Phone: 06-29-2021 16:18-0500 Body height 190.5 cm Fabio Tian Tavallaee Work Phone: [facility] Work Phone: 06-29-2021 16:18-0500 Body mass index (BMI) [Ratio] 28.5 kg/m2 Fabio Tian Tavallaee Work Phone: [facility] Work Phone: 06-29-2021 16:18-0500 Body surface area Derived from formula 2.32 m2 Fabio M Tavallaee Work Phone: [facility] Work Phone: 06-29-2021 16:18-0500 Body weight 103.42 kg Fabio Tian Tavallaee Work Phone: [facility] Work Phone: 06-29-2021 16:18-0500 Diastolic blood pressure 78 mm[Hg] Fabio Tian Tavallaee Work Phone: [facility] Work Phone: 06-29-2021 16:18-0500 Heart rate 72 /min Fabio Tian Tavallaee Work Phone: [facility] Work Phone: 06-29-2021 16:18-0500 SaO2% (BldA) [Mass fraction] 99 % Fabio M Tavallaee Work Phone: [facility] Work Phone: 06-29-2021 16:18-0500 Systolic blood pressure 120 mm[Hg] Fabio M Tavallaee Work Phone: [facility] Work Phone: 05-29-2021 16:27-0500 Body height 190.5 cm Fabio M Tavallaee Work Phone: [facility] Work Phone: 05-29-2021 16:27-0500 Body mass index (BMI) [Ratio] 27.88 kg/m2 Fabio M Tavallaee Work Phone: [facility] Work Phone: 05-29-2021 16:27-0500 Body surface area Derived from formula 2.3 m2 Fabio M Tavallaee Work Phone: [facility] Work Phone: 05-29-2021 16:27-0500 Body weight 101.18 kg Fabio M Tavallaee Work Phone: [facility] Work Phone: 05-29-2021 16:27-0500 Diastolic blood pressure 78 mm[Hg] Fabio M Tavallaee Work Phone: [facility] Work Phone: 05-29-2021 16:27-0500 Heart rate 72 /min Fabio M Tavallaee Work Phone: [facility] Work Phone: 05-29-2021 16:27-0500 Systolic blood pressure 118 mm[Hg] Fabio Tian Tavallaee Work Phone: [facility] Work Phone: 01-25-2021 16:18-0400 Body height 190.5 cm Fabio Tian Tavallaee Work Phone: [facility] Work Phone: 01-25-2021 16:18-0400 Body mass index (BMI) [Ratio] 27.75 kg/m2 Fabio Tian Tavallaee Work Phone: [facility] Work Phone: 01-25-2021 16:18-0400 Body surface area Derived from formula 2.29 m2 Fabio Tian Tavallaee Work Phone: [facility] Work Phone: 01-25-2021 16:18-0400 Body weight 100.7 kg Fabio Tian Tavallaee Work Phone: [facility] Work Phone: 01-25-2021 16:18-0400 Diastolic blood pressure 84 mm[Hg] Fabio Tian Tavallaee Work Phone: [facility] Work Phone: 01-25-2021 16:18-0400 Heart rate 76 /min Fabio Tian Tavallaee Work Phone: [facility] Work Phone: 01-25-2021 16:18-0400 Systolic blood pressure 122 mm[Hg] Fabio Tian Tavallaee Work Phone: [facility] Work Phone: 08-05-2019 19:02-0500 BMI (Body Mass Index) 29.75 kg/m2 Fabio Tavallaee [facility] Work Phone: 08-05-2019 19:02-0500 Body weight 107.96 kg Fabio Tavallaee [facility] Work Phone: 08-05-2019 19:02-0500 BP Diastolic 88 mm[Hg] Fabio Tavallaee [facility] Work Phone: Comment on above: Location: LUE; Position: Sitting 08-05-2019 19:02-0500 BP Systolic 124 mm[Hg] Fabio Tavallaee [facility] Work Phone: Comment on above: Location: LUE; Position: Sitting 08-05-2019 19:02-0500 BSA (Body Surface Area) 2.36 m2 Fabio Tavallaee [facility] Work Phone: 08-05-2019 19:02-0500 Height 190.5 cm Fabio Tavallaee [facility] Work Phone: 08-05-2019 19:02-0500 Pulse (Heart Rate) 72 /min Fabio Tavallaee [facility] Work Phone: 07-29-2019 17:44-0500 BMI (Body Mass Index) 30.31 kg/m2 Fabio Tavallaee [facility] Work Phone: 07-29-2019 17:44-0500 Body weight 110 kg Fabio Tavallaee [facility] Work Phone: 07-29-2019 17:44-0500 BP Diastolic 82 mm[Hg] Fabio Tavallaee [facility] Work Phone: 07-29-2019 17:44-0500 BP Systolic 126 mm[Hg] Fabio Tavallaee [facility] Work Phone: 07-29-2019 17:44-0500 BSA (Body Surface Area) 2.38 m2 Fabio Grace [facility] Work Phone: 07-29-2019 17:44-0500 Height 190.5 cm Fabio Grace [facility] Work Phone: 07-29-2019 17:44-0500 Pulse (Heart Rate) 72 /min Fabio Grace [facility] Work Phone: 06-04-2019 11:20-0500 BMI (Body Mass Index) 28.75 kg/m2 Magnolia Cruz [facility] Work Phone: 06-04-2019 11:20-0500 Body Temperature 98.3 [degF] Magnolia Cruz [facility] Work Phone: 06-04-2019 11:20-0500 Body weight 104.33 kg Magnolia Cruz [facility] Work Phone: 06-04-2019 11:20-0500 BP Diastolic 82 mm[Hg] Magnolia Cruz [facility] Work Phone: 06-04-2019 11:20-0500 BP Systolic 118 mm[Hg] Magnolia Cruz [facility] Work Phone: 06-04-2019 11:20-0500 BSA (Body Surface Area) 2.33 m2 Magnolia Cruz [facility] Work Phone: 06-04-2019 11:20-0500 Height 190.5 cm Magnolia Cruz [facility] Work Phone: 06-04-2019 11:20-0500 Pulse (Heart Rate) 72 /min Magnolia Cruz [facility] Work Phone: Encounters Encounter Date Encounter Type Care Provider Facility Start: 05-07-2025 End: 05-07-2025 Subsequent hospital visit by physician [facility] Comment on above: Acute bilateral low back pain without sciatica Start: 05-07-2025 End: 05-07-2025 ambulatory [facility] Start: 04-27-2025 End: 04-27-2025 Office outpatient visit 25 minutes Fabio Grace MD Work Phone: [facility] Comment on above: Acute bilateral low back pain without sciatica (Primary Dx); Excessive gas; Gastroesophageal reflux disease, unspecified whether esophagitis present Start: 04-27-2025 End: 04-27-2025 ambulatory [facility] Start: 03-07-2025 End: 03-07-2025 Emergency department patient visit Dr. Fabio Grace MD Work Phone: -Emergency Department Work Phone: Start: 11-13-2024 End: 11-13-2024 Patient encounter procedure Edvin James VOLUNTEER ASSISTANT-FACT CHECKER Work Phone: [facility] Comment on above: Foreign body of left ear, initial encounter (Primary Dx); Bilateral impacted cerumen Start: 11-13-2024 End: 11-13-2024 ambulatory [facility] Start: 10-26-2024 End: 10-26-2024 Office outpatient visit 25 minutes Fabio Grace MD Work Phone: [facility] Comment on above: Type 2 diabetes lucia itus without complication, without long- term current use of insulin (Primary Dx); Hypertension associated with diabetes; Hypercholesterolemia; Onychomycosis; Special screening for malignant neoplasm of prostate; Gouty arthritis Start: 10-26-2024 End: 10-26-2024 ambulatory [facility] Start: 04-27-2024 End: 04-27-2024 Office outpatient visit 25 minutes Fabio Grace MD Work Phone: [facility] Comment on above: Hypertension associa mica with diabetes (Multi) (Primary Dx); Type 2 diabetes mellitus without complication, without long-term current use of insulin (Multi); Hyperuricemia; Special screening for malignant neoplasm of prostate; Healthcare maintenance Start: 04-27-2024 End: 04-27-2024 Patient encounter status Fabio Grace MD Work Phone: [facility] Work Phone: Start: 04-24-2024 End: 04-24-2024 [facility] Start: 03-25-2024 End: 03-25-2024 Office outpatient visit 15 minutes Fabio Grace MD Work Phone: [facility] Comment on above: Gouty arthritis (Neelam bon Dx) Start: 03-18-2024 End: 03-18-2024 Subsequent hospital visit by physician [facility] 1 [facility] Comment on above: Right foot pain; Gouty arthritis Start: 03-18-2024 End: 03-18-2024 Office outpatient visit 25 minutes Fabio Grace MD Work Phone: [facility] Comment on above: Right foot pain (Neelam bon Dx); Gouty arthritis Start: 02-17-2024 End: 02-21-2024 ambulatory FABIO GRACE [facility] Start: 01-17-2024 End: 01-17-2024 Patient encounter procedure Edvin James VOLUNTEER ASSISTANT-FACT CHECKER Work Phone: [facility] Comment on above: Acute bronchitis, un specified organism (Primary Dx) Start: 01-11-2024 End: 01-11-2024 Patient encounter procedure Edvin James VOLUNTEER ASSISTANT-FACT CHECKER Work Phone: [facility] Comment on above: Acute bronchitis, un specified organism (Primary Dx) Start: 12-25-2023 End: 12-25-2023 Office outpatient visit 25 minutes Fabio Grace MD Work Phone: [facility] Comment on above: Type 2 diabetes lucia itus without complication, without long- term current use of insulin (Multi) (Primary Dx); Hx of gout; Hypertension associated with diabetes (Multi); Benign prostatic hyperplasia with urinary obstruction Start: 12-21-2023 End: 12-21-2023 ambulatory FABIO M [facility] Start: 12-17-2023 End: 12-17-2023 Office outpatient visit 25 minutes Magnolia Cruz MD Work Phone: [facility] Comment on above: Acute gout of left f oot, unspecified cause (Primary Dx); Left foot pain; Type 2 diabetes mellitus without complication, without long-term current use of insulin (Multi); Hx of gout; Hypertension associated with diabetes (Multi) Start: 12-07-2023 End: 12-07-2023 Emergency department patient visit Gerardo Alcantara DO Work Phone: [facility] Comment on above: Acute gout of left f oot, unspecified cause (Primary Dx) Start: 11-20-2023 End: 11-20-2023 Office outpatient visit 25 minutes Fabio Grace MD Work Phone: [facility] Comment on above: Type 2 diabetes lucia itus without complication, without long- term current use of insulin (Multi) (Primary Dx); Hypercholesterolemia; Essential hypertension; Tick bite of left thigh, subsequent encounter Start: 11-17-2023 End: 11-17-2023 Emergency department patient visit FABIO [facility] Start: 11-16-2023 End: 11-16-2023 ambulatory FABIO M [facility] Start: 11-09-2023 End: 11-09-2023 ambulatory [facility] Work Phone: Start: 11-09-2023 End: 11-09-2023 Patient encounter procedure [facility] Work Phone: Start: 05-22-2023 End: 05-22-2023 Office outpatient visit 25 minutes Fabio Grace MD Work Phone: [facility] Comment on above: Type 2 diabetes lucia itus without complication, without long- term current use of insulin (CMS/HCC) (Primary Dx); Need for immunization against influenza; Essential hypertension; Hypercholesterolemia; Primary osteoarthritis of both wrists; Healthcare maintenance Start: 05-22-2023 End: 05-22-2023 Patient encounter status Fabio Grace MD Work Phone: [facility] Work Phone: Start: 05-17-2023 End: 05-17-2023 ambulatory FABIO GRACE [facility] Start: 11-21-2022 End: 11-21-2022 Assay of hemosiderin, quant Fabio Grace MD Work Phone: [facility] Work Phone: Start: 11-21-2022 End: 11-21-2022 Patient encounter procedure Fabio Grace MD Work Phone: [facility] Comment on above: Routine general medi vee examination at health care facility (Primary Dx); Hypercholesterolemia; Type 2 diabetes mellitus without complication, without long-term current use of insulin (CMS/HCC); Essential hypertension; Special screening for malignant neoplasm of prostate Start: 09-17-2022 AUDIT Fabio middleton Work Phone: [facility] Work Phone: Start: 08-01-2022 Chart Update Fabio middleton Work Phone: [facility] Work Phone: Start: 07-26-2022 End: 07-26-2022 ambulatory Fabio Grace Facility:[id number] Start: 06-15-2022 End: 06-15-2022 Emergency department patient visit Edvin [facility] Start: 05-23-2022 Office outpatient vi sit 25 minutes Fabio Grace Work Phone: [facility] Work Phone: Start: 05-23-2022 ambulatory Fabio Davionallaee Facil [id number] Start: 05-14-2022 Chart Update Fabio Overton Tava llaee Work Phone: [facility] Work Phone: Start: 04-16-2022 AUDIT Fabio Overton Tava llaee Work Phone: [facility] Work Phone: Start: 10-05-2021 End: 10-05-2021 Patient encounter procedure [facility] Start: 10-03-2021 Office outpatient vi sit 25 minutes Fabio Tian Tavallaee Work Phone: [facility] Work Phone: Start: 07-06-2021 AUDIT Fabio Tian Tava llaee Work Phone: [facility] Work Phone: Start: 06-29-2021 Office outpatient vi sit 25 minutes Fabio Tian Tavallaee Work Phone: [facility] Work Phone: Start: 05-29-2021 Office outpatient vi sit 25 minutes Fabio Tian Tavallaee Work Phone: [facility] Work Phone: Start: 05-22-2021 Chart Update Fabio Overton Tava llaee Work Phone: [facility] Work Phone: Start: 02-11-2021 Chart Update Fabio Overton Tava llaee Work Phone: [facility] Work Phone: Start: 01-25-2021 Office outpatient vi sit 25 minutes Fabio M Tavallaee Work Phone: [facility] Work Phone: Start: 01-25-2021 Patient encounter procedure Fabio Tian Tavallaee Work Phone: [facility] Work Phone: Start: 01-25-2021 Chart Update Fabio middleton Work Phone: [facility] Work Phone: Start: 08-05-2019 Patient encounter procedure Fabio Grace [facility] Work Phone: Start: 07-29-2019 Patient encounter procedure Fabioaime Grace [facility] Work Phone: Start: 06-04-2019 Patient encounter procedure Fabio Grace [facility] Work Phone: Procedures Date Procedure Procedure Detail Performing Clinician Start: 05-07-2025 Radex spine lumbosac ral 2/3 views Fabio Grace MD Work Phone: Start: 04-23-2025 Lipid 1996 panel - S leland or Plasma Fabio Grace MD Work Phone: Start: 03-07-2025 Computed tomography of abdomen and pelvis with intravenous contrast Dr. Fabio Grace MD Work Phone: Start: 03-07-[address] Fabio Grace MD Work Phone: Start: 03-07-2025 Urnls dip stick/tabl et reagent auto microscopy Dr. Fabio Grace MD Work Phone: Start: 11-13-2024 Rmvl fb xtrnl audito ry canal w/o anes Edvin James VOLUNTEER ASSISTANT-FACT CHECKER Work Phone: Start: 01-17-2024 POCT SARS-COV-2/FLU/ RSV PCR SYMPTOMATIC Edvin James VOLUNTEER ASSISTANT-FACT CHECKER Work Phone: Start: 12-07-2023 Radex foot complete minimum 3 views Gerardo Alcantara DO Work Phone: Start: 11-16-2023 Comprehensive metabo lic 1999 panel - Serum or Plasma FABIO TAVALLAEE Start: 11-16-2023 Hemoglobin A1c/Hemoglobin.total in Blood FABIO TAVALLAEE Start: 11-16-2023 Lipid panel FABIO TA VALLAEE Start: 11-16-2023 Lipid 1996 panel - S leland or Plasma Fabio Grace MD Work Phone: Start: 05-17-2023 Comprehensive metabo lic 1999 panel - Serum or Plasma FABIO TAVALLAEE Start: 05-17-2023 Hemoglobin A1c/Hemoglobin.total in Blood FABIO TAVALLAEE Start: 05-17-2023 PROSTATE SPECIFIC AN TIGEN, SCREEN FABIO TAVALLAEE Start: 11-17-2022 Lipid 1996 panel - S [place] or Plasma Fabio Grace MD Work Phone: Start: 07-26-2022 End: 07-26-2022 Colonoscopy Fabio M Tavallaee Work Phone: Start: 07-29-2019 Assay of blood/uric acid Fabio Tavallaee Start: 07-29-2019 Xray Knee 1 or 2 View M ehrdad Davionallaee Colonoscopy [facility] Comment on above: REPEAT IN 3 YRSCOLON IC POLYP; Operation on fracture Joelle Cruz Prosthetic arthropla sty of the hip Magnolia Cruz Comment on above: DR. GAUTHIER; Repair of inguinal hernia Fa charlene Cruz Repair of umbilical hernia F alta Cruz Surgical repair [facility] Comment on above: NOSE FRACTURE; Total replacement of hip Calixto rdad M Tavallaee Work Phone: Comment on above: DR. GAUTHIER; Plan of Treatment Date Care Activity Detail Author Start: 07-26-2027 Screening for malignant neoplasm of colon [facility] Start: 04-23-2026 Lipid panel Lipid Panel [facility] Start: 04-23-2026 Urine screening for protein Diabetes: Urine Protein Screening [facility] Start: 07-24-2025 Hemoglobin A1c measurement Diabetes: Hemoglobin A1C [facility] Start: 06-01-2025 End: 06-01-2025 Patient encounter procedure 06/01/2025 3:15 PM EST Office Visit [facility] [address] [place] [phone] Fabio Grace MD [address] [place] [place] [address] [facility] Start: 04-27-2025 End: 04-27-2025 Patient encounter procedure 04/27/2025 4:00 PM EDT Office Visit [facility] [address] [place] [phone] Fabio Grace MD [address] [place] [address] [facility] Start: 04-27-2025 End: 04-27-2026 XR Lumbar spine 2 or 3 Views XR lumbar spine 2-3 views Imaging Routine Acute bilateral low back pain without sciatica Expected: 04/27/2025, Expires: 04/27/2026 [facility] Service Area Work Phone: Comment on above: Expected: 04/27/2025 , Expires: 04/27/2026 Start: 03-22-2025 COVID-19 Vaccine () COVID-19 Vaccine () [facility] Start: 01-23-2025 Hemoglobin A1c measurement Diabetes: Hemoglobin A1C [facility] Start: 11-15-2024 Lipid panel Lipid Panel [facility] Start: 10-26-2024 End: 10-26-2024 Patient encounter procedure 10/26/2024 4:00 PM EDT Office Visit [facility] [address] [place] [phone] Fabio Grace MD [address] [place], [place] [id number] [facility] Start: 10-26-2024 End: 10-26-2025 Comprehensive metabolic 2000 panel - Serum or Plasma Comprehensive Metabolic Panel Lab Routine Type 2 diabetes mellitus without complication, without long-term current use of insulin (Multi) Hypertension associated with diabetes (Multi) Hypercholesterolemia Expected: 10/26/2024 (Approximate), Expires: 10/26/2025 [facility] Work Phone: Comment on above: Expected: 10/26/2024 (Approximate), Expires: 10/26/2025 Start: 10-26-2024 End: 10-26-2025 Hemoglobin A1c/Hemoglobin.total in Blood Hemoglobin A1C Lab Routine Type 2 diabetes mellitus without complication, without long-term current use of insulin (Multi) Expected: 10/26/2024 (Approximate), Expires: 10/26/2025 [facility] Service Area Work Phone: Comment on above: Expected: 10/26/2024 (Approximate), Expires: 10/26/2025 Start: 10-26-2024 End: 10-26-2025 Lipid 1996 panel - Serum or Plasma Lipid Panel Lab Routine Hypercholesterolemia Expected: 10/26/2024 (Approximate), Expires: 10/26/2025 [facility] Work Phone: Comment on above: Expected: 10/26/2024 (Approximate), Expires: 10/26/2025 Start: 10-26-2024 End: 10-26-2025 Microalbumin/Creatini ne [Mass Ratio] in Urine Albumin-Creatinine Ratio, Urine Random Lab Routine Type 2 diabetes mellitus without complication, without long-term current use of insulin (Multi) Expected: 10/26/2024 (Approximate), Expires: 10/26/2025 [facility] Work Phone: Comment on above: Expected: 10/26/2024 (Approximate), Expires: 10/26/2025 Start: 10-26-2024 End: 10-26-2025 Prostate specific Ag [Mass/volume] in Serum or Plasma Prostate Specific Antigen, Screen Lab Routine Special screening for malignant neoplasm of prostate Expected: 10/26/2024 (Approximate), Expires: 10/26/2025 [facility] Work Phone: Comment on above: Expected: 10/26/2024 (Approximate), Expires: 10/26/2025 Start: 10-26-2024 End: 10-26-2025 Urate [Mass/volume] in Serum or Plasma Uric Acid Lab Routine Gouty arthritis Expected: 10/26/2024 (Approximate), Expires: 10/26/2025 [facility] Work Phone: Comment on above: Expected: 10/26/2024 (Approximate), Expires: 10/26/2025 Start: 07-25-2024 Hemoglobin A1c measurement Diabetes: Hemoglobin A1C [facility] Start: 04-27-2024 End: 04-27-2024 Patient encounter procedure 04/27/2024 4:00 PM EDT Office Visit [facility] [address] [facility] [place] [phone] Fabio Grace MD [address] [place] [address] [facility] Start: 04-27-2024 End: 04-27-2025 Comprehensive metabolic 2000 panel - Serum or Plasma Comprehensive Metabolic Panel Lab Routine Hypertension associated with diabetes (Multi) Type 2 diabetes mellitus without complication, without long-term current use of insulin (Multi) Hyperuricemia Expected: 04/27/2024 (Approximate), Expires: 04/27/2025 [facility] Work Phone: Comment on above: Expected: 04/27/2024 (Approximate), Expires: 04/27/2025 Start: 04-27-2024 End: 04-27-2025 Hemoglobin A1c/Hemoglobin.total in Blood Hemoglobin A1C Lab Routine Type 2 diabetes mellitus without complication, without long-term current use of insulin (Multi) Expected: 04/27/2024 (Approximate), Expires: 04/27/2025 [facility] Service Area Work Phone: Comment on above: Expected: 04/27/2024 (Approximate), Expires: 04/27/2025 Start: 04-27-2024 End: 04-27-2025 Prostate specific Ag [Mass/volume] in Serum or Plasma Prostate Specific Antigen, Screen Lab Routine Special screening for malignant neoplasm of prostate Expected: 04/27/2024 (Approximate), Expires: 04/27/2025 [facility] Work Phone: Comment on above: Expected: 04/27/2024 (Approximate), Expires: 04/27/2025 Start: 04-27-2024 End: 04-27-2025 Urate [Mass/volume] in Serum or Plasma Uric Acid Lab Routine Hyperuricemia Expected: 04/27/2024 (Approximate), Expires: 04/27/2025 [facility] Work Phone: Comment on above: Expected: 04/27/2024 (Approximate), Expires: 04/27/2025 Start: 03-25-2024 End: 03-25-2024 Patient encounter procedure 03/25/2024 1:00 PM EDT Office Visit [facility] [address] [place] [phone] Fabio Grace MD [address] [place] [address] [facility] Start: 03-22-2024 COVID-19 Vaccine ( season) COVID-19 Vaccine ( season) [facility] Start: 03-22-2024 COVID-19 Vaccine ( season) COVID-19 Vaccine ( season) [facility] Start: 03-22-2024 Influenza vaccination Influenza Vacc ine (#1) [facility] Start: 03-18-2024 End: 03-18-2025 XR Foot Views [facility] Service Area Work Phone: Comment on above: Expected: 03/18/2024 , Expires: 03/18/2025 Once for 1 Occurrenc es starting 03/18/2024 until 03/18/2024 Start: 02-15-2024 Hemoglobin A1c measurement Diabetes: Hemoglobin A1C [facility] Start: 12-25-2023 End: 12-25-2023 Patient encounter procedure 12/25/2023 4:00 PM EDT Office Visit [facility] [address] [place] [phone] Fabio Grace MD [address] [place] [address] [facility] Start: 12-25-2023 End: 12-24-2024 Comprehensive metabolic 2000 panel - Serum or Plasma Comprehensive Metabolic Panel Lab Routine Type 2 diabetes mellitus without complication, without long-term current use of insulin (Multi) Hx of gout Hypertension associated with diabetes (Multi) Benign prostatic hyperplasia with urinary obstruction Expected: 12/25/2023 (Approximate), Expires: 12/24/2024 [facility] Service Area Work Phone: Comment on above: Expected: 12/25/2023 (Approximate), Expires: 12/24/2024 Start: 12-25-2023 End: 12-24-2024 Hemoglobin A1c/Hemoglobin.total in Blood Hemoglobin A1C Lab Routine Type 2 diabetes mellitus without complication, without long-term current use of insulin (Multi) Expected: 12/25/2023 (Approximate), Expires: 12/24/2024 [facility] Work Phone: Comment on above: Expected: 12/25/2023 (Approximate), Expires: 12/24/2024 Start: 12-25-2023 End: 12-24-2024 PSA, Total and Free PSA, Total and Free Lab Routine Benign prostatic hyperplasia with urinary obstruction Expected: 12/25/2023, Expires: 12/24/2024 [facility] Work Phone: Comment on above: Expected: 12/25/2023 , Expires: 12/24/2024 Start: 12-25-2023 End: 12-24-2024 Urate [Mass/volume] in Serum or Plasma Uric Acid Lab Routine Hx of gout Expected: 12/25/2023 (Approximate), Expires: 12/24/2024 [facility] Work Phone: Comment on above: Expected: 12/25/2023 (Approximate), Expires: 12/24/2024 Start: 12-17-2023 End: 12-16-2024 Urate [Mass/volume] in Serum or Plasma Uric Acid Lab Routine Acute gout of left foot, unspecified cause Expected: 12/17/2023 (Approximate), Expires: 12/16/2024 [facility] Service Area Work Phone: Comment on above: Expected: 12/17/2023 (Approximate), Expires: 12/16/2024 Start: 11-23-2023 Yearly Adult Physical Yearly Adult P hycal [facility] Start: 11-20-2023 End: 11-20-2023 Patient encounter procedure 11/20/2023 4:00 PM EDT Office Visit [facility] [address] [place] [address] Fabio Grace MD [address] [place] [address] [facility] Start: 11-20-2023 End: 11-19-2024 Borrelia burgdorferi DNA [Presence] in Unspecified specimen by CATHERINE with probe detection Lyme disease, PCR Lab Routine Tick bite of left thigh, subsequent encounter Expected: 11/20/2023 (Approximate), Expires: 11/19/2024 [facility] Work Phone: Comment on above: Expected: 11/20/2023 (Approximate), Expires: 11/19/2024 Start: 11-18-2023 Lipid panel Lipid Panel [facility] Start: 08-17-2023 Hemoglobin A1c measurement Diabetes: Hemoglobin A1C [facility] Start: 05-22-2023 End: 05-22-2024 Comprehensive metabolic 2000 panel - Serum or Plasma Comprehensive Metabolic Panel Lab Routine Need for immunization against influenza Type 2 diabetes mellitus without complication, without long-term current use of insulin ([facility]) Essential hypertension Hypercholesterolemia Expected: 05/22/2023 (Approximate), Expires: 05/22/2024 [facility] Work Phone: Comment on above: Expected: 05/22/2023 (Approximate), Expires: 05/22/2024 Start: 05-22-2023 End: 05-22-2024 Hemoglobin A1c/Hemoglobin.total in Blood Hemoglobin A1C Lab Routine Type 2 diabetes mellitus without complication, without long-term current use of insulin (CMS/HCC) Expected: 05/22/2023 (Approximate), Expires: 05/22/2024 [facility] Work Phone: Comment on above: Expected: 05/22/2023 (Approximate), Expires: 05/22/2024 Start: 05-22-2023 End: 05-22-2024 Lipid 1996 panel - Serum or Plasma Lipid Panel Lab Routine Hypercholesterolemia Expected: 05/22/2023 (Approximate), Expires: 05/22/2024 [facility] Work Phone: Comment on above: Expected: 05/22/2023 (Approximate), Expires: 05/22/2024 Start: 03-22-2023 COVID-19 Vaccine ( season) COVID-19 Vaccine () [facility] Start: 02-16-2023 Hemoglobin A1c measurement Diabetes: Hemoglobin A1C [facility] Start: 11-21-2022 FUV, Provider: Fabio Grace, Status: Pen, Time: 4:15 PM FUV, Provider: Fabio Grace, Status: Pen, Time: 4:15 PM [facility] Work Phone: Start: 11-21-2022 Patient encounter procedure [facility] Start: 11-21-2022 End: 11-22-2023 Comprehensive metabolic 2000 panel - Serum or Plasma Comprehensive Metabolic Panel Lab Routine Type 2 diabetes mellitus without complication, without long-term current use of insulin (CMS/HCC) Essential hypertension Expected: 11/21/2022 (Approximate), Expires: 11/22/2023 [facility] Work Phone: Comment on above: Expected: 11/21/2022 (Approximate), Expires: 11/22/2023 Start: 11-21-2022 End: 11-22-2023 Hemoglobin A1c/Hemoglobin.total in Blood Hemoglobin A1C Lab Routine Type 2 diabetes mellitus without complication, without long-term current use of insulin ([facility]) Expected: 11/21/2022 (Approximate), Expires: 11/22/2023 [facility] Service Area Work Phone: Comment on above: Expected: 11/21/2022 (Approximate), Expires: 11/22/2023 Start: 11-21-2022 End: 11-22-2023 Prostate specific Ag [Mass/volume] in Serum or Plasma Prostate Specific Antigen, Screen Lab Routine Special screening for malignant neoplasm of prostate Expected: 11/21/2022 (Approximate), Expires: 11/22/2023 [facility] Work Phone: Comment on above: Expected: 11/21/2022 (Approximate), Expires: 11/22/2023 Start: 06-21-2022 COLON, Provider: Fabio Grace, Status: Pen, Time: 9:00 AM COLON, Provider: Fabio Grace, Status: Pen, Time: 9:00 AM [facility] Work Phone: Start: 06-21-2022 Patient encounter procedure [facility] Start: 05-23-2022 FUV, Provider: Fabio Grace, Status: Pen, Time: 4:00 PM FUV, Provider: Fabio Grace, Status: Pen, Time: 4:00 PM [facility] Work Phone: Start: 02-01-2022 FUV, Provider: Fabio Grace, Status: Pen, Time: 4:30 PM FUV, Provider: Fabio Grace, Status: Pen, Time: 4:30 PM [facility] Work Phone: Start: 10-03-2021 FUV, Provider: Fabio Grace, Status: Pen, Time: 4:15 PM FUV, Provider: Fabio Grace, Status: Pen, Time: 4:15 PM [facility] Work Phone: Start: 10-03-2021 Patient encounter procedure MCRANNUAL, Provider: Fabio Grace, Status: Pen, Time: 4:15 PM [facility] Work Phone: Start: 09-17-2021 Urine screening for protein Diabetes: Urine Protein Screening [facility] Start: 08-18-2021 COVID-19 Vaccine (3 - Booster for Sammi series) COVID-19 Vaccine (3 - Booster for Sammi series) [facility] Start: 05-29-2021 FUV, Provider: Fabio Grace, Status: Pen, Time: 4:30 PM FUV, Provider: Fabio Grace, Status: Pen, Time: 4:30 PM [facility] Work Phone: Start: 08-05-2019 Urate [Mass/Vol] Uric Acid, Serum [facility] Work Phone: Start: 08-05-2019 Xray Knee 1 or 2 View [facility] Work Phone: Start: 2018 Abdominal aortic aneurysm screening Abdominal Aortic Aneurysm (AAA) Screening [facility] Start: 2013 Hepatitis B Vaccines (1 of 3 - Risk 3-dose series) Hepatitis B Vaccines (1 of 3 - Risk 3-dose series) [facility] Start: 2013 RSV High Risk: (Elderly (60+) or Population) (1 - Risk 60-74 years 1-dose series) RSV High Risk: (Elderly (60+) or Population) (1 - Risk 60-74 years 1-dose series) [facility] Start: 2013 RSV patient s and/or patients aged 60+ years (1 - 1-dose 60+ series) RSV patients and/or patients aged 60+ years (1 - 1-dose 60+ series) [facility] Start: 1975 DTaP/Tdap/Td Vaccine s (1 - Tdap) DTaP/Tdap/Td Vaccines (1 - Tdap) [facility] Start: 1972 Hepatitis A Vaccines (1 of 2 - Risk 2-dose series) Hepatitis A Vaccines (1 of 2 - Risk 2-dose series) [facility] Start: 1971 Hepatitis C screening [facility]: 1963 Diabetic foot examination Diabetes: Foot Exam [facility] Start: 1963 Glaucoma screening Diabetes: R etinopathy Screening [facility] Start: 1963 Ophthalmic examination and evaluation Diabetes: Retinopathy Screening [facility] Start: 1954 Hepatitis A Vaccines (1 of 2 - Risk 2-dose series) Hepatitis A Vaccines (1 of 2 - Risk 2-dose series) [facility] Start: 1954 MMR Vaccines (1 of 1 - Standard series) MMR Vaccines (1 of 1 - Standard series) [facility] Start: 1953 Screening for malignant neoplasm of colon [facility] Patient Education ED [facility] Work Phone: [facility] Work Phone: NEGATED: Highlighted row has been ruled out! Planned Goals not documented [facility] Work Phone: Immunizations Immunization Date Immunization Notes Care Provider Fa violet 04-22-2025 influenza, high dose seasonal, preservative-free Fabio Grace MD Work Phone: [facility] Work Phone: 04-27-2024 influenza, high dose seasonal, preservative-free Fabio Grace MD Work Phone: [facility] Work Phone: 05-22-2023 Flu vaccine, quadrivalent, high-dose, preservative free, age 65y+ (FLUZONE) Fabio Grace MD Work Phone: [facility] Work Phone: 05-22-2023 influenza virus vacc ine, unspecified formulation Fabio Grace MD Work Phone: [facility] Work Phone: 08-11-2022 zoster vaccine recombinant Fabio Grace MD Work Phone: [facility] Work Phone: 05-15-2022 Fluzone High-Dose Quadrivalent 0.7 ML Intramuscular Suspension Prefilled Syringe Fabio Grace Work Phone: [facility] Work Phone: 05-11-2022 influenza, seasonal, injectable Fabio Grace Work Phone: [facility] Work Phone: Comment on above: Series: 05-03-2022 zoster vaccine recombinant Fabio Grace Work Phone: [facility] Work Phone: 05-03-2022 zoster vaccine, unspecified formulation Fabio Grace MD Work Phone: [facility] Work Phone: 06-23-2021 Sammi COVID-19 Vac cine 0.5 ML Intramuscular Suspension Fabio Grace Work Phone: [facility] 05-11-2021 influenza, injectabl e, quadrivalent, preservative free [facility] 05-11-2021 influenza, seasonal, injectable [facility] Work Phone: 05-11-2021 influenza, seasonal, injectable, preservative free Fabio Grace Work Phone: [facility] Work Phone: 10-27-2020 pneumococcal polysaccharide vaccine, 23 valent Fabio Grace Work Phone: [facility] 09-23-2020 Sammi COVID-19 Vac cine 0.5 ML Intramuscular Suspension Fabio M Tavallaee Work Phone: [facility] 05-05-2020 Fluzone High-Dose Quadrivalent 0.7 ML Intramuscular Suspension Prefilled Syringe Fabio Tian Tavallaee Work Phone: [facility] Work Phone: 04-20-2020 influenza, seasonal, injectable Fabio M Tavallaee Work Phone: [facility] Work Phone: Comment on above: Series: 10-03-2019 pneumococcal conjuga te vaccine, 13 valent Fabio M Tavallaee Work Phone: [facility] Work Phone: 10-01-2019 pneumococcal polysaccharide vaccine, 23 valent Fabio M Tavallaee Work Phone: [facility] Work Phone: Comment on above: Series: 09-30-2019 pneumococcal vaccine , unspecified formulation Fabio M Tavallaee Work Phone: [facility] Work Phone: 05-28-2019 influenza, injectabl e, quadrivalent, preservative free Fabio M Tavallaee Work Phone: [facility] Work Phone: 05-07-2019 influenza, seasonal, injectable Fabio M Tavallaee Work Phone: [facility] Work Phone: Comment on above: Series: 04-07-2018 influenza virus vacc ine, unspecified formulation Fabio Tian Ricardoallaee Work Phone: [facility] Work Phone: 05-10-2016 Influenza virus vaccine [facility] 05-10-2016 influenza virus vacc ine, unspecified formulation Fabio Grace MD Work Phone: [facility] Work Phone: 04-12-2016 influenza, injectabl e, quadrivalent, preservative free Fabio Tian Ricardoallaee Work Phone: [facility] Work Phone: 03-31-2014 influenza virus vacc ine, whole virus Fabio Tian Christensenaee Work Phone: [facility] Work Phone: 03-31-2014 influenza, seasonal, injectable, preservative free Fabio Grace MD Work Phone: [facility] Work Phone: 04-15-2013 influenza virus vacc ine, whole virus Fabio Tian Grace Work Phone: [facility] Work Phone: 04-15-2013 influenza, injectabl e, quadrivalent, preservative free Fabio Grace MD Work Phone: [facility] Work Phone: 04-18-2009 influenza virus vacc ine, whole virus Fabio Grace Work Phone: [facility] Work Phone: 04-18-2009 influenza, injectabl e, quadrivalent, preservative free Fabio Grace MD Work Phone: [facility] Work Phone: 05-31-2008 influenza virus vacc ine, whole virus Fabioaime Grace Work Phone: [facility] 06-09-2007 influenza virus vacc kiko, unspecified formulation Fabio Grace MD Work Phone: [facility] Work Phone: 06-09-2007 influenza virus vacc ine, whole virus Fabioaime Grace Work Phone: [facility] Work Phone: Payers Date Payer Category Payer Self-pay [id number] 2022 [employer] [place] [place] Managed Care [facility] Member Subscriber Plan / Payer (Effective 2022-Present) Name: Manan Kavon Gallo Relation to Subscriber: Self Name: MananKavon Payer ID: [id number] (NAIC) Type: Not on file Address: [id number] [id number] 2022 Unknown 2016 Unknown [id number] 1955 Unknown [id number] [id number]. 2.1069 1953 Unknown [id number] [id number]. 2.1069 1953 Unknown [id number] [id number]. 2.356 1953 Unknown [id number] 2.16.840.1.167896.3.579. 2.902 1953 Unknown [id number] 2.16.840.1.879852.3.579. 2.903 1953 Unknown [id number] 2.16.840.1.898651.3.579. 2.903 1953 Unknown [id number] 2.16.840.1.981618.3.579. 2.1245 1953 Unknown [id number] 2.16.840.1.745491.3.579. 2.1245 1953 Unknown [id number] 2.16.840.1.095085.3.579. 2.1245 1953 Unknown [id number] 2.16.840.1.470683.3.579. 2.1245 1953 Unknown [id number] 2.16.840.1.341013.3.579. 2.1244 1953 Unknown [id number] 2.16.840.1.287190.3.579. 2.1244 1953 Unknown [id number] 2.16.840.1.523118.3.579. 2.124 1953 Unknown [id number] [id number]. 2.1243 Self-pay [id number] Unknown [id number] [id number]. 2.462 Social History Date Type Detail Facility Start: 11-21-2022 End: 04-27-2025 Former smoker Former smoker [facility] Work Phone: Start: 05-04-2021 Tobacco smoking status [facility] Unknown if ever smoked [facility] Start: 03-28-2017 Occasional [facility] Start: 03-28-2017 Non-smoker [facility] Start: 1955 Sex Assigned At Male [facility] Start: 11-21-2022 End: 03-07-2025 Tobacco smoking status NHIS Ex-smoker [facility] Work Phone: History of tobacco use Current smoker [facility] Work Phone: History of tobacco use Cigarette Smoker [facility] Work Phone: Start: 11-21-2022 Tobacco use and exposure Smokeless tobacco non-user [facility] Work Phone: Start: 11-21-2022 End: 04-27-2025 Alcohol intake Current drinker of alcohol (finding) [facility] Work Phone: Start: 11-21-2022 End: 04-27-2025 Tobacco use panel [facility] Work Phone: Start: 1955 Sex Assigned At Not on file [facility] Work Phone: Start: 11-11-2022 End: 11-13-2024 Exposure to SARS-CoV-2 (event) Not sure [facility] Start: 06-16-2022 Sex Male [facility] Start: 06-16-2022 Sex Male (finding) [facility] Start: 05-07-2025 Gender identity Identifies as male gender (finding) [facility] Work Phone: NEGATED: Highlighted row - - [facility] Work Phone: Functional Status Date Assessment Result Facility 05-07-2025 Functional status [facility] Work Phone: 05-07-2025 [facility] Work Phone: 04-27-2025 Patient Health Questionnaire 2 item (PHQ-2) [Reported] [facility] Work Phone: 04-27-2025 Functional status 145/87 [facility] 04-27-2025 Vital signs 73 04/27/2025 3: 53 PM Radha James MA [facility] Work Phone: 04-27-2025 [facility] Work Phone: NEGATED: Highlighted row Functional performance Functional status health issues are not documented Disease [facility] Work Phone: Mental Status Date Assessment Result Facility NEGATED: Highlighted row Cognitive function [Interpretation] Cognitive status health issues are not documented Disease [facility] Work Phone: Clinical Notes 11-21-2022 to 04-27-2025 Fabio Grace MD - 04/27/2025 4:00 PM Michelle Welshta, VOLUNTEER ASSISTANT-FACT CHECKER - 11/13/2024 3:30 PM Ivy Grace MD - 10/26/2024 4:00 PM Ivy Grace MD - 04/27/2024 4:00 PM EDT Note Date & Type Note Facility 04-27-2025 History of Present illness Narrative Subjective Patient ID: Kavon Stephens is a 69 y.o. male who presents for Follow-up (6 MONTH FU + LABS C/O LOWER BACK PAIN SINCE SATURDAY C/O GURGLING IN HIS STOMACH AT NIGHT (KEEPING HIM AWAY)). HERE FOR FU WITH LABS CO LBP X 2 DAYS CO GURGLING STOMACH OFF AND ON, NO PAIN , EXCESS GAS Review of Systems Constitutional: Negative. Negative for [...] for dysuria and urgency. Musculoskeletal: Positive for back pain. Negative for joint swelling and neck stiffness. Skin: Negative. [...] wheezing. Abdominal: General: Bowel sounds are normal. There is no distension. Palpations: Abdomen is soft. Tenderness: There is no abdominal tenderness. There is no guarding or rebound. Musculoskeletal: General: Swelling present. No tenderness, deformity or signs of injury. Normal range of motion. Cervical back: Normal range of motion. No rigidity. Lymphadenopathy: Cervical: No cervical adenopathy. Skin: General: Skin is warm. Findings: No rash. Neurological: General: No focal deficit present. Mental Status: He is alert and oriented to person, place, and time. Psychiatric: Mood and Affect: Mood normal. Behavior: Behavior normal. BP 145/87 Pulse 73 Ht 1.905 m (6' 3) Wt 102 kg (225 lb) BMI 28.12 kg/m PSA, TOTAL Date/Time Value Ref Range Status 04/23/2025 09:18 AM 3.34 < OR = 4.00 ng/mL Final Comment: The total PSA value from this assay system is standardized against the WHO standard. The test result will be approximately 20% lower when compared to the equimolar-standardized total PSA (Dayan Emeli). Comparison of serial PSA results should be interpreted with this fact in mind. This test was performed using the Siemens chemiluminescent method. Values obtained from different assay methods cannot be used interchangeably. PSA levels, regardless of value, should not be interpreted as absolute evidence of the presence or absence of disease. HEMOGLOBIN A1c Date/Time Value Ref Range Status 04/23/2025 09:18 AM 6.2 (H) <5.7 % Final Comment: For someone without known diabetes, [...] Assessment/Plan Problem List Items Addressed This Visit GERD (gastroesophageal reflux disease) Other Visit Diagnoses Acute bilateral low back pain without sciatica - Primary Relevant Medications meloxicam (Mobic) 7.5 mg tablet Other Relevant Orders XR lumbar spine 2-3 views Excessive gas Relevant Medications lactobacillus acidophilus capsule HTN addressed as follow: MONITOR BP GOAL BP LOWER THAN 130/80 LOW SALT EXERCISE DAILY Diabetes Mellitus/IFG addressed as follow: 1800 VEE ADA HGA1C GOAL LESS THAN 7 LOSE WT EXERCISE DAILY Labs reviewed with pt IF PROBLEM CONTINUE CONSIDER EGD FU 1 MO /XR documented in this encounter [facility] Work Phone: 03-07-2025 Radiology Diagnostic study note [facility] Imaging Services [address] [place], [place] [address] Abdomen/Pelvis W IV Cont ONLY MR#: [id number] Acct: [id number] Name: KAVON STEPHENS Rep #: [id number] : 1955 M 69 From: Clyde Wilson MD PCP: Dr. Fabio Grace MD Status: REG ER Study:Abdomen/Pelvis W IV Cont ONLY Date of E xam: 03/07/25 Exam# [id number] Ordering Dr: Lei Gabriel DO PROCEDURE: CT ABDOMEN/PELVIS W IV CONT ONLY 03/07/2025 REASON FOR EXAM: PAINLESS HEMATURIA TECHNIQUE: CT ABDOMEN/PELVIS W IV CONT ONLY Coronal and Sagittal reconstruction series wereprovided. CONTRAST: Isovue 370 VOLUME: 98 mL One or more dose reduction techniques were used (e.g., Automated exposure control, adjustment of the mA and/or kV according to patient size, use of iterative reconstruction technique. RADIATION DOSE SUMMARY: DLP: 1203.73 mGycm COMPARISON: 05/20/2020 FINDINGS: Lung bases: Clear, with mild dependent atelectasis. Liver: Diffuse hepatic steatosis. No focal lesion. Gallbladder: Unremarkable. No biliary ductal dilatation. Spleen: Normal in size. Small hypodense focus likely a benign cyst or hemangioma. Pancreas: Unremarkable. Adrenals: Unremarkable. Kidneys: Symmetric enhancement. No mass. Subcentimeter nonobstructive stone inthe midpole of the left kidney. No hydroureteronephrosis. Bladder: Underdistended and partially obscured by streak artifact, grossly unremarkable. Reproductive Organs: Enlarged prostate with lobular impression on the bladder. Bowel: No bowel obstruction or active inflammatory process. Normal appendix. Lymph nodes: No enlarged abdominopelvic lymph nodes. Vasculature: Normal caliber abdominal aorta and IVC. Mild atherosclerotic calcifications. Peritoneum / Retroperitoneum: No ascites or free air. Musculoskeletal: Small fat containing right inguinal hernia. Partially imaged right total hip arthroplasty hardware appears intact. Mild degenerative changes of the spine. CT/Abdomen/Pelvis W IV Cont ONLY IMPRESSION: 1. No renal mass. Subcentimeter nonobstructive left renal stone. No hydroureteronephrosis. 2. Enlarged prostate with lobular impression on the urinary bladder. 3. Diffuse hepatic steatosis. Reading Location: [id number] CC: Dr. Lei Gabriel DO; Dr. Fabio Grace MD ~ [place]: Signed [facility] 11-13-2024 History of Present illness Narrative Associated Order(s): Foreign Body Removal - Orifice [facility] Edvin James APRN-FACT CHECKER Visit Note - 11/13/2024 4:40 PM This [...] position without instability or reported dizziness. Integumentary: [place], warm, dry, and Intact. Neurologic: No focal deficits. Hearing grossly intact. Cognition and Speech: Oriented, Speech clear and coherent. Psychiatric: Cooperative, Appropriate mood & affect. Foreign Body Removal - Orifice Performed by: LUIS FERNANDO Burk Authorized by: LUIS FERNANDO Bruk Location: Location: Ear Ear location: L ear [...] care. LUIS FERNANDO Burk Advanced Practice Provider [facility] [1] No Known Allergies [2] [...] UMBILICAL HERNIA REPAIR documented in this encounter [facility] Work Phone: 10-26-2024 History of Present [...] 6 mo bw documented in this encounter [facility] Work Phone: 04-27-2024 History of Present [...] used interchangeably. This test was performed at [facility] using the [employer] PSA assay is a two-site immunoenzymatic sandwich assay. The assay is approved for measurement of prostate-specific antigen (PSA)in serum and may be used in conjunction with a digital rectal examination in men 50 years and older as an aid in detection of prostate cancer. 2-Cdach-rbytblenb inhibitors (e.g. Proscar, Finasteride, Avodart, Dutasteride and [...] 6 mo bw documented in this encounter [facility] Work Phone: 03-25-2024 History of Present [...] used interchangeably. This test was performed at [facility] using the [employer] PSA assay is a two-site immunoenzymatic sandwich assay. The assay is approved for measurement of prostate-specific antigen (PSA)in serum and may be used in conjunction with a digital rectal examination in men 50 years and older as an aid in detection of prostate cancer. 3-Vubla-bcrpwbnbu inhibitors (e.g. Proscar, Finasteride, Avodart, Dutasteride and [...] improved Fu before documented in this encounter [facility] Work Phone: 03-18-2024 History of Present [...] used interchangeably. This test was performed at [facility] using the [employer] PSA assay is a two-site immunoenzymatic sandwich assay. The assay is approved for measurement of prostate-specific antigen (PSA)in serum and may be used in conjunction with a digital rectal examination in men 50 years and older as an aid in detection of prostate cancer. 6-Yyxcd-vgycdmlts inhibitors (e.g. Proscar, Finasteride, Avodart, Dutasteride and [...] Fu 1 week documented in this encounter [facility] Work Phone: 02-17-2024 Note NEW Patient [...] AUTHENTICATED BY ASH COLLINS, ON 02/17/2024 19:33:34 [facility] 01-17-2024 History of Present illness Narrative [facility] Edvin James APRN-FACT CHECKER Visit Note - 01/17/2024 3:18 PM This [...] when he uses it) . No other arwa-wij-pdtvnej medications or home remedies for symptom management. [...] a tick bite. Planning to go to [place] in ~3 weeks, so plans to spend [...] Musculoskeletal: Grossly normal; appropriate for age. Integumentary: [place], warm, dry, and intact. No rashes or [...] prednisone and Zithromax.. COMPARISON: None. ACCESSION NUMBER(S): [id number] ORDERING CLINICIAN: EDVIN JAMES FINDINGS: The cardiomediastinal silhouette size is within normal limits. There is no focal consolidation, edema or pneumothorax. No sizeable pleural effusion. IMPRESSION: 1. No acute cardiopulmonary process. MACRO: None. Signed by: Janis Gonzales 01/17/2024 3:52 PM Dictation workstation: [id number] IMPRESSION/PLAN: Course: Worsening; stable 1. Acute bronchitis, [...] answered. LUIS FERNANDO Burk Advanced Practice Provider [facility] documented in this encounter [facility] Work Phone: 01-11-2024 History of Present illness Narrative [facility] LUIS FERNANDO Burk Visit Note [...] Mucinex DM without much relief; no other scby-wak-kjfxisu medications or home remedies for symptom management. [...] Musculoskeletal: Grossly normal; appropriate for age. Integumentary: [place], warm, dry, and intact. No rashes or [...] answered. LUIS FERNANDO Burk Advanced Practice Provider [facility] documented in this encounter [facility] Work Phone: 12-25-2023 History of Present [...] used interchangeably. This test was performed at [facility] using the [employer] PSA assay is a two-site immunoenzymatic sandwich assay. The assay is approved for measurement of prostate-specific antigen (PSA)in serum and may be used in conjunction with a digital rectal examination in men 50 years and older as an aid in detection of prostate cancer. 7-Lylna-nkycxdmkg inhibitors (e.g. Proscar, Finasteride, Avodart, Dutasteride and [...] 4 MO BW documented in this encounter [facility] Work Phone: 12-17-2023 History of Present [...] . HAS F/U. documented in this encounter [facility] Work Phone: 12-07-2023 Reason for referr al (narrative) Specialty Diagnoses / Procedures Referred By Prashanth cabral Referred To Contact Family Medicine / Primary Care Gerardo Alcantara DO [address] [place] [address] Referral ID Status Reason Start Date Expiration Date Visits Requested Visits Authorized [id number] Authorized Specialty Services Required 12/07/2023 12/06/2024 1 1 [facility] Work Phone: [phone]) 862-998305-01-2024 History of Present illness Narrative* Fabio Grace [...] used interchangeably. This test was performed at [facility] using the [employer] PSA assay is a two-site immunoenzymatic sandwich assay. The assay is approved for measurement of prostate-specific antigen (PSA)in serum and may be used in conjunction with a digital rectal examination in men 50 years and older as an aid in detection of prostate cancer. 6-Ifhtb-pypxjirou inhibitors (e.g. Proscar, Finasteride, Avodart, Dutasteride and [...] 5 W LYME CHECK [facility]: [phone]) 267-936111-01-2023 History of Present illness Narrative* Fabio Grace MD - 05/22/2023 4:15 PM EDT Subjective Patient ID: Kavon Stephens is a 67 y.o. male who presents for Follow-up (6 mo fu lab). Here for fu ith labs feels fine Co b/l wrist pain [...] used interchangeably. This test was performed at [facility] using the [employer] PSA assay is a two-site immunoenzymatic sandwich assay. The assay is approved for measurement of prostate-specific antigen (PSA)in serum and may be used in conjunction with a digital rectal examination in men 50 years and older as an aid in detection of prostate cancer. 2-Shaqh-mgowagaxk inhibitors (e.g. Proscar, Finasteride, Avodart, Dutasteride and [...] Fu 6 mo bw [facility]: [phone]) 108-797205-03-2023 History of Present illness Narrative* Fabio Grace [...] Labs reviewed with pt [facility]: Evaluation noteNo assessment information available [facility] Work Phone: Evaluation note* Diagnosis Routine general medical examination at health care facility- Primary Routine general medical examination at a health care facility Hypercholesterolemia Pure hypercholesterolemia Type 2 diabetes mellitus without complication, without long-term current use of insulin (CMS/HCC) Essential hypertension Unspecified essential hypertension Special screening for malignant neoplasm of prostate documented in this encounter [facility] Work Phone: [phone] note* Diagnosis Type 2 diabetes mellitus without complication, without long-term current use of insulin (CMS/HCC)- Primary Need for immunization against influenza Need for prophylactic vaccination and inoculation against influenza Essential hypertension Unspecified essential hypertension Hypercholesterolemia Pure hypercholesterolemia Primary osteoarthritis of both wrists Healthcare maintenance documented in this encounter [facility] Work Phone: [phone] note* Diagnosis Type 2 diabetes mellitus without complication, without long-term current use of insulin (Multi)- Primary Hypercholesterolemia Pure hypercholesterolemia Essential hypertension Unspecified essential hypertension Tick bite of left thigh, subsequent encounter documented in this encounter [facility] Work Phone: [phone] note* Diagnosis Acute gout of left foot, unspecified cause- Primary documented in this encounter [facility] Work Phone: [phone] note* Diagnosis Acute gout of left foot, unspecified cause- Primary Left foot pain Pain in soft tissues of limb Type 2 diabetes mellitus without complication, without long-term current use of insulin (Multi) Hx of gout Hypertension associated with diabetes (Multi) Unspecified essential hypertension documented in this encounter [facility] Work Phone: [phone] note* Diagnosis Type 2 diabetes mellitus without complication, without long-term current use of insulin (Multi)- Primary Hx of gout Hypertension associated with diabetes (Multi) Unspecified essential hypertension Benign prostatic hyperplasia with urinary obstruction documented in this encounter [facility] Work Phone: [phone] note* Diagnosis Hypertension associated with diabetes (Multi)- Primary Unspecified essential hypertension Type 2 diabetes mellitus without complication, without long-term current use of insulin (Multi) Hyperuricemia Other abnormal blood chemistry Special screening for malignant neoplasm of prostate Healthcare maintenance documented in this encounter [facility] Work Phone: [phone] note* Diagnosis Acute bronchitis, unspecified organism- Primary documented in this encounter [facility] Work Phone: [phone] note* Diagnosis Acute bronchitis, unspecified organism- Primary Acute bronchitis, unspecified organism documented in this encounter [facility] Work Phone: [phone] note* Diagnosis Right foot pain- Primary Pain in soft tissues of limb Gouty arthritis Gouty arthropathy, unspecified documented in this encounter [facility] Work Phone: [phone] note* Diagnosis Right foot pain Pain in soft tissues of limb Gouty arthritis Gouty arthropathy, unspecified documented in this encounter [facility] Work Phone: [phone] note* Diagnosis Gouty arthritis- Primary Gouty arthropathy, unspecified documented in this encounter [facility] Work Phone: [phone] note* Diagnosis Type 2 diabetes mellitus without complication, without long-term current use of insulin- Primary Hypertension associated with diabetes Unspecified essential hypertension Hypercholesterolemia Pure hypercholesterolemia Onychomycosis Dermatophytosis of nail Special screening for malignant neoplasm of prostate Gouty arthritis Gouty arthropathy, unspecified documented in this encounter [facility] Work Phone: [phone] note* Diagnosis Foreign body of left ear, initial encounter- Primary Bilateral impacted cerumen Impacted cerumen documented in this encounter [facility] Work Phone: [phone] note* Diagnosis Acute bilateral low back pain without sciatica- Primary Excessive gas Gastroesophageal reflux disease, unspecified whether esophagitis present documented in this encounter [facility] Work Phone: [phone] note* Diagnosis Acute bilateral low back pain without sciatica documented in this encounter [facility] Work Phone: [phone] of Present illness Narrative* The patient is [...] FOR F/U NO COMPLAINT * WELLNESS EXAM [facility] Work Phone: History of Present illness Narrative* HERE FOR F/U WITH LABS * C/O OFF AND ON SINUS DRAINAGE AND PND [facility] Work Phone: History of Present illness Narrative* HERE FOR F/U WITH LABS * C/O OFF AND ON SINUS DRAINAGE AND PND [facility] Work Phone: History of Present illness NarrativePresents today for LUMP TO RIGHT SHOULDER BLADE X 2 WEEKS modifying factors consists of NO KNOWN CAUSE associated symptoms consist of TENDER ON/OFF. NO DISCHARGE prior [facility] Work Phone: History of Present [...] FOR F/U NO COMPLAINT * WELLNESS EXAM [facility] Work Phone: History of Present illness NarrativeHERE FOR F/U NO COMPLAINTCary [facility] Work Phone: Hospital Discharge instructions* Attachments The following attachments cannot be sent through Care Everywhere. * Gout ED ([place]) * Low Purine Diet ([place]) [facility]: Reason for referral (narrative)No reason for referral information availableWKettering Health [facility] Work Phone: Reason for visit Narrative* Imaging (Routine) - Authorized Specialty Diagnoses / Procedures Referred By Contac t Referred To Contact Radiology Diagnoses Acute bilateral low back pain without sciatica Procedures XR lumbar spine 2-3 views Fabio Grace MD [address] [place] [address] Phone: tel: fax: Referral ID Status Reason Start Date Expiration Date Visits Requested Visits Authorized [id number] Authorized Perform Procedure 04/27/2025 05/28/2026 1 1 [facility] Work Phone: Summary Purpose Family [...] Will Yes May 10 4:09pm Power of Supervisor Real Estate Office Yes May 10, 2021 4:09pm Documents on File Type Date Recorded 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 HAD FLU VACCINE 2 WEEKS AGO AT [facility] Chief Complaint and Reason for Visit Chief Complaint PSA Chief Complaint Admit Date BLOODY URINE March 07, 2025 1: 10pm Reason for Referral Specialty Diagnoses / Procedures Referred By Prashanth cabral Referred To Contact Radiology Diagnoses Acute bronchitis, unspecified organism Procedures XR chest 2 views Edvin James, VOLUNTEER ASSISTANT-FACT CHECKER [address] [place] [address] Referral ID Status Reason Start Date Expiration Date Visits Requested Visits Authorized [id number] Authorized Perform Procedure 01/17/2024 01/16/2025 1 1 Specialty Diagnoses / Procedures Referred By Contac t Referred To Contact Radiology Diagnoses Right foot pain Gouty arthritis Procedures XR foot right 1-2 views Fabio Grace MD [address] [place] [address] Referral ID Status Reason Start Date Expiration Date Visits Requested Visits Authorized [id number] Authorized Perform Procedure 03/18/2024 03/18/2025 1 1 Additional Source Comments (unrecognized sect ion and content) No Status Records FoundNo Status Records FoundNo Status Records FoundNo Status Records FoundNo Status Records FoundNo Status Records FoundNo Status Records FoundNo Status Records FoundNo Status Records FoundNo Status Records FoundNo Status Records FoundNo Status Records Found INFORMATION SOURCE (unrecogn ized section and content) DATE CREATED AUTHOR 04/26/2019 formerly [facility] DATE CREATED AUTHOR AUTHOR'S ORGANIZ ATION 09/01/2019 [facility] DATE CREATED AUTHOR AUTHOR'S ORGANIZ ATION 05/24/2022 [employer] DATE CREATED AUTHOR AUTHOR'S ORGANIZ ATION 10/26/2022 formerly [facility] DATE CREATED AUTHOR AUTHOR'S ORGANIZ ATION 11/17/2022 [facility] DATE CREATED AUTHOR AUTHOR'S ORGANIZ ATION 11/24/2023 [facility] DATE CREATED AUTHOR AUTHOR'S ORGANIZ ATION 02/23/2024 [facility] DATE CREATED AUTHOR AUTHOR'S ORGANIZ ATION 04/29/2024 [facility] DATE CREATED AUTHOR AUTHOR'S ORGANIZ ATION 03/13/[address] [facility] DATE CREATED AUTHOR AUTHOR'S ORGANIZ ATION 04/28/2025 [facility] DATE CREATED AUTHOR AUTHOR'S ORGANIZ ATION 04/30/2025 [facility] DATE CREATED AUTHOR AUTHOR'S ORGANIZ ATION 05/10/2025 [facility] Goals (unrecognized section and content) Goals may be documented in a n alternate sectionGoals may be documented in an alternate sectionGoals may be documented in an alternate section <item> Privacy Markings (unrecogniz ed section and content) Section Author: Sinid Hyde PROHIBITION ON REDISCLOSURE OF CONFIDENTIAL INFORMATION [...] Fabio Grace MD [address] [place] [address] Referral ID Status Reason Start Date Expiration Date Visits Requested Visits Authorized [id number] Authorized Perform Procedure 03/18/2024 03/18/2025 1 1 Reason Comments Follow-up 1 wk fu right foot p ain Reason Comments Follow-up 6 mo fu lab discuss lamisil for toe fungus Reason Comments Earache Bi-lat ear pain x to day Reason Comments Follow-up 6 MONTH FU + LABS C/ O LOWER BACK PAIN SINCE SATURDAY C/O GURGLING IN HIS STOMACH AT NIGHT (KEEPING HIM AWAY) Care Teams (unrecognized sec tion and content) Assistant Director Of Financial Aid Relationship Specialty Start Date End Date Fabio Grace MD [address] [place] [address] PCP - General 04/03/19 Assistant Director Of Financial Aid Relationship Specialty Start Date End Date Fabio Grace MD [address] [place] [address] PCP - General 04/03/19 Team Status: Active Member Role Status Dates Dr. Fabio Grace MD Family Provider Active Dr. Fabio Grace MD Primary Care Provider Activ e Team Status: Inactive Member Role Status Dates Dr. Fabio Grace MD Primary Care Provider Activ e Dr. Jeremy Escalante MD Attending Provider, Referr ing Provider Active Assistant Director Of Financial Aid Relationship Specialty Start Date End Date Fabio Grace MD [address] [place] [address] PCP - General 04/03/19 Assistant Director Of Financial Aid Relationship Specialty Start Date End Date Fabio Grace MD [address] [place] [address] PCP - General 04/03/19 Assistant Director Of Financial Aid Relationship Specialty Start Date End Date Fabio Grace MD [address] [place] [address] PCP - General 04/03/19 Assistant Director Of Financial Aid Relationship Specialty Start Date End Date Fabio Grace MD [address] [place] [address] PCP - General 04/03/19 Assistant Director Of Financial Aid Relationship Specialty Start Date End Date Fabio Grace MD [address] [place] [address] PCP - General 04/03/19 Assistant Director Of Financial Aid Relationship Specialty Start Date End Date Fabio Grace MD [address] [place] [address] PCP - General 04/03/19 Assistant Director Of Financial Aid Relationship Specialty Start Date End Date Fabio Grace MD [address] [place] [address] PCP - General 04/03/19 Assistant Director Of Financial Aid Relationship Specialty Start Date End Date Fabio Grace MD [address] [place] [address] PCP - General 04/03/19 Team Status: Active Member Role/Relationship Status Dates Dr. Fabio Grace MD Primary Care Provider Activ e Team Status: Inactive Member Role/Relationship Status Dates Dr. Fabio Grace MD Primary Care Provider Activ e Start: March 07, 2025 End: March 07, 2025 Dr. Lei Gabriel , DO Emergency Provider Active Start: March 07, 2025 End: March 07, 2025 Assistant Director Of Financial Aid Relationship Specialty Start Date End Date Fabio Grace MD [address] [place] [address] PCP - General 04/03/19 Assistant Director Of Financial Aid Relationship Specialty Start Date End Date Fabio Grace MD [address] [place] [address] (work) PCP - General 04/03/19 FOR RECORDS PERTAINING [...] BE BASED ON THE PRIMARY CLINICAL RECORDS. [facility] [employer] [facility]. provides no warranty or guarantee of the accuracy or completeness of information in this document.
--- NOTE | 2025-05-14 23:50 | RAD_ITS ---
PROCEDURE: CHEST PA AND LATERAL 05/14/2025 REASON FOR EXAM: CHEST PAIN TECHNIQUE: Procedure Code: RADCXR Modality: DX Procedure: CHEST PA AND LATERAL COMPARISON: None available. FINDINGS: Hardware: None. Heart: The heart size is normal. Mediastinum: The mediastinal contour is unremarkable. Lungs: The lungs are clear. No pneumothorax or pleural effusion. Bones: The bones are unremarkable. RAD/Chest PA and Lateral IMPRESSION: NO ACUTE FINDINGS. Reading [facility]
[2025-05-15 00:08] LABS: Troponin T High Sensitivity 15 ng/L (<=22)
[2025-05-15 00:09] LABS: Hematocrit 42.3 % (40-54); Hemoglobin 14.3 g/dL (13.0-16.5); Immature Granulocytes Count 0.040 X10^3/uL (0.0-0.0); Mean Corp Hgb Conc 33.8 g/dL (32-36); Mean Corpuscular Volume 89.1 fL (80-94); Mean Platelet Vol. 9.7 fl (6.2-12.0); NRBC Flagged by Analyzer 0 % (0-5); Platelet Count 275 K/mm3 (150-450); RBC Distribution Width CV 13.0 % (11.6-14.6); RBC Distribution Width SD 42.5 fl (35.1-43.9); Red Blood Count 4.75 M/mm3 (4.6-6.2); White Blood Count 7.7 K/mm3 (4.4-11.0)
[2025-05-15 00:21] LABS: Anion Gap 12 (5-15); BUN 22 mg/dL (4-19); BUN/Creat Ratio 17.5 RATIO (10-20); Calcium,Total 10.5 mg/dL (7.6-11.0); Carbon Dioxide 23.4 mmol/L (21.0-32.0); Chloride 105 mmol/L (98-108); Estimated Creatinine Clearance 71.88 ml/min (50-250); Glucose 105 mg/dL (70-99); Potassium 4.1 mmol/L (3.3-5.1)
[2025-05-15 00:30] VITALS: BP 146/102; PULSE 70; RESP 16; O2SAT 95
[2025-05-15 01:00] VITALS: BP 149/82; PULSE 75; RESP 16; O2SAT 97
[2025-05-15 01:24] LABS: Troponin T High Sens 2 HR 19 ng/L (<=22)
[2025-05-15 01:34] VITALS: BP 136/92; PULSE 94; RESP 20; TEMP 36.7; O2SAT 94
== END 2025-05-15 01:37 | disposition home or self-care (01) ==
PROVIDERS: Emergency Provider Emergency Medicine; PCP Internal Medicine; Visit Provider Emergency Medicine
DX: R00.2 Palpitations (principal); R03.0 Elevated blood-pressure reading, without diagnosis of hypertension; Z87.891 Personal history of nicotine dependence; K21.9 Gastro-esophageal reflux disease without esophagitis; I10 Essential (primary) hypertension
CPT/HCPCS: 71046; 80048; 84484; 85025; 93005; 99284; A4216